=== PATIENT | male | born 1940 | race Caucasian/White ===

== ENCOUNTER 2016-09-17 08:25 | Day surgery (SDC) | payer BC ==
[~2016-09-17] VITALS: Ht 171.5 cm; Wt 87.0 kg
[~2016-09-17 08:25] MED LIST: AMLO5TAB2 PO; ASCA500 PO; ASPI81TA28 PO; CARB25TA12 PO; CEPH500C2 PO; FERR1TAB13 PO; HYZ/10015 PO; OMEP20CA9 PO; PRAM0.5T10 PO; RXC5 PO; VITACAP37 PO
[2016-09-17 09:17] VITALS: BP 147/74; PULSE 77; TEMP 36.7; O2SAT 97; Ht 171.5 cm; Wt 87.0 kg
--- NOTE | 2016-09-17 11:04 | Discharge Instructions ---
Discharge Instructions Procedure Procedure Date: Sep 17, 2016. Reason for visit: Retroperitoneal, Pelvic Mass. Discharge Discharge Date: Sep 17, 2016. Discharge Diagnosis: s/p FNA of small bowel mesenteric mass Instructions Activity Recommendations: No limitations Return to School/Work: no limitations Recommended Home Diet: No Limitations Provider Instructions: ACTIVITY RECOMMENDATIONS: * Rest today. * Resume regular activity in one day. MEDICATIONS: * May take Tylenol or Ibuprofen as needed for pain. DIET: * Resume previous diet. SPECIAL CARE INSTRUCTIONS: Call your doctor if: * Temperature above 101 degrees F. * Pain not relieved by pain medicine ordered. * Increased drainage or redness from incision. * Notify your doctor with any questions or concerns. Call your doctor or go to the nearest Emergency Department if you experience: * Increased chest pain or shortness of breath. FOLLOW UP VISIT: Follow-up with Referring Physician as scheduled. Allergies Coded Allergies: Corticosteroids (Verified Adverse Reaction, Unknown, AVOID DUE TO GASTRIC ULCER, 09/17/16) NSAIDs (Verified Adverse Reaction, Unknown, due to gastric ulcer, 09/17/16) Dave Patten Recommendations: Call your doctor if: * Temperature above 101 degrees * Pain not relieved by pain medicine ordered * There is increased drainage or redness from any incision * You have any unanswered questions or concerns. Your Doctors Instructions noted above were prepared by provider Ronald Ha. Patient Signature Section: Patient Instructions Signature Page Romeo Jeffers Patient (or Guardian) Signature/Date: I have read and understand the instructions given to me by my caregivers. Caregiver/RN/Doctor Signature/Date: The above-named patient and/or guardian has received patient instructions on this date. + Original Patient Signature Page (only) stays with chart. Please make copy for patient.
[2016-09-17 11:10] VITALS: BP 136/79; PULSE 73; TEMP 36.6; O2SAT 98
--- NOTE | 2016-09-17 11:18 | DIAGNOSTIC IMAGING REPORT ---
CT GUIDED FINE ASPIRATION OF SMALL BOWEL MESENTERIC MASS CT DOSE: 3951.52 mGycm CLINICAL HISTORY: Abdominal mass. COMPARISON STUDY: CT of the abdomen and pelvis May 14, 2016. PROCEDURE: The procedure, risks and benefits were discussed with the patient including the risk of bleeding, infection and injury to adjacent structures, particularly the risk of bowel injury. The patient agreed to the procedure and informed written consent was obtained. The procedure was performed by Dr. Ha following a timeout. Unenhanced CT through the lower abdomen and upper pelvis was performed and demonstrated an 8.3 x 6.5 cm lobulated somewhat hyperdense mass within the right lower quadrant, possibly originating from a small bowel loop. This mass has increased in size since CT of May 14, 2016 per Skin of the lower abdomen was prepped and draped in sterile fashion and local anesthesia was achieved with 1% lidocaine. Under intermittent CT guidance, 2 22-gauge fine needle aspirations utilizing Tres needles were performed of the mass. The samples were deemed preliminarily adequate with spindle cells noted on preliminary pathology. The patient tolerated the procedure well and no immediate complications were evident. IMPRESSION: CT-guided fine needle aspiration of the right lower quadrant small bowel mass extending into the small bowel mesentery. Electronically signed by: Ronald Ha M.D. 09/17/2016 11:16 AM Dictated Date/Time: 09/17/2016 11:12 AM
[2016-09-17 11:20] VITALS: BP 139/76; PULSE 69; TEMP 36.6; O2SAT 96
[2016-09-17 11:40] VITALS: BP 146/78; PULSE 70; TEMP 36.4; O2SAT 98
[2016-09-17 12:20] VITALS: BP 153/69; PULSE 78; TEMP 36.7; O2SAT 98
[2016-09-17 12:40] VITALS: BP 127/66; PULSE 74; TEMP 36.7; O2SAT 100
[2016-10-25] MEDS ORDERED: PRAM0.75 PO (09:05)
[2016-10-25] MEDS ORDERED: RESTLESS LEG MED (09:06)
[2016-10-25] MEDS ORDERED: GABAPENTIN ENACARBIL PO (10:08)
[2016-11-13] MEDS ORDERED: FERR1TAB13 PO (12:00)
[2016-11-15] MEDS ORDERED: OXYC-57 PO (08:31)
[2017-04-08] MEDS ORDERED: ASCO500T16 PO (13:43)
[2017-04-08] MEDS ORDERED: GLV/100 PO (13:43)
[2017-04-08] MEDS ORDERED: GABA-774 PO (13:43)
[2017-04-08] MEDS ORDERED: IMAT100T (13:43)
== END 2016-09-17 13:05 | disposition home or self-care (01) ==
LOC: C.ACU 08:25
PROVIDERS: ATTEND Internal Medicine Hematology & Oncology
DX: D49.0 Neoplasm of unspecified behavior of digestive system (principal)

== ENCOUNTER → 2016-10-01 | Outpatient (CLI) | payer BC ==
[~2016-10-01] MED LIST changes: +ASCO500T16 PO; -CEPH500C2 PO; +GABA-774 PO; +GABAPENTIN ENACARBIL PO; +GLV/100 PO; +IMAT100T; +OPTIRAY 320 IV PRN; +OXYC-57 PO; +PRAM0.75 PO; +RESTLESS LEG MED
--- NOTE | 2016-10-01 09:41 | DIAGNOSTIC IMAGING REPORT ---
CT OF THE CHEST WITH IV CONTRAST CLINICAL HISTORY: Anemia, lymphadenopathy, gastrointestinal stromal tumor COMPARISON STUDY: 06/04/2016 TECHNIQUE: Following the IV administration of 91 mL of Optiray-320, CT of the thorax was performed from the thoracic inlet to the lung bases. Images are reviewed in the axial, sagittal, and coronal planes. IV contrast was administered without complication. CT DOSE: 438.62 mGy.cm FINDINGS: Thyroid: There is a 8 mm left lobe thyroid nodule. Thoracic aorta: The thoracic aorta is normal in course and caliber, noting standard 3-vessel arch anatomy. No aneurysm or dissection is seen. Pulmonary vasculature: The pulmonary trunk is normal in caliber. There are no central filling defects identified to suggest pulmonary embolus. Note that this examination was not protocoled for the evaluation of pulmonary emboli. HEART: There are coronary artery calcifications present. Lungs and pleural spaces: No pleural effusions are visualized. There is a stable 6 mm groundglass left upper lobe pulmonary nodule as visualized in image #[id number]. Mediastinum: There is no mediastinal lymphadenopathy. Beryl: Clear. Axilla: Clear. Upper abdomen: Is calcified gallstone. There is mild hepatic steatosis. Skeletal structures: There are no lytic or blastic osseous lesions. IMPRESSION: 1. 6 mm groundglass left upper lobe pulmonary nodule which in retrospect remains unchanged from the preceding study 2. Subcentimeter left lobe thyroid nodule 3. No evidence of focal pulmonary consolidation 4. No evidence of pathologic adenopathy 5. Hepatic steatosis 6. Cholelithiasis. Please refer to below summary of Fleischner criteria recommendations for follow-up of incidental CT nodules (Girish Aldana, Guidelines for management of small pulmonary nodules detected on CT scans: A statement from the Fleischner Society, Radiology 237: [phone].) Low Risk Patient: Minimal or no smoking or other known risk factors for malignancy <=4 mm: No follow-up needed. >4-6 mm: Initial follow-up CT at 12 months; if unchanged, no further follow-up. >6-8 mm: Initial follow-up CT at 6-12 months then at 18-24 months if no change. >8 mm: Follow-up CT at \R\3, 9, 24 months, or PET and/or biopsy. High Risk Patient: History of smoking or other known risk factors <=4 mm: Follow-up at 12 months; if unchanged, no further follow-up. >4-6 mm: Initial follow-up CT at 6-12 months then at 18-24 months if no change. >6-8 mm: Initial follow-up CT at 3-6 months then at 9-12 and 24 months if no change. >8 mm: Same as low risk patient. Note: Nodule size measured as average of length and width. Ground glass or partly solid nodules may require longer follow-up to exclude indolent adenocarcinoma. Electronically signed by: Jorge Jama M.D. 10/01/2016 9:39 AM Dictated Date/Time: 10/01/2016 9:32 AM
== END | disposition home or self-care (01) ==
LOC: C.CTS 09:14
PROVIDERS: ATTEND Internal Medicine Hematology & Oncology
DX: C49.A0 Gastrointestinal stromal tumor, unspecified site (principal); R91.1 Solitary pulmonary nodule; E04.1 Nontoxic single thyroid nodule; K76.0 Fatty (change of) liver, not elsewhere classified; K80.20 Calculus of gallbladder without cholecystitis without obstruction

== ENCOUNTER → 2016-11-13 | Day surgery (SDC) | payer BC ==
[2016-10-31 15:14] VITALS: Ht 171.5 cm; Wt 89.4 kg
[~2016-11-13] VITALS: Ht 171.5 cm; Wt 89.4 kg
[~2016-11-13] MED LIST changes: +LIDOCAINE HCL 2% 2 ML VIAL (20MG/ML) ONE; -OPTIRAY 320 IV PRN; -PRAM0.5T10 PO; +PROPOFOL IV EMULSION 10 MG/ML 20 ML VIAL IV ONE; -RESTLESS LEG MED; -RXC5 PO; +SODIUM CHLORIDE 0.9% 500ML 500 ML IV ONE
--- NOTE | 2016-11-13 12:38 | Endo History and Physical ---
History & Physical Date of Service: Nov 13, 2016. Chief Complaint: ulcer of ileum Referring Physician: Dr. Maximiliano Miller History of Present Illness 76 yo CM who presents for colonoscopy secondary to ulcer of the ileum. Past Surgical History Hx Cardiac Surgery: No Hx Internal Defibrillator: No Hx Pacemaker: No Hx Abdominal Surgery: Yes (EXP LAPAROTOMY (SCHLEROSING MESENTERITIS)) Hx of Implantable Prosthesis: No Hx Post-Op Nausea and Vomiting: No Hx Cancer Surgery: No Hx Thoracic Surgery: No Hx Orthopedic: Yes (BROKEN LEFT RING FINGER AND LEFT PINKY FINGER AMUTATED 2015) Hx Urinary Tract Surgery: No Social History Smoking Status: Never Smoker Hx Substance Use: No Hx Alcohol Use: No Allergies Coded Allergies: Corticosteroids (Verified Adverse Reaction, Unknown, AVOID DUE TO GASTRIC ULCER, 10/31/16) NSAIDs (Verified Adverse Reaction, Unknown, due to gastric ulcer, 10/25/16) Current Medications Reported Home Medications Medications Dose Route/Sig Max Daily Dose Days Date Category Kp Ferrous Sulfate (Ferrous Sulfate) 325 Mg Tab 1 Tab PO BID 30 11/13/16 Reported [Gabapentin Enacarbil] 600 Mg PO QPM 10/25/16 Reported Mirapex (Pramipexole Dihydrochloride) 0.75 Mg Tab 1 Tab PO HS 10/25/16 Reported E-400 (Vitamin E) 400 Unit Cap 1 Tab PO QAM 06/03/16 Reported Vitamin C (Ascorbic Acid) 500 Mg Tab 1 Tab PO QAM 06/03/16 Reported Aspirin Ec (Aspirin) 81 Mg Tab 81 Mg PO QAM 06/03/16 Reported Sinemet 25MG/100MG (Carbidopa/Levodopa) Tab 1 Tab PO HS PRN 06/03/16 Reported Hyzaar 25MG/100MG (HCTZ/Losartan Potassium) Tab 1 Tab PO QAM 10/12/12 Reported Prilosec (Omeprazole) 20 Mg Cap 20 Mg PO BID 10/02/12 Reported Norvasc (Amlodipine Besylate) 5 Mg Tab 1.5 Tab PO QAM 10/02/12 Reported Vital Signs Weight (Kilograms): 89.4 Height (Feet): 5 Height (Inches): 7.5 Date Time Temp Pulse Resp B/P Pulse Ox O2 Delivery O2 Flow Rate FiO2 11/13/16 12:04 36.6 75 22 151/61 99 Room Air Physical Exam General Appearance: WD/WN, no apparent distress Respiratory/Chest: Auscultation: breath sounds normal Cardiovascular: Heart Auscultation: RRR Abdomen: Bowel Sounds: normal Inspection & Palpation: soft, non-distended, no tenderness, guarding & rebound Assessment and Plan Assessment: 76 yo CM who presents for colonoscopy secondary to ulcer of the ileum. Plan: Proceed with colonoscopy.
--- NOTE | 2016-11-13 13:18 | GI REPORT ---
Procedure Date: 11/13/2016 12:36 PM Procedure: Colonoscopy Indications: Ulcers of terminal ileum Medicines: Monitored Anesthesia Care Complications: No immediate complications. Estimated Blood Loss: Estimated blood loss: none. Procedure: Pre-Anesthesia Assessment: - Prior to the procedure, a History and Physical was performed, and patient medications and allergies were reviewed. The patient's tolerance of previous anesthesia was also reviewed. The risks and benefits of the procedure and the sedation options and risks were discussed with the patient. All questions were answered, and informed consent was obtained. Prior Anticoagulants: The patient has taken aspirin, last dose was 4 days prior to procedure. ASA Grade Assessment: III - A patient with severe systemic disease. After reviewing the risks and benefits, the patient was deemed in satisfactory condition to undergo the procedure. After I obtained informed consent, the scope was passed under direct vision. Throughout the procedure, the patient's blood pressure, pulse, and oxygen saturations were monitored continuously. The scope was introduced through the anus and advanced to the terminal ileum. The colonoscopy was performed without difficulty. The patient tolerated the procedure well. The quality of the bowel preparation was good. The terminal ileum, ileocecal valve, appendiceal orifice, and rectum were photographed. Findings: A 4 mm polyp was found in the ascending colon. The polyp was sessile. The polyp was removed with a hot snare. Resection was complete, but the polyp tissue was not retrieved. A small amount of Hematin (altered blood/wdyzzh-[id number]-qjpu material) was found in the entire colon. Scattered small-mouthed diverticula were found in the entire colon. Non-bleeding internal hemorrhoids were found during retroflexion. The hemorrhoids were small. Localized mild inflammation characterized by congestion (edema) and erythema was found in the rectum. Biopsies were taken with a cold forceps for histology. Impression: - One 4 mm polyp in the ascending colon, removed with a hot snare. Complete resection. Polyp tissue not retrieved. - Blood in the entire examined colon. - Diverticulosis in the entire examined colon. - Non-bleeding internal hemorrhoids. - Localized mild inflammation was found in the rectum secondary to colitis. Biopsied. Recommendation: - Resume previous diet. - Continue present medications. - Repeat colonoscopy in 5 years for surveillance. - Return to primary care physician as previously scheduled. Manjinder Lorenzo, DO 11/13/2016 1:17:12 PM This report has been signed electronically. Note Initiated On: 11/13/2016 12:36 PM I attest to the content of the Intraoperative Record and orders documented therein, exceptions below
--- NOTE | 2016-11-13 13:25 | Discharge Instructions ---
Endoscopy Patient Instructions Date / Procedure(s) Performed Nov 13, 2016. Colonoscopy Allergy Information Coded Allergies: Corticosteroids (Verified Adverse Reaction, Unknown, AVOID DUE TO GASTRIC ULCER, 10/31/16) NSAIDs (Verified Adverse Reaction, Unknown, due to gastric ulcer, 10/25/16) Discharge Date / Findings Nov 13, 2016. Colon polyp (not collected) Diverticulosis Internal hemorrhoids Medication Instructions Stopped Medication(s): stopped ASA 4 days ago OK to resume all medications today as prescribed. Reported Home Medications Medications Dose Route/Sig Max Daily Dose Days Date Category Kp Ferrous Sulfate (Ferrous Sulfate) 325 Mg Tab 1 Tab PO BID 30 11/13/16 Reported [Gabapentin Enacarbil] 600 Mg PO QPM 10/25/16 Reported Mirapex (Pramipexole Dihydrochloride) 0.75 Mg Tab 1 Tab PO HS 10/25/16 Reported E-400 (Vitamin E) 400 Unit Cap 1 Tab PO QAM 06/03/16 Reported Vitamin C (Ascorbic Acid) 500 Mg Tab 1 Tab PO QAM 06/03/16 Reported Aspirin Ec (Aspirin) 81 Mg Tab 81 Mg PO QAM 06/03/16 Reported Sinemet 25MG/100MG (Carbidopa/Levodopa) Tab 1 Tab PO HS PRN 06/03/16 Reported Hyzaar 25MG/100MG (HCTZ/Losartan Potassium) Tab 1 Tab PO QAM 10/12/12 Reported Prilosec (Omeprazole) 20 Mg Cap 20 Mg PO BID 10/02/12 Reported Norvasc (Amlodipine Besylate) 5 Mg Tab 1.5 Tab PO QAM 10/02/12 Reported Provider Instructions Activity Restrictions - No exercising or heavy lifting for 24 hours. - Do not drink alcohol the day of the procedure. - Do not drive a car or operate machinery until the day after the procedure. - Do not make any important decisions or sign important papers in 24 hours after the procedure. Following Day: - Return to full activity which may include returning to work/school. Diet Start your diet with liquids and light foods (jello, soup, juice, toast). Then eat your usual diet if not nauseated. Treatment For Common After Affects For mild abdominal pain, bloating, or excessive gas: - Rest - Eat lightly - Lie on right side Follow-Up Information Follow-up with Dr. Maximiliano Miller as scheduled Anesthesia Information What You Should Know You have had a procedure that required some medicine to reduce anxiety and discomfort. This treatment is called moderate sedation. After receiving the treatment, you may be sleepy, but you will be able to breathe on your own. The effects of the treatment may last for several hours. Follow these instructions along with Activity/Diet recommendations noted above: * Do NOT do anything where dizziness or clumsiness would be dangerous. * Rest quietly at home today, then you can be up and about tomorrow. * Have a responsible person stay with you the rest of today. * You may have had an I.V. today. If so, you may take the dressing off later today. Recommendations Call your doctor if: * Trouble breathing * Continuous vomiting for more than 24 hours * Temperature above 101 degrees * Severe abdominal pain or bloating * Pain not relieved by pain medicine ordered * There is increased drainage or redness from any incision * A large amount of rectal bleeding greater than 2-3 tablespoons. (If you had a polyp/s removed or have hemorrhoids, a small amount of blood - from the rectum is to be expected.) * You have any unanswered questions or concerns. IN THE EVENT OF A SERIOUS EMERGENCY, GO TO THE NEAREST EMERGENCY ROOM Your discharge instructions were prepared by provider Manjinder Lorenzo. Patient Instructions Signature Page Romeo Jeffesr Patient (or Guardian) Signature/Date: I have read and understand the instructions given to me by my caregivers. Caregiver/RN/Doctor Signature/Date: The above-named patient and/or guardian has received patient instructions on this date. + Original Patient Signature Page (only) stays with chart. Please make copy for patient.
[2016-11-13 13:44] VITALS: BP 145/77; PULSE 63; O2SAT 98
--- NOTE | 2016-11-13 13:53 | Anesthesiology Progress Note ---
Anesthesia Post Op Note Date & Time Nov 13, 2016 at 13:52 Vital Signs Pain Intensity: 0 Vital Signs Past 12 Hours Date Time Temp Pulse Resp B/P Pulse Ox O2 Delivery O2 Flow Rate FiO2 11/13/16 13:44 63 18 145/77 98 Room Air 11/13/16 13:24 62 18 135/68 98 Room Air 11/13/16 13:14 64 18 120/66 98 Room Air 11/13/16 12:59 80 16 111/61 97 Room Air 11/13/16 12:04 36.6 75 22 151/61 99 Room Air Notes Mental Status: alert / awake / arousable, participated in evaluation Pt Amnestic to Procedure: Yes Nausea / Vomiting: adequately controlled Pain: adequately controlled Airway Patency, RR, SpO2: stable & adequate BP & HR: stable & adequate Hydration State: stable & adequate Anesthetic Complications: no major complications apparent
== END | disposition home or self-care (01) ==
LOC: C.GI 11:33
PROVIDERS: ATTEND Internal Medicine
DX: K63.3 Ulcer of intestine (principal); K64.8 Other hemorrhoids; K57.30 Diverticulosis of large intestine without perforation or abscess without bleeding; Z98.890 Other specified postprocedural states; Z79.82 Long term (current) use of aspirin

== ENCOUNTER 2016-11-14 07:32 | Inpatient (IN) | payer BC, OTHER ==
--- NOTE | 2016-10-25 10:10 | PAT Medication Instructions ---
Service Date Oct 25, 2016. Current Home Medication List Amlodipine Besylate (Norvasc), 1.5 TAB PO QAM Ascorbic Acid (Vitamin C), 1 TAB PO QAM Aspirin (Aspirin Ec), 81 MG PO QAM Carbidopa/Levodopa (Sinemet 25MG/100MG), 1 TAB PO HS PRN for RESTLESS LEG Hctz/Losartan (Hyzaar 25MG/100MG), 1 TAB PO QAM Omeprazole (Prilosec), 20 MG PO BID Pramipexole Dihydrochloride (Mirapex), 1 TAB PO HS Vitamin E (E-400), 1 TAB PO QAM [Gabapentin Enacarbil], 600 MG PO QPM [Restless Leg Med ], Unknown Dose Medication Instructions For Your Scheduled Surgery Aspirin (Aspirin Ec), 81 MG PO QAM (patient will check with Dr. Martínez for instructions) - Hold the following medications 2 weeks prior to surgery: Vitamin E (E-400), 1 TAB PO QAM - Hold the following medications evening prior to surgery: Pramipexole Dihydrochloride (Mirapex), 1 TAB PO HS - Hold the following medications the morning of surgery: Hctz/Losartan (Hyzaar 25MG/100MG), 1 TAB PO QAM Ascorbic Acid (Vitamin C), 1 TAB PO QAM - Take the following medications the morning of surgery with a sip of water: Omeprazole (Prilosec), 20 MG PO BID Amlodipine Besylate (Norvasc), 1.5 TAB PO QAM - Take the following medications as scheduled the night before surgery: Gabapentin Enacarbil 600 MG PO QPM Carbidopa/Levodopa (Sinemet 25MG/100MG), 1 TAB PO HS PRN for RESTLESS LEG Omeprazole (Prilosec), 20 MG PO BID If you have any questions please call us at [phone] or [phone] ( [place]) or [phone]
[2016-10-25 10:52] LABS: BASO % 0.5 %; BASO ABS # 0.02 K/uL (0-0.2); COMPLETE YES; EOS % 4.4 %; HEMATOCRIT 32.3 % (42-52); IG% 0.5 %; LYMPH % 22.1 %; LYMPH ABS # 0.85 K/uL (1.2-3.4); MEAN CELL VOLUME 90.7 fL (80-100); MEAN CORPUSCULAR HEMOGLOBIN 29.8 pg (25-34); MEAN CORPUSCULAR HGB CONC 32.8 g/dl (32-36); MEAN PLATELET VOLUME 9.6 fL (7.4-10.4); MONO % 11.7 %; NEUT % 60.8 %; PLATELET COUNT 211 K/uL (130-400); RED BLOOD COUNT 3.56 M/uL (4.7-6.1); WHITE BLOOD COUNT 3.85 K/uL (4.8-10.8)
[2016-10-25 11:19] LABS: CALCIUM 8.3 mg/dl (8.5-10.1); CREATININE 0.9 mg/dl (0.60-1.40); POTASSIUM 3.9 mmol/L (3.5-5.1)
[2016-11-14] VITALS (9 sets, daily range): BP systolic 128–147; BP diastolic 63–76; PULSE 63–78; TEMP 36.5–37; O2SAT 93–100; Ht 172.7 cm; Wt 87.5 kg
[~2016-11-14] VITALS: Ht 172.7 cm; Wt 87.5 kg
[~2016-11-14 07:32] MED LIST changes: -ASCO500T16 PO; +CEFAZOLIN 2000 MG/60 ML D5W IV SCH; -GABA-774 PO; -GLV/100 PO; +HEPARIN SOD 5000 UNIT/0.5 ML CARP SC SCH; -IMAT100T; +LACTATED RINGER'S 1000ML 1,000 ML IV SCH; -LIDOCAINE HCL 2% 2 ML VIAL (20MG/ML) ONE; -OXYC-57 PO; -PROPOFOL IV EMULSION 10 MG/ML 20 ML VIAL IV ONE; -SODIUM CHLORIDE 0.9% 500ML 500 ML IV ONE
[2016-11-14] MEDS ORDERED: ONDANSETRON INJ 2 MG/ML 2 ML VIAL IV PRN ×3 (09:45→13:15)
[2016-11-14] MEDS ORDERED: MEPERIDINE HCL 25 MG/ML CARP IV PRN ×2 (09:45→10:45)
[2016-11-14] MEDS ORDERED: EpHEDrine SULFATE INJ 50 MG/ML AMP IV PRN ×2 (09:45→10:45)
[2016-11-14] MEDS ORDERED: ATROPINE SULFATE 0.1 MG/ML 5ML SYR IV PRN ×2 (09:45→10:45)
[2016-11-14] MEDS ORDERED: FENTANYL CITRATE INJ 50 MCG/1 ML 2 ML VIAL IV PRN ×2 (09:45→10:45)
[2016-11-14] MEDS ORDERED: HYDROmorphone INJ 1 MG/ML SYR IV PRN ×2 (09:45→10:45)
[2016-11-14] MEDS ORDERED: LABETALOL HCL IV 5 MG/ML 20ML IV PRN ×2 (09:45→10:45)
[2016-11-14] MEDS ORDERED: BUPIVACAINE/EPINEPHRINE 0.5% MPF 1:200,000 30 ML VIAL ONE (10:48)
[2016-11-14] MEDS ORDERED: MIDAZOLAM HCL 1 MG/ML 2ML VIAL ONE (10:50)
[2016-11-14] MEDS ORDERED: FENTANYL CITRATE INJ 50 MCG/1 ML 2 ML VIAL ONE (10:50)
--- NOTE | 2016-11-14 10:54 | History and Physical ---
History & Physical Date Nov 14, 2016. Chief Complaint pt was found incidentally to have an abdominal mass which was biopsied and shows gist tumor. here today for resection. History of Present Illness The patient is a 76 year old male with complaints of Past Medical/Surgical History Medical Problems: (1) Open fracture of phalanx of left little finger Additional History Hepatic Disease: No Endocrine Disorder: No Kidney Disease: No Hypertension: No Heart Disease: No Bleeding Tendencies: No Infectious Diseases: No Allergies Coded Allergies: Corticosteroids (Verified Adverse Reaction, Unknown, AVOID DUE TO GASTRIC ULCER, 11/14/16) NSAIDs (Verified Adverse Reaction, Unknown, due to gastric ulcer, 11/14/16) Home Medications Scheduled Amlodipine Besylate (Norvasc), 1.5 TAB PO QAM Ascorbic Acid (Vitamin C), 1 TAB PO QAM Aspirin (Aspirin Ec), 81 MG PO QAM Ferrous Sulfate (Kp Ferrous Sulfate), 1 TAB PO BID Hctz/Losartan (Hyzaar 25MG/100MG), 1 TAB PO QAM Omeprazole (Prilosec), 20 MG PO BID Pramipexole Dihydrochloride (Mirapex), 1 TAB PO HS Vitamin E (E-400), 1 TAB PO QAM [Gabapentin Enacarbil], 600 MG PO QPM Scheduled PRN Carbidopa/Levodopa (Sinemet 25MG/100MG), 1 TAB PO HS PRN for RESTLESS LEG Physical Examination Skin: warm/dry Eyes: normal inspection, EOMI ENT: normal ENT inspection Head: normocephalic Neck: supple Respiratory/Chest: lungs clear Cardiovascular: regular rate, rhythm, no edema Abdomen / GI: normal bowel sounds, non tender Extremities: normal inspection Neurologic/Psych: alert, oriented x 3 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
[2016-11-14] MEDS ORDERED: ONDANSETRON INJ 2 MG/ML 2 ML VIAL ONE (11:49)
[2016-11-14] MEDS ORDERED: ROCURONIUM BROMIDE 10 MG/ML 5 ML VIAL ONE (11:49)
[2016-11-14] MEDS ORDERED: HYDROmorphone INJ 2 MG/ML SYR/VIAL ONE (11:49)
[2016-11-14] MEDS ORDERED: GLYCOPYRROLATE INJ 0.2 MG/ML VIAL ONE (11:49)
[2016-11-14] MEDS ORDERED: NEOSTIGMINE METHYLSULFATE 5 MG/5 ML SYR ONE (11:49)
[2016-11-14] MEDS ORDERED: LIDOCAINE HCL 2% 2 ML VIAL (20MG/ML) ONE (11:49)
[2016-11-14] MEDS ORDERED: MoRPHine SULFATE 2 MG/ML CARP IV PRN (13:15)
[2016-11-14] MEDS ORDERED: MoRPHine SULFATE 4 MG/ML 1 ML CARP\\VIAL IV PRN ×2 (13:15)
[2016-11-14] MEDS ORDERED: ACETAMINOPHEN IV 100 ML IV PRN (13:15)
[2016-11-14] MEDS ORDERED: HYDROCODONE/ACETAMOPHEN 5/325MG TAB PO PRN ×2 (13:15)
--- NOTE | 2016-11-14 13:24 | [facility] Operative Report ---
Operative Report Operative Date Nov 14, 2016. 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 Any exceptions are noted below.
--- NOTE | 2016-11-14 13:34 | Anesthesiology Progress Note ---
Anesthesia Post Op Note Date & Time Nov 14, 2016 at 13:33 Vital Signs Pain Intensity: 2 Vital Signs Past 12 Hours Date Time Temp Pulse Resp B/P Pulse Ox O2 Delivery O2 Flow Rate FiO2 11/14/16 13:20 56 16 143/69 100 Nasal Cannula 2 11/14/16 13:10 64 16 149/74 100 Nasal Cannula 2 11/14/16 13:00 63 16 152/76 100 Mask 10 11/14/16 12:50 60 16 150/76 100 Mask 10 11/14/16 12:40 36.2 63 16 161/79 100 Mask 10 11/14/16 08:16 36.6 63 18 145/70 95 Room Air Notes Mental Status: alert / awake / arousable, participated in evaluation Pt Amnestic to Procedure: Yes Nausea / Vomiting: adequately controlled Pain: adequately controlled Airway Patency, RR, SpO2: stable & adequate BP & HR: stable & adequate Hydration State: stable & adequate Anesthetic Complications: no major complications apparent
[2016-11-14] MEDS: LACTATED RINGER'S 1000ML 1,000 ML IV SCH ×2 (15:15→20:53)
[2016-11-14] MEDS ORDERED: CEFAZOLIN SOD 2000 MG in DEXTROSE 5% 50ML IV SCH (15:30)
--- NOTE | 2016-11-14 16:04 | OPERATIVE REPORT ---
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 POSTOPERATIVE DIAGNOSES: Same as well as intra-abdominal adhesions as well as diffuse mesenteric fibrosis. PROCEDURES PERFORMED: Exploratory laparotomy, partial small bowel resection and enterolysis. SURGEON: Dr. Martínez. EXECUTIVE RECEPTIONIST: Erika Osorio PA-C. ESTIMATED BLOOD LOSS: Probably 20 mL. COMPLICATIONS: No immediate. ANESTHESIA: General endotracheal. The patient tolerated the procedure well. OPERATIVE NOTE: After informed consent was obtained, the patient was taken to the operating suite and placed in the supine position. After successful intubation, a Louie catheter was placed and the abdomen was sterilely prepped and draped in usual fashion. I made a midline incision through his old scar line using a 10 blade scalpel. This began above the umbilicus, curved around it down to the suprapubic region. We took this down through the soft tissue using electrocautery. I opened the fascia using electrocautery and elevated the peritoneum using hemostats. We performed this at the upper pole of the incision. Once we opened the peritoneum, I was quite surprised how few adhesions were to the midline considering his prior surgery. The midline was pretty much free of adhesions. I was able to take this down through the entire incision using electrocautery. Once in the abdomen, the mass itself was rather large, probably the size of a softball and it was readily palpable. There were adhesions in the abdominal cavity from his prior surgeries and I took these down as I came to them using primarily sharp Metzenbaum scissor lysis. We were able to deliver the tumor easily out of the wound. It was attached to the small bowel itself. It was in the distal one-third of the small bowel, but not near the ileocecal valve. I was able to transect small bowel on either side with a SHANEKA linear stapler. We used jeter cartridges. I then used the LigaSure device to come across the mesentery. Once the tumor was completely resected, we passed it off. I performed a side to side small bowel anastomosis again with a SHANEKA jeter cartridge stapler. The common enterotomy was closed using a TA 60 stapling device. A 3-[address] was [address] to [address] a crotch stitch as well as to oversew all the staple lines using Lembert fashion. I then closed the mesenteric defect using 0 Vicryl in a simple interrupted fashion. We then thoroughly irrigated the wound. Throughout the abdomen, he had very firm calcifications. 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 He is asymptomatic from these. I could see why they were not resected before as almost all of them are at the base of the mesentery making resection and even biopsy extremely dangerous for infarction of the small bowel. I considered whether or not to reperform a new biopsy; however, again because of location at the base of the mesentery, I opted not to since we already had a diagnosis. These nodules were throughout the small bowel mesentery from the proximal small bowel to the distal small bowel and varying sizes. There were extremely firm calcifications. No other abnormalities were identified or palpated. The remainder of the small bowel and large bowel appeared healthy. We performed the final irrigation. There was adequate hemostasis. We closed the fascia using a #1 PDS starting either pole running them and securing them in the midline. Soft tissue was irrigated and skin was closed using skin faviola. Silver dressing was applied. The patient was awakened, extubated, and transferred to recovery in stable condition. I attest to the content of the Intraoperative Record and any orders documented therein. Any exceptio ns are noted below.
[2016-11-15] VITALS (7 sets, daily range): BP systolic 118–157; BP diastolic 51–79; PULSE 70–78; TEMP 36.6–36.9; O2SAT 90–97
[2016-11-15] MEDS: LACTATED RINGER'S 1000ML 1,000 ML IV SCH ×3 (04:40→21:34)
[2016-11-15 06:08] LABS: BASO % 0.2 %; BASO ABS # 0.02 K/uL (0-0.2); COMPLETE YES; EOS % 0.4 %; HEMATOCRIT 35.3 % (42-52); IG% 0.1 %; LYMPH % 7.2 %; LYMPH ABS # 0.58 K/uL (1.2-3.4); MEAN CELL VOLUME 91.5 fL (80-100); MEAN CORPUSCULAR HEMOGLOBIN 30.1 pg (25-34); MEAN CORPUSCULAR HGB CONC 32.9 g/dl (32-36); MEAN PLATELET VOLUME 9.2 fL (7.4-10.4); MONO % 6.9 %; NEUT % 85.2 %; PLATELET COUNT 247 K/uL (130-400); RED BLOOD COUNT 3.86 M/uL (4.7-6.1); WHITE BLOOD COUNT 8.08 K/uL (4.8-10.8)
[2016-11-15 06:38] LABS: BUN/CREATININE RATIO 10.8 (10-20); CALCIUM 8.4 mg/dl (8.5-10.1); CREATININE 0.76 mg/dl (0.60-1.40); POTASSIUM 3.6 mmol/L (3.5-5.1)
[2016-11-15 06:41] LABS: ALB/GLOB RATIO 1.1 (0.9-2)
--- NOTE | 2016-11-15 08:30 | Surgery Progress Note ---
Surgery Progress Note Date of Service Nov 15, 2016. Subjective Post OP Day: 1 + feeling well main issue is his restless legs..did not get his oral meds for that incisional pain controlled has been oob no n/v Objective Vital Signs: Date Time Temp Pulse Resp B/P Pulse Ox O2 Delivery O2 Flow Rate FiO2 11/15/16 08:02 36.7 73 16 121/69 90 Room Air 11/15/16 03:05 36.9 77 19 139/51 93 Room Air 11/14/16 23:30 Room Air 11/14/16 23:06 36.7 78 18 144/67 93 Room Air 11/14/16 19:03 37.0 74 16 131/63 94 Room Air 11/14/16 17:34 36.5 72 18 134/65 99 Nasal Cannula 2.0 11/14/16 16:31 36.8 65 16 128/69 100 Nasal Cannula 2.0 11/14/16 16:30 97 Nasal Cannula 2.0 11/14/16 15:30 36.9 71 16 136/76 97 Nasal Cannula 2.0 11/14/16 15:03 36.6 76 19 131/74 100 Nasal Cannula 2.0 11/14/16 14:25 36.5 72 16 147/76 99 Nasal Cannula 2.0 11/14/16 14:25 99 Room Air 2.0 11/14/16 14:25 99 Nasal Cannula 2.0 11/14/16 14:00 36.4 69 18 137/62 100 Nasal Cannula 2 11/14/16 13:50 36.4 69 14 137/69 100 Nasal Cannula 2 11/14/16 13:40 55 16 132/64 100 Nasal Cannula 2 11/14/16 13:30 36.4 56 14 133/66 100 Nasal Cannula 2 11/14/16 13:20 56 16 143/69 100 Nasal Cannula 2 11/14/16 13:10 64 16 149/74 100 Nasal Cannula 2 11/14/16 13:00 63 16 152/76 100 Mask 10 11/14/16 12:50 60 16 150/76 100 Mask 10 11/14/16 12:40 36.2 63 16 161/79 100 Mask 10 General Appearance: no apparent distress Abdomen: non distended, soft Incision(s): clean, dry, intact Laboratory Results: Results Past 24 Hours Test 11/14/16 08:36 11/14/16 12:44 11/15/16 05:43 Range/Units Bedside Glucose 107 117 70-99 mg/dl White Blood Count 8.08 4.8-10.8 K/uL Red Blood Count 3.86 4.7-6.1 M/uL Hemoglobin 11.6 14.0-18.0 g/dL Hematocrit 35.3 42-52 % Mean Corpuscular Volume 91.5 80-100 fL Mean Corpuscular Hemoglobin 30.1 25-34 pg Mean Corpuscular Hemoglobin Concent 32.9 32-36 g/dl Platelet Count 247 130-400 K/uL Mean Platelet Volume 9.2 7.4-10.4 fL Neutrophils (%) (Auto) 85.2 % Lymphocytes (%) (Auto) 7.2 % Monocytes (%) (Auto) 6.9 % Eosinophils (%) (Auto) 0.4 % Basophils (%) (Auto) 0.2 % Neutrophils # (Auto) 6.88 1.4-6.5 K/uL Lymphocytes # (Auto) 0.58 1.2-3.4 K/uL Monocytes # (Auto) 0.56 0.11-0.59 K/uL Eosinophils # (Auto) 0.03 0-0.5 K/uL Basophils # (Auto) 0.02 0-0.2 K/uL RDW Standard Deviation 47.1 36.4-46.3 fL RDW Coefficient of Variation 14.0 11.5-14.5 % Immature Granulocyte % (Auto) 0.1 % Immature Granulocyte # (Auto) 0.01 0.00-0.02 K/uL Sodium Level 144 136-145 mmol/L Potassium Level 3.6 3.5-5.1 mmol/L Chloride Level 107 98-107 mmol/L Carbon Dioxide Level 28 21-32 mmol/L Anion Gap 9.0 3-11 mmol/L Blood Urea Nitrogen 8 7-18 mg/dl Creatinine 0.76 0.60-1.40 mg/dl Est Creatinine Clear Calc Drug Dose 90.9 ml/min Estimated GFR () 104.2 Estimated GFR (Non- 89.9 BUN/Creatinine Ratio 10.8 10-20 Random Glucose 91 70-99 mg/dl Calcium Level 8.4 8.5-10.1 mg/dl Total Bilirubin 0.5 0.2-1 mg/dl Aspartate Amino Transf (AST/SGOT) 16 15-37 U/L Alanine Aminotransferase (ALT/SGPT) 24 12-78 U/L Alkaline Phosphatase 47 45-117 U/L Total Protein 5.7 6.4-8.2 gm/dl Albumin 3.0 3.4-5.0 gm/dl Globulin 2.7 2.5-4.0 gm/dl Albumin/Globulin Ratio 1.1 0.9-2 Assessment & Plan 09/17/16 no acute issues will restart home leg meds increase activity d/c tarsha Larose covering for weekend
[2016-11-15] MEDS ORDERED: OXYC-57 PO (08:31)
--- NOTE | 2016-11-15 08:33 | Discharge Instructions ---
Discharge Instructions Date of Service Nov 15, 2016. Admission Reason for Admission: Gist Tumor Discharge Discharge Diagnosis / Problem: GIST tumor small bowel Discharge Goals Goal(s): Therapeutic intervention Activity Recommendations Activity Limitations: as noted below Lifting Limitations: no more than 10 pounds Exercise/Sports Limitations: until after follow-up appointment May Resume Sexual Activity: after follow-up appointment Shower/Bathe: no limitations . Instructions / Follow-Up Instructions / Follow-Up call [phone] if any problems/questions f/u Dr. Martínez 1-2 weeks Current Hospital Diet Patient's current hospital diet: Discharge Diet Recommended Diet: Regular Diet Procedures Procedures Performed: Open Partial Small Bowel Resection Pending Studies Studies pending at discharge: yes List of pending studies: path report Medical Emergencies . Who to Call and When: Medical Emergencies: If at any time you feel your situation is an emergency, please call 911 immediately. . Non-Emergent Contact Non-Emergency issues call your: Primary Care Provider, Surgeon Call Non-Emergent contact if: temperature is above 101, wound has increased drainage, wound has increased redness, wound has increased pain . "Provider Documentation" section prepared by Keyur Martínez. VTE Core Measure Inpt VTE Proph given/why not?: Unfractionated heparin SQ, SCD's
[2016-11-15] MEDS ORDERED: PRAMIPEXOLE DIHYDROCHLORIDE 0.25MG TAB PO SCH (09:00)
[2016-11-15] MEDS ORDERED: GABAPENTIN 600 MG TAB PO SCH ×2 (09:00→21:00)
[2016-11-15] MEDS ORDERED: CARBIDOPA/LEVODOPA 25/100MG EXT REL TAB PO SCH ×2 (09:00)
[2016-11-15] MEDS: AMLODIPINE BESYLATE 5 MG TAB PO SCH (09:06)
[2016-11-15] MEDS: CARBIDOPA/LEVODOPA 25/100MG EXT REL TAB PO SCH (19:10)
[2016-11-15] MEDS: PRAMIPEXOLE DIHYDROCHLORIDE 0.25MG TAB PO SCH (19:11)
[2016-11-16] MEDS: LACTATED RINGER'S 1000ML 1,000 ML IV SCH ×3 (04:44→21:12)
[2016-11-16 05:50] LABS: BASO % 0.1 %; BASO ABS # 0.01 K/uL (0-0.2); COMPLETE YES; EOS % 5.2 %; HEMATOCRIT 33.6 % (42-52); IG% 0.1 %; LYMPH % 10.7 %; LYMPH ABS # 0.74 K/uL (1.2-3.4); MEAN CELL VOLUME 92.1 fL (80-100); MEAN CORPUSCULAR HEMOGLOBIN 29.9 pg (25-34); MEAN CORPUSCULAR HGB CONC 32.4 g/dl (32-36); MEAN PLATELET VOLUME 9.1 fL (7.4-10.4); MONO % 10.3 %; NEUT % 73.6 %; PLATELET COUNT 217 K/uL (130-400); RED BLOOD COUNT 3.65 M/uL (4.7-6.1)
[2016-11-16 07:35] VITALS: BP 158/88; PULSE 68; TEMP 36.9; O2SAT 96
[2016-11-16] MEDS: AMLODIPINE BESYLATE 5 MG TAB PO SCH (08:47)
--- NOTE | 2016-11-16 10:30 | Surgery Progress Note ---
Surgery Progress Note Date of Service Nov 16, 2016. Subjective Post OP Day: 2 + feeling well slept well. restless legs doing much better on meds. no complaints. dontrell liquids. pain controlled Objective Vital Signs: Date Time Temp Pulse Resp B/P Pulse Ox O2 Delivery O2 Flow Rate FiO2 11/16/16 07:35 36.9 68 17 158/88 96 Room Air 11/16/16 07:35 Room Air 11/15/16 23:48 Room Air 11/15/16 22:57 36.7 70 16 118/69 95 Room Air 11/15/16 16:00 97 Room Air 11/15/16 15:07 36.6 78 18 157/79 94 Room Air 11/15/16 11:48 36.8 72 14 135/67 95 Room Air General Appearance: no apparent distress Head: normocephalic Neck: supple Respiratory/Chest: no respiratory distress, no accessory muscle use Abdomen: non distended, soft Incision(s): clean, dry, intact Extremities: non-tender Laboratory Results: Results Past 24 Hours Test 11/16/16 05:27 Range/Units White Blood Count 6.90 4.8-10.8 K/uL Red Blood Count 3.65 4.7-6.1 M/uL Hemoglobin 10.9 14.0-18.0 g/dL Hematocrit 33.6 42-52 % Mean Corpuscular Volume 92.1 80-100 fL Mean Corpuscular Hemoglobin 29.9 25-34 pg Mean Corpuscular Hemoglobin Concent 32.4 32-36 g/dl Platelet Count 217 130-400 K/uL Mean Platelet Volume 9.1 7.4-10.4 fL Neutrophils (%) (Auto) 73.6 % Lymphocytes (%) (Auto) 10.7 % Monocytes (%) (Auto) 10.3 % Eosinophils (%) (Auto) 5.2 % Basophils (%) (Auto) 0.1 % Neutrophils # (Auto) 5.07 1.4-6.5 K/uL Lymphocytes # (Auto) 0.74 1.2-3.4 K/uL Monocytes # (Auto) 0.71 0.11-0.59 K/uL Eosinophils # (Auto) 0.36 0-0.5 K/uL Basophils # (Auto) 0.01 0-0.2 K/uL RDW Standard Deviation 46.6 36.4-46.3 fL RDW Coefficient of Variation 13.8 11.5-14.5 % Immature Granulocyte % (Auto) 0.1 % Immature Granulocyte # (Auto) 0.01 0.00-0.02 K/uL Assessment & Plan 09/18/16 doing very well awaiting bowel fx pain controlled wound looks good. 09/17/16 no acute issues will restart home leg meds increase activity d/c [place] start juliane Larose covering for weekend 09/17/16 no acute issues will restart home leg meds increase activity d/c [place] start juliane Larose covering for weekend
[2016-11-16 14:55] VITALS: BP 147/77; PULSE 75; TEMP 37; O2SAT 96
[2016-11-16 16:00] VITALS: O2SAT 96
[2016-11-16] MEDS: PRAMIPEXOLE DIHYDROCHLORIDE 0.25MG TAB PO SCH (19:17)
[2016-11-16] MEDS: CARBIDOPA/LEVODOPA 25/100MG EXT REL TAB PO SCH (19:18)
[2016-11-16 22:55] VITALS: BP 111/52; PULSE 73; TEMP 37.1; O2SAT 96
[2016-11-17] MEDS: LACTATED RINGER'S 1000ML 1,000 ML IV SCH (04:57)
[2016-11-17 05:52] LABS: BASO % 0.1 %; BASO ABS # 0.01 K/uL (0-0.2); COMPLETE YES; EOS % 3.3 %; HEMATOCRIT 32.9 % (42-52); IG% 0.2 %; LYMPH % 7.7 %; LYMPH ABS # 0.78 K/uL (1.2-3.4); MEAN CELL VOLUME 93.5 fL (80-100); MEAN CORPUSCULAR HEMOGLOBIN 29.8 pg (25-34); MEAN CORPUSCULAR HGB CONC 31.9 g/dl (32-36); MEAN PLATELET VOLUME 9.5 fL (7.4-10.4); MONO % 5.2 %; NEUT % 83.5 %; PLATELET COUNT 221 K/uL (130-400); RED BLOOD COUNT 3.52 M/uL (4.7-6.1); WHITE BLOOD COUNT 10.09 K/uL (4.8-10.8)
[2016-11-17 08:06] VITALS: BP 130/72; PULSE 76; TEMP 36.9; O2SAT 94
[2016-11-17] MEDS: AMLODIPINE BESYLATE 5 MG TAB PO SCH (09:02)
--- NOTE | 2016-11-17 09:19 | Surgery Progress Note ---
Surgery Progress Note Date of Service Nov 17, 2016. Subjective Post OP Day: 3 + feeling well + bm's...multiple/loose minimal abdominal pain dontrell liquid diet Objective Vital Signs: Date Time Temp Pulse Resp B/P Pulse Ox O2 Delivery O2 Flow Rate FiO2 11/17/16 09:09 Room Air 11/17/16 08:06 36.9 76 19 130/72 94 Room Air 11/16/16 23:50 Room Air 11/16/16 22:55 37.1 73 16 111/52 96 Room Air 11/16/16 16:00 96 Room Air 11/16/16 14:55 37.0 75 18 147/77 96 Room Air General Appearance: no apparent distress Abdomen: non tender, non distended, soft Incision(s): clean, dry, intact, no erythema Laboratory Results: Results Past 24 Hours Test 11/17/16 05:34 Range/Units White Blood Count 10.09 4.8-10.8 K/uL Red Blood Count 3.52 4.7-6.1 M/uL Hemoglobin 10.5 14.0-18.0 g/dL Hematocrit 32.9 42-52 % Mean Corpuscular Volume 93.5 80-100 fL Mean Corpuscular Hemoglobin 29.8 25-34 pg Mean Corpuscular Hemoglobin Concent 31.9 32-36 g/dl Platelet Count 221 130-400 K/uL Mean Platelet Volume 9.5 7.4-10.4 fL Neutrophils (%) (Auto) 83.5 % Lymphocytes (%) (Auto) 7.7 % Monocytes (%) (Auto) 5.2 % Eosinophils (%) (Auto) 3.3 % Basophils (%) (Auto) 0.1 % Neutrophils # (Auto) 8.43 1.4-6.5 K/uL Lymphocytes # (Auto) 0.78 1.2-3.4 K/uL Monocytes # (Auto) 0.52 0.11-0.59 K/uL Eosinophils # (Auto) 0.33 0-0.5 K/uL Basophils # (Auto) 0.01 0-0.2 K/uL RDW Standard Deviation 48.0 36.4-46.3 fL RDW Coefficient of Variation 14.0 11.5-14.5 % Immature Granulocyte % (Auto) 0.2 % Immature Granulocyte # (Auto) 0.02 0.00-0.02 K/uL Assessment & Plan 09/19/16 doing great advance diet d/c ivf if dontrell diet and continues to do well will plan d/c home tomorrow 09/18/16 doing very well awaiting bowel fx pain controlled wound looks good. 09/17/16 no acute issues will restart home leg meds increase activity d/c [place] start juliane Larose covering for weekend 09/18/16 doing very well awaiting bowel fx pain controlled wound looks good. 09/17/16 no acute issues will restart home leg meds increase activity d/c tarsha Larose covering for weekend
[2016-11-17] MEDS ORDERED: NURSING VERBAL MED ORDER ONE (14:00)
[2016-11-17 15:14] VITALS: BP 112/64; PULSE 74; TEMP 37.1; O2SAT 95
[2016-11-17 16:00] VITALS: O2SAT 94
[2016-11-17] MEDS ORDERED: GABAPENTIN 600 MG TAB PO SCH (17:00)
[2016-11-17] MEDS ORDERED: GABAPENTIN 600 MG TAB PO ONE (17:30)
[2016-11-17] MEDS: CARBIDOPA/LEVODOPA 25/100MG EXT REL TAB PO SCH (18:52)
[2016-11-17] MEDS: PRAMIPEXOLE DIHYDROCHLORIDE 0.25MG TAB PO SCH (18:52)
[2016-11-17 23:49] VITALS: BP 139/76; PULSE 74; TEMP 36.9; O2SAT 94
[2016-11-18 06:25] LABS: BASO % 0.2 %; BASO ABS # 0.02 K/uL (0-0.2); COMPLETE YES; EOS % 4.6 %; HEMATOCRIT 34.7 % (42-52); IG% 0.1 %; LYMPH % 10.3 %; LYMPH ABS # 0.86 K/uL (1.2-3.4); MEAN CORPUSCULAR HEMOGLOBIN 30.3 pg (25-34); MEAN CORPUSCULAR HGB CONC 32.6 g/dl (32-36); MEAN PLATELET VOLUME 9.6 fL (7.4-10.4); MONO % 10.3 %; NEUT % 74.5 %; PLATELET COUNT 246 K/uL (130-400); RED BLOOD COUNT 3.73 M/uL (4.7-6.1); WHITE BLOOD COUNT 8.35 K/uL (4.8-10.8)
[2016-11-18 07:23] VITALS: BP 155/83; PULSE 69; TEMP 36.8; O2SAT 96
[2016-11-18] MEDS: AMLODIPINE BESYLATE 5 MG TAB PO SCH (08:52)
--- NOTE | 2016-11-18 09:05 | Surgery Progress Note ---
Surgery Progress Note Date of Service Nov 18, 2016. Subjective Post OP Day: 4 + feeling well no new issues. loose bm's improving. dontrell diet Objective Vital Signs: Date Time Temp Pulse Resp B/P Pulse Ox O2 Delivery O2 Flow Rate FiO2 11/18/16 07:54 Room Air 11/18/16 07:23 36.8 69 20 155/83 96 Room Air 11/18/16 00:55 Room Air 11/17/16 23:49 36.9 74 18 139/76 94 Room Air 11/17/16 16:00 94 Room Air 11/17/16 15:14 37.1 74 18 112/64 95 Room Air 11/17/16 09:09 Room Air General Appearance: no apparent distress Abdomen: non distended, soft Incision(s): clean, dry, intact Laboratory Results: Results Past 24 Hours Test 11/18/16 05:44 Range/Units White Blood Count 8.35 4.8-10.8 K/uL Red Blood Count 3.73 4.7-6.1 M/uL Hemoglobin 11.3 14.0-18.0 g/dL Hematocrit 34.7 42-52 % Mean Corpuscular Volume 93.0 80-100 fL Mean Corpuscular Hemoglobin 30.3 25-34 pg Mean Corpuscular Hemoglobin Concent 32.6 32-36 g/dl Platelet Count 246 130-400 K/uL Mean Platelet Volume 9.6 7.4-10.4 fL Neutrophils (%) (Auto) 74.5 % Lymphocytes (%) (Auto) 10.3 % Monocytes (%) (Auto) 10.3 % Eosinophils (%) (Auto) 4.6 % Basophils (%) (Auto) 0.2 % Neutrophils # (Auto) 6.22 1.4-6.5 K/uL Lymphocytes # (Auto) 0.86 1.2-3.4 K/uL Monocytes # (Auto) 0.86 0.11-0.59 K/uL Eosinophils # (Auto) 0.38 0-0.5 K/uL Basophils # (Auto) 0.02 0-0.2 K/uL RDW Standard Deviation 47.2 36.4-46.3 fL RDW Coefficient of Variation 13.9 11.5-14.5 % Immature Granulocyte % (Auto) 0.1 % Immature Granulocyte # (Auto) 0.01 0.00-0.02 K/uL Assessment & Plan 09/20/16 doing well. ok for d/c instructions given 09/19/16 doing great advance diet d/c ivf if dontrell diet and continues to do well will plan d/c home tomorrow 09/18/16 doing very well awaiting bowel fx pain controlled wound looks good. 09/17/16 no acute issues will restart home leg meds increase activity d/c tarsha Larose covering for weekend 09/19/16 doing great advance diet d/c ivf if dontrell diet and continues to do well will plan d/c home tomorrow 09/18/16 doing very well awaiting bowel fx pain controlled wound looks good. 09/17/16 no acute issues will restart home leg meds increase activity d/c tarsha Larose covering for weekend
[2016-11-18 10:04] VITALS: BP 155/83; PULSE 69; TEMP 36.8; O2SAT 96
--- NOTE | 2016-11-18 12:51 | DISCHARGE SUMMARY ---
DISCHARGE DIAGNOSIS: Small bowel gastrointestinal stromal tumor. DISCHARGE SUMMARY: This is a 76-year-old male who as an outpatient workup was incidentally found to have a large mass in his small intestine. A biopsy had been performed and showed a gastrointestinal stromal tumor. He was brought to the hospital on 11/14/2016 and electively underwent an open partial small bowel resection to remove the tumor. The surgery went without complication and smoothly. He was admitted to the med/surg floor for postoperative care. The patient essentially had an uncomplicated postoperative course. His pain was controlled and he was started on liquids on postop day 1. By postop day 2 the patient had been having some bowel movements and we slowly advanced his diet. We continued to monitor his labs as well as his pain control. By postoperative day 4 the patient was tolerating a regular diet. His bowels were moving regularly. His labs were normal and he was deemed stable for discharge. He was discharged on 11/18/2016 with written and verbal discharge instructions. He was to followup with myself within a 1 week period.
[2017-04-08] MEDS ORDERED: IMAT100T (13:43)
[2017-04-08] MEDS ORDERED: GLV/100 PO (13:43)
[2017-04-08] MEDS ORDERED: ASCO500T16 PO (13:43)
[2017-04-08] MEDS ORDERED: GABA-774 PO (13:43)
== END 2016-11-18 11:15 | disposition home or self-care (01) | DRG 988 ==
LOC: ENRESERVTM → ENRESERVDT → C.ACU 07:32 → C.MSN 10:45 → EDBEDREQ 13:35
PROVIDERS: ADMIT Surgery; ATTEND Surgery
PROC: 0DBB0ZZ Excision of Ileum, Open Approach (ICD-10-PCS; principal; 2016-11-14 09:30)
DX: C49.A3 Gastrointestinal stromal tumor of small intestine (principal); K65.4 Sclerosing mesenteritis; K66.0 Peritoneal adhesions (postprocedural) (postinfection); I10 Essential (primary) hypertension; K21.9 Gastro-esophageal reflux disease without esophagitis; M19.90 Unspecified osteoarthritis, unspecified site; R73.03 Prediabetes; D64.9 Anemia, unspecified; G25.81 Restless legs syndrome; G47.33 Obstructive sleep apnea (adult) (pediatric); E66.9 Obesity, unspecified; Z68.30 Body mass index [BMI] 30.0-30.9, adult; Z99.89 Dependence on other enabling machines and devices; Z79.82 Long term (current) use of aspirin; Z79.899 Other long term (current) drug therapy; K63.3 Ulcer of intestine; K64.8 Other hemorrhoids; K57.30 Diverticulosis of large intestine without perforation or abscess without bleeding; Z98.890 Other specified postprocedural states

== ENCOUNTER → 2016-11-27 | Outpatient (CLI) | payer BC ==
[~2016-11-27] MED LIST changes: +ASCO500T16 PO; -CEFAZOLIN 2000 MG/60 ML D5W IV SCH; +GABA-774 PO; +GLV/100 PO; -HEPARIN SOD 5000 UNIT/0.5 ML CARP SC SCH; +IMAT100T; -LACTATED RINGER'S 1000ML 1,000 ML IV SCH; +OXYC-57 PO
--- NOTE | 2016-12-04 05:33 | CODING QUERY NO DIAGNOSIS ---
TREATMENT RENDERED WITHOUT A DIAGNOSIS To promote full compliance with coding requirements relating to patient care, physician participation is requested in all cases of pediatric critical care nurse uncertainty. Please assist us with providing a diagnosis/symptom for the test(s) below: A diagnosis/symptom was not documented on your Order. A valid diagnosis/symptom is required to bill all insurances. Please remember that we are unable to code a diagnosis of rule out, probable, possible, questionable, or suspected. Tests that require a diagnosis: DOS: 11/27/16 * C-KIT DIAGNOSIS: * PDGRA DIAGNOSIS: Provider Signature: Date: Thank you Cici Villegas [facility] Information Management Once completed, please kindly fax back to [phone] For questions please call [phone]
== END | disposition home or self-care (01) ==
LOC: C.PATHSPEC 13:22
PROVIDERS: ATTEND Internal Medicine Hematology & Oncology
DX: C49.4 Malignant neoplasm of connective and soft tissue of abdomen (principal)

== ENCOUNTER → 2017-02-17 | Outpatient (CLI) | payer BC ==
[~2017-02-17] MED LIST changes: +FENTANYL CITRATE INJ 50 MCG/1 ML 2 ML VIAL ONE; +LIDOCAINE HCL 2% 2 ML VIAL (20MG/ML) ONE; +OPTIRAY 320 IV PRN; +PROPOFOL IV EMULSION 10 MG/ML 20 ML VIAL IV ONE
--- NOTE | 2017-02-17 11:03 | DIAGNOSTIC IMAGING REPORT ---
ABDOMEN AND PELVIS CT WITH IV AND ORAL CONTRAST CT DOSE: 820.41 mGy.cm HISTORY: GI stromal tumor. Postop. Follow-up. TECHNIQUE: Multiaxial CT images of the abdomen and pelvis were performed following the use of intravenous and oral contrast. COMPARISON STUDY: Abdomen and pelvis CT 05/23/2014. CT FNA 09/17/2016. FINDINGS: The lung bases are clear. No suspicious lytic or blastic osseous lesions. Hepatic steatosis. No hepatic masses. Cholelithiasis. The spleen, pancreas, and adrenal glands are unremarkable. Normal left kidney. Punctate stone within the right kidney. Stable 1.5 cm hypodense lesion within the lower pole of the right kidney. This likely represents a cyst. No hydronephrosis. Mild elevation of the mid to distal right ureter. No obstructing ureteral stones. Normal bladder. Small fat-containing bilateral inguinal hernias. The patient is status post resection of the right lower quadrant mass. There is an anastomotic suture seen within the ileal loops from the prior resection. No evidence for recurrent or residual mass. No bowel wall thickening or obstruction. Colonic diverticulosis. Normal appendix. Calcified central mesenteric mass is not significantly changed. However, the retroperitoneal and mesenteric lymphadenopathy has progressed. Dominant mesenteric lymph node measures 2.5 x 1.5 cm. Dominant left perinephric lymph node measures 2.8 x 1.6 cm. IMPRESSION: 1. Interval resection of the right lower quadrant mass. No evidence for recurrent or residual mass. 2. No significant change in the calcified mass within the central mesentery. This favors chronic sclerosing mesenteritis. 3. However, there has been progression of the retroperitoneal and mediastinal lymphadenopathy. Some of this could be related to the chronic sclerosing mesenteritis. However, a lymphoma or metastatic disease could also have a similar appearance. 4. Mild dilatation of the mid to distal right ureter. No obstructing ureteral stones. No hydronephrosis. 5. Additional findings as described above. Electronically signed by: Scott Rob M.D. 02/17/2017 11:01 AM Dictated Date/Time: 02/17/2017 10:47 AM
== END | disposition home or self-care (01) ==
LOC: C.CTS 07:57
PROVIDERS: ATTEND Internal Medicine Hematology & Oncology
DX: C49.A3 Gastrointestinal stromal tumor of small intestine (principal)

== ENCOUNTER → 2017-04-12 | Outpatient (CLI) | payer BC ==
[~2017-04-12] MED LIST changes: -FENTANYL CITRATE INJ 50 MCG/1 ML 2 ML VIAL ONE; -GABAPENTIN ENACARBIL PO; -IMAT100T; -LIDOCAINE HCL 2% 2 ML VIAL (20MG/ML) ONE; -OPTIRAY 320 IV PRN; -OXYC-57 PO; -PROPOFOL IV EMULSION 10 MG/ML 20 ML VIAL IV ONE
[2017-04-12 11:23] LABS: CHOLESTEROL/HDL RATIO 2.7; PROSTATE SPECIFIC ANTIGEN 4.55 ng/ml (0.000-4.000)
--- NOTE | 2017-04-17 12:53 | CODING QUERY MEDICAL NECESSITY ---
CQSUPPORTING DIAGNOSIS NEEDED A supporting diagnosis is required for the test/procedure performed on this patient in order for us to be reimbursed by the patient's insurance. Please provide a supporting diagnosis for the following test/procedure listed below next to the test name along with your signature. *If there is no additional diagnosis for this patient that would support the following test/procedure please document that below next to the test/procedure. Test(s)/Procedure(s) that require a supporting diagnosis: DOS 04/12/17 PROSTATE SPECIFIC ANTIGEN (PSA) Provider Signature: Date: Thank you Sara [facility] Information Management Once completed, please kindly fax back to [phone] For questions please call [phone]
== END | disposition home or self-care (01) ==
LOC: C.LABBC 08:00
PROVIDERS: ATTEND Internal Medicine
DX: C49.A0 Gastrointestinal stromal tumor, unspecified site (principal); E78.5 Hyperlipidemia, unspecified; R97.20 Elevated prostate specific antigen [PSA]; Z12.5 Encounter for screening for malignant neoplasm of prostate

== ENCOUNTER 2017-04-28 05:35 | Observation (INO) | payer BC ==
--- NOTE | 2017-04-08 14:21 | PAT Medication Instructions ---
Service Date Apr 08, 2017. Current Home Medication List Amlodipine Besylate (Norvasc), 1.5 TAB PO QAM Ascorbic Acid (Vitamin C), 2 TAB PO QAM Ascorbic Acid (Ascorbic Acid), 500 MG PO QPM Aspirin (Aspirin Ec), 81 MG PO QAM Carbidopa/Levodopa (Sinemet 25MG/100MG), 1 TAB PO HS Ferrous Sulfate (Kp Ferrous Sulfate), 1 TAB PO BID Gabapentin Enacarbil (Horizant), 600 MG PO QPM Hctz/Losartan (Hyzaar 25MG/100MG), 1 TAB PO QAM Imatinib Mesylate (Gleevec), 400 MG PO NOON Omeprazole (Prilosec), 20 MG PO BID Pramipexole Dihydrochloride (Mirapex), 1 TAB PO HS Vitamin E (E-400), 1 TAB PO QAM Medication Instructions For Your Scheduled Surgery - Check with surgeon/Dr. Miller for instructions: Aspirin (Aspirin Ec), 81 MG PO QAM - Check with surgeon/Dr. Perez for instructions: Imatinib Mesylate (Gleevec), 400 MG PO NOON - Hold the following medications 2 weeks prior to surgery: Vitamin E (E-400), 1 TAB PO QAM - Hold the following medications the morning of surgery: Hctz/Losartan (Hyzaar 25MG/100MG), 1 TAB PO QAM Ferrous Sulfate (Kp Ferrous Sulfate), 1 TAB PO BID Ascorbic Acid (Vitamin C), 2 TAB PO QAM - Take the following medications the morning of surgery with a sip of water: Omeprazole (Prilosec), 20 MG PO BID Amlodipine Besylate (Norvasc), 1.5 TAB PO QAM - Hold the following medications as scheduled the night before surgery: Pramipexole Dihydrochloride (Mirapex), 1 TAB PO HS - Take the following medications as scheduled the night before surgery: Omeprazole (Prilosec), 20 MG PO BID Gabapentin Enacarbil (Horizant), 600 MG PO QPM Ferrous Sulfate (Kp Ferrous Sulfate), 1 TAB PO BID Carbidopa/Levodopa (Sinemet 25MG/100MG), 1 TAB PO HS Ascorbic Acid (Ascorbic Acid), 500 MG PO QPM Horizant ER 600mg 1 tab HS If you have any questions please call us at [phone] or [phone] or [phone]
[2017-04-08 15:35] LABS: URINE APPEARANCE CLEAR (CLEAR); URINE BILIRUBIN NEG (NEG); URINE COLOR YELLOW; URINE NITRITE NEG (NEG); URINE SPECIFIC GRAVITY 1.024 (1.000-1.030); UROBILINOGEN NEG (NEG)
[2017-04-08 15:38] LABS: MANUAL MICROSCOPIC REQUIRED? NO; REVIEW REQ? NO
[2017-04-08 15:51] LABS: PROTHROMBIN TIME (PATIENT) 10.5 SECONDS (9.0-12.0)
--- NOTE | 2017-04-27 17:05 | HISTORY & PHYSICAL EXAMINATION ---
DATE OF ADMISSION: 04/28/2017 CHIEF COMPLAINT: Neurogenic claudication, pain with walking, numbness, tingling, and weakness to his lower extremities, essentially bilateral. He has a working diagnosis of severe spinal stenosis particularly at L4-L5 and lesser at L5-S1. He is scheduled for a laminectomy at L4-L5 and L5-S1. PAST MEDICAL HISTORY: Positive for sleep apnea, home ventilator, hypertension, anemia, arthritis, hiatal hernia, carcinoma, and kidney stones. PAST SURGICAL HISTORY: Exploratory abdominal procedure, removal of a tumor and hand surgery. SOCIAL HISTORY: Nonsmoker. Moderate alcohol intake. No illegal drugs ____. REVIEW OF SYSTEMS: He denies any blurred vision, double vision, tinnitus, or vertigo. Denies any chest pain, palpitation, or shortness of breath. No nausea, vomiting, urgency, frequency, or dysuria. There is no cauda equina symptoms. He has bilateral lower extremity difficulties, numbness, tingling and weakness. PHYSICAL EXAMINATION: GENERAL: He is alert and oriented, pleasant gentleman. VITAL SIGNS: Blood pressure 130/80, pulse of 80, respiratory rate 16, and temperature 97.4. HEENT: Pupils react to light and accommodation. Ear, nose and throat clear. ABDOMEN: Soft and nontender. MUSCULOSKELETAL: Cranial nerves intact II through XII. EXTREMITIES: Intact x4. He has some numbness and tingling in roughly the L4 and L5 nerve root distribution. He has decreased Achilles reflex. He has decreased strength in dorsiflexion of his feet. Images demonstrate multilevel spinal stenosis. IMPRESSION: Multilevel spinal stenosis, lumbar spine. DISPOSITION: Includes a lumbar laminectomy, L4-L5 and L5-S1 at [facility] on the 28 of April.
[2017-04-28] VITALS (9 sets, daily range): BP systolic 118–156; BP diastolic 66–81; PULSE 65–87; TEMP 36.4–37; O2SAT 94–99; Ht 170.2 cm; Wt 86.7 kg
[~2017-04-28] VITALS: Ht 170.2 cm; Wt 86.7 kg
[2017-04-28] MEDS ORDERED: CEFAZOLIN 2000 MG/60 ML D5W 60 ML IV SCH (06:00)
[2017-04-28] MEDS ORDERED: LACTATED RINGER'S 1000ML 1,000 ML IV SCH (06:00)
[2017-04-28] MEDS ORDERED: NSS 1000ML IV SCH (06:00)
[2017-04-28] MEDS ORDERED: HYDROmorphone INJ 2 MG/ML SYR/VIAL ONE (06:43)
[2017-04-28] MEDS ORDERED: MIDAZOLAM HCL 1 MG/ML 2ML VIAL ONE (06:43)
[2017-04-28] MEDS ORDERED: FENTANYL CITRATE INJ 50 MCG/1 ML 2 ML VIAL ONE (06:43)
[2017-04-28] MEDS ORDERED: LIDOCAINE HCL 2% 2 ML VIAL (20MG/ML) ONE (06:43)
[2017-04-28] MEDS ORDERED: ROCURONIUM BROMIDE 10 MG/ML 5 ML VIAL IV ONE (06:43)
[2017-04-28] MEDS ORDERED: VANCOMYCIN HCL 1000MG/20ML VIAL ONE (07:03)
[2017-04-28] MEDS ORDERED: BACITRACIN 50000 UNIT VIAL ONE (07:03)
[2017-04-28] MEDS ORDERED: BUPIVACAINE/EPINEPHRINE 0.5% MPF 1:200,000 10 ML VIAL ONE ×2 (07:03→07:04)
[2017-04-28] MEDS ORDERED: THROMBIN FOR SOLN 20000 UNIT KIT ONE (07:03)
[2017-04-28] MEDS ORDERED: GELATIN SPONGE SZ 100 ONE ×2 (07:03→09:43)
--- NOTE | 2017-04-28 07:21 | History & Physical Bridge Note ---
H&P Re-Evaluation Bridge Note: I have examined the patient, reviewed the History & Physical and in the interval since the performance of the History & Physical I have noted the following changes of clinical significance: No changes noted
[2017-04-28] MEDS ORDERED: NEOSTIGMINE METHYLSULFATE 5 MG/5 ML SYR ONE (08:25)
[2017-04-28] MEDS ORDERED: GLYCOPYRROLATE INJ 0.2 MG/ML VIAL ONE (08:25)
[2017-04-28] MEDS ORDERED: EpHEDrine SULFATE 50MG/5ML SYR ONE (08:36)
[2017-04-28] MEDS ORDERED: DURASEAL DURAL SEALANT 5ML TOP ONE (09:19)
[2017-04-28] MEDS ORDERED: NALOXONE HCL 0.4 MG/1 ML VIAL/CARP IV PRN (09:45)
[2017-04-28] MEDS ORDERED: LABETALOL HCL IV 5 MG/ML 20ML IV PRN (09:45)
[2017-04-28] MEDS ORDERED: PROMETHAZINE HCL INJ 12.5 MG in SODIUM CHLORIDE 0.9% 50ML 50 ML IV PRN ×2 (09:45→10:15)
[2017-04-28] MEDS ORDERED: HYDROmorphone INJ 1 MG/ML SYR IV PRN ×2 (09:45→10:15)
[2017-04-28] MEDS ORDERED: FLUMAZENIL 0.1 MG/1 ML 10 ML VIAL IV PRN (09:45)
[2017-04-28] MEDS ORDERED: EpHEDrine SULFATE INJ 50 MG/ML AMP IV PRN (09:45)
[2017-04-28] MEDS ORDERED: ATROPINE SULFATE 0.1 MG/ML 5ML SYR IV PRN (09:45)
[2017-04-28] MEDS ORDERED: ONDANSETRON INJ 2 MG/ML 2 ML VIAL IV PRN ×2 (09:45→10:15)
[2017-04-28] MEDS ORDERED: HYDROmorphone INJ 2 MG/ML SYR/VIAL IV PRN (10:15)
[2017-04-28] MEDS ORDERED: OXYCODONE/ACETAMINOPHEN 5-325 TAB PO PRN (10:15)
[2017-04-28] MEDS ORDERED: LORAZEPAM 1 MG TAB PO PRN (10:15)
[2017-04-28] MEDS ORDERED: ACETAMINOPHEN 325 MG TAB PO PRN (10:15)
[2017-04-28] MEDS ORDERED: METOCLOPRAMIDE HCL INJ 5 MG/ML 2 ML VIAL IV PRN (10:15)
[2017-04-28] MEDS ORDERED: MAGNESIUM HYDROXIDE SUSP 30 ML UDC PO PRN (10:15)
[2017-04-28] MEDS ORDERED: LORAZEPAM INJ 1 MG in SYRINGE 0 ML IV PRN (10:15)
--- NOTE | 2017-04-28 10:41 | DIAGNOSTIC IMAGING REPORT ---
Radiology SPINE ONE VIEW, ANY LEVEL CLINICAL HISTORY: 76 years-old Male presenting with L4-S1 LAMI. TECHNIQUE: 1 fluoroscopic spot image(s) obtained as part of an intraoperative procedure. COMPARISON: Correlation made to CT of abdomen and pelvis from 02/17/2017. FINDINGS/IMPRESSION: Surgical instrumentation projects over the L5-S1 and L3-4 levels. Anatomic alignment. Please see surgical report for further details. Fluoroscopy dosage (mGy): Not available. Fluoroscopy time: 1.7 seconds. Number of fluoroscopic spot images: 1. Electronically signed by: Cuauhtemoc Mendoza M.D. 04/28/2017 10:39 AM Dictated Date/Time: 04/28/2017 10:38 AM
--- NOTE | 2017-04-28 10:58 | Anesthesiology Progress Note ---
Anesthesia Post Op Note Date & Time Apr 28, 2017 at 10:58 Vital Signs Pain Intensity: 0 Vital Signs Past 12 Hours Date Time Temp Pulse Resp B/P (MAP) Pulse Ox O2 Delivery O2 Flow Rate FiO2 04/28/17 10:40 82 10 140/65 97 Oxymask 10 04/28/17 10:30 77 16 138/63 96 Oxymask 10 04/28/17 10:22 36.0 86 16 146/66 98 Oxymask 10 04/28/17 05:53 36.6 72 20 156/81 (106) 99 Room Air Notes Mental Status: alert / awake / arousable, participated in evaluation Pt Amnestic to Procedure: Yes Nausea / Vomiting: adequately controlled Pain: adequately controlled Airway Patency, RR, SpO2: stable & adequate BP & HR: stable & adequate Hydration State: stable & adequate Anesthetic Complications: no major complications apparent
--- NOTE | 2017-04-28 11:05 | [facility] Operative Report ---
Operative Report Operative Date Apr 28, 2017. Pre-Operative Diagnosis Lumbar Spinal Stenosis Post-Operative Diagnosis same as pre-operative Procedure(s) Performed L3 4 L4-L5, L5-S1 Laminectomy, Repair of dural tear Surgeon Dr. Yaniv Oquendo Dental Nurse Surgeon(s) RUTH Pollock Estimated Blood Loss 200ml Findings Severe spinal stenosis lumbar spine L3 to S1 Specimens none per surgeon Complication(s) None Disposition Recovery Room / PACU Indications Severe spinal stenosis neurogenic claudication and inability to ambulate distances distances also difficulty with standing Description of Procedure Description of procedure Was taken back to the operating room a general intubated anesthetic provided the patient antibiotics per got provided Louie catheter placed. She was placed prone on the Toan table scrubbed first with Betadine prep with ChloraPrep draped sterile graft We made a skin incision decking soft tissue in the same plane we went through the fascia over the lamina of L3 4 4 5 and 5 S1. Various techniques we decompress the spinal canal was up profoundly stenotic. Provided foraminotomies of S1 L5 L4 and L3 bilaterally. There was a small tear of the dura I am not recording that is a complication I think that was part of the procedure decompress the neural elements she take off the done the ligamentum flavum. Dura was essentially exposed and paper thin. Dictating this as part of the procedure rather than a complication The area the wound was completely irrigated possibly 500 mL of fluid replaced Gelfoam over the dura we placed DuraSeal over the dura. We close fascia fascia watertight with #1 Vicryl suture. Particular layer closed with 2-0 Vicryl suture. Edwige nylon closing the skin surface. Icings applied patient returned to recovery room satisfactory and stable no apparent complications thank you Sponge and needle count correct at the close of procedure thank you part of the procedure I attest to the content of the Intraoperative Record and any orders documented therein. Any exceptions are noted below. Addition to the surgical procedure patient also had a laminectomy foraminotomies at L3 4 of the lumbar spine.
[2017-04-28] MEDS ORDERED: IV FLUIDS COMPLETED PRN (12:00)
[2017-04-28] MEDS: SODIUM CHLORIDE 0.9% 1000ML 1,000 ML IV SCH ×2 (12:18→23:44)
[2017-04-28 12:24] LABS: HEMATOCRIT 40.3 % (42-52)
[2017-04-28] MEDS: CEFAZOLIN IV 2,000 MG in DEXTROSE 5% 50ML 50 ML IV SCH ×2 (15:59→23:44)
[2017-04-28] MEDS: HORIZANT PO SCH (18:04)
[2017-04-28] MEDS: FERROUS SULFATE 325 MG TAB PO SCH (18:05)
[2017-04-28] MEDS: CARBIDOPA/LEVODOPA 25/100MG TAB PO SCH (20:35)
[2017-04-28] MEDS: PANTOprazole SOD 40 MG TAB PO SCH (20:35)
[2017-04-28] MEDS: PRAMIPEXOLE DIHYDROCHLORIDE 0.25MG TAB PO SCH (20:36)
[2017-04-28] MEDS: ASCORBIC ACID 500 MG TAB PO SCH (20:36)
[2017-04-29 03:24] VITALS: BP 117/64; PULSE 80; TEMP 37; O2SAT 98
[2017-04-29] MEDS ORDERED: NURSING VERBAL MED ORDER ONE (05:45)
[2017-04-29] MEDS ORDERED: BISACODYL 5 MG TABEC PO PRN (06:00)
[2017-04-29] MEDS ORDERED: BISACODYL 10 MG SUPP PR PRN (06:00)
[2017-04-29 07:09] VITALS: BP 122/73; PULSE 72; TEMP 37; O2SAT 97
[2017-04-29] MEDS: CEFAZOLIN IV 2,000 MG in DEXTROSE 5% 50ML 50 ML IV SCH (08:13)
--- NOTE | 2017-04-29 08:37 | PROGRESS NOTE ---
DATE: 04/29/2017 DATE: 04/29/2017 SUBJECTIVE: Moderate complaints of pain. Alert, oriented. No chest pain, shortness of breath. No cervical spine headache. OBJECTIVE: Vital signs stable, alert, oriented. He has ambulated. DISPOSITION: Will get him up and ambulatory today, try to get to about 50 feet of ambulation. Attempt to discharge home tomorrow. Instructions, precautions will be provided.
[2017-04-29] MEDS: POLYETHYLENE (MIRALAX) 17 GM PACK PO SCH (09:00)
[2017-04-29] MEDS: PANTOprazole SOD 40 MG TAB PO SCH ×2 (09:05→19:27)
[2017-04-29] MEDS: AMLODIPINE BESYLATE 5 MG TAB PO SCH (09:05)
[2017-04-29] MEDS: ASPIRIN 81 MG ECTAB PO SCH (09:06)
[2017-04-29] MEDS: ASCORBIC ACID 500 MG TAB PO SCH ×2 (09:06→19:27)
[2017-04-29] MEDS: LOSARTAN/HCTZ 50-12.5 EA TAB PO SCH (09:07)
[2017-04-29] MEDS: FERROUS SULFATE 325 MG TAB PO SCH ×2 (09:07→17:50)
[2017-04-29 11:07] VITALS: BP 132/78; PULSE 73; TEMP 36.6; O2SAT 97
[2017-04-29 15:50] VITALS: BP 120/65; PULSE 80; TEMP 36.6; O2SAT 97
--- NOTE | 2017-04-29 16:27 | Discharge Instructions ---
Discharge Instructions Date of Service Apr 29, 2017. Admission Reason for Admission: Lumbar Spinal Stenosis Discharge Discharge Diagnosis / Problem: same Discharge Goals Goal(s): Improve function Activity Recommendations Activity Limitations: as noted below Lifting Limitations: gradually increase as tolerated . Instructions / Follow-Up Instructions / Follow-Up MEDICATIONS: Please take your prescriptions as instructed at your pre-op appointment. SPECIAL CARE: The following information is intended to answer some of the common questions and concerns regarding your surgery. Each patient is an individual and receives individual counselling throughout the course of treatment, from diagnosis to surgery all the way through recovery. What follows is not an exhaustive list, but should be a useful guide to some of the common questions and concerns patients have regarding their surgeries. These are not provided to keep you from calling us; rather, they give you something accurate and concrete to reference as you recover from your procedure. If you need us, we are available to you. As always, if you are not sure about something, call us at [phone]. MEDICAL EMERGENCIES: For these conditions, call 911 or go to your local hospital-based Emergency Department - not [facility] or equivalent. * Paralysis * Severe chest pain or difficulty breathing * Swelling or redness of either leg Spine procedures can be rather complex and though complications are rare, they do occur. In such cases, effective advice regarding emergency situations cannot always be addressed over the telephone. You may be referred to the emergency department for more effective management of your problem. Activity Limitations: It is important to give your body time to heal, so please limit your activities : * In general, don't do anything that moves your spine too much. You should avoid contact sports, twisting or heavy lifting while you recover. * 5-10 pounds is all you should attempt to lift. * You should not plan on driving for approximately 3 weeks and you should avoid traveling more than 30-45 minutes at a time. Longer trips should be broken down with walking breaks spaced appropriately. * Physical therapy is not usually required. * Walking and good posture practices will help you recover and regain your function. * Avoid straining or sudden changes in position. * In general, the goal is to take it easy and recover. Don't cause any new problems. Just relax. Showers: * Do not take a bath, use a Jacuzzi or hot tub or otherwise submerge your incision. * It is usually safe to take a shower 4-5 days after your surgery. * Your incision does not require any special creams or ointments. * Simply clean it with soap and water, dry and re-dress with a clean bandage afterwards. Incision: * Keep incision clean, dry and protected until your first follow-up appointment. * Some amount of drainage and redness is normal. Any drainage should be fairly clear and not have a foul odor. * If you feel anything is wrong or you have excessive drainage, please call us. * Your stitches and faviola will be removed 10-14 days after your surgery. At the time of your first post-op visit. * Neck surgeries are typically closed with a suture underneath the skin. The steri-strips over the incision should be maintained until we see you in the office. Bracing: * You may be provided with a back or neck brace to encourage good posture and prevent injury. It will remind you not to do too much as you heal and will alert others to the fact that you have had a surgery. * Back braces may be removed for showers and when you are resting at home. They must be worn when you are walking around for any period of time or for travel. * For neck surgery, you will likely be provided with two cervical collars. The soft collar ([place] or foam rubber) is worn most commonly throughout the day and while sleeping. The plastic collar (provided at the hospital) is for showering/bathing. * Except while eating, collars should remain in place. More specifically, bracing is provided for a purpose and should be worn. * Please obtain your brace or collars prior to your operation and bring them to the hospital with you on the day of surgery. * You should also bring your collars to your post-op appointment with Dr. Oquendo. You should always take good care of your body and practice healthy habits, especially following surgery. You should: * Follow your doctor's treatment plan * Sit and stand properly with good posture (ears over shoulders, shoulders over hips) Don't slouch * Learn to lift correctly * Exercise regularly (low-impact aerobic exercise is especially good, but check with your doctor first) * Generally, be up and walking for 5-10 minutes at a time at least 3-4 times per day from the day you get home * Increasing walking to tolerance until you can walk for 20-30 minutes at a time * Attain and maintain a healthy body weight * Eat healthy foods ( a well-balanced, low-fat diet rich in fruits and vegetables) and get enough calcium * Avoid excessive use of alcohol When to call our office - If you notice any of the following: * Increased pain not relieve by pain medicine * Fevers greater then 100 degrees F, chills or flu symptoms * Increased redness around incision * Drainage from the incision that is not clear * Any foul smelling drainage * Swelling or fluid collection beneath the skin Miscellaneous: * In the hospital, you may be given a walker or cane for support while walking. These are temporary needs and are intended to prevent injuries due to falls. You may discontinue them when you feel strong and steady enough on your feet. * Sleep in a comfortable position. We find that many patients find a lounge chair or recliner with several pillows to be beneficial in the early post-operative period. * The support stockings should be used for 7-10 days and may be discontinued when you are back to walking more and conducting usual household activities. No problem is insignificant. We are here to help you and get you well. Contact us at [phone]. Definitions: Foraminotomy: If part of the disc or a bone spur (osteophyte) is pressing on a nerve as it leaves the vertebra (through an exit called the foramen), a foraminotomy may be done. Otomy means "to make an opening." A foraminotomy is making the opening of the foramen larger, so the nerve can exit without being compressed. Laminotomy: Similar to the foraminotomy, a laminotomy makes a larger opening, this time in your bony plate protecting your spinal canal and spinal cord (the lamina). The lamina may be pressing on your nerve, so the surgeon may make more room for the nerves using a laminotomy. Laminectomy: Sometimes, a laminotomy is not sufficient. The surgeon may need to remove all or part of the lamina. This procedure is called a laminectomy. This can often be done at many levels without any harmful effects. Current Hospital Diet Patient's current hospital diet: Regular Diet Discharge Diet Recommended Diet: Regular Diet Procedures Procedures Performed: L3 4 L4-L5, L5-S1 Laminectomy, Repair of dural tear Pending Studies Studies pending at discharge: no Laboratory Results Lipid Panel Test 04/12/17 08:01 Range/Units Triglycerides Level 66 0-150 mg/dl Cholesterol Level 153 0-200 mg/dl HDL Cholesterol 56 mg/dl Cholesterol/HDL Ratio 2.7 LDL Cholesterol, Calculated 84 mg/dl Medical Emergencies . Who to Call and When: Medical Emergencies: If at any time you feel your situation is an emergency, please call 911 immediately. . Non-Emergent Contact Non-Emergency issues call your: Surgeon . "Provider Documentation" section prepared by Yaniv Oquendo. . VTE Core Measure Inpt VTE Proph given/why not?: Treatment not indicated
[2017-04-29] MEDS: HORIZANT PO SCH (17:50)
[2017-04-29] MEDS: CARBIDOPA/LEVODOPA 25/100MG TAB PO SCH (19:26)
[2017-04-29] MEDS: PRAMIPEXOLE DIHYDROCHLORIDE 0.25MG TAB PO SCH (19:26)
[2017-04-29] MEDS: OXYCODONE/ACETAMINOPHEN 5-325 TAB PO PRN (22:29)
[2017-04-29 22:58] VITALS: BP 105/61; PULSE 69; TEMP 37.3; O2SAT 94
[2017-04-30] MEDS: OXYCODONE/ACETAMINOPHEN 5-325 TAB PO PRN (05:04)
[2017-04-30 06:08] VITALS: BP 114/68; PULSE 75; TEMP 37.2; O2SAT 95
[2017-04-30 07:31] VITALS: BP 109/61; PULSE 76; TEMP 37.1; O2SAT 94
--- NOTE | 2017-04-30 08:10 | DISCHARGE SUMMARY ---
DATE OF DISCHARGE: 04/30/17 He is improved, stable, alert, oriented, no chest pain, shortness of breath. No confusion. Vital signs stable. 37.1 temperature, blood pressure is stable, afebrile. Wound clean and dry. Neurologically intact. ASSESSMENT: Status post multilevel lumbar spine decompression for stenosis. DISPOSITION: He will be discharged home later on this morning. His instructions, precautions provided here at the hospital and from our office. He has a followup appointment in approximately 10 days. A prescription for Percocet will be on his chart.
[2017-04-30] MEDS: ASPIRIN 81 MG ECTAB PO SCH (08:25)
[2017-04-30] MEDS: FERROUS SULFATE 325 MG TAB PO SCH (08:25)
[2017-04-30] MEDS: ASCORBIC ACID 500 MG TAB PO SCH (08:26)
[2017-04-30] MEDS: PANTOprazole SOD 40 MG TAB PO SCH (08:26)
[2017-04-30 08:27] VITALS: BP 147/74; PULSE 81
[2017-04-30] MEDS: AMLODIPINE BESYLATE 5 MG TAB PO SCH (08:28)
[2017-04-30] MEDS: LOSARTAN/HCTZ 50-12.5 EA TAB PO SCH (08:28)
[2017-04-30] MEDS: POLYETHYLENE (MIRALAX) 17 GM PACK PO SCH (08:28)
[2017-04-30 10:15] VITALS: BP 147/74; PULSE 81; TEMP 37.1; O2SAT 94
== END 2017-04-30 11:01 | disposition home or self-care (01) ==
LOC: C.ACU 05:35 → C.3E 06:11 → ENRESERV 10:40
PROVIDERS: ADMIT Orthopaedic Surgery Orthopaedic Surgery of the Spine; ATTEND Orthopaedic Surgery Orthopaedic Surgery of the Spine
DX: M48.07 Spinal stenosis, lumbosacral region (principal); I10 Essential (primary) hypertension; G47.30 Sleep apnea, unspecified

== ENCOUNTER → 2017-05-14 | Outpatient (CLI) | payer BC ==
[~2017-05-14] MED LIST changes: +OPTIRAY 320 IV PRN
--- NOTE | 2017-05-14 15:39 | DIAGNOSTIC IMAGING REPORT ---
CHEST CT WITH CONTRAST CT DOSE: 887.22 mGycm HISTORY: GI stromal tumor. TECHNIQUE: Multiaxial CT images of the chest were performed following the intravenous administration of contrast. A dose lowering technique was utilized adhering to the principles of ALARA. COMPARISON: Chest CT 10/01/2016. FINDINGS: Subcentimeter left thyroid nodule is again noted. Stable retrocrural lymph node which measures 6 mm in short axis diameter. 9 mm gastrohepatic lymph node is also not significantly changed. Cholelithiasis. Hepatic steatosis. Normal adrenal glands and spleen. The mediastinal vascular structures are within normal limits. No pleural or pericardial effusions. No suspicious lytic or blastic osseous lesions. The central airways are patent. No pneumothorax. Stable 6 mm groundglass nodule within the left upper lobe on image 63. Stable 4 mm subpleural nodule abutting the left major fissure on image 124. No pneumothorax. IMPRESSION: 1. No significant change compared to the prior study. 2. Stable 6 mm groundglass nodule within the left upper lobe. Continued follow up is recommended to exclude the possibility of a low-grade primary bronchogenic malignancy. Please refer to below summary of Fleischner criteria recommendations for follow-up of incidental CT nodules (Girish Aldana, Guidelines for management of small pulmonary nodules detected on CT scans: A statement from the Fleischner Society, Radiology 237: [phone].) SOLID NODULES Solitary nodule size: <6 mm * Low risk patients: no follow-up needed * high risk patients: optional CT at 12 months Solitary nodule size: 6-8 mm * Low risk patients: follow-up at 6-12 months, then consider further follow-up at 18-24 months * high risk patients: initial follow-up CT at 6-12 months and then at 18-24 months if no change Solitary nodule size: >8 mm * either low or high risk patients - consider follow-up CT at 3 months, and/or CT-PET, and/or biopsy Multiple nodules size: <6 mm * Low risk patients: no routine follow-up * high risk patients: optional CT at 12 months Multiple nodules size: 6-8 mm * Low risk patients: follow-up at 3-6 months, then consider further follow-up at 18-24 months * high risk patients: follow-up at 3-6 months, then at 18-24 months if no change Multiple nodules size: >8 mm * Low risk patients: follow-up at 3-6 months, then consider further follow-up at 18-24 months * high risk patients: follow-up at 3-6 months, then at 18-24 months if no change Note: newly detected indeterminate nodule in persons 35 years of age or older. * Low risk patients: minimal or absent history of smoking and/or other known risk factors * high risk patients: history of smoking or of other known risk factors (e.g. first degree relative with lung cancer, or exposure to asbestos, radon, uranium) * if a nodule up to 8 mm is partly solid or is ground glass further follow-up is required after 24 months to exclude possible slow growing adenocarcinoma ([place]) SUBSOLID NODULES Solitary pure ground-glass nodule * nodule size <6 mm - no CT follow-up required * nodule size >=6 mm - follow-up CT at 6-12 months, then every 2 years until 5 years Solitary part-solid nodule * nodule size <6 mm - no CT follow-up required * nodule size >=6 mm - follow-up CT at 3-6 months. If unchanged, and solid component remains <6 mm, then annual follow-up for 5 years Multiple subsolid nodules * nodule size <6 mm - follow-up CT at 3-6 months, consider further follow-up at 2 and 4 years if stable * nodule size >=6 mm - follow-up CT at 3-6 months, subsequent management based on the most suspicious nodule(s) Electronically signed by: Scott Rob M.D. 05/14/2017 3:38 PM Dictated Date/Time: 05/14/2017 3:31 PM
--- NOTE | 2017-05-14 17:32 | DIAGNOSTIC IMAGING REPORT ---
CT OF THE ABDOMEN AND PELVIS WITH CONTRAST CLINICAL HISTORY: GI stromal tumor. COMPARISON STUDY: CT of the abdomen and pelvis February 17, 2017. TECHNIQUE: Following IV administration of 93 mL of Optiray-320, axial images of the abdomen and pelvis were obtained from the lung bases to the proximal femurs. Images were reviewed in the axial, sagittal, and coronal planes. IV contrast was administered without complication. A dose lowering technique was utilized adhering to the principles of ALARA. Oral contrast was administered. FINDINGS: Several subcentimeter hepatic lesions are too small to characterize. Gallstones are noted within the gallbladder. The spleen, adrenal glands and pancreas are unremarkable. There is a right renal cyst. Note is made of a 5 mm right renal calculus. There are no ureteral calculi. Interval post surgical findings within the spine are noted. The partially calcified mesenteric mass is unchanged since prior exams. Enlarged retroperitoneal and mesenteric lymph nodes are similar to exam of February 17, 2017. Index left para-aortic lymph node shown on image 185 of 446 measures 2.6 x 1.5 cm. Index mesenteric lymph node shown on image 169 measures 2.2 x 1.4 cm. There is associated mesenteric infiltration. The right lower lobe mass shown on biopsy of September 17, 2016 has been resected. The appendix is normal. There is no evidence for a bowel obstruction. There are no suspicious osseous lesions. IMPRESSION: 1. No significant change since exam of February 17, 2017. Stable mild retroperitoneal and mesenteric lymphadenopathy which remains nonspecific. 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 However, lymphoma or metastatic disease could appear similar. 2. 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 Electronically signed by: Ronald Ha M.D. 05/14/2017 5:31 PM Dictated Date/Time: 05/14/2017 3:41 PM
== END | disposition home or self-care (01) ==
LOC: C.CTS 14:29
PROVIDERS: ATTEND Nurse Practitioner Family
DX: R59.0 Localized enlarged lymph nodes (principal); R19.07 Generalized intra-abdominal and pelvic swelling, mass and lump

== ENCOUNTER → 2017-08-15 | Outpatient (CLI) | payer BC ==
[~2017-08-15] MED LIST changes: -OPTIRAY 320 IV PRN
[2017-08-15 10:46] LABS: FERRITIN 90.6 ng/ml (8.0-388.0); PROSTATE SPECIFIC ANTIGEN 4.41 ng/ml (0.000-4.000)
== END | disposition home or self-care (01) ==
LOC: C.LAB1850 09:06
PROVIDERS: ATTEND Internal Medicine
DX: D64.9 Anemia, unspecified (principal); R97.20 Elevated prostate specific antigen [PSA]

== ENCOUNTER → 2017-09-22 | Outpatient (CLI) | payer BC ==
[2017-09-22 09:01] LABS: HEMOGLOBIN A1C 5.4 % (4.5-5.6)
== END | disposition home or self-care (01) ==
LOC: C.LAB 16:22
PROVIDERS: ATTEND Internal Medicine
DX: R73.03 Prediabetes (principal)

== ENCOUNTER → 2017-11-10 | Outpatient (CLI) | payer BC ==
[~2017-11-10] MED LIST changes: +OPTIRAY 320 IV PRN
--- NOTE | 2017-11-10 13:37 | DIAGNOSTIC IMAGING REPORT ---
CT SCAN OF THE ABDOMEN AND PELVIS WITH IV CONTRAST CLINICAL HISTORY: GI stromal tumor. COMPARISON STUDY: Abdominal CT dated 05/14/2017. TECHNIQUE: Following the IV administration of 120 cc of Optiray 320, CT scan of the abdomen and pelvis is performed from the lung bases to the proximal femora. Images are reviewed in the axial, sagittal, and coronal planes. IV contrast was administered without complication. A dose lowering technique was utilized adhering to the principles of ALARA. FINDINGS: Lung bases: The heart is mildly enlarged and without pericardial effusion. There are coronary artery calcifications. The lung bases are clear. Liver: The contrast-enhanced liver is normal in size, contour, and attenuation. There is no intrahepatic biliary ductal dilatation. The hepatic veins and portal veins are patent. A subcentimeter hypodensity in the caudate lobe and measure 108 is unchanged. This likely represents a cyst but is too small for definitive characterization. Gallbladder: There are numerous calcified gallstones. The gallbladder is contracted. Spleen: Normal in size and attenuation. Pancreas: Unremarkable. Adrenal glands: Unremarkable. Kidneys: The contrast enhanced kidneys are normal in size and without hydronephrosis. The kidneys enhance symmetrically. A 2.2 cm cyst is again seen in the right kidney. There are least 2 nonobstructing right renal calculi measuring up to 4 mm. Abdominal vasculature: The abdominal aorta is normal in course and caliber noting moderate atherosclerotic calcification. Bowel: There is mild to moderate colonic fecal retention. No bowel obstruction is seen. The appendix is well-visualized and normal. Peritoneum: A large calcified mesenteric mass lesion has not significantly changed in appearance from 05/14/2017. There is no intraperitoneal free air or abdominal ascites. Lymphadenopathy: Mesenteric lymphadenopathy with surrounding mesenteric infiltration has modestly progressed from 05/14/2017. A noted in the left mesentery on image #204 measures 2.8 x 1.9 cm (previously measured 2.2 x 1.4 cm). Retroperitoneal lymphadenopathy has not significantly changed from previous. The retroaortic node seen on image #207 measures 2.5 x 1.5 cm (previously measured 2.6 x 1.5 cm). There is no pelvic sidewall or inguinal adenopathy. Pelvic viscera: The prostate gland is enlarged and there is median lobe hypertrophy. The bladder wall is thickened and trabeculated suggesting chronic outlet obstruction. There are bilateral fat-containing inguinal hernias. Skeletal structures: The skeletal structures are osteopenic. Postlaminectomy change is noted in the lumbar spine. Lumbosacral spondylosis is observed. No lytic or blastic lesions are seen. IMPRESSION: 1. There has been no significant change in the appearance of a large calcified mesenteric mass as compared to 05/14/2017. 2. Mesenteric adenopathy has mildly progressed as compared to 05/14/2017. 3. Retroperitoneal lymphadenopathy has not significantly changed. 4. Nonobstructing right renal calculi. 5. Cholelithiasis. 6. Additional findings as above. Electronically signed by: Dayron Pak M.D. 11/10/2017 1:36 PM Dictated Date/Time: 11/10/2017 1:24 PM
--- NOTE | 2017-11-10 13:43 | DIAGNOSTIC IMAGING REPORT ---
(CHEST) THORAX WITH CT DOSE: 1000.39 mGy.cm HISTORY: Mass GIFT TUMOR TECHNIQUE: Multiaxial CT images of the chest were performed following the intravenous administration of contrast. A dose lowering technique was utilized adhering to the principles of ALARA. COMPARISON: 05/14/2017 FINDINGS: Essentially unchanged exam from the prior study. Minimal thyroid nodularity is nonprogressive. No significant mediastinal or hilar adenopathy. Groundglass nodule left upper lobe measuring 6 mm is unchanged. Small nodule immediately adjacent to the left major fissure left midlung is also stable. No evidence for new interval or progressive nodule. No significant axillary adenopathy. Moderate degenerative changes thoracic spine. IMPRESSION: 1. Stable CT of the chest including unchanging unchanging nodularity as previously described. 2. This includes a 6 mm ground groundglass nodule left upper lobe unchanged . 3. No evidence for new or interval process. 4. Follow-up per Fleischner criteria. Please refer to below summary of Fleischner criteria recommendations for follow-up of incidental CT nodules (Girish Aldana, Guidelines for management of small pulmonary nodules detected on CT scans: A statement from the Fleischner Society, Radiology 237: [phone].) SOLID NODULES Solitary nodule size: <6 mm * low risk patients: no follow-up needed * high risk patients: optional CT at 12 months Solitary nodule size: 6-8 mm * low risk patients: follow-up at 6-12 months, then consider further follow-up at 18-24 months * high risk patients: initial follow-up CT at 6-12 months and then at 18-24 months if no change Solitary nodule size: >8 mm * either low or high risk patients - consider follow-up CT at 3 months, and/or CT-PET, and/or biopsy Multiple nodules size: <6 mm * low risk patients: no routine follow-up * high risk patients: optional CT at 12 months Multiple nodules size: 6-8 mm * low risk patients: follow-up at 3-6 months, then consider further follow-up at 18-24 months * high risk patients: follow-up at 3-6 months, then at 18-24 months if no change Multiple nodules size: >8 mm * low risk patients: follow-up at 3-6 months, then consider further follow-up at 18-24 months * high risk patients: follow-up at 3-6 months, then at 18-24 months if no change Note: newly detected indeterminate nodule in persons 35 years of age or older. * low risk patients: minimal or absent history of smoking and/or other known risk factors * high risk patients: history of smoking or of other known risk factors (e.g. first degree relative with lung cancer, or exposure to asbestos, radon, uranium) * if a nodule up to 8 mm is partly solid or is ground glass further follow-up is required after 24 months to exclude possible slow growing adenocarcinoma ([facility]) SUBSOLID NODULES Solitary pure ground-glass nodule * nodule size <6 mm - no CT follow-up required * nodule size >=6 mm - follow-up CT at 6-12 months, then every 2 years until 5 years Solitary part-solid nodule * nodule size <6 mm - no CT follow-up required * nodule size >=6 mm - follow-up CT at 3-6 months. If unchanged, and solid component remains <6 mm, then annual follow-up for 5 years Multiple subsolid nodules * nodule size <6 mm - follow-up CT at 3-6 months, consider further follow-up at 2 and 4 years if stable * nodule size >=6 mm - follow-up CT at 3-6 months, subsequent management based on the most suspicious nodule(s) The above report was generated using voice recognition software. It may contain grammatical, syntax or spelling errors. Electronically signed by: Foster Gautam M.D. 11/10/2017 1:42 PM Dictated Date/Time: 11/10/2017 1:38 PM
== END | disposition home or self-care (01) ==
LOC: C.CTS 12:25
PROVIDERS: ATTEND Internal Medicine Hematology & Oncology
DX: C49.A3 Gastrointestinal stromal tumor of small intestine (principal)

== ENCOUNTER → 2017-12-17 | Outpatient (CLI) | payer BC ==
[~2017-12-17] MED LIST changes: -OPTIRAY 320 IV PRN
[2017-12-17 09:43] LABS: HEMOGLOBIN A1C 5.3 % (4.5-5.6)
== END | disposition home or self-care (01) ==
LOC: C.LAB 16:23
PROVIDERS: ATTEND Internal Medicine
DX: E78.5 Hyperlipidemia, unspecified (principal); R97.20 Elevated prostate specific antigen [PSA]; R73.03 Prediabetes

== ENCOUNTER → 2018-03-23 | Outpatient (CLI) | payer BC ==
[~2018-03-23] MED LIST changes: +OPTIRAY 320 IV PRN
--- NOTE | 2018-03-23 15:59 | DIAGNOSTIC IMAGING REPORT ---
ABDOMEN AND PELVIS CT WITH IV AND ORAL CONTRAST CT DOSE: 1088.32 mGy.cm HISTORY: Subsequent treatment strategy. Follow-up exam in a patient with history of gastrointestinal stromal tumor GIST TECHNIQUE: Multiaxial CT images of the abdomen and pelvis were performed following the use of intravenous and oral contrast. A dose lowering technique was utilized adhering to the principles of ALARA. COMPARISON STUDY: CT chest of same day, CT abdomen and pelvis 11/10/2017. FINDINGS: Dependent subsegmental bibasilar opacities suggest atelectasis. Subcentimeter calcified granuloma of the lateral basal segment right lower lobe. No pneumatosis or pneumoperitoneum. Imaged inferior cardiac chambers are unremarkable. Coronary arterial calcifications are present. Cholelithiasis. Gallbladder is mildly contracted. Mildly decreased attenuation of the liver may reflect fatty infiltration. Spleen, pancreas and right adrenal gland are unremarkable. Mild thickening of the left adrenal gland. 2.2 cm cyst of the posterior interpolar right kidney. Nonobstructing calculi about the right kidney measure up to 4 mm. No ureteral calculi or obstructive uropathy. Mild dilation of the mid to distal right ureter is likely physiologic. Bladder is unremarkable. The prostate appears mildly prominent in size. Small bilateral fat filled inguinal hernias. Moderate mixed plaquing of the abdominal aorta. IVC is within normal limits. Portal vein is unremarkable. There is no bowel obstruction. Terminal ileum and appendix appear unremarkable. Large calcified mass about the central mesentery redemonstrated, 6.8 x 2.5 x 4.9 cm in transverse, AP and craniocaudal dimensions which appears unchanged from comparison. Pathologically enlarged mesenteric lymph nodes are again seen with index node of the left mid mesentery measuring 2.9 x 1.8 cm on image 205 series 6, previously 2.8 x 1.9 cm. Pathologically enlarged retroperitoneal lymph nodes are also present. Index aortocaval lymph node measuring 1.7 x 1.1 cm on image 179 series 6 the level of the kidneys recent measured 1.6 x 1.1 cm. Periaortic lymph node on image 211 series 6 now measures 2.5 x 1.3 cm, previously 2.5 x 1.5 cm. Soft tissues are within normal limits. Bones appear to be intact. No suspicious lytic or blastic bony lesions to suggest metastasis. Severe facet arthropathy about the lower lumbar spine. Multilevel advanced intervertebral disc space narrowing. IMPRESSION: 1. Stable exam with unchanged size and appearance of the large heterogeneous centrally calcified mass of the mid mesentery which measures up to approximately 6.8 cm. 2. Pathologically enlarged lymph nodes about the mesentery and retroperitoneum also appear unchanged with index nodes reported as above. 3. Cholelithiasis without CT evidence of acute cholecystitis. 4. Nonobstructing right nephrolithiasis. Mild dilation of the mid and distal right ureter without obstructing calculus or lesion identified is likely physiologic. 5. Additional findings as above. Electronically signed by: Carlos Juarez M.D. 03/23/2018 3:58 PM Dictated Date/Time: 03/23/2018 3:48 PM
--- NOTE | 2018-03-23 16:16 | DIAGNOSTIC IMAGING REPORT ---
CHEST CT WITH CONTRAST CT DOSE: HISTORY: GI stromal tumor. TECHNIQUE: Multiaxial CT images of the chest were performed following the intravenous administration of contrast. A dose lowering technique was utilized adhering to the principles of ALARA. COMPARISON: Chest CT 11/10/2017. FINDINGS: The central airways are patent. No pleural effusions. No pneumothorax. Stable 5 mm groundglass nodule within the left upper lobe. Stable 3 mm subpleural nodule within the left lower lobe on image 120. No new pulmonary nodules identified. Patchy groundglass densities at the lung bases favor mild dependent change. No suspicious lytic or blastic osseous lesions. Cholelithiasis. The visualized liver, spleen, and adrenal glands are unremarkable. No mediastinal or hilar lymphadenopathy. The heart is normal in size. Normal caliber thoracic aorta. The main pulmonary arteries are patent. No mediastinal or hilar lymphadenopathy. Mildly enlarged distal periesophageal lymph node remains unchanged. This measures 12 x 8 mm. IMPRESSION: 1. No change compared to the prior study. 2. No change in the mildly enlarged distal periesophageal lymph node. 3. Stable 5 mm groundglass nodule within the left upper lobe. Continued six-month follow-up recommended. Electronically signed by: Scott Rob M.D. 03/23/2018 4:14 PM Dictated Date/Time: 03/23/2018 3:48 PM
== END | disposition home or self-care (01) ==
LOC: C.CTS 14:02
PROVIDERS: ATTEND Internal Medicine Hematology & Oncology
DX: C49.A3 Gastrointestinal stromal tumor of small intestine (principal); K80.20 Calculus of gallbladder without cholecystitis without obstruction; N20.0 Calculus of kidney

== ENCOUNTER 2021-04-23 05:26 | Inpatient (IN) ==
--- NOTE | 2021-04-05 20:44 | PAT Medication Instructions ---
Medication Instructions Date of Service April 05, 2021 Home Medications Medication Instructions Recorded amlodipine 5 mg tablet 5 mg PO QAM #90 tab 03/12/21 losartan 100 1 tab PO QAM #90 tab 03/12/21 mg-hydrochlorothiazide 25 mg tablet tramadol 50 mg tablet 100 mg PO BID PRN #120 tab 03/13/21 ascorbic acid (vitamin C) 500 mg tablet (Vitamin C) 500 mg PO BID vitamin E 400 unit capsule 400 unit PO DAILY vit C 250 mg-vit E 90 mg-zinc 40 mg-copper 1 [id number] capsule (PreserVision AREDS-2) 1 tab PO BID antiarthritic combination no.2 900 mg tablet (glucosamine-chondroitin) omega-3 fatty acids 1,000 mg capsule (Fish Oil Concentrate) 1,000 mg PO DAILY multivitamin (Daily Multi-Vitamin) 1 tab PO DAILY amlodipine 5 mg tablet 5 mg PO QAM losartan 100 mg-hydrochlorothiazide 25 mg tablet 1 tab PO QAM tramadol 50 mg tablet 100 mg PO BID PRN duloxetine 60 mg capsule,delayed release (Cymbalta) 60 mg PO QAM gabapentin enacarbil 600 mg tablet,extended release 600 mg PO QAM imatinib 100 mg capsule 300 mg PO DAILY omeprazole 20 mg tablet,delayed release 20 mg PO QAM potassium gluconate 595 mg (99 mg) tablet,extended release 99 mg PO QAM pramipexole 0.375 mg tablet,extended release 24 hr 0.375 mg PO TID tamsulosin 0.4 mg capsule 0.4 mg PO QAM ASK your prescriber and surgeon imatinib 100 mg capsule 300 mg PO DAILY STOP taking 2 weeks before surgery (or as soon as possible if surgery is within 2 weeks) vitamin E 400 unit capsule 400 unit PO DAILY vit C 250 mg-vit E 90 mg-zinc 40 mg-copper 1 [id number] capsule (PreserVision AREDS-2) 1 tab PO BID antiarthritic combination no.2 900 mg tablet (glucosamine-chondroitin) omega-3 fatty acids 1,000 mg capsule (Fish Oil Concentrate) 1,000 mg PO DAILY DO NOT take the morning of surgery ascorbic acid (vitamin C) 500 mg tablet (Vitamin C) 500 mg PO BID multivitamin (Daily Multi-Vitamin) 1 tab PO DAILY losartan 100 mg-hydrochlorothiazide 25 mg tablet 1 tab PO QAM potassium gluconate 595 mg (99 mg) tablet,extended release 99 mg PO QAM pramipexole 0.375 mg tablet,extended release 24 hr 0.375 mg PO TID Take morning of surgery With a small sip of water, OTHERWISE NOTHING TO EAT OR DRINK AFTER MIDNIGHT: amlodipine 5 mg tablet 5 mg PO QAM tramadol 50 mg tablet 100 mg PO BID PRN (okay to take up to 4 hours prior to surgery if needed) duloxetine 60 mg capsule,delayed release (Cymbalta) 60 mg PO QAM gabapentin enacarbil 600 mg tablet,extended release 600 mg PO QAM omeprazole 20 mg tablet,delayed release 20 mg PO QAM tamsulosin 0.4 mg capsule 0.4 mg PO QAM Take evening before surgery ascorbic acid (vitamin C) 500 mg tablet (Vitamin C) 500 mg PO BID tramadol 50 mg tablet 100 mg PO BID PRN (if needed) pramipexole 0.375 mg tablet,extended release 24 hr 0.375 mg PO TID Other Notes If you have any questions please call us at [phone] or [phone] or [phone] or [phone]
--- NOTE | 2021-04-10 08:15 | Anesthesiology Consultation ---
Date of Service April 10, 2021 Assessment & Plan (1) Encounter for pre-operative examination: - COVID screening: Per assessment on 04/10: Travel screen negative, no known COVID-19 positive contacts or current COVID-19 related symptoms. Patient vaccin ated. Surgeon arranging preop COVID testing. Awaiting results. - S/P Right ankle arthroscopy with debridement of tibialis, anterior tendon, removal of avulsion fracture, medical navicular application of PRP concentrate (10/02/18): LMA#5 + PNB at [facility] [place] visit (04/06/21): "Patient states he was referred to the emergency department by his PCP Dr. Miller for CT scan of his head and orbits. Patient states for the last 2 months he has been having double vision out of his left eye. Patient states he has seen his eye doctor Dr. Sara Saleh with [facility] who states that she was concerned that he might have a metastatic lesion to his brain because he was unable to move his left eye completely.. CT of the head is within normal limits. Patient will follow up with his PCP." Chart Review Chart Review: Acceptable Risk for Surgery and Patient seen in Pre Admission Testing Teaching & Discussion Pre-Anesthesia Teaching/Discussion Notes: Instructed NPO after midnight before surgery,except medications with 15 cc of water. Medication instructions provided according to the PAT guidelines. History Surgery Operation Date: 04/20/21 09:30 Proposed Procedures p Anterior Cervical Discectomy Fusion - Elma Plascencia MD Height/Weight Height: 5 ft 7 in Weight: 81.3 kg Allergies Allergy/AdvReac Type Severity Reaction Status Date / Time Corticosteroids AdvReac Unknown Advised to Verified 04/09/21 10:46 (Glucocorticoids) avoid d/t gastric ulcer NSAIDS (Non-Steroidal AdvReac Unknown Advised to Verified 04/09/21 10:46 Anti-Inflamma avoid d/t gastric ulcer Medications Home Medications Medication Instructions Recorded Confirmed Last Taken ascorbic acid (vitamin C) 500 mg 500 mg PO BID 09/14/18 04/05/21 05/05/19 tablet (Vitamin C) vitamin E 400 unit capsule 400 unit PO DAILY 09/14/18 04/05/21 01/12/19 vit C 250 mg-vit E 90 mg-zinc 40 1 tab PO BID 01/08/19 04/05/21 05/05/19 mg-copper 1 [id number]-[id number] capsule (PreserVision AREDS-2) antiarthritic combination no.2 900 900 mg PO DAILY tab 10/01/19 04/05/21 Unknown mg tablet (glucosamine-chondroitin) omega-3 fatty acids 1,000 mg 1,000 mg PO DAILY 10/01/19 04/05/21 Unknown capsule (Fish Oil Concentrate) multivitamin (Daily Multi-Vitamin) 1 tab PO DAILY 10/28/19 04/05/21 Unknown amlodipine 5 mg tablet 5 mg PO QAM #90 tab 03/12/21 04/05/21 Unknown losartan 100 1 tab PO QAM #90 tab 03/12/21 04/05/21 Unknown mg-hydrochlorothiazide 25 mg tablet duloxetine 60 mg capsule,delayed 60 mg PO QAM 04/05/21 04/05/21 Unknown release (Cymbalta) gabapentin enacarbil 600 mg 600 mg PO QAM 04/05/21 04/05/21 Unknown tablet,extended release imatinib 100 mg capsule 300 mg PO DAILY 04/05/21 04/05/21 Unknown omeprazole 20 mg tablet,delayed 20 mg PO QAM 04/05/21 04/05/21 Unknown release potassium gluconate 595 mg (99 mg) 99 mg PO QAM 04/05/21 04/05/21 Unknown tablet,extended release pramipexole 0.375 mg 0.375 mg PO TID 04/05/21 04/05/21 Unknown tablet,extended release 24 hr tamsulosin 0.4 mg capsule 0.4 mg PO QAM 04/05/21 04/05/21 Unknown tramadol 50 mg tablet 100 mg PO BID PRN #120 tab 04/09/21 Unknown Past Medical History Medical History (Updated 04/10/21 @ 08:28 by Chloe Christian) 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 Degenerative arthritis Back Essential hypertension 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" History of SCC (squamous cell carcinoma) of skin Head History of stomach ulcers Hx (NSAIDS-related) Hx of spinal stenosis DDD Hyperlipidemia Hypertension Iron deficiency anemia Hx Obstructive sleep apnea CPAP Personal history of malignant melanoma of skin Head (s/p excision) Restless leg syndrome Tremor Ulcer of ileum Hx Exercise / Class Metabolic Activity II 4-5 Yardwork/Stairs/Walk up hill (one FS (no CP, no SOB)) Past Family History Family History Grandmother Leukemia Other No family history of adverse response to anesthesia Denies family history of Ovarian cancer Prostate cancer Myocardial infarction Breast cancer Lung cancer Colorectal cancer Stroke Past Surgical History Surgical History History of ankle surgery Right ankle arthroscopy with debridement of tibialis, anterior tendon, removal of avulsion fracture, medical navicular application of PRP concentrate (10/02/18): LMA#5 + PNB at [facility] History of back surgery L3-5 laminectomy (2017) History of colonoscopy History of esophagogastroduodenoscopy (EGD) 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 History of hand surgery Left pinky amputation (r/t injury) History of tonsillectomy Past Anesthesia History No Hx of Anesthesia Complications and No Family Hx of Anesthesia Complications History of PONV No Hx of PONV and No Hx of Motion Sickness Social History Smoking Status: Never smoker Do You Dip or Chew Tobacco: No Hx Alcohol Use: Yes Alcohol type: beer and hard liquor alcohol intake frequency: 3 or more drinks per day (2-3 martini/ETOH drinks/day (late lunch)) Hx Substance Use: Yes substance use type: marijuana (Medical marijuana card (occasional use) ) Review of Systems Patient denies chest pain, shortness of breath, dyspnea on exertion, fever, chills, cough, wheezing, palpitations. Physical Exam Vital Signs VITALS BP 127/76 P 74 TEMP WNL SP02 97%RA RESP 16 PHYSICAL Mildly decreased cervical extension range of motion. Full TMJ range of motion. TMD 3.5 finger breaths Mallampati Score 3 Dentition: missing sides Lungs: clear throughout to auscultation Cardiac: regular rate and rhythm, no murmurs noted Spine: normal Carotid arteries: negative bruit Extremities: no edema Lab Results Anesthesia Preop Results Results Anesthesia Widget: WBC 5.24 K/uL (4.8-10.8) 03/29/21 Hgb 14.1 g/dL (14.0-18.0) 03/29/21 Hct 42.9 % (42-52) 03/29/21 Plt 194 K/uL (130-400) 03/29/21 Na 140 mmol/L (136-145) 03/09/21 K 3.8 mmol/L (3.5-5.1) 03/09/21 Cl 105 mmol/L (98-107) 03/09/21 CO2 31 mmol/L (21-32) 03/09/21 BUN 20 mg/dl (7-18) H 03/09/21 Creat 0.90 mg/dl (0.6-1.4) 03/09/21 Glucose Level 107 mg/dl (70-99) H 03/09/21 PT 10.1 Seconds (9.0-12.0) 04/10/21 PTT 23.5 Seconds (21.0-31.0) 04/10/21 INR 1.0 (0.9-1.1) 04/10/21 Blood Type A Positive 04/10/21 Antibody Screen NEGATIVE 04/10/21 Testing Electrocardiogram Date: 04/10/21 Normal sinus rhythm with sinus arrhythmia. Nonspecific T wave abnormality. Chest X-Ray Date: 04/10/21 FINDINGS: PA and lateral chest radiographs are compared to study dated 05/05/2019 and correlated with chest CT dated 02/10/2019. The cardiomediastinal silhouette is unremarkable noting atherosclerotic calcification of the thoracic aorta. The lungs and pleural spaces are clear. There is no pneumothorax. The skeletal structures are osteopenic. The bony thorax appears intact. IMPRESSION: No active disease in the chest. Cervical Spine Date: 04/02/[address]: There is no evidence of fracture or subluxation involving the cervical spine. There is a large posterior disc bulge at C4-C5. Osteopenia and degenerative change at additional levels as above. Other Testing Head CT (04/06/21): No acute intracranial hemorrhage, no midline shift or space occupying lesions. Chronic small vessel ischemia. Possible sinusitis.
[2021-04-23] MEDS ORDERED: LR 15ML/HR IV SCH (06:00)
[2021-04-23] MEDS ORDERED: SUCCINYLCHOLINE CHLORIDE 20 MG/ML 10 ML VIAL IV ONE (06:26)
[2021-04-23] MEDS ORDERED: LIDOCAINE 2% 2 ML VIAL/AMP(20MG/ML) INFIL ONE (06:26)
[2021-04-23] MEDS ORDERED: DEXAMETHASONE SOD INJ 4 MG/ML VIAL ONE (06:26)
[2021-04-23] MEDS ORDERED: ONDANSETRON INJ 2 MG/ML 2 ML VIAL ONE (06:26)
[2021-04-23] MEDS ORDERED: PROPOFOL IV EMULSION 10 MG/ML 20 ML VIAL IV ONE ×3 (06:26→10:12)
[2021-04-23] MEDS ORDERED: GLYCOPYRROLATE 0.2 MG/ML VIAL ONE (06:27)
[2021-04-23] MEDS ORDERED: MIDAZOLAM HCL 1 MG/ML 2ML VIAL ONE (06:27)
[2021-04-23] MEDS ORDERED: fentaNYL citrate 100 MCG/2 ML VIAL ONE ×2 (06:27→08:36)
[2021-04-23] MEDS ORDERED: SODIUM CHLORIDE 0.9% INJ 10 ML VIAL ONE (06:28)
[2021-04-23] MEDS ORDERED: PROPOFOL IV EMULSION 10 MG/ML 100 ML VIAL IV ONE (06:33)
[2021-04-23] MEDS ORDERED: REMIFENTANIL HCL 1 MG VIAL ONE ×2 (06:34→09:42)
[2021-04-23] MEDS ORDERED: ONDANSETRON INJ 2 MG/ML 2 ML VIAL IV PRN ×2 (06:37→10:40)
[2021-04-23] MEDS ORDERED: ePHEDrine sulfate 50 MG/ML AMP IV PRN (06:37)
[2021-04-23] MEDS ORDERED: HYDROmorphone INJ 1 MG/ML SYRINGE IV PRN (06:37)
[2021-04-23] MEDS ORDERED: ATROPINE SULFATE 0.1 MG/ML 10ML SYR IV PRN (06:37)
[2021-04-23] MEDS ORDERED: fentaNYL citrate 100 MCG/2 ML VIAL IV PRN (06:37)
--- NOTE | 2021-04-23 06:46 | History & Physical Bridge Note ---
Date of Service April 23, 2021 History & Physical Bridge Note I have examined the patient, reviewed the History & Physical and in the interval since the performance of the History & Physical I have noted the following changes of clinical significance: no changes noted New changes compared to last appointment: nil new Musculoskeletal: 5/5 motor strength bilateral C5-T1, L2-S1. Neurologic: Sensation 2/2 to light touch bilateral C5-T1, L2-S1. Patient marked for surgery. All new questions about procedure answered. Informed consent confirmed
--- NOTE | 2021-04-23 06:46 | History & Physical Report ---
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 The pain is focal to the upper mid-cervical region with some radiation to the left paraspinal region. The pain is worse with most activities and improved with rest. There is no associated numbness and tingling. There is no subjective weakness. Patient has however noticed balance issues that started about a year ago and has worsened since. He has had recent falls due to his balance issues. He has had worsening of his hand writing. He denies dropping of objects, and does not routinely button shirts. Prior treatments have included PT and chiropractor, Tylenol and tramadol, but not NSAIDs (previous gastric ulcer) or surgery Allergies Allergy/AdvReac Type Severity Reaction Status Date / Time Corticosteroids AdvReac Mild Advised to Verified 04/23/21 05:53 (Glucocorticoids) avoid d/t gastric ulcer NSAIDS (Non-Steroidal AdvReac Mild Advised to Verified 04/23/21 05:53 Anti-Inflamma avoid d/t gastric ulcer Home Medications Medication Instructions Recorded Confirmed Type ascorbic acid (vitamin C) 500 mg 500 mg PO BID 09/14/18 04/23/21 History tablet (Vitamin C) vitamin E 400 unit capsule 400 unit PO DAILY 09/14/18 04/23/21 History vit C 250 mg-vit E 90 mg-zinc 40 1 tab PO BID 01/08/19 04/23/21 History mg-copper 1 [id number] capsule (PreserVision AREDS-2) antiarthritic combination no.2 900 900 mg PO DAILY tab 10/01/19 04/23/21 History mg tablet (glucosamine-chondroitin) omega-3 fatty acids 1,000 mg 1,000 mg PO DAILY 10/01/19 04/23/21 History capsule (Fish Oil Concentrate) multivitamin (Daily Multi-Vitamin) 1 tab PO DAILY 10/28/19 04/23/21 History amlodipine 5 mg tablet 5 mg PO QAM #90 tab 03/12/21 04/23/21 Rx losartan 100 1 tab PO QAM #90 tab 03/12/21 04/23/21 Rx mg-hydrochlorothiazide 25 mg tablet duloxetine 60 mg capsule,delayed 60 mg PO QAM 04/05/21 04/23/21 History release (Cymbalta) gabapentin enacarbil 600 mg 600 mg PO QAM 04/05/21 04/23/21 History tablet,extended release imatinib 100 mg capsule 300 mg PO DAILY 04/05/21 04/23/21 History omeprazole 20 mg tablet,delayed 20 mg PO QAM 04/05/21 04/23/21 History release potassium gluconate 595 mg (99 mg) 99 mg PO QAM 04/05/21 04/23/21 History tablet,extended release pramipexole 0.375 mg 0.375 mg PO TID 04/05/21 04/23/21 History tablet,extended release 24 hr (Mirapex ER) tamsulosin 0.4 mg capsule 0.4 mg PO QAM 04/05/21 04/23/21 History tramadol 50 mg tablet 100 mg PO BID PRN #120 tab 04/09/21 04/23/21 Rx Past Med/Surg History Medical History 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 Degenerative arthritis Back Essential hypertension 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" History of SCC (squamous cell carcinoma) of skin Head History of stomach ulcers Hx (NSAIDS-related) Hx of spinal stenosis DDD Hyperlipidemia Hypertension Iron deficiency anemia Hx Obstructive sleep apnea CPAP Personal history of malignant melanoma of skin Head (s/p excision) Restless leg syndrome Tremor Ulcer of ileum Hx Surgical History History of ankle surgery Right ankle arthroscopy with debridement of tibialis, anterior tendon, removal of avulsion fracture, medical navicular application of PRP concentrate (10/02/18): LMA#5 + PNB at [facility] History of back surgery L3-5 laminectomy (2017) History of colonoscopy History of esophagogastroduodenoscopy (EGD) 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 History of hand surgery Left pinky amputation (r/t injury) History of tonsillectomy Family History Grandmother Leukemia Other No family history of adverse response to anesthesia Denies family history of Ovarian cancer Prostate cancer Myocardial infarction Breast cancer Lung cancer Colorectal cancer Stroke Social History Smoking Status: Never smoker Second Hand Exposure: No; Do You Dip or Chew Tobacco: No; Tobacco Cessation Education Requested by Patient: No Hx Alcohol Use: Yes (2 to 3 a day) Alcohol type: beer, wine and hard liquor Alcohol Intake Frequency: 4 or More x per/Week Hx Substance Use: No Preferred Language: Maori Communication Ability: Effective Visual Impairment: No Limitations Hearing Ability: Normal Production Hardener Required: No Beliefs That Will Affect Care: None marital status: Current Living Situation: Spouse current occupational status: retired Other Information That Helps Us Care for You: No Feels Safe at Home: Yes Safety Concerns: Feels Safe At This Time Childhood Exposure to Second-Hand Smoke: No caffeine: Yes Dental Care, Regularly: Yes Physical Activity Frequency: Does not Exercise Seatbelt Use: always Sunscreen Use: No Assistive Devices: Contacts, CPAP, Glasses and Hearing Aid - Bilateral Review of Systems All systems reviewed & are unremarkable except as noted in HPI & below. Physical Exam Appearance: Well kept, normally developed Psych: Alert, normal mood and affect Eyes: Anicteric Cardiovascular: No lower extremity edema, extremities warm Respiratory: Breathing unlabored Skin: no rashes Musculoskeletal: 5/5 motor strength bilateral C5-T1, L2-S1. Neurologic: Sensation 2/2 to light touch bilateral C5-T1, L2-S1. Reflexes are 2+ biceps, brachioradialis, 3+ patella and ankle bilaterally. significant tandem gait difficulties No mathews No babinski No clonus Straight leg raise neg Results & Data Results & Data Laboratory Results . Diagnostic Findings . 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
[2021-04-23] MEDS ORDERED: GELATIN SPONGE 12-7MM ONE ×2 (06:48→09:12)
[2021-04-23] MEDS ORDERED: THROMBIN 5000 UNITS KIT ONE (06:48)
[2021-04-23] MEDS ORDERED: ceFAZolin 2,000 MG/15 ML IV PUSH IV ONE (06:50)
[2021-04-23] MEDS ORDERED: HYDROmorphone INJ 1 MG/ML SYRINGE ONE (07:37)
[2021-04-23] MEDS ORDERED: ceFAZolin 2000MG 2,000 MG/15 ML SYR IV SCH (07:55)
[2021-04-23] MEDS ORDERED: FLOSEAL HEMOSTATIC MATRIX 10ML TOP ONE (09:14)
[2021-04-23] MEDS ORDERED: FLOSEAL HEMOSTATIC MATRIX 5ML TOP ONE (09:58)
--- NOTE | 2021-04-23 10:13 | XRay Report ---
INTRAOPERATIVE RADIOGRAPHS CLINICAL HISTORY: Cervical spinal fusion. FINDINGS: 6 crosstable lateral radiographs of the cervical spine are compared to study dated 06/10/20 14 and correlated with cervical spine CT dated 04/02/2021. The first 2 images were reviewed intraoperat ively. The remaining images were presented for interpretation following completion of the surgery. An endotracheal tube is in place. The skeletal structures are osteopenic. Vertebral body height and ali gnment are maintained throughout the cervical spine. On the initial image a surgical probe projects a t the anterior/inferior endplate of C4. On the second image this projects at the level of the C4-C5 d isc space. On the third image the probe projects at the anterior/inferior endplate of C5, and on the fourth image the probe projects at the C4-C5 disc space. Question partial corpectomy change of C5 wit h a disc spacer in place on the fifth and sixth images. There has been anterior fusion at C4-C5. The cortical screws appear to be located within the C4 and C5 vertebral bodies on the final image. The or thopedic hardware is intact as imaged. IMPRESSION: Intraoperative images from cervical spinal fusion surgery as above. Electronically signed by: Dayron Pak M.D. 04/23/2021 10:12 AM
[2021-04-23] MEDS ORDERED: ALUMINUM/MAGNESIUM SUSP 30 ML UDC PO PRN (10:40)
[2021-04-23] MEDS ORDERED: diphenhydrAMINE Capsule 25 MG CAP PO PRN (10:40)
[2021-04-23] MEDS ORDERED: MAGNESIUM HYDROXIDE SUSP 30 ML UDC PO PRN (10:40)
[2021-04-23] MEDS ORDERED: FAMOTIDINE 20 MG TAB PO PRN (10:40)
[2021-04-23] MEDS ORDERED: hydrOXYzine HCl 25 MG TAB PO PRN (10:40)
[2021-04-23] MEDS ORDERED: METOCLOPRAMIDE HCL INJ 5 MG/ML 2 ML VIAL IV PRN (10:40)
[2021-04-23] MEDS ORDERED: NALOXONE HCL 0.4 MG/1 ML VIAL/CARP IV PRN (10:40)
[2021-04-23] MEDS ORDERED: DO NOT ADMINISTER FLU VACCINE PRN (10:40)
[2021-04-23] MEDS ORDERED: RACEPINEPHRINE 2.25% NEBU SOLN 0.5 ML VIAL INH PRN (10:40)
[2021-04-23] MEDS ORDERED: PHARMACY GLYCEMIC MGMT CONSULT PRN (10:40)
[2021-04-23] MEDS ORDERED: bisacodyL 10 MG SUPP PR PRN (10:40)
[2021-04-23] MEDS ORDERED: PROMETHAZINE HCL 12.5 MG in SODIUM CHLORIDE 0.9% 50 ML IV PRN (10:40)
[2021-04-23] MEDS ORDERED: SOD PHOSPHATE/SOD BIPHOSPHATE ENEMA 132 ML BTL PR PRN (10:40)
[2021-04-23] MEDS ORDERED: HYDROCODONE/ACETAMOPHEN 5/325MG TAB PO PRN (10:40)
[2021-04-23] MEDS ORDERED: ONDANSETRON 4 MG OD TAB PO PRN (10:40)
[2021-04-23] MEDS ORDERED: DO NOT ADMINISTER PNEUMOCOCCAL VACCINE PRN (10:40)
[2021-04-23] MEDS ORDERED: HYDROmorphone INJ 0.5 MG/0.5 ML SYR IV PRN (10:40)
[2021-04-23] MEDS ORDERED: LORazepam 0.5 MG TAB PO PRN (10:40)
[2021-04-23] MEDS ORDERED: LORazepam 0.5 MG/1 ML VIAL IV PRN (10:40)
[2021-04-23] MEDS ORDERED: dexAMETHasone 8 MG in SYRINGE 0 ML IV PRN (10:40)
[2021-04-23] MEDS ORDERED: ACETAMINOPHEN 1,000 MG/100 ML VIAL IV PRN (10:40)
[2021-04-23] MEDS ORDERED: ACETAMINOPHEN 500 MG TAB PO PRN (10:40)
--- NOTE | 2021-04-23 10:41 | Post Operative Brief Note ---
PG Immediate Post Op with CF Date of Surgery April 23, 2021 Pre & Post Diagnosis Operation Date: 04/23/21 Pre-Op Diagnosis: Cervical Myelopathy Post-Op Diagnosis: Cervical Myelopathy I identified the patient and participated in the time-out.: Yes Procedure C4-C5 Anterior Cervical Discectomy Fusion, Local Autograft, Allograft Surgeon Elma Plascencia MD Analytics Analyst Donta Perry PA-C Estimated Blood Loss 25 Findings Consistent with Post-Op Diagnosis Specimens Specimen Description: none Drains [place] Drain
[2021-04-23] MEDS ORDERED: traMADol HCL 50 MG TABLET PO PRN (12:24)
[2021-04-23] MEDS ORDERED: GLUCOSE 40% GEL 15 GM TUBE PO PRN (13:00)
[2021-04-23] MEDS ORDERED: CARBOHYDRATES FOR HYPOGLYCEMIA PO PRN (13:00)
[2021-04-23] MEDS ORDERED: DEXTROSE 50% 50 ML SYRINGE IV PRN (13:00)
[2021-04-23] MEDS ORDERED: GLUCOSE 10 TABS/TUBE PO PRN (13:00)
[2021-04-23] MEDS ORDERED: GLUCAGON FOR INJ 1 MG VIAL IM PRN (13:00)
--- NOTE | 2021-04-23 13:29 | Anesthesiology Progress Note ---
Date of Service April 23, 2021 Anesthesia Post Procedure Vital Signs Vital Signs: Temp Pulse Pulse Pulse Resp BP BP 04/23/21 13:23 102 H 18 04/23/21 13:11 36.4 C L 99 H 16 156/77 H 04/23/21 13:01 100 H 16 159/82 H 04/23/21 12:26 99 H 16 137/78 04/23/21 12:05 36.9 C 101 H 16 144/76 H 04/23/21 11:55 98 H 17 146/83 H 04/23/21 11:45 95 H 18 147/71 H 04/23/21 11:35 36.5 C 97 H 22 146/77 H 04/23/21 11:25 100 H 16 146/75 H 04/23/21 11:15 101 H 19 157/79 H 04/23/21 11:05 99 H 16 149/77 H 04/23/21 10:55 96 H 16 151/81 H 04/23/21 10:45 98 H 18 144/77 H 04/23/21 10:38 36.2 C L 96 H 12 146/75 H 04/23/21 06:01 36.6 C 77 22 137/69 Pulse Ox 04/23/21 13:23 96 04/23/21 13:11 95 04/23/21 13:01 95 04/23/21 12:26 96 04/23/21 12:05 95 04/23/21 11:55 94 04/23/21 11:45 94 04/23/21 11:35 94 04/23/21 11:25 93 04/23/21 11:15 97 04/23/21 11:05 99 04/23/21 10:55 98 04/23/21 10:45 98 04/23/21 10:38 99 04/23/21 06:01 95 Pain Intensity Neck: Pain Intensity: 0 Lower Back: Pain Intensity: 0 Transfer of Care Handoff Completed per policy Notes Mental Status: alert / awake / arousable and participated in evaluation Patient Amnestic to Procedure: Yes Nausea / Vomiting: adequately controlled Pain: adequately controlled Airway Patency, RR, SpO2: stable & adequate BP & HR: stable & adequate Hydration State: stable & adequate Anesthetic Complications: no major complications apparent and Pt Satisfied with anesthetic care
[2021-04-23] MEDS: INSULIN ASPART 100 UNITS/ML 3 ML PEN SC SCH ×4 (14:03→23:38)
--- NOTE | 2021-04-23 14:05 | Communication Note ---
Date of Service: April 23, 2021 Post-op routine neurological assessment completed Patient awake, alert No new neurological deficits noted Musculoskeletal: 5/5 motor strength bilateral C5-T1, L2-S1. Neurologic: Sensation 2/2 to light touch bilateral C5-T1, L2-S1.
[2021-04-23] MEDS: METHYLPREDNISOLONE IV SCH ×2 (15:07→21:27)
[2021-04-23] MEDS: SODIUM CHLORIDE 0.9% IV SCH ×2 (15:07→21:27)
[2021-04-23] MEDS: MIRAPEX PO SCH ×3 (15:07→21:19)
--- NOTE | 2021-04-23 15:15 | Pharmacy Report ---
Pharmacy Glycemic Short Note 2 - Date of Service April 23, 2021 - Glycemic Short BSG Results (Last 24 hours): 04/23/21 13:40 POC Glucose 174 H OUTPATIENT ANTIDIABETIC REGIMEN: * None * HbA1c = 5.3% (09/2020) ASSESSMENT: * 80 yo M admitted s/p C4-C5 discectomy. Pharmacy has been consulted for assistance with inpatient glycemic management. * Patient is not diabetic. However, large doses of steroids are being given perioperatively. He received 8 mg of IV dexamethasone preop and will be started on 250 mg of IV Methylprednisolone Q6H x 4 doses postop. * His post op BSG was 174 mg/dL and that was after eating a clear liquid diet that was not diabetic. * Therefore, will be aggressive with novolog for now. Starting based on weight and stress of 3 with every 4 hour checks. PLAN FOR INPATIENT GLYCEMIC CONTROL: * Basal insulin * None * Bolus insulin * NovoLog per scale Q4H * Goal Range: Low 110 mg/dL - High 140 mg/dL * Correction Factor: 20 mg/dL/unit * Nutritional / Prandial insulin per carb ratio of 1 unit per 6 grams CHO consumed PLAN FOR DISCHARGE: * No changes at discharge. Patient not diabetic.
[2021-04-23] MEDS: ceFAZolin 2000MG 2,000 MG/15 ML SYR IV SCH ×2 (16:26→23:12)
[2021-04-23] MEDS: LACTATED RINGER'S 1,000 ML IV SCH ×2 (17:40)
--- NOTE | 2021-04-23 18:55 | Hospitalist Consultation ---
Date of Consultation April 23, 2021 Assessment & Plan (1) Cervical myopathy: Patient taken to surgery for cervical myopathy with Dr. Schmitt with C4-5 anterior cervical discectomy and fusion (2) BPH with obstruction/lower urinary tract symptoms: Patient complaining of some difficulty urinating has a previous history of this. He will have post void residuals with straight cath orders placed. Continues on tamsulosin (3) Essential hypertension: Patient maintained amlodipine, losartan hydrochlorothiazide caution with his ARB and diuretic postoperative (4) Pre-diabetes: (5) Talavera esophagus: Patient typically takes omeprazole (6) GIST (gastrointestinal stroma tumor), malignant, colon: Patient takes imatinib through [employer] this will be continued (7) Depression: Continues on Cymbalta History of Present Illness Attending Physician: Elma Plascencia MD History of Present Illness Patient underwent C4-5 anterior cervical discectomy, fusion allograft, by Dr. Plascencia on April 23. Patient was seen post procedure. His neck pain had improved. He still has some tremor that was present in his left upper extremity preprocedure. He denies any other medical complaints at this time. He is a drain in place and is wearing a rigid c-collar Allergies Allergy/AdvReac Type Severity Reaction Status Date / Time Corticosteroids AdvReac Mild Advised to Verified 04/23/21 05:53 (Glucocorticoids) avoid d/t gastric ulcer NSAIDS (Non-Steroidal AdvReac Mild Advised to Verified 04/23/21 05:53 Anti-Inflamma avoid d/t gastric ulcer Home Medications Medication Instructions Recorded Confirmed Type ascorbic acid (vitamin C) 500 mg 500 mg PO BID 09/14/18 04/23/21 History tablet (Vitamin C) vitamin E 400 unit capsule 400 unit PO DAILY 09/14/18 04/23/21 History vit C 250 mg-vit E 90 mg-zinc 40 1 tab PO BID 01/08/19 04/23/21 History mg-copper 1 [id number] capsule (PreserVision AREDS-2) antiarthritic combination no.2 900 900 mg PO DAILY tab 10/01/19 04/23/21 History mg tablet (glucosamine-chondroitin) omega-3 fatty acids 1,000 mg 1,000 mg PO DAILY 10/01/19 04/23/21 History capsule (Fish Oil Concentrate) multivitamin (Daily Multi-Vitamin) 1 tab PO DAILY 10/28/19 04/23/21 History amlodipine 5 mg tablet 5 mg PO QAM #90 tab 03/12/21 04/23/21 Rx losartan 100 1 tab PO QAM #90 tab 03/12/21 04/23/21 Rx mg-hydrochlorothiazide 25 mg tablet duloxetine 60 mg capsule,delayed 60 mg PO QAM 04/05/21 04/23/21 History release (Cymbalta) gabapentin enacarbil 600 mg 600 mg PO QAM 04/05/21 04/23/21 History tablet,extended release imatinib 100 mg capsule 300 mg PO DAILY 04/05/21 04/23/21 History omeprazole 20 mg tablet,delayed 20 mg PO QAM 04/05/21 04/23/21 History release potassium gluconate 595 mg (99 mg) 99 mg PO QAM 04/05/21 04/23/21 History tablet,extended release pramipexole 0.375 mg 0.375 mg PO TID 04/05/21 04/23/21 History tablet,extended release 24 hr (Mirapex ER) tamsulosin 0.4 mg capsule 0.4 mg PO QAM 04/05/21 04/23/21 History tramadol 50 mg tablet 100 mg PO BID PRN #120 tab 04/09/21 04/23/21 Rx Patient History Medical History (Updated 04/23/21 @ 18:55 by Ricky Renae MD) 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 Degenerative arthritis Back Essential hypertension 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" History of SCC (squamous cell carcinoma) of skin Head History of stomach ulcers Hx (NSAIDS-related) Hx of spinal stenosis DDD Hyperlipidemia Hypertension Iron deficiency anemia Hx Obstructive sleep apnea CPAP Personal history of malignant melanoma of skin Head (s/p excision) Restless leg syndrome Tremor Ulcer of ileum Hx Surgical History History of ankle surgery Right ankle arthroscopy with debridement of tibialis, anterior tendon, removal of avulsion fracture, medical navicular application of PRP concentrate (10/02/18): LMA#5 + PNB at [facility] History of back surgery L3-5 laminectomy (2017) History of colonoscopy History of esophagogastroduodenoscopy (EGD) 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 History of hand surgery Left pinky amputation (r/t injury) History of tonsillectomy Family History Grandmother Leukemia Other No family history of adverse response to anesthesia Denies family history of Ovarian cancer Prostate cancer Myocardial infarction Breast cancer Lung cancer Colorectal cancer Stroke Social History Smoking Status: Never smoker Second Hand Exposure: No; Do You Dip or Chew Tobacco: No; Tobacco Cessation Education Requested by Patient: No Hx Alcohol Use: Yes (2 to 3 a day) Alcohol type: beer, wine and hard liquor Alcohol Intake Frequency: 4 or More x per/Week Hx Substance Use: No Preferred Language: Romansh Communication Ability: Effective Visual Impairment: No Limitations Hearing Ability: Normal Scrap Crane Operator Required: No Beliefs That Will Affect Care: None marital status: Current Living Situation: Spouse current occupational status: retired Other Information That Helps Us Care for You: No Feels Safe at Home: Yes Safety Concerns: Feels Safe At This Time Childhood Exposure to Second-Hand Smoke: No caffeine: Yes Dental Care, Regularly: Yes Physical Activity Frequency: Does not Exercise Seatbelt Use: always Sunscreen Use: No Assistive Devices: Contacts, CPAP, Glasses and Hearing Aid - Bilateral Review of Systems Review of Systems: Mild distress and fatigue no headache, no visual changes Notes resolved neck pain no speech or swallowing issues no chest pain, pressure or palpitations no shortness of breath, cough or wheezes no abdominal pain, nausea or vomiting, diarrhea or constipation no dysuria, hematuria or frequency no focal joint pain or swelling no back pain, CVA tenderness or radicular pain no bruising, bleeding or rashes Does have some persistent stent left arm tremor no complaints of anxiety or depression.. Physical Exam Physical Exam: The patient appeared well Vital signs as documented. Patient is in a rigid cervical collar with a TOBY drain in place Lungs are clear to auscultation and appear unlabored Cardiac exam, Rhythm is regular.. No murmurs, rubs or gallops. Abdominal exam reveals normal bowel sounds, soft non tender, no masses Extremities are nonedematous and both pedal pulses are normal. Neurologic exam is alert and oriented, does have some decrease in strength of his lower extremities probably 4-5 bilaterally with tremor noticed to his left arm at rest Skin is without bruises or rashes with exception of the surgical site Psychologically is without concerns for anxiety or depression. Results & Data Results & Data ([facility]) Vital Signs (Past 12 Hours) Vital Signs Temp Pulse Pulse Resp BP Pulse Ox 04/23/21 16:49 95 H 16 167/84 H 98 04/23/21 15:04 98.2 F 105 H 16 159/80 H 97 04/23/21 14:50 71 18 95 04/23/21 14:09 105 H 16 180/95 H 96 04/23/21 13:23 102 H 18 96 04/23/21 13:11 97.5 F L 99 H 16 156/77 H 95 04/23/21 13:01 100 H 16 159/82 H 95 04/23/21 12:26 99 H 16 137/78 96 04/23/21 12:05 98.4 F 101 H 16 144/76 H 95 04/23/21 11:55 98 H 17 146/83 H 94 04/23/21 11:45 95 H 18 147/71 H 94 04/23/21 11:35 97.7 F 97 H 22 146/77 H 94 04/23/21 11:25 100 H 16 146/75 H 93 04/23/21 11:15 101 H 19 157/79 H 97 04/23/21 11:05 99 H 16 149/77 H 99 04/23/21 10:55 96 H 16 151/81 H 98 04/23/21 10:45 98 H 18 144/77 H 98 04/23/21 10:38 97.2 F L 96 H 12 146/75 H 99 PG Care Time/CCT Total # of Minutes Spent Total Time Spent with Patient: Total time spent is greater than 50% in coordination of care (as documented) at patient's floor/unit and/or counseling patient: Coding Level of Care Code 84286 Inpt Consult Level 3 Diagnoses BPH with obstruction/lower urinary tract symptoms N40.1; N13.8 Essential hypertension I10 Pre-diabetes R73.03 Talavera esophagus K22.70 Cervical myopathy G72.9 GIST (gastrointestinal stroma tumor), malignant, colon C49.A4 Depression F32.9
--- NOTE | 2021-04-23 20:12 | Operative Report ---
[facility] Post Operative Report Pre & Post Diagnosis Operation Date: 04/23/21 Pre-Op Diagnosis: Cervical Myelopathy Post-Op Diagnosis: Cervical Myelopathy I identified the patient and participated in the time-out.: Yes Procedure 1. Anterior Cervical Discectomy and Fusion C4-5 2. Anterior Cervical Instrumentation same levels 3. Anterior Interbody Device same levels 4. Local Autograft for anterior cervical fusion 5. Allograft, morselized (DBM) Surgeon Elma Plascencia MD Records Section Supervisor Donta Perry PA-C Estimated Blood Loss 25 Findings Consistent with Post-Op Diagnosis Specimens none Description of Procedure Implants: 1. K2M [place] Cervical Interbody - 7deg, 13x16, 8mm 2. K2M [place] anterior cervical plate 24mm with 4.0x14mm screws x2 at C5, 4.5x16mm screws x2 at C4 3. Medtronic Doni DBM Drains: 1. TOBY drain x 1 (10 [place]) Indications: Patient is a 80 year old male who presented to my clinic on March 23, 2021 with a several month history of worsened neck pain in context of a one year history of fine motor and balance issues including recurrent falls. His examination and imaging were concerning for cervical myelopathy secondary to severe central stenosis at C4-5. A discussion was had with the patient with regards to surgical and non-surgical management of this problem. Informed consent was obtained and patient was booked for above procedure. On day of surgery, patient was identified in pre-op holding area. History and Physical was updated, surgical site was marked, and consent was confirmed. Risks, benefits and alternatives were discussed again and I answered all their questions. Description of procedure: Patient was brought to the operating room and underwent general anesthesia. Patient was placed supine on the operating table with neck in gentle extension. Face, eyes, bony prominences, and peripheral nerves were well protected. SCDs were applied to bilateral legs to reduce risk of DVT. Anterior cervical region was prepped and draped in standard fashion. A time-out was performed and documented. This included confirmation of administration of prophylactic antibiotics prior to incision. Anterior Kern-Stahl type approach was made on the right side. The carotid artery was palpated and retracted laterally. The anterior cervical spine was visualized and a localization needle was placed in the affected disc space and confirmed with lateral portable x-ray. The longus coli was elevated bilaterally and a self retaining retractor placed. Anterior discectomy was performed with disc knife, ronguers, and currettes. Anterior osteophytes were removed and saved for local autograft. [place] type distraction pins were placed into the vertebral body above and below the disc. Gentle distraction was applied. Posterior discectomy with decompression of the central spinal cord and bilateral foraminal areas was performed with high speed lady, curettes, and ronguers. This included the takedown of PLL for assessment of any disc protrusion posterior to it. Once the decompression was judged to be adequate, attention was turned to the preparation of the interspace for fusion. A lady and currettes were used to prepare endplates for fusion with flat, bleeding surfaces. A trial sizer was used to size the interbody device. The interbody device was packed with local bone and DBM allograft. The interbody device was placed in the interspace and the distraction pins were removed. Bone wax was used to control bleeding from the pin sites. An appropriate size anterior cervical plate was selected. The screw sites were pre-drilled. The plate was secured with two screws into the vertebral body above and two into the body below. Due to osteophyte removals needed at superior edge of the disc space to help with plate placement, proximal screw holes had reduced anterior cortical purchase. As such, larger 4.5mm screws were utilized at this level to ensure strong purchase. The self retaining retractor was removed and the wound checked for hemostasis. Lateral portable x-ray imaging confirmed the correct surgical level and implant positions. The wound was irrigated. There was good hemostasis. A TOBY drain was inserted below the incision. The platsyma layer was closed with 2-0 vicryl and the skin with 3-0 monocryl. Steristrips, and a sterile dressing were applied. The patient was awakened and taken to the recovery room in stable condition. Neuromonitoring was performed throughout the case using SSEP, MEP, EMG and vocal cord monitoring. No changes to baseline motor and no vocal cord activities were noted throughout the . There were no intraoperative complications noted. Sponge and needle counts were correct x2 at the conclusion of the case. I attest to the content of the Intraoperative Record and any orders documented therein. Any exceptions are noted below.
[2021-04-23] MEDS ORDERED: NON-FORMULARY MEDICATION (Vit C,E-Zn-Coppr-Lutein-Zeaxan [Preservision Areds-2] 250-200-40 PO SCH (21:00)
[2021-04-23] MEDS: DOCUSATE SODIUM/SENNA 50/8.6MG TAB PO SCH (21:17)
[2021-04-23] MEDS: ASCORBIC ACID 500 MG TAB PO SCH (21:17)
[2021-04-23] MEDS: traMADol HCL 50 MG TABLET PO PRN (23:11)
[2021-04-24] MEDS: METHYLPREDNISOLONE IV SCH (01:03)
[2021-04-24] MEDS: SODIUM CHLORIDE 0.9% IV SCH (01:03)
[2021-04-24] MEDS: LACTATED RINGER'S 1,000 ML IV SCH (03:26)
[2021-04-24] MEDS: INSULIN ASPART 100 UNITS/ML 3 ML PEN SC SCH ×5 (03:33→21:47)
[2021-04-24] MEDS: POLYETHYLENE (MIRALAX) 17 GM PACK PO SCH ×3 (05:27→17:46)
[2021-04-24] MEDS: traMADol HCL 50 MG TABLET PO PRN ×2 (05:31→09:43)
--- NOTE | 2021-04-24 06:43 | Orthopedic Progress Note ---
Date of Service April 24, 2021 Assessment & Plan (1) Status post spinal surgery: Plan: monitor drain output, possible removal this PM upright x-rays post-op when able likely d/c tomorrow Admission and Anticipated Discharge Date Admission Date: April 23, 2021 Subjective no new numbness/weakness no hoarseness no dysphagia. Drinking well, has tried clear fluid diet so far pain well-controlled Hgb pending this AM Glucose 158 POC this AM Physical Exam Physical Exam: vitals: see vital signs section; on 2LNP neck: soft, non-distended dressing: mild serosang discharge drain: 10 cc/6hr, measurement gap less than 8 hr vascular: no calf tenderness or swelling bilaterally. no signs of DVT neuro: 5/5 motor strength bilateral C5-T1, L2-S1 2/2 sensation to light touch bilateral C5-T1, L2-S1. Results & Data ([facility]) Vital Signs (Past 12 Hours) Vital Signs Temp Pulse Pulse Resp BP BP Pulse Ox 04/24/21 05:10 36.7 C 88 18 145/69 H 98 04/24/21 03:11 36.7 C 77 18 156/78 H 96 04/24/21 03:00 84 16 96 04/24/21 01:31 36.9 C 69 18 151/76 H 95 04/23/21 23:10 36.9 C 76 20 159/74 H 98 04/23/21 22:30 78 18 93 04/23/21 21:05 37.0 C 81 18 160/79 H 99 04/23/21 19:10 36.9 C 88 20 161/80 H 99 04/23/21 19:09 95 H 18 98 Diagnostic Findings post-op x-ray cervical spine pending PG Care Time/CCT Total # of Minutes Spent Total Time Spent with Patient: Total time spent is greater than 50% in coordination of care (as documented) at patient's floor/unit and/or counseling patient: Coding Level of Care Code None Diagnoses Status post spinal surgery Z98.890
[2021-04-24 07:41] LABS: Hemoglobin 13.1 g/dL (14.0-18.0); Immature Granulocytes # (auto) 0.02 K/uL (0.00-0.02); Immature Granulocytes % (auto) 0.2 %; Lymphocytes # (auto) 0.68 K/uL (1.2-3.4); Lymphocytes % (auto) 7.4 %; Mean Corpuscular Hemoglobin 31.2 pg (25-34); Mean Corpuscular Hgb Conc 33.6 g/dL (32-36); Mean Corpuscular Volume 92.9 fL (80-100); Mean Platelet Volume 9.9 fL (7.4-10.4); Monocytes # (auto) 0.12 K/uL (0.11-0.59); Monocytes % (auto) 1.3 %; Neutrophils # (auto) 8.36 K/uL (1.4-6.5); Neutrophils % (auto) 91.1 %; Platelet Count 178 K/uL (130-400); RDW Coefficient of Variation 13.7 % (11.5-14.5); RDW Standard Deviation 46.5 fL (36.4-46.3); White Blood Count 9.18 K/uL (4.8-10.8)
--- NOTE | 2021-04-24 07:41 | Pharmacy Report ---
Pharmacy Glycemic Sign Off Nt - Date of Service April 24, 2021 - Assessment & Plan ASSESSMENT: * Pharmacy was consulted by Donta Perry PA-C on 04/23/21 for glycemic control and to write orders per [facility] inpatient glycemic control protocol. * Major changes made by pharmacy to antidiabetic regimen include: * Started patient on Novolog correctional insulin every 4 hours to cover for steroid induced hyperglycemia postoperatively * Patient has been required 16 units of Novolog yesterday for adequate glycemic control * BSGs ranging 133-174 mg/dL * Do not anticipate further changes in patient status that would quickly deteriorate glycemic control (i.e. patient to be NPO for upcoming procedure, steroids tapering, starting tube feedings, etc). * Please see recommendations for outpatient antidiabetic regimen below. PLAN FOR INPATIENT GLYCEMIC CONTROL: * Continue NovoLog per scale ACHS * Goal range = 110 - 140 mg/dl * CF = 30 mg/dl/unit * CR = 1 unit for ever 10 g CHO consumed * Pharmacy is signing off of glycemic consult and will no longer be making adjustments to inpatient regimen. Please feel free to re-consult if needed. Thank you. DISCHARGE RECOMMENDATIONS: * A1c 5.3% in September 2020. Patient is not diabetic and requires no medications upon discharge.
[2021-04-24 08:11] LABS: BUN Creatinine Ratio 16.4 (10-20); Calcium 8.5 mg/dl (8.5-10.1); Creatinine Clr Calc Pharmacy 81.8 ml/min; Est GFR (African American) 101.3 ml/min; Est GFR (Non-African American) 87.4 ml/min; Potassium 3.1 mmol/L (3.5-5.1)
[2021-04-24] MEDS ORDERED: Nursing to Pharmacy Communication SCH (08:45)
[2021-04-24] MEDS ORDERED: HORIZANT PO SCH ×2 (09:00→21:00)
[2021-04-24] MEDS ORDERED: NON-FORMULARY MEDICATION (Potassium Gluconate 595 mg (99 mg) Tablet Extended Release) PO SCH (09:00)
[2021-04-24] MEDS ORDERED: TAMSULOSIN HCL 0.4 MG CAP PO SCH ×2 (09:00→13:00)
[2021-04-24] MEDS: OMEGA-3 (PURIFIED FISH OIL) 1 GM CAP PO SCH (09:31)
[2021-04-24] MEDS: TOCOPHERYL, DL-ALPHA 400 UNITS 180 MG CAP PO SCH (09:32)
[2021-04-24] MEDS: LOSARTAN/HCTZ 50/12.5MG TAB PO SCH (09:32)
[2021-04-24] MEDS: amLODIPine BESYLATE 5 MG TAB PO SCH (09:32)
[2021-04-24] MEDS: PANTOprazole 40 MG TAB PO SCH (09:32)
[2021-04-24] MEDS: ASCORBIC ACID 500 MG TAB PO SCH ×2 (09:32→19:57)
[2021-04-24] MEDS: DULoxetine HCL 60 MG CAP PO SCH (09:33)
[2021-04-24] MEDS: POTASSIUM CHLORIDE CRTAB 20 MEQ TABCR PO SCH ×2 (09:35→19:56)
[2021-04-24] MEDS: MULTIVITAMIN TAB PO SCH (09:38)
--- NOTE | 2021-04-24 09:46 | XRay Report ---
XR cervical spine 2 or 3V CLINICAL HISTORY: post-op spine surgery COMPARISON STUDY: Cervical spine 04/23/2021. FINDINGS: Status post C4-C5 anterior cervical discectomy and fusion. Intervertebral cages also noted. The hardware appears intact. Mild prevertebral soft tissue swelling and a prevertebral surgical drai n are noted. IMPRESSION: Status post C4-C5 ACDF. The hardware appears intact. ACT 112: Negative or not required by law. Electronically signed by: Scott Rob M.D. 04/24/2021 9:44 AM
--- NOTE | 2021-04-24 17:03 | Hospitalist Progress Note ---
Date of Service April 24, 2021 Assessment & Plan (1) Cervical myopathy: Plan: Patient taken to surgery for cervical myopathy with Dr. 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), malignant, colon: Plan: Patient takes imatinib through [employer] [facility] this will be continued (7) Depression: Plan: Continues on Cymbalta Admission and Anticipated Discharge Date Admission Date: April 23, 2021 Subjective pt doing well , requests liberalized diet despite diabetic care, no neck pain at present Review of Systems Review of Systems: Mild distress and fatigue no headache, no visual changes Notes resolved neck pain no speech or swallowing issues no chest pain, pressure or palpitations no shortness of breath, cough or wheezes no abdominal pain, nausea or vomiting, diarrhea or constipation no dysuria, hematuria or frequency no focal joint pain or swelling no back pain, CVA tenderness or radicular pain no bruising, bleeding or rashes Does have some persistent stent left arm tremor no complaints of anxiety or depression.. Physical Exam Physical Exam: The patient appeared well Vital signs as documented. Patient is in a rigid cervical collar with a OTBY drain in place Lungs are clear to auscultation and appear unlabored Cardiac exam, Rhythm is regular.. No murmurs, rubs or gallops. Abdominal exam reveals normal bowel sounds, soft non tender, no masses Extremities are nonedematous and both pedal pulses are normal. Neurologic exam is alert and oriented, does have some decrease in strength of his lower extremities probably 4-5 bilaterally with tremor noticed to his left arm at rest Skin is without bruises or rashes with exception of the surgical site Psychologically is without concerns for anxiety or depression. Results & Data Results & Data ([facility]) Vital Signs (Past 12 Hours) Vital Signs Temp Pulse Pulse Resp BP BP Pulse Ox 04/24/21 15:05 90 16 98 04/24/21 14:38 97.9 F 82 16 144/64 H 94 04/24/21 11:04 97.5 F L 71 18 148/74 H 96 04/24/21 11:00 78 16 94 04/24/21 09:14 97.9 F 83 16 151/76 H 97 04/24/21 07:12 97.9 F 81 16 131/67 96 04/24/21 07:01 97 H 16 94 04/24/21 05:10 98.1 F 88 18 145/69 H 98 PG Care Time/CCT Total # of Minutes Spent Total Time Spent with Patient: Total time spent is greater than 50% in coordination of care (as documented) at patient's floor/unit and/or counseling patient: Coding Level of Care Code 42451 Subseq Hosp Care Lvl 2 Diagnoses Cervical myopathy G72.9 BPH with obstruction/lower urinary tract symptoms N40.1; N13.8 Essential hypertension I10 Pre-diabetes R73.03 Talavera esophagus K22.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
[2021-04-24] MEDS: MIRAPEX PO SCH ×2 (17:39→20:01)
[2021-04-24] MEDS: DOCUSATE SODIUM/SENNA 50/8.6MG TAB PO SCH (19:56)
[2021-04-25 06:38] VITALS: TEMP 97.7
--- NOTE | 2021-04-25 06:57 | Orthopedic Progress Note ---
Date of Service April 25, 2021 Assessment & Plan (1) Status post spinal surgery: Plan: december d/c home today once AM bloodwork results returned and cleared by hospitalist please change dressing prior to discharge Admission and Anticipated Discharge Date Admission Date: April 23, 2021 Subjective no new numbness/weakness no hoarseness no dysphagia. Drinking well, eating soft food well pain well-controlled AM bloodwork pending, potassium replaced by hospitalist service yesterday Physical Exam Physical Exam: vitals: see vital signs section; on 2LNP neck: soft, non-distended dressing: mild serosang discharge drain: removed vascular: no calf tenderness or swelling bilaterally. no signs of DVT neuro: 5/5 motor strength bilateral C5-T1, L2-S1 2/2 sensation to light touch bilateral C5-T1, L2-S1. Results & Data ([facility]) Vital Signs (Past 12 Hours) Vital Signs Temp Pulse Resp BP BP Pulse Ox 04/25/21 06:37 36.5 C 65 16 131/79 96 04/25/21 03:42 36.6 C 62 14 153/83 H 91 04/25/21 02:57 70 18 91 04/24/21 23:48 36.6 C 75 14 128/67 04/24/21 22:36 70 18 93 04/24/21 19:54 78 18 98 04/24/21 19:40 36.8 C 74 16 172/90 H 99 PG Care Time/CCT Total # of Minutes Spent Total Time Spent with Patient: Total time spent is greater than 50% in coordination of care (as documented) at patient's floor/unit and/or counseling patient: Coding Level of Care Code None Diagnoses Status post spinal surgery Z98.890
--- NOTE | 2021-04-25 07:09 | Discharge Summary ---
Date of Service April 25, 2021 Principal Diagnosis cervical myelopathy Discharge Data Allergies Allergy/AdvReac Type Severity Reaction Status Date / Time Corticosteroids AdvReac Mild Advised to Verified 04/23/21 05:53 (Glucocorticoids) avoid d/t gastric ulcer NSAIDS (Non-Steroidal AdvReac Mild Advised to Verified 04/23/21 05:53 Anti-Inflamma avoid d/t gastric ulcer Consultations 04/23/21 10:45 Consult Hospitalist Routine Procedures Performed Operation Date: 04/23/21 07:15 Actual Procedures p C4-C5 Anterior Cervical Discectomy Fusion Allograft, Spinal Cord Monitoring(Bilateral) - Elma Plascencia MD Hospital Course (1) Status post spinal surgery: Patient underwent the above mentioned procedure. There were no complications noted intra-op. Post-operatively, patient was sent to recovery and then floor. Pain was well-controlled throughout stay. Drain was removed on post- op day 1. Patient was followed closely by hospitalist service throughout stay and was cleared for discharge medically by this team. Patient was able to ambulate, void, and tolerate PO intake at time of discharge. Verbal discharge and follow-up instructions were given. Total Time Total Time Spent Total Time Spent (In Minutes): 25 Discharge Plan Discharge Items Patient Disposition: Home - Self-Care Reason For Visit: Cervical Myelopathy Discharge Diagnosis: Cervical Myelopathy Activity: Per Instructions section Non-emergency contact: Surgeon Call non-emergency contact if: you have any medication questions Follow-up/Referrals: Maximiliano Miller MD [Primary Care Provider] - Diet: Carb Consistent or DM2 Addtl Attending Provider Instructions: Anterior Cervical Decompression Fusion (ACDF) Recovery What to expect You've had surgery, the first step toward the goals of decreasing neck and/or arm pain, and stopping symptoms of spinal cord compression from getting worse. Now it's time to focus on healing. By following these tips, you will set yourself up for a successful outcome after surgery. Top 4 things to know 1. Pain in the back of the neck and between the shoulder blades is common after ACDF surgery. It also is normal to have some swallowing difficulty. These usually get better over the next few weeks. If you have trouble breathing, call 911 or go to an emergency room immediately. 2. Do not use nicotine for at least three months. Nicotine will slow down your healing. 3. Avoid taking anti-inflammatory medications (NSAIDs) for six to 12 weeks or until your surgeon tells you it's safe to use them. NSAIDs include ibuprofen (Motrin, Advib), naproxen (Aleve, Naprosyn), meloxicam (Mobic), Celebrex and diclofenac. 4. In some cases, you do not need a collar after surgery. If your surgeon gave you one, you should wear it as directed until your first follow-up appointment. Avoid excessive bending and twisting of your neck after surgery. Your surgeon will decide when your collar can come off. Breathing If you have any trouble breathing or have excessive swelling in your neck, call 911 or go to an emergency room immediately. Pain and weakness Neck pain, pain between the shoulder blades and a funny feeling when you swallow are normal after ACDF. These should get better over the next few weeks. Numbness, tingling and weakness that you had before surgery may take time to improve. Your collar If you were given a collar to wear, the goal of it is to keep your chin up and away from your chest. Your chin needs to be on top of the collar, not down in the collar. Wear your collar until your first follow-up appointment after surgery. You may take the collar off to shower. While the collar is off, keep your head as still as possible and your chin up. Taking care of your incision You can take your dressing off when you get home from the hospital. Underneath the dressing you will have adhesive wound closures (Steri-strips) over your incision when you come home from the hospital. These will fall off on their own within 14 days. If they have not fallen off after 14 days, you can remove them. If your incision has no drainage, it can be left uncovered after three days. Showering You can take a shower three days after surgery. Take your collar off while in the shower. Avoid taking tub baths, swimming and going in hot tubs until the incision is completely healed (four to six weeks). Taking medication Do not take anti-inflammatory medications (NSAIDS) for at least three months after surgery. These drugs can interfere with how you heal. NSAIDs include ibuprofen, Advil, Aleve, naproxen, Naprosyn, Mobic, meloxicam, Celebrex, diclofenac. If you need refills on your prescriptions, contact our office at least two days before you are out of pills so we have sufficient time to process your request. Refill requests on Friday afternoons and holidays likely will be addressed on the next business day. Start weaning yourself from pain medications as soon as you are able. Remember, pain is a natural part of the healing process. The goal is not to eliminate all pain but to keep you comfortable as you heal. Pain medications should be used only for a short period of time. Before taking Tylenol (acetaminophen), be aware that your pain medication probably has acetaminophen in it. Taking additional Tylenol or acetaminophen can put you over the daily recommended 3,000 milligrams, which can harm your liver. If you are taking a muscle relaxer, one of the side effects is drowsiness. If you feel too drowsy to safely get up and move around, take the muscle relaxer less often. Do not use tobacco products If you had been a smoker or used tobacco, you were required to stop before surgery You've come this far, so why not quit for good. If you cannot do so, you must not use tobacco products for at least three months. Nicotine will keep you from properly healing If you have any other concerns, call our office at: before going to an emergency room. In most cases we can help you or get you an appointment quickly Be active, but no lifting We want you to be active as soon as you get home from the hospital. Get up and walk often. If you go up and down stairs, make sure you hold onto the railing and have someone with you. Avoid bending and twisting your neck as much as you can, and do not lift anything over 10 pounds until your surgeon says it's OK. And no driving You cannot drive until you are no longer taking narcotic pain medications or muscle relaxers and you can move well enough to be safe behind the wheel. Most patients can begin driving after the 6 week postoperative appointment. Your surgeon will let you know when you can start driving Eating Ice and Popsicles can help relieve a sore throat. Eat soft foods that are easy to swallow. Take small bites and chew your food well. You can begin eating other foods gradually as you start to feel better. Constipation and bloating Constipation is a common side effect of taking narcotic pain medication and a good reason to begin tapering yourself off of pain medication as soon as you can. Drink lots of fluids, be active and eat foods high in fiber to help relieve constipation If constipation is bothering you, a stool softener or laxative may help. Try one of the following, and always follow the instructions: Milk of Magnesia, MiraLAX, Dulcolax suppository. Fleet enema, magnesium citrate. When is it an emergency? If you have any of the following symptoms, call 911 or go to an emergency room right away: Trouble breathing Chest pain Excessive neck swelling Significant new weakness since your surgery If you have any other concern, call our office at [phone] before going to an emergency room. In most cases we can help you or get you an appointment quickly. Pending Studies at Discharge: No Stand-Alone Forms: My [facility] Medications and DC Order Prescriptions: New tramadol 50 mg Tablet 50 - 100 mg PO Q4H PRN (Reason: pain) Qty: 50 RF: 0 Continued omega-3 fatty acids [Fish Oil Concentrate] 1,000 mg capsule 1,000 mg PO DAILY RF: 0 glucosamine-chondroitin 900 mg tablet 900 mg PO DAILY RF: 0 amlodipine 5 mg tablet 5 mg PO QAM Qty: 90 RF: 3 losartan-hydrochlorothiazide 100-25 mg tablet 1 tab PO QAM Qty: 90 RF: 5 multivitamin [Daily Multi-Vitamin] Tablet 1 tab PO DAILY RF: 0 PreserVision AREDS-2 [id number] dx-tmak-uk-mg Capsule 1 tab PO BID RF: 0 ascorbic acid (vitamin C) [Vitamin C] 500 mg Tablet 500 mg PO BID RF: 0 vitamin E 400 unit Capsule 400 unit PO DAILY RF: 0 imatinib 100 mg Capsule 300 mg PO DAILY RF: 0 potassium gluconate 595 mg (99 mg) Tablet Extended Release 99 mg PO QAM RF: 0 tamsulosin 0.4 mg capsule 0.4 mg PO QAM RF: 0 duloxetine [Cymbalta] 60 mg capsule,delayed release(DR/EC) 60 mg PO QAM RF: 0 omeprazole 20 mg tablet,delayed release (DR/EC) 20 mg PO QAM RF: 0 pramipexole [Mirapex ER] 0.375 mg tablet extended release 24 hr 0.375 mg PO TID RF: 0 gabapentin enacarbil 600 mg tablet extended release 600 mg PO QAM RF: 0 Discontinued tramadol 50 mg tablet 100 mg PO BID PRN (Reason: pain) Qty: 120 RF: 0 Discharge Orders: Discharge Order (Routine); Ordered 04/25/21 Ordered By: Elma Plascencia Admission Data Admit Date/Time: 04/23/21 10:40 Attending Provider: Elma Plascencia Admit Provider: Elma Plascencia Primary Care Provider: Maximiliano Miller Other Providers: Thang Adamson ; Louise Kaba ; Luis Chapman ; Wilber Holland ; Ricky Renae ; Harlan Dumont ; Jed García ; Dayron Christina ; Terese Arias ; Hui Niño ; Evans Rothman ; Olga Lidia Montaño ; Kiesha Lovelace ; Arash Escobar ; Donta Amado ; Aneudy Garcia ; Louise Redd ; Raúl Nye ; Reed Nagel ; Juno Yuan ; Luis Ames ; Todd Scales ; Ginger Timmons ; Kayden Romano ; Olga Lidia Anders ; Cuauhtemoc Vargas ; Juan Jose Huitron ; Gray Mckoy Coding Level of Care Code D/C DAY MANAGEMENT <30 MINS Diagnoses Status post spinal surgery Z98.890
[2021-04-25 07:16] LABS: BUN Creatinine Ratio 22.9 (10-20); Calcium 8.5 mg/dl (8.5-10.1); Creatinine Clr Calc Pharmacy 85.2 ml/min; Est GFR (Non-African American) 88.8 ml/min; Magnesium 1.9 mg/dl (1.8-2.4); Potassium 3.8 mmol/L (3.5-5.1)
[2021-04-25] MEDS: INSULIN ASPART 100 UNITS/ML 3 ML PEN SC SCH (07:53)
[2021-04-25] MEDS: ASCORBIC ACID 500 MG TAB PO SCH (07:54)
[2021-04-25] MEDS: amLODIPine BESYLATE 5 MG TAB PO SCH (07:54)
[2021-04-25] MEDS: POTASSIUM CHLORIDE CRTAB 20 MEQ TABCR PO SCH (07:54)
[2021-04-25] MEDS: MULTIVITAMIN TAB PO SCH (07:54)
[2021-04-25] MEDS: TOCOPHERYL, DL-ALPHA 400 UNITS 180 MG CAP PO SCH (07:54)
[2021-04-25] MEDS: OMEGA-3 (PURIFIED FISH OIL) 1 GM CAP PO SCH (07:55)
[2021-04-25] MEDS: LOSARTAN/HCTZ 50/12.5MG TAB PO SCH (07:55)
[2021-04-25] MEDS: PANTOprazole 40 MG TAB PO SCH (07:55)
[2021-04-25] MEDS: DULoxetine HCL 60 MG CAP PO SCH (07:55)
[2021-04-25 09:48] VITALS: BP 128/67
[2021-04-25 11:33] VITALS: PULSE 77; O2SAT 95
== END 2021-04-25 12:41 | disposition home or self-care (01) | DRG 472 ==
LOC: ASU 05:26 → 3E 10:40

== ENCOUNTER 2021-04-28 09:48 | Inpatient (IN) ==
--- NOTE | 2021-04-28 10:18 | Emergency Department Note ---
Impression & Plan Trouble breathing, Hematoma of neck ED Provider Note NAME: DEEPIKA MICHELLE AGE: 80 SEX: M : 1940 ARRIVES VIA: Walk-In INFORMANT: Patient ED PROVIDER(S): Harlan Joyce DO CHIEF COMPLAINT: Trouble breathing HPI: Patient is a 80-year-old male who had an anterior approach to C4-C5 discectomy performed on Friday. He was discharged 2 days later. Since being home when he lays down his nose clogs often becomes short of breath. He notes he has no trouble breathing through his mouth but his nose. He feels like there is something back there which is shutting off. He denies any chest pain, belly pain, nausea, vomiting, or diarrhea. No dysuria, urgency, or frequency. ROS: See above HPI for pertinent positives & negatives. A total of 10 systems reviewed and were otherwise negative. PAST MEDICAL HISTORY:See Below PAST SURGICAL HISTORY:See Below FAMILY HISTORY:See Below SOCIAL HISTORY:See Below HOME MEDICATIONS:See Below ALLERGIES:See Below VITALS:See Below PHYSICAL EXAMINATION: GENERAL: Sitting up in bed, alert, well appearing, well nourished, no distress, non-toxic EYE EXAM: normal conjunctiva. PERRL and EOM's grossly intact. OROPHARYNX: no exudate, no erythema, lips, buccal mucosa, and tongue normal and mucous membranes are moist NECK: Cervical collar in place with dressing over the right neck. No stridor. LUNGS: Clear to auscultation. Normal chest wall mechanics HEART: no murmurs, S1 normal and S2 normal ABDOMEN: abdomen soft, non-tender, normo-active bowel sounds, no masses, no rebound or guarding. UPPER EXTREMITIES: upper extremities are grossly normal. LOWER EXTREMITIES: No pitting edema. Calves are equal bilateral. NEURO EXAM: Normal sensorium, cranial nerves II-XII grossly intact, normal speech, no gross weakness of arms, no gross weakness of legs. MEDICAL DECISION MAKING: Patient is a 80-year-old male who presents the ER for trouble breathing and swelling in the neck status post AICD. IV was established blood was obtained. Labs show no significant leukocytosis or anemia. BMP with a slightly elevated CO2 of 33. D-dimer was elevated. Bilirubin LFTs troponin was negative. Lipase was normal. CT of the neck and chest was performed and showed a large hematoma in the neck. This was reviewed with Dr. Plascencia who was on vacation and recommended discussion with Dr. Bullock. Dr. Bullock evaluate the patient and took the patient to the OR. Triage Nursing notes reviewed. Limited review of prior medical records performed Vital Signs: reviewed and remarkable for no significant abnormalities Differential diagnosis: Differential diagnoses includes but is not limited to pneumonia, bronchitis, COPD/Asthma exacerbation, pneumothorax, pulmonary embolism, congestive heart failure, acute coronary syndrome ER treatment provided: See below Diagnostics interpreted by me: ECG: Sinus rhythm rate of 79 Left axis No PVCs QTC 433 Cardiac Monitoring: An order was placed for continuous cardiac monitoring. The monitor shows a rate of 72 with sinus rhythm. Laboratory studies: As stated above and show below. 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" History of SCC (squamous cell carcinoma) of skin Head History of stomach ulcers Hx (NSAIDS-related) Hx of spinal stenosis DDD Hyperlipidemia Hypertension Iron deficiency anemia Hx Obstructive sleep apnea CPAP Personal history of malignant melanoma of skin Head (s/p excision) Restless leg syndrome Tremor Ulcer of ileum Hx Surgical History History of ankle surgery Right ankle arthroscopy with debridement of tibialis, anterior tendon, removal of avulsion fracture, medical navicular application of PRP concentr ate (10/02/18): LMA#5 + PNB at [facility] History of back surgery L3-5 laminectomy (2017) History of colonoscopy History of esophagogastroduodenoscopy (EGD) 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 History of hand surgery Left pinky amputation (r/t injury) History of tonsillectomy Family History Grandmother Leukemia Other No family history of adverse response to anesthesia Denies family history of Ovarian cancer Prostate cancer Myocardial infarction Breast cancer Lung cancer Colorectal cancer Stroke Social History Smoking Status: Never smoker Second Hand Exposure: No; Hx Alcohol Use: Yes (2 to 3 a day) Alcohol type: beer, wine and hard liquor Alcohol Intake Frequency: 4 or More x per/Week Hx Substance Use: No Preferred Language: Turkish Communication Ability: Effective Visual Impairment: No Limitations Hearing Ability: Normal Tool Supervisor Required: No Beliefs That Will Affect Care: None marital status: Current Living Situation: Spouse current occupational status: retired Feels Safe at Home: Yes Childhood Exposure to Second-Hand Smoke: No caffeine: Yes Dental Care, Regularly: Yes Physical Activity Frequency: Does not Exercise Seatbelt Use: always Sunscreen Use: No Assistive Devices: Glasses and Walker Allergies Allergies Allergy/AdvReac Type Severity Reaction Status Date / Time Corticosteroids AdvReac Mild Advised to Verified 04/23/21 05:53 (Glucocorticoids) avoid d/t gastric ulcer NSAIDS (Non-Steroidal AdvReac Mild Advised to Verified 04/23/21 05:53 Anti-Inflamma avoid d/t gastric ulcer Home Meds Home Medications Medication Instructions Recorded Confirmed ascorbic acid (vitamin C) 500 mg 500 mg PO BID 09/14/18 04/23/21 tablet (Vitamin C) vitamin E 400 unit capsule 400 unit PO DAILY 09/14/18 04/23/21 vit C 250 mg-vit E 90 mg-zinc 40 1 tab PO BID 01/08/19 04/23/21 mg-copper 1 [id number] capsule (PreserVision AREDS-2) antiarthritic combination no.2 900 900 mg PO DAILY tab 10/01/19 04/23/21 mg tablet (glucosamine-chondroitin) omega-3 fatty acids 1,000 mg 1,000 mg PO DAILY 10/01/19 04/23/21 capsule (Fish Oil Concentrate) multivitamin (Daily Multi-Vitamin) 1 tab PO DAILY 10/28/19 04/23/21 duloxetine 60 mg capsule,delayed 60 mg PO QAM 04/05/21 04/23/21 release (Cymbalta) gabapentin enacarbil 600 mg 600 mg PO QAM 04/05/21 04/23/21 tablet,extended release imatinib 100 mg capsule 300 mg PO DAILY 04/05/21 04/23/21 omeprazole 20 mg tablet,delayed 20 mg PO QAM 04/05/21 04/23/21 release potassium gluconate 595 mg (99 mg) 99 mg PO QAM 04/05/21 04/23/21 tablet,extended release pramipexole 0.375 mg 0.375 mg PO TID 04/05/21 04/23/21 tablet,extended release 24 hr (Mirapex ER) tamsulosin 0.4 mg capsule 0.4 mg PO QAM 04/05/21 04/23/21 Previous Rx's Medication Instructions Recorded amlodipine 5 mg tablet 5 mg PO QAM #90 tab 03/12/21 losartan 100 1 tab PO QAM #90 tab 03/12/21 mg-hydrochlorothiazide 25 mg tablet tramadol 50 mg tablet 50 - 100 mg PO Q4H PRN #50 tab 04/23/21 Results & Data (ED) Vital Signs Vital Signs - 24 hr 04/28/21 09:53 04/28/21 10:15 04/28/21 13:09 Temperature 36 C L Temperature Source Temporal Artery Scan Pulse Rate 84 Pulse Rate [Apical] 78 Respiratory Rate 18 18 Respiratory Effort / Characteristics Non-Labored Non-Labored Spontaneous Non-Labored Respiratory Depth Normal Normal Normal Respiratory Pattern Regular Blood Pressure 134/77 Blood Pressure [Right Arm] 159/73 H Blood Pressure Mean 96 Blood Pressure Mean [Right Arm] 101 Pulse Oximetry 99 96 97 Oxygen Delivery Method Room Air Room Air Room Air Oxygen Flow Rate 0 Sepsis Recent Fever Within 48 Hours No Sepsis New/Unexplained Change in Mental Status No Sepsis Action Taken by Nursing No Action Required Laboratory Data Result diagrams: 04/28/21 10:30 04/28/21 10:30 Lab Results 04/28/21 04/28/21 04/28/21 Range/Units 10:30 10:30 10:30 WBC 6.09 (4.8-10.8) K/uL RBC 4.34 L (4.7-6.1) M/uL Hgb 13.7 L (14.0-18.0) g/dL Hct 40.7 L (42-52) % MCV 93.8 (80-100) fL MCH 31.6 (25-34) pg MCHC 33.7 (32-36) g/dL RDW Std Deviation 46.7 H (36.4-46.3) fL RDW Coeff of Lana 13.5 (11.5-14.5) % Plt Count 167 (130-400) K/uL MPV 9.2 (7.4-10.4) fL Immature Gran % (Auto) 0.3 % Neut % (Auto) 68.4 % Lymph % (Auto) 19.5 % [place]quois % (Auto) 10.0 % Eos % (Auto) 1.5 % Baso % (Auto) 0.3 % Neut # (Auto) 4.16 (1.4-6.5) K/uL Lymph # (Auto) 1.19 L (1.2-3.4) K/uL [place]ois # (Auto) 0.61 H (0.11-0.59) K/uL Eos # (Auto) 0.09 (0-0.5) K/uL Baso # (Auto) 0.02 (0-0.2) K/uL Immature Gran # (Auto) 0.02 (0.00-0.02) K/uL APTT 22.8 (21.0-31.0) Seconds PTT Ratio 0.9 D-Dimer 1930 H* (0-500) ug/L FEU Sodium 141 (136-145) mmol/L Potassium 4.0 (3.5-5.1) mmol/L Chloride 104 (98-107) mmol/L Carbon Dioxide 33 H (21-32) mmol/L Anion Gap 3.0 (3-11) BUN 20 H (7-18) mg/dl Creatinine 0.84 (0.6-1.4) mg/dl Est Cr Clr Drug Dosing 72.5 ml/min Est GFR ( Amer) 97.2 ml/min Est GFR (Non-Af Amer) 83.9 ml/min BUN/Creatinine Ratio 23.4 H (10-20) Glucose 104 H (70-99) mg/dl Calcium 8.7 (8.5-10.1) mg/dl Total Bilirubin 0.6 (0.2-1) mg/dl AST 12 L (15-37) U/L ALT 24 (12-78) U/L Alkaline Phosphatase 70 (45-117) U/L Troponin I < 0.015 (0-0.045) ng/ml Total Protein 6.0 L (6.4-8.2) gm/dl Albumin 3.2 L (3.4-5.0) gm/dl Globulin 2.8 (2.5-4.0) gm/dl Albumin/Globulin Ratio 1.2 (0.9-2) Lipase 110 (73-393) U/L COVID-19 Eval Order SARS-CoV-2 (PCR) (Negative) 04/28/21 04/28/21 Range/Units 12:58 12:58 WBC (4.8-10.8) K/uL RBC (4.7-6.1) M/uL Hgb (14.0-18.0) g/dL Hct (42-52) % MCV (80-100) fL MCH (25-34) pg MCHC (32-36) g/dL RDW Std Deviation (36.4-46.3) fL RDW Coeff of Lana (11.5-14.5) % Plt Count (130-400) K/uL MPV (7.4-10.4) fL Immature Gran % (Auto) % Neut % (Auto) % Lymph % (Auto) % [place]roquois % (Auto) % Eos % (Auto) % Baso % (Auto) % Neut # (Auto) (1.4-6.5) K/uL Lymph # (Auto) (1.2-3.4) K/uL [place]ois # (Auto) (0.11-0.59) K/uL Eos # (Auto) (0-0.5) K/uL Baso # (Auto) (0-0.2) K/uL Immature Gran # (Auto) (0.00-0.02) K/uL APTT (21.0-31.0) Seconds PTT Ratio D-Dimer (0-500) ug/L FEU Sodium (136-145) mmol/L Potassium (3.5-5.1) mmol/L Chloride (98-107) mmol/L Carbon Dioxide (21-32) mmol/L Anion Gap (3-11) BUN (7-18) mg/dl Creatinine (0.6-1.4) mg/dl Est Cr Clr Drug Dosing ml/min Est GFR ( Amer) ml/min Est GFR (Non-Af Amer) ml/min BUN/Creatinine Ratio (10-20) Glucose (70-99) mg/dl Calcium (8.5-10.1) mg/dl Total Bilirubin (0.2-1) mg/dl AST (15-37) U/L ALT (12-78) U/L Alkaline Phosphatase (45-117) U/L Troponin I (0-0.045) ng/ml Total Protein (6.4-8.2) gm/dl Albumin (3.4-5.0) gm/dl Globulin (2.5-4.0) gm/dl Albumin/Globulin Ratio (0.9-2) Lipase (73-393) U/L COVID-19 Eval Order Covid19 at [facility] SARS-CoV-2 (PCR) NEGATIVE (Negative) Administered Medications Lactated Ringer's (Lr) 1,000 mls @ 100 mls/hr IV .Q10H KETAN Stop: 05/28/21 16:15 Last Admin: 04/28/21 16:24 Dose: 100 mls/hr Documented by: [id number] Discontinued Medications Cefazolin Sodium (Cefazolin 250 Mg/Ml 1 Gm Vial) Confirm Administered Dose 1,000 mg .ROUTE .STK-MED ONE Stop: 04/28/21 14:13 Last Admin: 04/28/21 14:26 Dose: 1,000 mg Documented by: [id number] Dexamethasone Sodium Phosphate (DexamethasonePf 10 Mg/Ml Vial) 8 mg IV NOW ONE Stop: 04/28/21 12:42 Last Admin: 04/28/21 13:23 Dose: 8 mg Documented by: [id number] Ioversol (Optiray 320 125ml) 120 ml IV ONCE ONE Stop: 04/28/21 11:28 Last Admin: 04/28/21 11:27 Dose: 120 ml Documented by: [id number] Imaging Data Radiologist's Impression: Chest X-Ray 04/28/21 10:12 SINGLE VIEW CHEST CLINICAL HISTORY: Atypical chest pain. FINDINGS: 2 AP, portable, upright chest radiographs are compared to study dated 04/10/2021. The cardiomediastinal silhouette is unremarkable noting atherosclerotic calcification of the thoracic aorta. There is mild bibasilar atelectasis. The lungs and pleural spaces are otherwise clear. No pneumothorax is seen. The skeletal structures are osteopenic. The bony thorax is grossly intact. IMPRESSION: No active disease in the chest. ACT 112: Negative or not required by law. Electronically signed by: Dayron Pak M.D. 04/28/2021 11:02 AM Chest CTA 04/28/21 11:18 CT ANGIOGRAM OF THE CHEST CLINICAL HISTORY: Dyspnea. Recent surgery. COMPARISON STUDY: Chest x-ray dated 04/28/2021. Chest CT dated 02/10/2019. Abdominal CT dated 02/16/2021. TECHNIQUE: Following the IV administration of 120 cc of Optiray 320, CT angiogram of the chest was performed from the upper abdomen to the thoracic inlet utilizing the pulmonary embolus protocol. Images are reviewed in the axial, sagittal, and coronal planes. 3-D MIPS images are created and assessed. IV contrast was administered without complication. A dose lowering technique was utilized adhering to the principles of ALARA. CT DOSE: 1003.21 mGy.cm FINDINGS: Lower neck: Infiltration of the soft tissues of the lower neck are likely due to recent cervical spine surgery. See report of CT scan of the neck performed concurrently for detailed findings. Thyroid: Imaged portions of the thyroid gland are normal in size and attenuation. 3 mm low-attenuation nodule is noted in the left lobe. Thoracic aorta: There is mild atherosclerotic calcification of the thoracic aorta, which is normal in caliber and demonstrates standard 3-vessel arch anatomy. No dissection is seen. Pulmonary vasculature: The pulmonary trunk is normal in caliber. There are no filling defects identified in main, lobar, or segmental pulmonary branches to suggest pulmonary embolus. Heart: The heart is mildly enlarged noting trace pericardial effusion. The coronary arteries are densely calcified. Lungs and pleural spaces: The trachea and central airways are clear. There is trace right pleural effusion and bibasilar atelectasis. No airspace consolidation is seen typical for pneumonia. A 7 mm groundglass nodule in the left upper lobe is unchanged from 02/10/2019. Mediastinum: There is no mediastinal lymphadenopathy. Beryl: Clear. Axillae: There is no axillary lymphadenopathy. Upper abdomen: There are calcified gallstones. A small hiatal hernia is noted. Trace perisplenic ascites is observed. Infiltration just below the pancreas and upper abdominal lymph nodes are partially visualized and grossly similar to the 02/16/[address] scan. This is likely related to the none history of gastrointestinal stromal tumor. Skeletal structures: The skeletal structures are osteopenic. Degenerative change is noted in the shoulders and thoracic spine. No lytic or blastic bony lesions are seen. IMPRESSION: 1. There is no evidence of pulmonary embolus in the main, lobar, or segmental pulmonary arteries. 2. Cardiomegaly and trace right pleural effusion. 3. There is no airspace consolidation typical for pneumonia. 4. A 7 mm groundglass nodule in the left upper lobe is unchanged from 02/10/2019. 5. Trace perisplenic ascites. 6. Cholelithiasis. 7. Additional findings as above. ACT 112: Negative or not required by law. Electronically signed by: Dayron Pak M.D. 04/28/2021 12:[address] 04/28/21 11:18 CT SCAN OF THE NECK WITH IV CONTRAST CLINICAL HISTORY: Dyspnea. Recent cervical spine surgery. COMPARISON STUDY: CT of the cervical spine dated 04/02/2021. TECHNIQUE: Following the IV administration of 120 cc of Optiray 320, CT scan of the soft tissues of the neck was performed from the skull base to the upper chest. Images are reviewed in the axial, sagittal, and coronal planes. IV contrast was administered without complication. A dose lowering technique was utilized adhering to the principles of ALARA. FINDINGS: Pharynx: There is significant prevertebral/retropharyngeal soft tissue edema. A peripherally enhancing fluid collection is identified within the prevertebral soft tissues to the right of midline at the level of C5 on axial image #191. This measures 1.1 x 2.9 cm in axial dimension at this level, and this extends inferiorly within the right parapharyngeal soft tissues to the level of the thyroid gland (axial image #238). The craniocaudal extent of this collection is approximately 5 cm. There is infiltration throughout the parapharyngeal fat bilaterally, right significantly greater than left. There is significant associated narrowing of the supraglottic airway. The vocal cords are symmetric. The epiglottis is normal. Lymphadenopathy: No cervical lymphadenopathy is seen Thyroid: The thyroid gland is normal in size and attenuation. An 8 mm low- attenuation nodule is noted in the left lobe. Salivary glands: The parotid and submandibular glands are within normal limits. Brain parenchyma: The visualized brain parenchyma at the skull base is normal in appearance. Vascular structures: The carotid arteries and jugular veins are patent. Advanced atherosclerotic calcification is seen in the carotid bulbs. Skeletal structures: The skeletal structures are osteopenic. Imaged portions of the calvarium at the skull base are within normal limits. There is multilevel cervical spondylosis with postoperative change from anterior fusion seen at C4- C5. The orthopedic hardware appears intact. No lytic or blastic lesion is seen. Sinuses and mastoids: There is trace mucosal thickening within the maxillary antra. The remaining visualized paranasal sinuses are clear. The mastoid air cells are well pneumatized. Lung apices: Visualized apical lung parenchyma is clear. Soft tissues: A surgical incision site is present in the right anterior soft tissues on image #29. IMPRESSION: 1. There is postoperative change from anterior cervical spine fusion seen at C4- C5. 2. There is significant/diffuse prevertebral/retropharyngeal soft tissue edema, greatest at the operative level. There is also infiltration of the parapharyngeal fat bilaterally, right significantly greater than left. This may all be related to recent surgery. Superimposed infection would be impossible to exclude and clinical correlation will be essential. 3. There is a large and peripherally enhancing fluid collection centered within the prevertebral/retropharyngeal soft tissue levels eccentric to the right at C5 as detailed above. This tracks inferiorly within the right parapharyngeal soft tissues to the level of the thyroid gland, measuring up to 5 cm in maximum dimension. Although this could represent a postoperative seroma/hematoma, the sterility of this fluid cannot be evaluated by CT and an abscess is not excluded. 4. There is significant narrowing of the supraglottic airway. ACT 112: Negative or not required by law. Electronically signed by: Dayron Pak M.D. 04/28/2021 12:06 PM Discharge Plan Visit Data Chief Complaint: Shortness of Breath/Dyspnea Stated Complaint: TROUBLE BREATHING - S/P SURGERY 04/23 ED Provider: Harlan Joyce Discharge Problem: Trouble breathing, Hematoma of neck Patient Disposition: Admitted As Inpatient Discharge Instructions Interventions: ED Discharge Assessment Last Done: 04/28/21 13:48 Discharge Problem: Hematoma of neck Qualifiers: Encounter type: initial encounter Qualified Code(s): S10.93XA - Contusion of unspecified part of neck, initial encounter
[2021-04-28 10:39] LABS: Basophils # (auto) 0.02 K/uL (0-0.2); Basophils % (auto) 0.3 %; Eosinophils # (auto) 0.09 K/uL (0-0.5); Eosinophils % (auto) 1.5 %; Hematocrit (blood only) 40.7 % (42-52); Hemoglobin 13.7 g/dL (14.0-18.0); Immature Granulocytes # (auto) 0.02 K/uL (0.00-0.02); Immature Granulocytes % (auto) 0.3 %; Lymphocytes # (auto) 1.19 K/uL (1.2-3.4); Lymphocytes % (auto) 19.5 %; Mean Corpuscular Hemoglobin 31.6 pg (25-34); Mean Corpuscular Hgb Conc 33.7 g/dL (32-36); Mean Corpuscular Volume 93.8 fL (80-100); Mean Platelet Volume 9.2 fL (7.4-10.4); Monocytes # (auto) 0.61 K/uL (0.11-0.59); Neutrophils # (auto) 4.16 K/uL (1.4-6.5); Neutrophils % (auto) 68.4 %; Platelet Count 167 K/uL (130-400); RDW Coefficient of Variation 13.5 % (11.5-14.5); RDW Standard Deviation 46.7 fL (36.4-46.3); Red Blood Count 4.34 M/uL (4.7-6.1); White Blood Count 6.09 K/uL (4.8-10.8)
[2021-04-28 10:59] LABS: Partial Thromboplastin Ratio 0.9; Partial Thromboplastin Time 22.8 Seconds (21.0-31.0)
[2021-04-28 11:00] LABS: Alanine Aminotransferase 24 U/L (12-78); Albumin Level 3.2 gm/dl (3.4-5.0); Aspartate Aminotransferase 12 U/L (15-37); BUN Creatinine Ratio 23.4 (10-20); Blood Urea Nitrogen 20 mg/dl (7-18); Calcium 8.7 mg/dl (8.5-10.1); Carbon Dioxide 33 mmol/L (21-32); Chloride 104 mmol/L (98-107); Creatinine Clr Calc Pharmacy 72.5 ml/min; Est GFR (African American) 97.2 ml/min; Est GFR (Non-African American) 83.9 ml/min; Glucose 104 mg/dl (70-99); Lipase 110 U/L (73-393); Sodium 141 mmol/L (136-145)
--- NOTE | 2021-04-28 11:03 | XRay Report ---
SINGLE VIEW CHEST CLINICAL HISTORY: Atypical chest pain. FINDINGS: 2 AP, portable, upright chest radiographs are compared to study dated 04/10/2021. The cardio mediastinal silhouette is unremarkable noting atherosclerotic calcification of the thoracic aorta. Th ere is mild bibasilar atelectasis. The lungs and pleural spaces are otherwise clear. No pneumothorax is seen. The skeletal structures are osteopenic. The bony thorax is grossly intact. IMPRESSION: No active disease in the chest. ACT 112: Negative or not required by law. Electronically signed by: Dayron Pak M.D. 04/28/2021 11:02 AM
[2021-04-28 11:05] LABS: Albumin Globulin Ratio 1.2 (0.9-2); Alkaline Phosphatase 70 U/L (45-117); Bilirubin,Total 0.6 mg/dl (0.2-1); Globulin 2.8 gm/dl (2.5-4.0); Troponin I < 0.015 ng/ml (0-0.045)
[2021-04-28 11:07] LABS: D Dimer 1930 ug/L FEU (0-500)
[2021-04-28] MEDS ORDERED: OPTIRAY 320 125ml IV ONE (11:27)
--- NOTE | 2021-04-28 12:07 | CT Scan Report ---
CT SCAN OF THE NECK WITH IV CONTRAST CLINICAL HISTORY: Dyspnea. Recent cervical spine surgery. COMPARISON STUDY: CT of the cervical spine dated 04/02/2021. TECHNIQUE: Following the IV administration of 120 cc of Optiray 320, CT scan of the soft tissues of t he neck was performed from the skull base to the upper chest. Images are reviewed in the axial, sagit laila, and coronal planes. IV contrast was administered without complication. A dose lowering techniq ue was utilized adhering to the principles of ALARA. FINDINGS: Pharynx: There is significant prevertebral/retropharyngeal soft tissue edema. A peripherally enhancin g fluid collection is identified within the prevertebral soft tissues to the right of midline at the level of C5 on axial image #191. This measures 1.1 x 2.9 cm in axial dimension at this level, and thi s extends inferiorly within the right parapharyngeal soft tissues to the level of the thyroid gland ( axial image #238). The craniocaudal extent of this collection is approximately 5 cm. There is infiltr ation throughout the parapharyngeal fat bilaterally, right significantly greater than left. There is significant associated narrowing of the supraglottic airway. The vocal cords are symmetric. The epigl ottis is normal. Lymphadenopathy: No cervical lymphadenopathy is seen Thyroid: The thyroid gland is normal in size and attenuation. An 8 mm low-attenuation nodule is noted in the left lobe. Salivary glands: The parotid and submandibular glands are within normal limits. Brain parenchyma: The visualized brain parenchyma at the skull base is normal in appearance. Vascular structures: The carotid arteries and jugular veins are patent. Advanced atherosclerotic calc ification is seen in the carotid bulbs. Skeletal structures: The skeletal structures are osteopenic. Imaged portions of the calvarium at the skull base are within normal limits. There is multilevel cervical spondylosis with postoperative tellez ge from anterior fusion seen at C4-C5. The orthopedic hardware appears intact. No lytic or blastic le josé miguel is seen. Sinuses and mastoids: There is trace mucosal thickening within the maxillary antra. The remaining vis ualized paranasal sinuses are clear. The mastoid air cells are well pneumatized. Lung apices: Visualized apical lung parenchyma is clear. Soft tissues: A surgical incision site is present in the right anterior soft tissues on image #29. IMPRESSION: 1. There is postoperative change from anterior cervical spine fusion seen at C4-C5. 2. There is significant/diffuse prevertebral/retropharyngeal soft tissue edema, greatest at the opera tive level. There is also infiltration of the parapharyngeal fat bilaterally, right significantly gre ater than left. This may all be related to recent surgery. Superimposed infection would be impossible to exclude and clinical correlation will be essential. 3. There is a large and peripherally enhancing fluid collection centered within the prevertebral/retr opharyngeal soft tissue levels eccentric to the right at C5 as detailed above. This tracks inferiorly within the right parapharyngeal soft tissues to the level of the thyroid gland, measuring up to 5 cm in maximum dimension. Although this could represent a postoperative seroma/hematoma, the sterility o f this fluid cannot be evaluated by CT and an abscess is not excluded. 4. There is significant narrowing of the supraglottic airway. ACT 112: Negative or not required by law. Electronically signed by: Dayron Pak M.D. 04/28/2021 12:06 PM
--- NOTE | 2021-04-28 12:38 | CT Scan Report ---
CT ANGIOGRAM OF THE CHEST CLINICAL HISTORY: Dyspnea. Recent surgery. COMPARISON STUDY: Chest x-ray dated 04/28/2021. Chest CT dated 02/10/2019. Abdominal CT dated 1. TECHNIQUE: Following the IV administration of 120 cc of Optiray 320, CT angiogram of the chest was pe rformed from the upper abdomen to the thoracic inlet utilizing the pulmonary embolus protocol. Images are reviewed in the axial, sagittal, and coronal planes. 3-D MIPS images are created and assessed. I V contrast was administered without complication. A dose lowering technique was utilized adhering to the principles of ALARA. CT DOSE: 1003.21 mGy.cm FINDINGS: Lower neck: Infiltration of the soft tissues of the lower neck are likely due to recent cervical spin e surgery. See report of CT scan of the neck performed concurrently for detailed findings. Thyroid: Imaged portions of the thyroid gland are normal in size and attenuation. 3 mm low-attenuatio n nodule is noted in the left lobe. Thoracic aorta: There is mild atherosclerotic calcification of the thoracic aorta, which is normal in caliber and demonstrates standard 3-vessel arch anatomy. No dissection is seen. Pulmonary vasculature: The pulmonary trunk is normal in caliber. There are no filling defects identif ied in main, lobar, or segmental pulmonary branches to suggest pulmonary embolus. Heart: The heart is mildly enlarged noting trace pericardial effusion. The coronary arteries are dens belen calcified. Lungs and pleural spaces: The trachea and central airways are clear. There is trace right pleural eff usion and bibasilar atelectasis. No airspace consolidation is seen typical for pneumonia. A 7 mm grou ndglass nodule in the left upper lobe is unchanged from 02/10/2019. Mediastinum: There is no mediastinal lymphadenopathy. Beryl: Clear. Axillae: There is no axillary lymphadenopathy. Upper abdomen: There are calcified gallstones. A small hiatal hernia is noted. Trace perisplenic asci nivia is observed. Infiltration just below the pancreas and upper abdominal lymph nodes are partially v isualized and grossly similar to the 02/16/[address] scan. This is likely related to the none history of gastrointestinal stromal tumor. Skeletal structures: The skeletal structures are osteopenic. Degenerative change is noted in the shou lders and thoracic spine. No lytic or blastic bony lesions are seen. IMPRESSION: 1. There is no evidence of pulmonary embolus in the main, lobar, or segmental pulmonary arteries. 2. Cardiomegaly and trace right pleural effusion. 3. There is no airspace consolidation typical for pneumonia. 4. A 7 mm groundglass nodule in the left upper lobe is unchanged from 02/10/2019. 5. Trace perisplenic ascites. 6. Cholelithiasis. 7. Additional findings as above. ACT 112: Negative or not required by law. Electronically signed by: Dayron Pak M.D. 04/28/2021 12:37 PM
[2021-04-28] MEDS ORDERED: dexAMETHasone**PF** 10 MG/ML VIAL IV ONE (12:41)
--- NOTE | 2021-04-28 13:11 | Anesthesiology Consultation ---
Date of Service April 28, 2021 Assessment & Plan Chart Review Chart Review: Acceptable Risk for Surgery Consults Requested none ASA [id number] Proposed Anesthesia Anesthesia Type: General Risk / Benefits Reviewed With: PT / POA / Parent / Guardian, Accepts Plan and Informed Consent Obtained History Surgery Operation Date: 04/28/21 14:00 Proposed Procedures p Anterior Cervical Evacuation of Hematoma - Lucas Bullock, Height/Weight Height: 5 ft 6 in Weight: 81.1 kg Allergies Allergy/AdvReac Type Severity Reaction Status Date / Time Corticosteroids AdvReac Mild Advised to Verified 04/23/21 05:53 (Glucocorticoids) avoid d/t gastric ulcer NSAIDS (Non-Steroidal AdvReac Mild Advised to Verified 04/23/21 05:53 Anti-Inflamma avoid d/t gastric ulcer Medications Home Medications Medication Instructions Recorded Confirmed Last Taken ascorbic acid (vitamin C) 500 mg 500 mg PO BID 09/14/18 04/23/21 04/22/21 19:00 tablet (Vitamin C) vitamin E 400 unit capsule 400 unit PO DAILY 09/14/18 04/23/21 04/09/21 vit C 250 mg-vit E 90 mg-zinc 40 1 tab PO BID 01/08/19 04/23/21 04/09/21 mg-copper 1 [id number] capsule (PreserVision AREDS-2) antiarthritic combination no.2 900 900 mg PO DAILY tab 10/01/19 04/23/21 04/09/21 mg tablet (glucosamine-chondroitin) omega-3 fatty acids 1,000 mg 1,000 mg PO DAILY 10/01/19 04/23/21 04/09/21 capsule (Fish Oil Concentrate) multivitamin (Daily Multi-Vitamin) 1 tab PO DAILY 10/28/19 04/23/21 04/09/21 amlodipine 5 mg tablet 5 mg PO QAM #90 tab 03/12/21 04/23/21 04/23/21 04:30 losartan 100 1 tab PO QAM #90 tab 03/12/21 04/23/21 04/22/21 07:00 mg-hydrochlorothiazide 25 mg tablet duloxetine 60 mg capsule,delayed 60 mg PO QAM 04/05/21 04/23/21 04/22/21 07:00 release (Cymbalta) gabapentin enacarbil 600 mg 600 mg PO QAM 04/05/21 04/23/21 04/21/21 tablet,extended release imatinib 100 mg capsule 300 mg PO DAILY 04/05/21 04/23/21 04/22/21 19:00 omeprazole 20 mg tablet,delayed 20 mg PO QAM 04/05/21 04/23/21 04/23/21 04:30 release potassium gluconate 595 mg (99 mg) 99 mg PO QAM 04/05/21 04/23/21 04/22/21 07:00 tablet,extended release pramipexole 0.375 mg 0.375 mg PO TID 04/05/21 04/23/21 04/22/21 13:00 tablet,extended release 24 hr (Mirapex ER) tamsulosin 0.4 mg capsule 0.4 mg PO QAM 04/05/21 04/23/21 04/23/21 04:30 tramadol 50 mg tablet 50 - 100 mg PO Q4H PRN #50 tab 04/23/21 Unknown Past Medical History Medical History 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 Degenerative arthritis Back Essential hypertension 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" History of SCC (squamous cell carcinoma) of skin Head History of stomach ulcers Hx (NSAIDS-related) Hx of spinal stenosis DDD Hyperlipidemia Hypertension Iron deficiency anemia Hx Obstructive sleep apnea CPAP Personal history of malignant melanoma of skin Head (s/p excision) Restless leg syndrome Tremor Ulcer of ileum Hx Exercise / Class Metabolic Activity II 4-5 Yardwork/Stairs/Walk up hill Past Family History Family History Grandmother Leukemia Other No family history of adverse response to anesthesia Denies family history of Ovarian cancer Prostate cancer Myocardial infarction Breast cancer Lung cancer Colorectal cancer Stroke Past Surgical History Surgical History History of ankle surgery Right ankle arthroscopy with debridement of tibialis, anterior tendon, removal of avulsion fracture, medical navicular application of PRP concentrate (10/02/18): LMA#5 + PNB at [facility] History of back surgery L3-5 laminectomy (2017) History of colonoscopy History of esophagogastroduodenoscopy (EGD) 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 History of hand surgery Left pinky amputation (r/t injury) History of tonsillectomy Past Anesthesia History No Hx of Anesthesia Complications and No Family Hx of Anesthesia Complications History of PONV No Hx of PONV and No Hx of Motion Sickness Social History Smoking Status: Never smoker Hx Alcohol Use: Yes (2 to 3 a day) Alcohol type: beer, wine and hard liquor alcohol intake frequency: 0-2 drinks per day Hx Substance Use: No substance use type: does not use Physical Exam Vital Signs Last Vital Signs Temp 96.8 F L 04/28/21 09:53 Pulse 84 04/28/21 09:53 Resp 18 04/28/21 09:53 BP 134/77 04/28/21 09:53 Pulse Ox 96 04/28/21 10:15 ENMT Mouth: no dentition abnormality Thyromental Distance: > or= 3.5 Finger Breadths Mallampati Class: III Neck Patient has a cervical collar Respiratory normal respiratory effort Auscultation: lungs clear to auscultation bilaterally Cardiovascular Rate/Rhythm: regular rate and regular rhythm Testing Laboratory Results 04/28/21 10:30 04/28/21 10:30 APTT 22.8 Seconds (21.0-31.0) 04/28/21 10:30 Electrocardiogram Date: 04/28/21 Normal sinus rhythm, rate 79 bpm Possible Anterior infarct , age undetermined Abnormal ECG When compared with ECG of 10-APR-2021 08:42, No significant change was found Chest X-Ray Date: 04/28/21 Findings: + NAD Other Testing CT neck 04/28/21 IMPRESSION: 1. There is postoperative change from anterior cervical spine fusion seen at C4- C5. 2. There is significant/diffuse prevertebral/retropharyngeal soft tissue edema, greatest at the operative level. There is also infiltration of the parapharyngeal fat bilaterally, right significantly greater than left. This may all be related to recent surgery. Superimposed infection would be impossible to exclude and clinical correlation will be essential. 3. There is a large and peripherally enhancing fluid collection centered within the prevertebral/retropharyngeal soft tissue levels eccentric to the right at C5 as detailed above. This tracks inferiorly within the right parapharyngeal soft tissues to the level of the thyroid gland, measuring up to 5 cm in maximum dimension. Although this could represent a postoperative seroma/hematoma, the sterility of this fluid cannot be evaluated by CT and an abscess is not excluded. 4. There is significant narrowing of the supraglottic airway.
[2021-04-28] MEDS ORDERED: MIDAZOLAM HCL 1 MG/ML 2ML VIAL ONE (13:22)
[2021-04-28] MEDS ORDERED: fentaNYL citrate 100 MCG/2 ML VIAL ONE (13:22)
[2021-04-28] MEDS ORDERED: BENZOCAIN/TETRACA/BUTAM SPRAY 200 APPLN/20 GM SPRY EXT ONE (13:29)
[2021-04-28] MEDS ORDERED: ALBUMIN HUMAN 5% 12.5 GM/250 ML VIAL IV ONE (13:29)
[2021-04-28] MEDS ORDERED: ONDANSETRON INJ 2 MG/ML 2 ML VIAL IV PRN ×2 (13:31→16:16)
[2021-04-28] MEDS ORDERED: ATROPINE SULFATE 0.1 MG/ML 10ML SYR IV PRN (13:31)
[2021-04-28] MEDS ORDERED: fentaNYL citrate 100 MCG/2 ML VIAL IV PRN (13:31)
[2021-04-28] MEDS ORDERED: ePHEDrine sulfate 50 MG/ML AMP IV PRN (13:31)
--- NOTE | 2021-04-28 13:36 | History & Physical Report ---
Date of Service April 28, 2021 Assessment & Plan (1) Postoperative hematoma: Plan: Assessment cervical hematoma. CAT scan cervical spine does demonstrate paravertebral swelling consistent with surgery. There is a fluid collection of up to 5 cm in diameter. I reviewed these findings with the patient's. In light of his presentation I am recommending emergent irrigation debridement of the hematoma. Risk benefits pros cons alternatives were outlined in detail with the patient. History of Present Illness Chief Complaint: Difficulty breathing Primary Care Provider: Maximiliano Miller MD This is a 72-year-old male who is approximately 5 days status post anterior cervical discectomy and fusion C4-C5. He tolerated the procedure well and was discharged home. Unfortunately the past 48 hours he has noticed a increased difficulty in breathing. He has been unable to sleep. He states lying supine is almost impossible secondary to inability to breathe. Sitting up does provide some relief. He denies any cervicalgia or any upper extremity pain. Allergies Allergy/AdvReac Type Severity Reaction Status Date / Time Corticosteroids AdvReac Mild Advised to Verified 04/23/21 05:53 (Glucocorticoids) avoid d/t gastric ulcer NSAIDS (Non-Steroidal AdvReac Mild Advised to Verified 04/23/21 05:53 Anti-Inflamma avoid d/t gastric ulcer Home Medications Medication Instructions Recorded Confirmed Type ascorbic acid (vitamin C) 500 mg 500 mg PO BID 09/14/18 04/23/21 History tablet (Vitamin C) vitamin E 400 unit capsule 400 unit PO DAILY 09/14/18 04/23/21 History vit C 250 mg-vit E 90 mg-zinc 40 1 tab PO BID 01/08/19 04/23/21 History mg-copper 1 [id number] capsule (PreserVision AREDS-2) antiarthritic combination no.2 900 900 mg PO DAILY tab 10/01/19 04/23/21 History mg tablet (glucosamine-chondroitin) omega-3 fatty acids 1,000 mg 1,000 mg PO DAILY 10/01/19 04/23/21 History capsule (Fish Oil Concentrate) multivitamin (Daily Multi-Vitamin) 1 tab PO DAILY 10/28/19 04/23/21 History amlodipine 5 mg tablet 5 mg PO QAM #90 tab 03/12/21 04/23/21 Rx losartan 100 1 tab PO QAM #90 tab 03/12/21 04/23/21 Rx mg-hydrochlorothiazide 25 mg tablet duloxetine 60 mg capsule,delayed 60 mg PO QAM 04/05/21 04/23/21 History release (Cymbalta) gabapentin enacarbil 600 mg 600 mg PO QAM 04/05/21 04/23/21 History tablet,extended release imatinib 100 mg capsule 300 mg PO DAILY 04/05/21 04/23/21 History omeprazole 20 mg tablet,delayed 20 mg PO QAM 04/05/21 04/23/21 History release potassium gluconate 595 mg (99 mg) 99 mg PO QAM 04/05/21 04/23/21 History tablet,extended release pramipexole 0.375 mg 0.375 mg PO TID 04/05/21 04/23/21 History tablet,extended release 24 hr (Mirapex ER) tamsulosin 0.4 mg capsule 0.4 mg PO QAM 04/05/21 04/23/21 History tramadol 50 mg tablet 50 - 100 mg PO Q4H PRN #50 tab 04/23/21 Rx Past Med/Surg History Medical History 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 Degenerative arthritis Back Essential hypertension 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" History of SCC (squamous cell carcinoma) of skin Head History of stomach ulcers Hx (NSAIDS-related) Hx of spinal stenosis DDD Hyperlipidemia Hypertension Iron deficiency anemia Hx Obstructive sleep apnea CPAP Personal history of malignant melanoma of skin Head (s/p excision) Restless leg syndrome Tremor Ulcer of ileum Hx Surgical History History of ankle surgery Right ankle arthroscopy with debridement of tibialis, anterior tendon, removal of avulsion fracture, medical navicular application of PRP concentrate (10/02/18): LMA#5 + PNB at [facility] History of back surgery L3-5 laminectomy (2017) History of colonoscopy History of esophagogastroduodenoscopy (EGD) 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 History of hand surgery Left pinky amputation (r/t injury) History of tonsillectomy Family History Grandmother Leukemia Other No family history of adverse response to anesthesia Denies family history of Ovarian cancer Prostate cancer Myocardial infarction Breast cancer Lung cancer Colorectal cancer Stroke Social History Smoking Status: Never smoker Second Hand Exposure: No; Hx Alcohol Use: Yes (2 to 3 a day) Alcohol type: beer, wine and hard liquor Alcohol Intake Frequency: 4 or More x per/Week Hx Substance Use: No Preferred Language: Pakistani Communication Ability: Effective Visual Impairment: No Limitations Hearing Ability: Normal Landing Worker Required: No Beliefs That Will Affect Care: None marital status: Current Living Situation: Spouse current occupational status: retired Feels Safe at Home: Yes Childhood Exposure to Second-Hand Smoke: No caffeine: Yes Dental Care, Regularly: Yes Physical Activity Frequency: Does not Exercise Seatbelt Use: always Sunscreen Use: No Assistive Devices: Glasses and Walker Physical Exam Physical Exam: On physical exam he is alert and oriented. He does demonstrate some swelling to the right anterior aspect of the cervical spine. Is nontender to palpation. He must sit up to obtain comfort and to have adequate breathing. I did not appreciate hoarseness he has excellent strength testing upper extremities. Results & Data ([facility]) Vital Signs (Past 12 Hours) Vital Signs Temp Pulse Pulse Resp BP BP Pulse Ox 04/28/21 13:09 78 18 159/73 H 97 04/28/21 10:15 96 04/28/21 09:53 36 C L 84 18 134/77 99
[2021-04-28] MEDS ORDERED: LIDOCAINE 2% 2 ML VIAL/AMP(20MG/ML) INFIL ONE (14:19)
[2021-04-28] MEDS ORDERED: PROPOFOL IV EMULSION 10 MG/ML 20 ML VIAL IV ONE (14:19)
[2021-04-28] MEDS ORDERED: ONDANSETRON INJ 2 MG/ML 2 ML VIAL ONE (14:19)
[2021-04-28] MEDS ORDERED: ROCURONIUM BROMIDE 10 MG/ML 5 ML VIAL IV ONE (14:19)
[2021-04-28] MEDS ORDERED: PHENYLEPHRINE 100MCG/ML 5ML SYR ONE (14:19)
[2021-04-28] MEDS ORDERED: ePHEDrine sulfate 50 MG/ML AMP ONE (14:19)
--- NOTE | 2021-04-28 14:43 | Operative Report ---
Post Operative Report Pre & Post Diagnosis Operation Date: 04/28/21 14:00 Pre-Op Diagnosis: Postoperative hematoma Post-Op Diagnosis: Postoperative hematoma I identified the patient and participated in the time-out.: Yes Procedure Operation Date: 04/28/21 14:00 Actual Procedures #1 Irrigation and evacuation of postoperative cervical hematoma Surgeon Lucas Bullock, DO [place] Custodian None Estimated Blood Loss 5 Findings See Below Evidence of serosanguineous fluid consistent with postop hematoma. Specimens None Indications This is a 72-year-old male presents status post intracervical discectomy fusion presents to emergency room with difficulty breathing for the past [address]. [address] scan demonstrates evidence of significant soft tissue swelling with a 5 cm fluid collection. Subsequently we chose to undergo emergent I&D of the cervical spine. Description of Procedure Patient was met with identified informed consent obtained. Patient was then taken to the operative suite underwent intubation placed in supine position on the Toan table with the head in the Garza head control clerk. All bony prominences well-padded eyes inspected to ensure no external pressure placed upon them. This point the anterior cervical spine was prepped and draped in normal sterile fashion. Utilizing the previous incision site sharp dissection was performed to the skin and blunt dissection was carried out down to and exposing the anterior cervical spine. Significant quantities of serosanguineous fluid was identified and evacuated. I then explored the area noting no evidence of active bleeding. The tissues appeared very healthy. A liter of normal saline and Ancef was then irrigated throughout the incision. A 15 round TOBY drain inserted. The incision was then closed with 2-0 Vicryl in the platysma and subcutaneous tissue and 4 Monocryl for final skin closure. Steri-Strips dressings placed. Patient awakened taken to the ICU in stable condition. I attest to the content of the Intraoperative Record and any orders documented therein. Any exceptions are noted below.
--- NOTE | 2021-04-28 15:21 | Anesthesiology Progress Note ---
Date of Service April 28, 2021 Anesthesia Post Procedure Vital Signs Vital Signs: Temp Pulse Pulse Resp BP BP Pulse Ox 04/28/21 13:09 78 18 159/73 H 97 04/28/21 10:15 96 04/28/21 09:53 96.8 F L 84 18 134/77 99 Transfer of Care Handoff Completed per policy Notes Mental Status: alert / awake / arousable and participated in evaluation Patient Amnestic to Procedure: Yes Nausea / Vomiting: adequately controlled Pain: adequately controlled Airway Patency, RR, SpO2: see Notes below BP & HR: stable & adequate Hydration State: stable & adequate Anesthetic Complications: no major complications apparent and Pt Satisfied with anesthetic care Notes: Patient states having some difficulty breathing out of his nose but states having no issues breathing out of his mouth. Patient states this was present prior to the procedure. Patient's breathing is otherwise not labored, and he is stable to be discharged to the ICU.
[2021-04-28] MEDS ORDERED: hydrOXYzine HCl 25 MG TAB PO PRN (16:16)
[2021-04-28] MEDS ORDERED: LORazepam 0.5 MG TAB PO PRN (16:16)
[2021-04-28] MEDS ORDERED: SOD PHOSPHATE/SOD BIPHOSPHATE ENEMA 132 ML BTL PR PRN (16:16)
[2021-04-28] MEDS ORDERED: dexAMETHasone 8 MG in SYRINGE 0 ML IV PRN (16:16)
[2021-04-28] MEDS ORDERED: METOCLOPRAMIDE HCL INJ 5 MG/ML 2 ML VIAL IV PRN (16:16)
[2021-04-28] MEDS ORDERED: HYDROmorphone INJ 1 MG/ML SYRINGE IV PRN (16:16)
[2021-04-28] MEDS ORDERED: RACEPINEPHRINE 2.25% NEBU SOLN 0.5 ML VIAL INH PRN (16:16)
[2021-04-28] MEDS ORDERED: DO NOT ADMINISTER PNEUMOCOCCAL VACCINE PRN (16:16)
[2021-04-28] MEDS ORDERED: ALUMINUM/MAGNESIUM SUSP 30 ML UDC PO PRN (16:16)
[2021-04-28] MEDS ORDERED: MAGNESIUM HYDROXIDE SUSP 30 ML UDC PO PRN (16:16)
[2021-04-28] MEDS ORDERED: ONDANSETRON 4 MG OD TAB PO PRN (16:16)
[2021-04-28] MEDS ORDERED: traMADol HCL 50 MG TABLET PO PRN (16:16)
[2021-04-28] MEDS ORDERED: ACETAMINOPHEN 1,000 MG/100 ML VIAL IV PRN (16:16)
[2021-04-28] MEDS ORDERED: diphenhydrAMINE Capsule 25 MG CAP PO PRN (16:16)
[2021-04-28] MEDS ORDERED: HYDROmorphone INJ 0.5 MG/0.5 ML SYR IV PRN (16:16)
[2021-04-28] MEDS ORDERED: bisacodyL 10 MG SUPP PR PRN (16:16)
[2021-04-28] MEDS ORDERED: FAMOTIDINE 20 MG TAB PO PRN (16:16)
[2021-04-28] MEDS ORDERED: oxyCODONE HCL IR 5 MG TAB (IMMEDIATE RELEASE) PO PRN (16:16)
[2021-04-28] MEDS ORDERED: LORazepam 0.5 MG/1 ML VIAL IV PRN (16:16)
[2021-04-28] MEDS ORDERED: DO NOT ADMINISTER FLU VACCINE PRN (16:16)
[2021-04-28] MEDS ORDERED: NALOXONE HCL 0.4 MG/1 ML VIAL/CARP IV PRN (16:16)
[2021-04-28] MEDS ORDERED: ACETAMINOPHEN 500 MG TAB PO PRN (16:16)
[2021-04-28] MEDS ORDERED: LACTATED RINGER'S 1,000 ML IV SCH (16:16)
[2021-04-28] MEDS ORDERED: PROMETHAZINE HCL 12.5 MG in SODIUM CHLORIDE 0.9% 50 ML IV PRN (16:16)
--- NOTE | 2021-04-28 17:06 | Critical Care Progress Note ---
Date of Service April 28, 2021 Assessment & Plan (1) Hematoma of neck: Plan: Postop day 0 from evacuation -ICU monitoring -Coagulation studies within normal limits -Okay to start diet -Dexamethasone ordered per spine surgery (2) Postoperative hematoma: (3) Status post spinal surgery: Admission and Anticipated Discharge Date Admission Date: April 28, 2021 Subjective Feels better than he did upon arrival in the ED with regards to ability to breathe. No chest pain no shortness of breath. Physical Exam Physical Exam: General: Alert. nontoxic. Skin: Warm, dry, Head: Atraumatic Ears, nose, mouth and throat: airway patent Neck: Surgical dressing in place, no shadowing, drain present trace serosanguineous fluid in drain Cardiovascular: Normal peripheral perfusion Respiratory: no respiratory distress Gastrointestinal: Non distended Musculoskeletal: No deformity Results & Data Results & Data ([facility]) Vital Signs (Past 12 Hours) Vital Signs Temp Pulse Pulse Resp BP BP Pulse Ox 04/28/21 16:37 93 H 17 170/74 H 99 04/28/21 16:33 90 20 100 04/28/21 16:07 83 19 99 04/28/21 16:00 36.6 C 78 20 154/73 H 99 04/28/21 15:40 75 14 144/74 H 98 04/28/21 15:30 36.2 C L 75 16 149/75 H 97 04/28/21 15:20 74 20 150/71 H 99 04/28/21 15:10 77 14 156/79 H 99 04/28/21 15:00 73 16 150/78 H 99 04/28/21 14:51 36.8 C 77 14 141/66 H 98 04/28/21 13:09 78 18 159/73 H 97 04/28/21 10:15 96 04/28/21 09:53 36 C L 84 18 134/77 99 Pulse Ox 04/28/21 16:37 04/28/21 16:33 04/28/21 16:07 04/28/21 16:00 99 04/28/21 15:40 04/28/21 15:30 04/28/21 15:20 04/28/21 15:10 04/28/21 15:00 04/28/21 14:51 04/28/21 13:09 04/28/21 10:15 04/28/21 09:53 Laboratory Results 04/28/21 04/28/21 04/28/21 Range/Units 16:40 12:58 12:58 WBC (4.8-10.8) K/uL RBC (4.7-6.1) M/uL Hgb (14.0-18.0) g/dL Hct (42-52) % MCV (80-100) fL MCH (25-34) pg MCHC (32-36) g/dL RDW Std Deviation (36.4-46.3) fL RDW Coeff of Lana (11.5-14.5) % Plt Count (130-400) K/uL MPV (7.4-10.4) fL Immature Gran % (Auto) % Neut % (Auto) % Lymph % (Auto) % Mercer % (Auto) % Eos % (Auto) % Baso % (Auto) % Neut # (Auto) (1.4-6.5) K/uL Lymph # (Auto) (1.2-3.4) K/uL Mercer # (Auto) (0.11-0.59) K/uL Eos # (Auto) (0-0.5) K/uL Baso # (Auto) (0-0.2) K/uL Immature Gran # (Auto) (0.00-0.02) K/uL APTT (21.0-31.0) Seconds PTT Ratio D-Dimer (0-500) ug/L FEU Sodium (136-145) mmol/L Potassium (3.5-5.1) mmol/L Chloride (98-107) mmol/L Carbon Dioxide (21-32) mmol/L Anion Gap (3-11) BUN (7-18) mg/dl Creatinine (0.6-1.4) mg/dl Est Cr Clr Drug Dosing ml/min Est GFR ( Amer) ml/min Est GFR (Non-Af Amer) ml/min BUN/Creatinine Ratio (10-20) Glucose (70-99) mg/dl Calcium (8.5-10.1) mg/dl Total Bilirubin (0.2-1) mg/dl AST (15-37) U/L ALT (12-78) U/L Alkaline Phosphatase (45-117) U/L Troponin I (0-0.045) ng/ml Total Protein (6.4-8.2) gm/dl Albumin (3.4-5.0) gm/dl Globulin (2.5-4.0) gm/dl Albumin/Globulin Ratio (0.9-2) Lipase (73-393) U/L Nasal Screen MRSA (PCR) Pending COVID-19 Eval Order Covid19 at [facility] SARS-CoV-2 (PCR) NEGATIVE (Negative) 04/28/21 04/28/21 04/28/21 Range/Units 10:30 10:30 10:30 WBC 6.09 (4.8-10.8) K/uL RBC 4.34 L (4.7-6.1) M/uL Hgb 13.7 L (14.0-18.0) g/dL Hct 40.7 L (42-52) % MCV 93.8 (80-100) fL MCH 31.6 (25-34) pg MCHC 33.7 (32-36) g/dL RDW Std Deviation 46.7 H (36.4-46.3) fL RDW Coeff of Lana 13.5 (11.5-14.5) % Plt Count 167 (130-400) K/uL MPV 9.2 (7.4-10.4) fL Immature Gran % (Auto) 0.3 % Neut % (Auto) 68.4 % Lymph % (Auto) 19.5 % Mercer % (Auto) 10.0 % Eos % (Auto) 1.5 % Baso % (Auto) 0.3 % Neut # (Auto) 4.16 (1.4-6.5) K/uL Lymph # (Auto) 1.19 L (1.2-3.4) K/uL Mercer # (Auto) 0.61 H (0.11-0.59) K/uL Eos # (Auto) 0.09 (0-0.5) K/uL Baso # (Auto) 0.02 (0-0.2) K/uL Immature Gran # (Auto) 0.02 (0.00-0.02) K/uL APTT 22.8 (21.0-31.0) Seconds PTT Ratio 0.9 D-Dimer 1930 H* (0-500) ug/L FEU Sodium 141 (136-145) mmol/L Potassium 4.0 (3.5-5.1) mmol/L Chloride 104 (98-107) mmol/L Carbon Dioxide 33 H (21-32) mmol/L Anion Gap 3.0 (3-11) BUN 20 H (7-18) mg/dl Creatinine 0.84 (0.6-1.4) mg/dl Est Cr Clr Drug Dosing 72.5 ml/min Est GFR ( Amer) 97.2 ml/min Est GFR (Non-Af Amer) 83.9 ml/min BUN/Creatinine Ratio 23.4 H (10-20) Glucose 104 H (70-99) mg/dl Calcium 8.7 (8.5-10.1) mg/dl Total Bilirubin 0.6 (0.2-1) mg/dl AST 12 L (15-37) U/L ALT 24 (12-78) U/L Alkaline Phosphatase 70 (45-117) U/L Troponin I < 0.015 (0-0.045) ng/ml Total Protein 6.0 L (6.4-8.2) gm/dl Albumin 3.2 L (3.4-5.0) gm/dl Globulin 2.8 (2.5-4.0) gm/dl Albumin/Globulin Ratio 1.2 (0.9-2) Lipase 110 (73-393) U/L Nasal Screen MRSA (PCR) COVID-19 Eval Order SARS-CoV-2 (PCR) (Negative) Coding Level of Care Code 59494 Subseq Hosp Care Lvl 3 Diagnoses Hematoma of neck S10.93XA Encounter type: initial encounter Postoperative hematoma Status post spinal surgery Z98.890 (1) Hematoma of neck Encounter type: initial encounter Qualified Code(s): S10.93XA - Contusion of unspecified part of neck, initial encounter
[2021-04-28] MEDS: ceFAZolin 2000MG 2,000 MG/15 ML SYR IV SCH (20:47)
[2021-04-28] MEDS: DOCUSATE SODIUM/SENNA 50/8.6MG TAB PO SCH (20:49)
[2021-04-28] MEDS: ASCORBIC ACID 500 MG TAB PO SCH (20:49)
[2021-04-28] MEDS ORDERED: GLUCAGON FOR INJ 1 MG VIAL SQ PRN (21:43)
[2021-04-28] MEDS ORDERED: GLUCOSE 10 TABS/TUBE PO PRN (21:43)
[2021-04-28] MEDS ORDERED: GLUCOSE 40% GEL 15 GM TUBE PO PRN (21:43)
[2021-04-28] MEDS ORDERED: DEXTROSE 50% 50 ML SYRINGE IV PRN (21:43)
[2021-04-28] MEDS ORDERED: CARBOHYDRATES FOR HYPOGLYCEMIA PO PRN (21:43)
[2021-04-28] MEDS: dexAMETHasone 8 MG in SYRINGE 0 ML IV SCH (22:12)
[2021-04-28] MEDS: INSULIN ASPART 100 UNITS/ML 3 ML PEN SC SCH (22:13)
[2021-04-29] MEDS: ceFAZolin 2000MG 2,000 MG/15 ML SYR IV SCH (04:44)
[2021-04-29] MEDS: dexAMETHasone 8 MG in SYRINGE 0 ML IV SCH ×3 (05:40→21:03)
[2021-04-29] MEDS: POLYETHYLENE (MIRALAX) 17 GM PACK PO SCH ×3 (05:40→17:37)
[2021-04-29 07:41] LABS: Hematocrit (blood only) 41.6 % (42-52); Hemoglobin 13.9 g/dL (14.0-18.0); Immature Granulocytes # (auto) 0.02 K/uL (0.00-0.02); Immature Granulocytes % (auto) 0.2 %; Lymphocytes # (auto) 0.66 K/uL (1.2-3.4); Lymphocytes % (auto) 6.7 %; Mean Corpuscular Hemoglobin 31.8 pg (25-34); Mean Corpuscular Hgb Conc 33.4 g/dL (32-36); Mean Corpuscular Volume 95.2 fL (80-100); Mean Platelet Volume 9.4 fL (7.4-10.4); Monocytes # (auto) 0.18 K/uL (0.11-0.59); Monocytes % (auto) 1.8 %; Neutrophils # (auto) 8.93 K/uL (1.4-6.5); Neutrophils % (auto) 91.3 %; Platelet Count 194 K/uL (130-400); RDW Coefficient of Variation 13.4 % (11.5-14.5); RDW Standard Deviation 46.7 fL (36.4-46.3); Red Blood Count 4.37 M/uL (4.7-6.1); White Blood Count 9.79 K/uL (4.8-10.8)
--- NOTE | 2021-04-29 07:44 | Critical Care Progress Note ---
Date of Service April 29, 2021 Assessment & Plan (1) Trouble breathing: (2) Hematoma of neck: (3) Postoperative hematoma: (4) Essential hypertension: Plan: --Hematoma of the neck Likely postsurgical H&H is stable Patient is able to tolerate diet On dexamethasone as per spine surgery --Hypertension Continue with home medications --Hoarseness of voice Could be secondary to intubation Hematoma can also cause hoarseness Continue to monitor Plan: Patient is hemodynamically stable to be downgraded to medical floor Orthopedic following Please note the above document was generated using voice recognition software. It may contain grammatical, syntax or spelling errors.Any formal questions or concerns about the content, text or information contained within the body of this dictation should be directly addressed to the provider for clarification. Admission and Anticipated Discharge Date Admission Date: April 28, 2021 Subjective Patient seen and examined at bedside. No acute distress, no dizziness overnight. Patient said he is feeling better. Denies any chest pain, no shortness of breath. Patient with during examination. No fever or chills. Denies any neck Review of Systems Review of Systems: All systems reviewed & are unremarkable except as noted in Subjective Physical Exam Physical Exam: Constitutional: No acute distress HEENT: EOMI, PERRLA, hoarse voice, drain appreciated from the neck Respiratory system: Good air entry bilaterally, no wheeze, no rhonchi, no crackles CVS: S1-S2 positive, no murmurs or gallops Abdomen: Soft, nontender, nondistended, positive bowel sounds x4, obese Extremities: +2 pulses bilaterally radialis/ dorsalis pedis, no cyanosis, no edema Neuro: Awake alert oriented x3 Psych: Normal mood and affect G/U: No Louie Skin: no rashes, warm and dry Lymphatic: no cervical or axillary lymphadenopathy Results & Data Results & Data ([facility]) Vital Signs (Past 12 Hours) Vital Signs Temp Pulse Pulse Resp BP Pulse Ox 04/29/21 06:37 68 15 145/64 H 100 04/29/21 06:07 66 12 121/56 L 99 04/29/21 05:38 90 14 144/65 H 100 04/29/21 05:07 67 11 L 110/53 L 99 04/29/21 04:37 78 20 107/51 L 100 04/29/21 04:07 81 14 117/57 L 98 04/29/21 04:00 36.7 C 04/29/21 03:37 74 13 120/60 98 04/29/21 03:09 76 14 98 04/29/21 03:07 76 17 117/63 98 04/29/21 02:37 79 14 127/65 97 04/29/21 02:07 86 12 137/64 97 04/29/21 01:37 79 11 L 127/70 98 04/29/21 01:07 74 10 L 122/68 97 04/29/21 00:37 75 16 138/72 98 04/29/21 00:07 73 13 111/72 97 04/29/21 00:00 36.6 C 81 04/28/21 23:37 74 14 125/64 97 04/28/21 23:14 82 12 98 04/28/21 23:07 80 12 123/60 98 04/28/21 22:07 79 16 130/67 99 04/28/21 21:38 81 19 117/61 97 04/28/21 21:07 77 11 L 121/61 97 04/28/21 20:37 83 12 120/64 97 04/28/21 20:07 16 136/70 96 04/28/21 20:00 36.8 C 04/28/21 19:52 88 15 122/63 96 04/29/21 07:20 Coding Level of Care Code 36335 Subseq Hosp Care Lvl 2 Diagnoses Trouble breathing R06.89 Hematoma of neck S10.93XA Encounter type: initial encounter Postoperative hematoma Essential hypertension I10 (1) Hematoma of neck Encounter type: initial encounter Qualified Code(s): S10.93XA - Contusion of unspecified part of neck, initial encounter
[2021-04-29] MEDS: DULoxetine HCL 60 MG CAP PO SCH (07:46)
[2021-04-29] MEDS: ASCORBIC ACID 500 MG TAB PO SCH ×2 (07:46→22:10)
[2021-04-29] MEDS: LOSARTAN/HCTZ 50/12.5MG TAB PO SCH (07:46)
[2021-04-29] MEDS: TAMSULOSIN HCL 0.4 MG CAP PO SCH (07:46)
[2021-04-29] MEDS: PANTOprazole 40 MG TAB PO SCH (07:46)
[2021-04-29] MEDS: amLODIPine BESYLATE 5 MG TAB PO SCH (07:46)
[2021-04-29] MEDS: INSULIN ASPART 100 UNITS/ML 3 ML PEN SC SCH ×4 (07:47→21:04)
--- NOTE | 2021-04-29 07:52 | Electrocardiogram Report ---
Test Reason : Blood Pressure : / mmHG Vent. Rate : 079 BPM Atrial Rate : 079 BPM P-R Int : 164 ms QRS Dur : 082 ms QT Int : 378 ms P-R-T Axes : 014 -23 024 degrees QTc Int : 433 ms Normal sinus rhythm Possible Anterior infarct , age undetermined Abnormal ECG When compared with ECG of 10-APR-2021 08:42, No significant change was found Confirmed by Leland Guardado ([id number]) on 04/29/2021 7:51:33 AM Referred By: REFERRED SELF Confirmed By:Leland Guardado
[2021-04-29 08:08] LABS: BUN Creatinine Ratio 18.9 (10-20); Creatinine Clr Calc Pharmacy 71.3 ml/min; Est GFR (African American) 96.3 ml/min; Est GFR (Non-African American) 83.1 ml/min; Potassium 3.9 mmol/L (3.5-5.1)
[2021-04-29] MEDS ORDERED: NON-FORMULARY MEDICATION (Potassium Gluconate 595 mg (99 mg) Tablet Extended Release) PO SCH (09:00)
--- NOTE | 2021-04-29 10:53 | Orthopedic Progress Note ---
Date of Service April 29, 2021 Assessment & Plan (1) Hematoma of neck: Plan: At this time we will transfer to the orthopedic floor. We will maintain the TOBY drain until tomorrow. I would most likely able to discontinue the drain and DC home tomorrow. Admission and Anticipated Discharge Date Admission Date: April 28, 2021 Subjective Patient refuses breathing is markedly improved. He has no swallowing issues. Pain is well controlled. Physical Exam Physical Exam: On exam he is quite comfortable. He is not in any distress. He has excellent strength testing. Dressings in place drain is functioning Results & Data ([facility]) Vital Signs (Past 12 Hours) Vital Signs Temp Pulse Pulse Resp BP BP Pulse Ox 04/29/21 09:00 93 H 14 96 04/29/21 08:46 8 L 04/29/21 08:07 86 19 163/85 H 95 04/29/21 08:00 68 04/29/21 07:37 90 22 161/97 H 96 04/29/21 07:10 79 16 98 04/29/21 07:07 138/86 04/29/21 07:00 37.0 C 89 20 138/66 96 04/29/21 06:37 68 15 145/64 H 100 04/29/21 06:07 66 12 121/56 L 99 04/29/21 05:38 90 14 144/65 H 100 04/29/21 05:07 67 11 L 110/53 L 99 04/29/21 04:37 78 20 107/51 L 100 04/29/21 04:07 81 14 117/57 L 98 04/29/21 04:00 36.7 C 04/29/21 03:37 74 13 120/60 98 04/29/21 03:09 76 14 98 04/29/21 03:07 76 17 117/63 98 04/29/21 02:37 79 14 127/65 97 04/29/21 02:07 86 12 137/64 97 04/29/21 01:37 79 11 L 127/70 98 04/29/21 01:07 74 10 L 122/68 97 04/29/21 00:37 75 16 138/72 98 04/29/21 00:07 73 13 111/72 97 04/29/21 00:00 36.6 C 81 04/28/21 23:37 74 14 125/64 97 04/28/21 23:14 82 12 98 04/28/21 23:07 80 12 123/60 98 Pulse Ox Pulse Ox 04/29/21 09:00 04/29/21 08:46 04/29/21 08:07 04/29/21 08:00 96 96 04/29/21 07:37 04/29/21 07:10 04/29/21 07:07 04/29/21 07:00 04/29/21 06:37 04/29/21 06:07 04/29/21 05:38 04/29/21 05:07 04/29/21 04:37 04/29/21 04:07 04/29/21 04:00 04/29/21 03:37 04/29/21 03:09 04/29/21 03:07 04/29/21 02:37 04/29/21 02:07 04/29/21 01:37 04/29/21 01:07 04/29/21 00:37 04/29/21 00:07 04/29/21 00:00 04/28/21 23:37 04/28/21 23:14 04/28/21 23:07 (1) Hematoma of neck Encounter type: initial encounter Qualified Code(s): S10.93XA - Contusion of unspecified part of neck, initial encounter
[2021-04-29] MEDS ORDERED: IMATINIB MESYLATE 100 MG PO SCH (13:00)
[2021-04-29] MEDS: DOCUSATE SODIUM/SENNA 50/8.6MG TAB PO SCH (21:04)
[2021-04-29] MEDS ORDERED: COUGH DROP (SUGAR FREE) LOZ 24 LOZ/1 BOX BUCCAL PRN (23:08)
[2021-04-30] MEDS: POLYETHYLENE (MIRALAX) 17 GM PACK PO SCH ×2 (01:55→05:55)
[2021-04-30] MEDS: dexAMETHasone 8 MG in SYRINGE 0 ML IV SCH (05:55)
[2021-04-30] MEDS: ASCORBIC ACID 500 MG TAB PO SCH (09:00)
[2021-04-30] MEDS: INSULIN ASPART 100 UNITS/ML 3 ML PEN SC SCH (09:01)
--- NOTE | 2021-04-30 09:04 | Hospitalist Consultation ---
Date of Consultation April 30, 2021 Assessment & Plan (1) Status post spinal surgery: POD #2 Pain management per orthopedics (2) Essential hypertension: Continue amlodipine, losartan and HCTZ. No change to outpatient meds. 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 History of Present Illness Reason for Consultation: Medical Management Attending Physician: Lucas Bullock DO History of Present Illness Romeo Jeffers (Albert) is a 80 year old male status post irrigation and evacuation of postoperative cervical hematoma on April 28 after recent C4-5 anterior cervical discectomy and fusion on April 23 for cervical myelopathy. He was reportedly having difficulty breathing after recent spinal surgery pro mpting his readmission. Transferred to ICU post operatively and downgraded to medical floor yesterday. Labs from this morning pending but Hbg stable post operatively yesterday. Shortness of breath much improved since operation. Hoarseness improving. Allergies Allergy/AdvReac Type Severity Reaction Status Date / Time Corticosteroids AdvReac Mild Advised to Verified 04/23/21 05:53 (Glucocorticoids) avoid d/t gastric ulcer NSAIDS (Non-Steroidal AdvReac Mild Advised to Verified 04/23/21 05:53 Anti-Inflamma avoid d/t gastric ulcer Home Medications Medication Instructions Recorded Confirmed Type ascorbic acid (vitamin C) 500 mg 500 mg PO BID 09/14/18 05/08/21 History tablet (Vitamin C) vitamin E 400 unit capsule 400 unit PO DAILY 09/14/18 05/08/21 History vit C 250 mg-vit E 90 mg-zinc 40 1 tab PO BID 01/08/19 05/08/21 History mg-copper 1 [id number] capsule (PreserVision AREDS-2) antiarthritic combination no.2 900 900 mg PO DAILY tab 10/01/19 05/08/21 History mg tablet (glucosamine-chondroitin) omega-3 fatty acids 1,000 mg 1,000 mg PO DAILY 10/01/19 05/08/21 History capsule (Fish Oil Concentrate) multivitamin (Daily Multi-Vitamin) 1 tab PO DAILY 10/28/19 05/08/21 History amlodipine 5 mg tablet 5 mg PO QAM #90 tab 03/12/21 05/08/21 Rx losartan 100 1 tab PO QAM #90 tab 03/12/21 05/08/21 Rx mg-hydrochlorothiazide 25 mg tablet duloxetine 60 mg capsule,delayed 60 mg PO QAM 04/05/21 05/08/21 History release (Cymbalta) gabapentin enacarbil 600 mg 600 mg PO QAM 04/05/21 05/08/21 History tablet,extended release imatinib 100 mg capsule 300 mg PO DAILY 04/05/21 05/08/21 History omeprazole 20 mg tablet,delayed 20 mg PO QAM 04/05/21 05/08/21 History release potassium gluconate 595 mg (99 mg) 99 mg PO QAM 04/05/21 05/08/21 History tablet,extended release pramipexole 0.375 mg 0.375 mg PO TID 04/05/21 05/08/21 History tablet,extended release 24 hr (Mirapex ER) tamsulosin 0.4 mg capsule 0.4 mg PO QAM 04/05/21 05/08/21 History tramadol 50 mg tablet 50 - 100 mg PO Q4H PRN #50 tab 04/23/21 05/08/21 Rx Patient History Medical History 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 Degenerative arthritis Essential hypertension Gastrointestinal stromal tumor History of bowel disorder History of SCC (squamous cell carcinoma) of skin History of stomach ulcers Hx of spinal stenosis Hyperlipidemia Hypertension Iron deficiency anemia Obstructive sleep apnea Personal history of malignant melanoma of skin Restless leg syndrome Tremor Ulcer of ileum Surgical History History of ankle surgery History of back surgery History of colonoscopy History of esophagogastroduodenoscopy (EGD) History of exploratory laparotomy History of gastrointestinal surgery History of hand surgery History of tonsillectomy Family History Grandmother Leukemia Other No family history of adverse response to anesthesia Denies family history of Ovarian cancer Prostate cancer Myocardial infarction Breast cancer Lung cancer Colorectal cancer Stroke Social History Smoking Status: Never smoker Second Hand Exposure: No; Hx Alcohol Use: Yes (2 to 3 a day) Alcohol type: beer, wine and hard liquor Alcohol Intake Frequency: 4 or More x per/Week Hx Substance Use: No Preferred Language: Korean Communication Ability: Effective Visual Impairment: No Limitations Hearing Ability: Normal Commodity Manager Required: No Beliefs That Will Affect Care: None marital status: Current Living Situation: Spouse current occupational status: retired Feels Safe at Home: Yes Childhood Exposure to Second-Hand Smoke: No caffeine: Yes Dental Care, Regularly: Yes Physical Activity Frequency: Does not Exercise Seatbelt Use: always Sunscreen Use: No Assistive Devices: None Review of Systems Review of Systems: All systems reviewed & are unremarkable except as noted in HPI & below Physical Exam Constitutional: WD/WN, vitals as above Respiratory: normal respiratory effort, lungs clear to auscultation no stridor Cardiovascular: RRR, no murmur, no edema Gastrointestinal (Abdomen): normal bowel sounds, soft, nontender, no hepatosplenomegaly Neurologic: moves all extremities and awake; not confused Results & Data Results & Data ([facility]) Vital Signs (Past 12 Hours) Vital Signs Temp Pulse Resp BP Pulse Ox 04/30/21 07:10 36.8 C 68 18 132/63 95 04/30/21 02:56 75 16 95 04/29/21 23:20 76 18 94 04/29/21 22:21 36.7 C 72 18 145/75 H 93 PG Care Time/CCT Total # of Minutes Spent Total Time Spent with Patient: Total time spent is greater than 50% in coordination of care (as documented) at patient's floor/unit and/or counseling patient: Coding Level of Care Code 83461 Inpt Consult Level 3 Diagnoses Essential hypertension I10 Obstructive sleep apnea G47.33 BPH with obstruction/lower urinary tract symptoms N40.1; N13.8 Restless leg syndrome G25.81 Status post spinal surgery Z98.890
[2021-04-30] MEDS: PANTOprazole 40 MG TAB PO SCH (09:53)
[2021-04-30] MEDS: LOSARTAN/HCTZ 50/12.5MG TAB PO SCH (09:53)
[2021-04-30] MEDS: DULoxetine HCL 60 MG CAP PO SCH (09:53)
[2021-04-30] MEDS: amLODIPine BESYLATE 5 MG TAB PO SCH (09:53)
--- NOTE | 2021-04-30 10:03 | Discharge Summary ---
Date of Service April 30, 2021 Admission HPI Per Admitting Provider This is a 72-year-old male who is approximately 5 days status post anterior cervical discectomy and fusion C4-C5. He tolerated the procedure well and was discharged home. Unfortunately the past 48 hours he has noticed a increased difficulty in breathing. He has been unable to sleep. He states lying supine is almost impossible secondary to inability to breathe. Sitting up does provide some relief. He denies any cervicalgia or any upper extremity pain. Principal Diagnosis Cervical hematoma Discharge Data Allergies Allergy/AdvReac Type Severity Reaction Status Date / Time Corticosteroids AdvReac Mild Advised to Verified 04/23/21 05:53 (Glucocorticoids) avoid d/t gastric ulcer NSAIDS (Non-Steroidal AdvReac Mild Advised to Verified 04/23/21 05:53 Anti-Inflamma avoid d/t gastric ulcer Consultations 04/28/21 12:51 ED Decision to Admit Stat 04/28/21 16:16 Consult Business Integration Analyst Routine 04/29/21 12:32 Consult Hospitalist Routine Procedures Performed Operation Date: 04/28/21 14:00 Actual Procedures p Anterior Cervical Evacuation of Hematoma(Not Applicable) - Wilbur Hamilton Ordered Studies 04/28/21 11:18 CT angio chest PE protocol Stat CT soft tissue neck w con Stat Hospital Course (1) Postoperative hematoma: Patient presents to emergency room this past Friday with small difficulty breathing. CAT scan did demonstrate evidence of significant soft tissue swelling and evidence of hematoma in the perioperative area subsequently we underwent emergent decompression of the hematoma. A drain was placed. The patient was placed in the ICU overnight. Postop day 1 his breathing was markedly improved. We transferred the patient to the orthopedic floor maintain the TOBY drain. On postop day #2 his breathing continued to be improved he had no complaints. Patient denies neck or arm pain. Swallowing well. No hoarseness. Patient was subsequently discharged home. Total Time Total Time Spent Total Time Spent (In Minutes): 20 minutes Discharge Plan Discharge Items Patient Disposition: Home - Self-Care Reason For Visit: TROUBLE BREATHING - S/P SURGERY 04/23 Discharge Diagnosis: Postop cervical hematoma Activity: As commented below Non-emergency contact: Primary Care Provider Call non-emergency contact if: you have any medication questions Follow-up/Referrals: ProMaximiliano MD [Primary Care Provider] - Diet: Regular Addtl Attending Provider Instructions: Patient is to follow postoperative cervical instructions as directed by Pending Studies at Discharge: No Stand-Alone Forms: [facility], Smoking Cessation Medications and DC Order Prescriptions: Continued omega-3 fatty acids [Fish Oil Concentrate] 1,000 mg capsule 1,000 mg PO DAILY RF: 0 glucosamine-chondroitin 900 mg tablet 900 mg PO DAILY RF: 0 amlodipine 5 mg tablet 5 mg PO QAM Qty: 90 RF: 3 losartan-hydrochlorothiazide 100-25 mg tablet 1 tab PO QAM Qty: 90 RF: 5 multivitamin [Daily Multi-Vitamin] Tablet 1 tab PO DAILY RF: 0 PreserVision AREDS-2 [id number] mg-agiu-sr-mg Capsule 1 tab PO BID RF: 0 ascorbic acid (vitamin C) [Vitamin C] 500 mg Tablet 500 mg PO BID RF: 0 vitamin E 400 unit Capsule 400 unit PO DAILY RF: 0 imatinib 100 mg Capsule 300 mg PO DAILY RF: 0 potassium gluconate 595 mg (99 mg) Tablet Extended Release 99 mg PO QAM RF: 0 tamsulosin 0.4 mg capsule 0.4 mg PO QAM RF: 0 duloxetine [Cymbalta] 60 mg capsule,delayed release(DR/EC) 60 mg PO QAM RF: 0 omeprazole 20 mg tablet,delayed release (DR/EC) 20 mg PO QAM RF: 0 pramipexole [Mirapex ER] 0.375 mg tablet extended release 24 hr 0.375 mg PO TID RF: 0 gabapentin enacarbil 600 mg tablet extended release 600 mg PO QAM RF: 0 tramadol 50 mg Tablet 50 - 100 mg PO Q4H PRN (Reason: pain) Qty: 50 RF: 0 Discharge Orders: Discharge Order (Routine); Ordered 04/30/21 Ordered By: Lucas Bullock Admission Data Admit Date/Time: 04/28/21 14:47 Attending Provider: Lucas Bullock Admit Provider: Lucas Bullock Primary Care Provider: Maximiliano Miller. Other Providers: Lucas Bullock ; Todd Garza ; Luis Ames
[2021-04-30 10:04] LABS: Hematocrit (blood only) 40.4 % (42-52); Hemoglobin 13.5 g/dL (14.0-18.0); Immature Granulocytes # (auto) 0.04 K/uL (0.00-0.02); Immature Granulocytes % (auto) 0.3 %; Lymphocytes # (auto) 0.45 K/uL (1.2-3.4); Lymphocytes % (auto) 3.4 %; Mean Corpuscular Hemoglobin 31.8 pg (25-34); Mean Corpuscular Hgb Conc 33.4 g/dL (32-36); Mean Corpuscular Volume 95.3 fL (80-100); Mean Platelet Volume 9.7 fL (7.4-10.4); Monocytes # (auto) 0.45 K/uL (0.11-0.59); Monocytes % (auto) 3.4 %; Neutrophils # (auto) 12.11 K/uL (1.4-6.5); Neutrophils % (auto) 92.9 %; Platelet Count 212 K/uL (130-400); RDW Coefficient of Variation 13.8 % (11.5-14.5); RDW Standard Deviation 48.6 fL (36.4-46.3); Red Blood Count 4.24 M/uL (4.7-6.1); White Blood Count 13.05 K/uL (4.8-10.8)
[2021-04-30] MEDS: TAMSULOSIN HCL 0.4 MG CAP PO SCH (10:19)
[2021-04-30 10:28] LABS: BUN Creatinine Ratio 24.5 (10-20); Calcium 8.8 mg/dl (8.5-10.1); Creatinine Clr Calc Pharmacy 59.5 ml/min; Est GFR (African American) 80.3 ml/min; Est GFR (Non-African American) 69.3 ml/min; Potassium 3.8 mmol/L (3.5-5.1)
== END 2021-04-30 11:32 | disposition home or self-care (01) | DRG 908 ==
LOC: ED 09:48 → 3E 13:48 → 1E 14:47 → 3E 04-29 10:50

== ENCOUNTER 2023-04-19 07:06 | Observation (INO) ==
--- NOTE | 2023-04-19 07:37 | Emergency Department Note ---
History of Present Illness General Chief complaint: Illness Stated complaint: Tremors Time Seen by Provider: 04/19/23 07:22 Source: patient, RN notes reviewed and old records reviewed Mode of arrival: EMS Limitations: no limitations History of Present Illness This patient is an 82-year-old male who has a history of essential tremors, comes in after feeling worse over the last 3 days he says he has been having much more tremors. No new medications or missed medications. He denies any chest pain shortness of breath diarrhea blood or melena in his stool. No fever no nausea or vomiting no headache. No fall or trauma. He says it feels like his entire body was shaking and today he lowered himself on the ground he looks well at present. He did a lot of work last weekend cleaning the garage and thinks he overdid it. He says his urine is been dark the last couple days. He was treated recently for UTI and finished antibiotics on Friday no other urinary symptoms. Home Medications Medication Instructions Recorded Confirmed Type ascorbic acid (vitamin C) 500 mg 500 mg PO BID 09/14/18 02/19/23 History tablet (Vitamin C) vitamin E 268 mg (400 unit) capsule 400 unit PO QAM 09/14/18 02/19/23 History vit C 250 mg-vit E 90 mg-zinc 40 1 tab PO BID 01/08/19 02/19/23 History mg-copper 1 [id number] capsule (PreserVision AREDS-2) antiarthritic combination no.2 900 900 mg PO DAILY 10/01/19 02/19/23 History mg tablet (glucosamine-chondroitin) omega-3 fatty acids 1,000 mg 1,000 mg PO DAILY 10/01/19 02/19/23 History capsule (Fish Oil Concentrate) multivitamin (Daily Multi-Vitamin 1 tab PO DAILY 10/28/19 02/19/23 History tablet) potassium gluconate 595 mg (99 mg) 99 mg PO QAM 04/05/21 02/19/23 History tablet,extended release Medical Marijuana 1 dose PO UD PRN Pain 01/04/22 02/19/23 History tamsulosin 0.4 mg capsule 0.4 mg PO QAM #90 caps 10/22/22 02/19/23 Rx duloxetine 60 mg capsule,delayed 60 mg PO QAM #90 caps 11/12/22 02/19/23 Rx release (Cymbalta) gabapentin enacarbil 600 mg 600 mg PO QPM 90 days #90 tabs 02/19/23 02/19/23 Rx tablet,extended release pramipexole 0.75 mg 0.75 mg PO QID 90 days #360 tabs 02/19/23 02/19/23 Rx tablet,extended release 24 hr tramadol 50 mg tablet 50 - 100 mg PO Q8H PRN pain 30 03/25/23 Rx days #120 tabs losartan 100 1 tab PO QAM #90 tabs 03/31/23 Rx mg-hydrochlorothiazide 25 mg tablet omeprazole 20 mg tablet,delayed 20 mg PO QAM #90 tabs 03/31/23 Rx release nitrofurantoin 100 mg PO BID 7 days #14 caps 04/07/23 Rx monohydrate/macrocrystals 100 mg capsule (Macrobid) Allergies Allergy/AdvReac Type Severity Reaction Status Date / Time Corticosteroids AdvReac Mild Advised to Verified 02/19/23 08:31 (Glucocorticoids) avoid d/t gastric ulcer NSAIDS (Non-Steroidal AdvReac Mild Advised to Verified 02/19/23 08:31 Anti-Inflamma avoid d/t gastric ulcer Past Med/Surg History Medical History 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 Degenerative arthritis Back 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 GERD (gastroesophageal reflux disease) GIST (gastrointestinal stroma tumor), malignant, colon [facility] *DX 5 YEARS AGO History of anemia History of bowel disorder "Fibrosing mesenteric" History of SCC (squamous cell carcinoma) of skin Head History of stomach ulcers Hx (NSAIDS-related) Hx of spinal stenosis DDD Hypertension Obstructive sleep apnea CPAP Personal history of malignant melanoma of skin Head (s/p excision) Restless leg syndrome Tremor BILAT HANDS Ulcer of ileum Hx Surgical History Fusion of spine CERVICAL FUSION *GOOD ROM History of ankle surgery Right ankle arthroscopy with debridement of tibialis, anterior tendon, removal of avulsion fracture, medical navicular application of PRP concentrate (10/02/18): LMA#5 + PNB at [facility] [place] History of colonoscopy History of esophagogastroduodenoscopy (EGD) History of evacuation of hematoma S/P CERVICAL FUSION History of exploratory laparotomy GIST/DX Fibrosing Mesenteric History of gastrointestinal surgery r/t GIST *REMOVED ABDOMINAL TUMOR History of hand surgery Left pinky amputation (r/t injury) History of tonsillectomy S/P epidural steroid injection Family History Grandmother Leukemia Father Hearing loss Stroke Other No family history of adverse response to anesthesia No family history of bleeding disorder Denies family history of Ovarian cancer Prostate cancer Myocardial infarction Breast cancer Lung cancer Colorectal cancer Social History Smoking Status: Never smoker Second Hand Exposure: No; Do You Dip or Chew Tobacco: No; Hx Alcohol Use: Yes Alcohol type: beer, wine and hard liquor Alcohol Intake Frequency: 4 or More x per/Week Hx Substance Use: Yes Last Used Substance: Unknown Last Used Substance Other:: ONLY MEDICAL MARIJUANA FOR BACK PAIN Substance Use Type Other:: medical marijuana Preferred Language: Romanian Communication Ability: Effective Visual Impairment: No Limitations Hearing Ability: Use of Hearing Aid 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 Beliefs That Will Affect Care: None marital status: Current Living Situation: Spouse current occupational status: retired Other Information That Helps Us Care for You: No Feels Safe at Home: Yes Childhood Exposure to Second-Hand Smoke: No Diet: regular caffeine: Yes Dental Care, Regularly: Yes Physical Activity Frequency: Does not Exercise Seatbelt Use: always Sunscreen Use: Yes Assistive Devices: Cane, Glasses and Hearing Aid - Bilateral Review of Systems A total of 10 systems reviewed and were otherwise negative Physical Exam Vital Signs Vital Signs - 24 hr 04/19/23 07:12 04/19/23 07:12 04/19/23 07:48 Temperature 36.7 C Temperature Source Oral Pulse Rate 84 86 80 Pulse Rate [Apical] Pulse Rhythm Regular Regular Pulse Strength Normal Respiratory Rate 24 Respiratory Effort / Characteristics Non-Labored Respiratory Depth Normal Respiratory Pattern Regular Blood Pressure 123/63 Blood Pressure [Right Arm] Blood Pressure Mean 83 Blood Pressure Mean [Right Arm] Blood Pressure Position Lying Pulse Oximetry 97 96 Oxygen Delivery Method Room Air Room Air 04/19/23 08:20 Temperature Temperature Source Pulse Rate Pulse Rate [Apical] 82 Pulse Rhythm Pulse Strength Respiratory Rate 20 Respiratory Effort / Characteristics Non-Labored Respiratory Depth Normal Respiratory Pattern Blood Pressure Blood Pressure [Right Arm] 131/64 Blood Pressure Mean Blood Pressure Mean [Right Arm] 86 Blood Pressure Position Pulse Oximetry 97 Oxygen Delivery Method Room Air General: Well developed well nourished non-ill appearing older male who appears in no acute distress, breathing comfortably on room air. Normal speech HEENT: Normal cephalic atraumatic. Pupils are equal round and reactive to light. Extraocular movements are intact. Oropharynx is pink with moist mucous membranes. No swelling of the mouth lips or tongue. Neck: Supple with a midline trachea. No meningeal signs or stiffness, no JVD or bruits. No Stridor. Chest: Clear to auscultation bilaterally. No wheezes or rhonchi. No increased work of breathing. Heart: Regular rate and rhythm without murmurs or gallops. Abdomen: Soft nontender, nondistended without rebound guarding or rigidity. Extremities: No cyanosis clubbing or edema. No calf tenderness or assymetry Spine/Back. Non tender to palpation. No CVA tenderness Skin: Good turgor without rashes. Neurologic exam: Cranial nerves two through 12 are intact. Motor and sensation are intact and symmetrical throughout. He does have some mild tremor with movement but not at rest Course Administered Medications Ascorbic Acid (Ascorbic Acid 500 Mg Tab) 500 mg PO BID KETAN Stop: 05/19/23 10:47 Last Admin: 04/19/23 12:19 Dose: 500 mg Documented By: CMV Duloxetine HCl (Duloxetine Hcl 60 Mg Cap) 60 mg PO QAM KETAN Stop: 05/19/23 10:47 Last Admin: 04/19/23 12:19 Dose: 60 mg Documented By: CMV Enoxaparin Sodium (Enoxaparin Inj 40 Mg/0.4 Ml Syr) 40 mg SQ Q24H KETAN Stop: 05/19/23 10:59 Last Admin: 04/19/23 12:20 Dose: 40 mg Documented By: CMV Lactated Ringer's (Lr) 1,000 mls @ 125 mls/hr IV .Q8H KETAN Stop: 05/19/23 10:47 Last Admin: 04/19/23 12:18 Dose: 125 mls/hr Documented By: CMV Miscellaneous (Gabapentin Enacarbil~Order Awaiting Action) 1 each N/A QS KETAN Stop: 05/19/23 11:29 Last Admin: 04/19/23 13:54 Dose: Not Given Documented By: CMV Multivitamins/Minerals (Cerovite Adv Formula Tab) [facility] [place]: 05/19/23 10:47 Last Admin: 04/19/23 12:18 Dose: 1 tab Documented By: CMV Pantoprazole Sodium (Pantoprazole 40 Mg Tab) 40 [facility] [place] Stop: 05/19/23 10:47 Last Admin: 04/19/23 12:19 Dose: 40 mg Documented By: CMV Tamsulosin HCl (Tamsulosin Hcl 0.4 Mg Cap) 0.4 mg PO [facility] Stop: 05/19/23 10:47 Last Admin: 04/19/23 12:19 Dose: 0.4 mg Documented By: CMV Vitamin E (Tocopheryl, Dl-Alpha 400 Units 180 Mg Cap) 400 units PO [facility] Stop: 05/19/23 10:47 Last Admin: 04/19/23 12:19 Dose: 400 units Documented By: CMV Discontinued Medications Sodium Chloride (Nss 1000ml) 1,000 mls @ 999 mls/hr IV .Q1H1M [facility] Stop: 04/19/23 08:45 Last Infusion: 04/19/23 08:45 Dose: 0 mls/hr Documented By: Admin: 04/19/23 07:46 Dose: 999 mls/hr Documented By: ES Miscellaneous (Pramipexole Er ~ Order Awaiting Action) 1 each N/A QS [facility] Stop: 05/19/23 11:29 Last Admin: 04/19/23 13:55 Dose: Not Given Documented By: CMV Medical Decision Making Differential Diagnosis Essential tremor, dehydration, electrolyte or metabolic abnormality, central neurologic process, cardiac disease,, infection, UTI, rhabdomyolysis Medical Records Attestation: I reviewed the patient's medical records. Home Medications Current Medication List: was personally reviewed by me Laboratory Data Attestation: I reviewed the patient's lab results. 04/19/23 07:45 04/19/23 07:45 Lab Results 04/19/23 04/19/23 04/19/23 Range/Units 07:45 07:45 07:45 WBC 6.19 (4.8-10.8) K/ul RBC 3.91 L (4.70-6.10) M/uL Hgb 11.8 L (14.0-18.0) g/dl Hct 34.0 L (42.0-52.0) % MCV 87.0 (80.0-100.0) fL MCH 30.2 (25.0-34.0) pg MCHC 34.7 (32.0-36.0) g/dL RDW Std Deviation 40.3 (36.4-46.3) fL RDW Coeff of Lana 12.6 (11.5-14.5) % Plt Count 142 (130-400) K/uL MPV 9.5 (9.4-12.4) fL Immature Gran % (Auto) 0.3 % Neut % (Auto) 80.0 % Lymph % (Auto) 10.5 % Mcnairy % (Auto) 8.9 % Eos % (Auto) 0.0 % Baso % (Auto) 0.3 % Neut # (Auto) 4.95 (1.40-6.50) K/uL Lymph # (Auto) 0.65 L (1.2-3.4) K/uL Mcnairy # (Auto) 0.55 (0.11-0.59) K/uL Eos # (Auto) 0.00 (0-0.50) K/uL Baso # (Auto) 0.02 (0-0.2) K/uL Immature Gran # (Auto) 0.02 (0.01-0.20) K/uL Sodium 135 L (136-145) mmol/L Potassium 3.8 (3.5-5.1) mmol/L Chloride 101 (98-107) mmol/L Carbon Dioxide 28 (21-32) mmol/L Anion Gap 6 (3-11) BUN 34 H (6-23) mg/dl Creatinine 1.06 (0.6-1.4) mg/dl Est Cr Clr Drug Dosing 59.2 ml/min Est GFR ( Amer) 76.4 ml/min Est GFR (Non-Af Amer) 66.0 ml/min BUN/Creatinine Ratio 32.1 H (10-20) Glucose 139 H (70-99(Fasting)) mg/dl Calcium 8.7 (8.6-10.3) mg/dl Magnesium 1.9 (1.7-2.4) mg/dl Total Bilirubin 0.7 (0.2-1.0) mg/dl AST 290 H (13-39) U/L ALT 110 H (7-52) U/L Alkaline Phosphatase 61 (34-104) U/L Total Creatine Kinase 88684 H (30-223) U/L Troponin I High Sens 28.5 H (0-20) pg/ml Total Protein 6.1 (6.0-8.3) gm/dl Albumin 3.5 (3.4-5.0) gm/dl Globulin 2.6 (2.5-4.0) gm/dl Albumin/Globulin Ratio 1.3 (0.9-2) TSH 0.933 (0.300-4.500) uIu/ml Urine Color Urine Appearance (Clear) Urine pH (4.5-7.5) Ur Specific Perry (1.000-1.030) Urine Protein (Negative) Urine Glucose (UA) (Negative) Urine Ketones (Negative) Urine Blood (Negative) Urine Nitrite (Negative) Urine Bilirubin (Negative) Urine Urobilinogen (Negative) Ur Leukocyte Esterase (Negative) Urine WBC (Auto) (0-5) /hpf Urine RBC (Auto) (0-4) /hpf U Hyaline Cast (Auto) (0-5) /lpf U Epithel Cells (Auto) (0-5) /lpf Urine Bacteria (Auto) (Negative) 04/19/23 Range/Units 08:02 WBC (4.8-10.8) K/ul RBC (4.70-6.10) M/uL Hgb (14.0-18.0) g/dl Hct (42.0-52.0) % MCV (80.0-100.0) fL MCH (25.0-34.0) pg MCHC (32.0-36.0) g/dL RDW Std Deviation (36.4-46.3) fL RDW Coeff of Lana (11.5-14.5) % Plt Count (130-400) K/uL MPV (9.4-12.4) fL Immature Gran % (Auto) % Neut % (Auto) % Lymph % (Auto) % Mcnairy % (Auto) % Eos % (Auto) % Baso % (Auto) % Neut # (Auto) (1.40-6.50) K/uL Lymph # (Auto) (1.2-3.4) K/uL Mcnairy # (Auto) (0.11-0.59) K/uL Eos # (Auto) (0-0.50) K/uL Baso # (Auto) (0-0.2) K/uL Immature Gran # (Auto) (0.01-0.20) K/uL Sodium (136-145) mmol/L Potassium (3.5-5.1) mmol/L Chloride (98-107) mmol/L Carbon Dioxide (21-32) mmol/L Anion Gap (3-11) BUN (6-23) mg/dl Creatinine (0.6-1.4) mg/dl Est Cr Clr Drug Dosing ml/min Est GFR ( Amer) ml/min Est GFR (Non-Af Amer) ml/min BUN/Creatinine Ratio (10-20) Glucose (70-99(Fasting)) mg/dl Calcium (8.6-10.3) mg/dl Magnesium (1.7-2.4) mg/dl Total Bilirubin (0.2-1.0) mg/dl AST (13-39) U/L ALT (7-52) U/L Alkaline Phosphatase (34-104) U/L Total Creatine Kinase (30-223) U/L Troponin I High Sens (0-20) pg/ml Total Protein (6.0-8.3) gm/dl Albumin (3.4-5.0) gm/dl Globulin (2.5-4.0) gm/dl Albumin/Globulin Ratio (0.9-2) TSH (0.300-4.500) uIu/ml Urine Color Yellow Urine Appearance Clear (Clear) Urine pH 5.5 (4.5-7.5) Ur Specific Perry 1.023 (1.000-1.030) Urine Protein 2+ H (Negative) Urine Glucose (UA) Negative (Negative) Urine Ketones Trace H (Negative) Urine Blood 2+ H (Negative) Urine Nitrite Negative (Negative) Urine Bilirubin Negative (Negative) Urine Urobilinogen Negative (Negative) Ur Leukocyte Esterase Negative (Negative) Urine WBC (Auto) 1-5 (0-5) /hpf Urine RBC (Auto) 5-10 H (0-4) /hpf U Hyaline Cast (Auto) 5-10 H (0-5) /lpf U Epithel Cells (Auto) 20-30 H (0-5) /lpf Urine Bacteria (Auto) Negative (Negative) Imaging Data Attestation: I personally reviewed and interpreted this imaging study as follows: My Impression: Head CTno hemorrhage or mass effect seen. Chest x-rayno acute infiltrate, failure, pneumothorax seen Radiologist's Impression: Chest X-Ray 04/19/23 07:31 XR chest 1V portable HISTORY: 82 years-old Male weakness acute weakness COMPARISON: 04/09/2023 TECHNIQUE: AP view of the chest FINDINGS: Cardiomediastinal and hilar silhouettes are within normal limits. Unchanged right pleural effusion. No pneumothorax or overt pulmonary edema or lobar airspace consolidation. Bones appear grossly intact. Imaged neurostimulator leads appear intact. IMPRESSION: Unchanged layering right pleural effusion. ACT 112: Negative or not required by law. The above report was generated using voice recognition software. It may contain grammatical, syntax or spelling errors. Electronically signed by: Dax Juarez M.D. 04/19/2023 7:[address] 04/19/23 07:31 CT head/brain wo con CLINICAL HISTORY: 82 years-old Male with increased tremor. Essential tremor TECHNIQUE: Multiple axial CT images of the head were obtained without contrast. A dose lowering technique was utilized adhering to the principles of ALARA. CT DOSE: 625.80 mGy.cm COMPARISON: None. FINDINGS: No acute intracranial hemorrhage, midline shift, intracranial mass, hydrocephalus, territorial ischemia or abnormal extra-axial collection. Involutional changes with chronic microvascular ischemic disease. The calvarium is intact. The paranasal sinuses, mastoid air cells, and middle ear cavities are clear. IMPRESSION: No acute intracranial abnormality. ACT 112: Negative or not required by law. The above report was generated using voice recognition software. It may contain grammatical, syntax or spelling errors. Electronically signed by: Dax Juarez M.D. 04/19/2023 8:49 AM ECG Data Attestation: I personally reviewed and interpreted this ECG as follows: Indication: + weakness Rate (beats per minute): 81 Rhythm: + normal sinus ECG Intervals/blocks: + Normal QRS, + Normal QT and + Normal DC ECG [place]: + Normal ECG ST segments: + Normal ST segments ECG Findings: no PACs or no PVCs Comparison ECG Date: from (09/09/22) Change: no significant change MDM Narrative This patient comes in as described above he had increased tremors the last couple days he is stable vital signs and looks well he has no tremors at present when I examined except when he exerts himself which is consistent with essential tremors his neurologic exam is otherwise unremarkable. IV access was established EKG was obtained. He was hydrated with a 1 L IV normal saline bolus. Multiple blood testing was obtained. chest x-ray and urinalysis were also ordered. He was reassessed frequently. His BUN is elevated which could be prerenal/dehydration. CAT scan of his head was unremarkable. Chest x-ray is unremarkable. EKG shows no ischemic changes however his troponin is mildly elevated. He has no significant anemia and no white count to suggest infection. His urinalysis has some blood but does not suggest a UTI. His BUN was elevated consistent with dehydration his CK was also significantly elevated at over 12,000 so he appears to be in rhabdo which I think is exacerbating his other symptoms. He did receive IV hydration will need additional IV hydration and further treatment and evaluation in the hospital additionally when he tried to get up he still seems very weak diffusely. 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
[2023-04-19] MEDS ORDERED: SODIUM CHLORIDE 0.9% 1000ML 1,000 ML IV SCH (07:45)
--- NOTE | 2023-04-19 07:59 | XRay Report ---
XR chest 1V portable HISTORY: 82 years-old Male weakness acute weakness COMPARISON: 04/09/2023 TECHNIQUE: AP view of the chest FINDINGS: Cardiomediastinal and hilar silhouettes are within normal limits. Unchanged right pleural effusion. N o pneumothorax or overt pulmonary edema or lobar airspace consolidation. Bones appear grossly intact. Imaged neurostimulator leads appear intact. IMPRESSION: Unchanged layering right pleural effusion. ACT 112: Negative or not required by law. The above report was generated using voice recognition software. It may contain grammatical, syntax o r spelling errors. Electronically signed by: Dax Juarez M.D. 04/19/2023 7:57 AM
[2023-04-19 08:05] LABS: Basophils # (auto) 0.02 K/uL (0-0.2); Basophils % (auto) 0.3 %; Hemoglobin 11.8 g/dl (14.0-18.0); Immature Granulocytes # (auto) 0.02 K/uL (0.01-0.20); Immature Granulocytes % (auto) 0.3 %; Lymphocytes # (auto) 0.65 K/uL (1.2-3.4); Lymphocytes % (auto) 10.5 %; Mean Corpuscular Hemoglobin 30.2 pg (25.0-34.0); Mean Corpuscular Hgb Conc 34.7 g/dL (32.0-36.0); Mean Platelet Volume 9.5 fL (9.4-12.4); Monocytes # (auto) 0.55 K/uL (0.11-0.59); Monocytes % (auto) 8.9 %; Neutrophils # (auto) 4.95 K/uL (1.40-6.50); Platelet Count 142 K/uL (130-400); RDW Coefficient of Variation 12.6 % (11.5-14.5); RDW Standard Deviation 40.3 fL (36.4-46.3); Red Blood Count 3.91 M/uL (4.70-6.10); White Blood Count 6.19 K/ul (4.8-10.8)
[2023-04-19 08:15] LABS: BUN Creatinine Ratio 32.1 (10-20); Calcium 8.7 mg/dl (8.6-10.3); Creatinine Clr Calc Pharmacy 59.2 ml/min; Est GFR (African American) 76.4 ml/min; Potassium 3.8 mmol/L (3.5-5.1)
[2023-04-19 08:21] LABS: Troponin I High Sensitivity 28.5 pg/ml (0-20)
[2023-04-19 08:22] LABS: Appearance Urine Clear (Clear); Bacteria Urine Automated Negative (Negative); Bilirubin Urine Negative (Negative); Blood Urine 2+ (Negative); Color Urine Yellow; Epithelial Cell Urine Auto 20-30 /lpf (0-5); Glucose Urine UA Negative (Negative); Ketones Urine Trace (Negative); Leukocyte Esterase Urine Negative (Negative); Nitrite Urine Negative (Negative); Protein Urine 2+ (Negative); Specific Gravity Urine 1.023 (1.000-1.030); Urobilinogen Urine Negative (Negative); pH Urine 5.5 (4.5-7.5)
[2023-04-19 08:35] LABS: Albumin Globulin Ratio 1.3 (0.9-2); Albumin Level 3.5 gm/dl (3.4-5.0); Bilirubin,Total 0.7 mg/dl (0.2-1.0); Globulin 2.6 gm/dl (2.5-4.0); Magnesium 1.9 mg/dl (1.7-2.4); Total Protein 6.1 gm/dl (6.0-8.3)
--- NOTE | 2023-04-19 08:51 | CT Scan Report ---
CT head/brain wo con CLINICAL HISTORY: 82 years-old Male with increased tremor. Essential tremor TECHNIQUE: Multiple axial CT images of the head were obtained without contrast. A dose lowering tech nique was utilized adhering to the principles of ALARA. CT DOSE: 625.80 mGy.cm COMPARISON: None. FINDINGS: No acute intracranial hemorrhage, midline shift, intracranial mass, hydrocephalus, territorial ischem ia or abnormal extra-axial collection. Involutional changes with chronic microvascular ischemic disea se. The calvarium is intact. The paranasal sinuses, mastoid air cells, and middle ear cavities are clear . IMPRESSION: No acute intracranial abnormality. ACT 112: Negative or not required by law. The above report was generated using voice recognition software. It may contain grammatical, syntax o r spelling errors. Electronically signed by: Dax Juarez M.D. 04/19/2023 8:49 AM
[2023-04-19] MEDS ORDERED: ALUMINUM/MAGNESIUM SUSP 30 ML UDC PO PRN (10:48)
[2023-04-19] MEDS ORDERED: NON-FORMULARY MEDICATION (Potassium Gluconate 595 mg (99 mg) Tablet Extended Release) PO SCH (10:48)
[2023-04-19] MEDS ORDERED: NON-FORMULARY MEDICATION (Medical Marijuana 1 EA) PO PRN (10:48)
[2023-04-19] MEDS ORDERED: MAGNESIUM HYDROXIDE SUSP 30 ML UDC PO PRN (10:48)
[2023-04-19] MEDS ORDERED: traMADol HCL 50 MG TABLET PO PRN (10:48)
[2023-04-19] MEDS ORDERED: ACETAMINOPHEN 325 MG TAB PO PRN (10:48)
[2023-04-19] MEDS ORDERED: POLYETHYLENE (MIRALAX) 17 GM PACK PO PRN (10:48)
[2023-04-19] MEDS: CEROVITE ADV FORMULA TAB PO SCH (12:18)
[2023-04-19] MEDS: LACTATED RINGER'S 1,000 ML IV SCH ×2 (12:18→19:45)
[2023-04-19] MEDS: TOCOPHERYL, DL-ALPHA 400 UNITS 180 MG CAP PO SCH (12:19)
[2023-04-19] MEDS: DULoxetine HCL 60 MG CAP PO SCH (12:19)
[2023-04-19] MEDS: TAMSULOSIN HCL 0.4 MG CAP PO SCH (12:19)
[2023-04-19] MEDS: ASCORBIC ACID 500 MG TAB PO SCH ×2 (12:19→21:15)
[2023-04-19] MEDS: PANTOprazole 40 MG TAB PO SCH (12:19)
[2023-04-19] MEDS: ENOXAPARIN INJ 40 MG/0.4 ML SYR SQ SCH (12:20)
[2023-04-19] MEDS: PRAMIPEXOLE PO SCH ×2 (17:44→21:14)
--- NOTE | 2023-04-19 18:21 | History & Physical Report ---
Date of Service April 19, 2023 Assessment & Plan (1) Weakness: Plan: seems to be multifactorial between his urinary tract infection, dehydration, and rhabdomyolysis. Treat the below, and PT/OT eval and treat (2) Rhabdomyolysis: Plan: fortunately seems to be mild, no associated BITA, but especially given his transaminitis, and his story of being down on the ground not being able to get up without assistance for hours at a time x2, I do suspect it is real. IV fluids, repeat CPK in the a.m. (given no BITA and given that it overall seems clinically mildchecking labs tomorrow.) (3) Urinary tract infection: Plan: Recently treated, urine culture from about 2 weeks ago showed coag negative staph only resistant to oxacillin, would be a little bit odd for a true staph UTI, culture sent today, start Rocephin for now. (4) Elevated LFTs: Plan: I think really are subsequent to the rhabdomyolysis. Repeat CPK and LFTs in the morning, I expect they will trend together. If not, then work-up transaminitis separately (5) Essential hypertension: Plan: holding home diuretic due to above (6) DVT prophylaxis: Plan: Lovenox (7) Discharge planning issues: Plan: PT OT eval and treat, comes from home, lives with , hopefully will be able to go back home once he is stronger, although might need rehab. Admission and Anticipated Discharge Date Admission Date: April 19, 2023 History of Present Illness Chief Complaint: weak and shaky Primary Care Provider: MD dejan Morales - initially says he thought maybe he overdid it doing work last weekend, but then notes that he actually felt OK for a few days after that. probalby ~2- 3 days ago started feeling weaker and tremors worse - including some whole body tremors (he demonstrates what looks to be an amplified version of his essential tremor - and i demonstrate rigors that doesn't really seem to fit with what he had, and he denies chills or sweats). urinary frequency - had a UTIwas treated, last day of antibiotics was on Friday. Has had 2 episodes where h e lowered himself to the floor and was not able to get up for several hours due to weakness.He notes that he today since admission is suddenly starting to have dysuria as well. Probably not eating and drinking as well over the last few days either. No chest pain or shortness of breath, no other acute symptoms. Allergies Allergy/AdvReac Type Severity Reaction Status Date / Time Corticosteroids AdvReac Mild Advised to Verified 02/19/23 08:31 (Glucocorticoids) avoid d/t gastric ulcer NSAIDS (Non-Steroidal AdvReac Mild Advised to Verified 02/19/23 08:31 Anti-Inflamma avoid d/t gastric ulcer Home Medications Medication Instructions Recorded Confirmed Type ascorbic acid (vitamin C) 500 mg 500 mg PO BID 09/14/18 02/19/23 History tablet (Vitamin C) vitamin E 268 mg (400 unit) capsule 400 unit PO QAM 09/14/18 02/19/23 History vit C 250 mg-vit E 90 mg-zinc 40 1 tab PO BID 01/08/19 02/19/23 History mg-copper 1 [id number]-ivsrbz capsule (PreserVision AREDS-2) antiarthritic combination no.2 900 900 mg PO DAILY 10/01/19 02/19/23 History mg tablet (glucosamine-chondroitin) omega-3 fatty acids 1,000 mg 1,000 mg PO DAILY 10/01/19 02/19/23 History capsule (Fish Oil Concentrate) multivitamin (Daily Multi-Vitamin 1 tab PO DAILY 10/28/19 02/19/23 History tablet) potassium gluconate 595 mg (99 mg) 99 mg PO QAM 04/05/21 02/19/23 History tablet,extended release Medical Marijuana 1 dose PO UD PRN Pain 01/04/22 02/19/23 History tamsulosin 0.4 mg capsule 0.4 mg PO QAM #90 caps 10/22/22 02/19/23 Rx duloxetine 60 mg capsule,delayed 60 mg PO QAM #90 caps 11/12/22 02/19/23 Rx release (Cymbalta) gabapentin enacarbil 600 mg 600 mg PO QPM 90 days #90 tabs 02/19/23 02/19/23 Rx tablet,extended release pramipexole 0.75 mg 0.75 mg PO QID 90 days #360 tabs 02/19/23 02/19/23 Rx tablet,extended release 24 hr tramadol 50 mg tablet 50 - 100 mg PO Q8H PRN pain 30 03/25/23 Rx days #120 tabs losartan 100 1 tab PO QAM #90 tabs 03/31/23 Rx mg-hydrochlorothiazide 25 mg tablet omeprazole 20 mg tablet,delayed 20 mg PO QAM #90 tabs 03/31/23 Rx release nitrofurantoin 100 mg PO BID 7 days #14 caps 04/07/23 Rx monohydrate/macrocrystals 100 mg capsule (Macrobid) Past Med/Surg History Medical History 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 Degenerative arthritis Back 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 GERD (gastroesophageal reflux disease) GIST (gastrointestinal stroma tumor), malignant, colon [facility] *DX 5 YEARS AGO History of anemia History of bowel disorder "Fibrosing mesenteric" History of SCC (squamous cell carcinoma) of skin Head History of stomach ulcers Hx (NSAIDS-related) Hx of spinal stenosis DDD Hypertension Obstructive sleep apnea CPAP Personal history of malignant melanoma of skin Head (s/p excision) Restless leg syndrome Tremor BILAT HANDS Ulcer of ileum Hx Surgical History Fusion of spine CERVICAL FUSION *GOOD ROM History of ankle surgery Right ankle arthroscopy with debridement of tibialis, anterior tendon, removal of avulsion fracture, medical navicular application of PRP concentrate (10/02/18): LMA#5 + PNB at [facility] History of colonoscopy History of esophagogastroduodenoscopy (EGD) History of evacuation of hematoma S/P CERVICAL FUSION History of exploratory laparotomy GIST/DX Fibrosing Mesenteric History of gastrointestinal surgery r/t GIST *REMOVED ABDOMINAL TUMOR History of hand surgery Left pinky amputation (r/t injury) History of tonsillectomy S/P epidural steroid injection Family History Grandmother Leukemia Father Hearing loss Stroke Other No family history of adverse response to anesthesia No family history of bleeding disorder Denies family history of Ovarian cancer Prostate cancer Myocardial infarction Breast cancer Lung cancer Colorectal cancer Social History Smoking Status: Never smoker Second Hand Exposure: No; Do You Dip or Chew Tobacco: No; Hx Alcohol Use: Yes Alcohol type: beer, wine and hard liquor Alcohol Intake Frequency: 4 or More x per/Week Hx Substance Use: Yes Last Used Substance: Unknown Last Used Substance Other:: ONLY MEDICAL MARIJUANA FOR BACK PAIN Substance Use Type Other:: medical marijuana Preferred Language: Uzbek Communication Ability: Effective Visual Impairment: No Limitations Hearing Ability: Use of Hearing Aid Director Compensation Required: No Beliefs That Will Affect Care: None marital status: Current Living Situation: Spouse current occupational status: retired Other Information That Helps Us Care for You: No Feels Safe at Home: Yes Childhood Exposure to Second-Hand Smoke: No Diet: regular caffeine: Yes Dental Care, Regularly: Yes Physical Activity Frequency: Does not Exercise Seatbelt Use: always Sunscreen Use: Yes Assistive Devices: Cane, Glasses and Hearing Aid - Bilateral Review of Systems Review of Systems: All systems reviewed & are unremarkable except as noted in HPI & below Physical Exam Physical Exam: In general he is awake and alert very fatigued, no distress. HEENT normocephalic atraumatic mucous membranes moist. Cardio is regular without rubs murmurs gallops. Lungs are clear to auscultation bilaterally no rales rhonchi or wheeze with good effort. Abdomen is soft nondistended nontender no masses organomegaly. Extremities are without sinus clubbing or edema no calf tenderness. Skin shows no rashes no pallor or icterus. Neuro shows hard of hearing little bit of bradykinesia and a baseline essential tremor worse in his hands. Results & Data Results & Data Vital Signs (Past 12 Hours) Vital Signs Temp Pulse Pulse Pulse Resp BP BP 04/19/23 15:11 98.1 F 79 16 96/55 L 04/19/23 12:29 98.1 F 80 16 126/66 04/19/23 10:06 80 20 125/68 04/19/23 09:22 80 20 114/59 L 04/19/23 08:20 82 20 131/64 04/19/23 07:48 80 04/19/23 07:12 98.1 F 86 24 123/63 04/19/23 07:12 84 Pulse Ox O2 Del Method 04/19/23 15:11 96 Room Air 04/19/23 12:29 98 Room Air 04/19/23 10:06 99 Room Air 04/19/23 09:22 96 Room Air 04/19/23 08:20 97 Room Air 04/19/23 07:48 96 Room Air 04/19/23 07:12 97 Room Air 04/19/23 07:12 Code Status & VTE Plan VTE Prophylaxis Plan VTE Prophylaxis will be ordered: Yes PG Care Time/CCT Total # of Minutes Spent Total Time Spent with Patient: Total time spent is greater than 50% in coordination of care (as documented) at patient's floor/unit and/or counseling patient: Coding Level of Care Code 93806 INT INP/OBS CARE 3/75MIN Diagnoses Weakness R53.1 Rhabdomyolysis M62.82 Urinary tract infection N39.0 Elevated LFTs R79.89 Essential hypertension I10 DVT prophylaxis Z29.9 Discharge planning issues Z02.9
[2023-04-19] MEDS: cefTRIAXone SODIUM 2,000 MG in DEXTROSE 5% 50 ML IV SCH (19:45)
[2023-04-19] MEDS: HORIZANT PO SCH (21:14)
[2023-04-20] MEDS: LACTATED RINGER'S 1,000 ML IV SCH ×3 (04:05→19:42)
[2023-04-20] MEDS: ONDANSETRON INJ 2 MG/ML 2 ML VIAL IV PRN (06:22)
[2023-04-20 06:57] LABS: Appearance Urine Clear (Clear); Bacteria Urine Automated Negative (Negative); Bilirubin Urine Negative (Negative); Blood Urine 2+ (Negative); Color Urine Yellow; Epithelial Cell Urine Auto 0-5 /lpf (0-5); Glucose Urine UA Negative (Negative); Ketones Urine Negative (Negative); Leukocyte Esterase Urine Negative (Negative); Nitrite Urine Negative (Negative); Protein Urine 1+ (Negative); RBC Urine Automated 0-4 /hpf (0-4); Specific Gravity Urine 1.018 (1.000-1.030); Urobilinogen Urine Negative (Negative)
[2023-04-20 07:01] LABS: Albumin Globulin Ratio 1.3 (0.9-2); BUN Creatinine Ratio 29.2 (10-20); Bilirubin,Total 0.6 mg/dl (0.2-1.0); Calcium 8.3 mg/dl (8.6-10.3); Creatinine Clr Calc Pharmacy 87.2 ml/min; Est GFR (African American) 102.1 ml/min; Est GFR (Non-African American) 88.1 ml/min; Globulin 2.4 gm/dl (2.5-4.0); Potassium 3.5 mmol/L (3.5-5.1); Total Protein 5.4 gm/dl (6.0-8.3)
[2023-04-20 07:07] LABS: Basophils # (auto) 0.01 K/uL (0-0.2); Basophils % (auto) 0.1 %; Hematocrit (blood only) 31.5 % (42.0-52.0); Hemoglobin 10.8 g/dl (14.0-18.0); Immature Granulocytes # (auto) 0.03 K/uL (0.01-0.20); Immature Granulocytes % (auto) 0.4 %; Lymphocytes % (auto) 6.5 %; Mean Corpuscular Hemoglobin 30.1 pg (25.0-34.0); Mean Corpuscular Hgb Conc 34.3 g/dL (32.0-36.0); Mean Corpuscular Volume 87.7 fL (80.0-100.0); Monocytes # (auto) 0.37 K/uL (0.11-0.59); Monocytes % (auto) 4.8 %; Neutrophils # (auto) 6.83 K/uL (1.40-6.50); Neutrophils % (auto) 88.2 %; Platelet Count 137 K/uL (130-400); RDW Coefficient of Variation 12.4 % (11.5-14.5); RDW Standard Deviation 40.1 fL (36.4-46.3); Red Blood Count 3.59 M/uL (4.70-6.10); White Blood Count 7.74 K/ul (4.8-10.8)
[2023-04-20 07:52] LABS: Calcium Oxalate Crystals Urine Present (None Prsent)
[2023-04-20] MEDS: TOCOPHERYL, DL-ALPHA 400 UNITS 180 MG CAP PO SCH (07:59)
[2023-04-20] MEDS: ASCORBIC ACID 500 MG TAB PO SCH ×2 (07:59→19:46)
[2023-04-20] MEDS: CEROVITE ADV FORMULA TAB PO SCH (07:59)
[2023-04-20] MEDS: DULoxetine HCL 60 MG CAP PO SCH (08:00)
[2023-04-20] MEDS: PRAMIPEXOLE PO SCH ×4 (08:00→19:47)
[2023-04-20] MEDS: PANTOprazole 40 MG TAB PO SCH (08:00)
[2023-04-20] MEDS: TAMSULOSIN HCL 0.4 MG CAP PO SCH (08:00)
[2023-04-20] MEDS: ENOXAPARIN INJ 40 MG/0.4 ML SYR SQ SCH (11:47)
[2023-04-20] MEDS: cefTRIAXone SODIUM 2,000 MG in DEXTROSE 5% 50 ML IV SCH (18:40)
--- NOTE | 2023-04-20 19:02 | Hospitalist Progress Note ---
Date of Service April 20, 2023 Assessment & Plan (1) Weakness: Plan: seems to be multifactorial between his dehydration, and (mild) rhabdomyolysis impacting his baseline neurologic disease. Treat the below, and PT/OT eval and treat (2) Rhabdomyolysis: Plan: fortunately seems to be mild, no associated BITA, but especially given his transaminitis, and his story of being down on the ground not being able to get up without assistance for hours at a time x2, I do suspect it is real. improving, continue IV fluids, check labs again tomorrow (3) Urinary tract infection: Plan: on further review I am more skeptical that he has a UTIhis dysuria resolved after basically 1 episode yesterday (unfortunately fortuitous timing given that it happened right before I saw him for admission), his urine culture is negative, and the rest of his picture is seeming more incongruence with a UTI. Had initially ordered Rocephin, DC and follow (4) Elevated LFTs: Plan: I think really are subsequent to the rhabdomyolysis. Repeat CPK and LFTs in the morning, trending down (5) Essential hypertension: Plan: holding home diuretic due to above (6) DVT prophylaxis: Plan: Lovenox (7) Discharge planning issues: Plan: PT OT eval and treat, he normally lives at home with his , but we all agree that acute rehab would be indicated for him at this timegiven his overall situation, if his labs were continuing to improve tomorrow, probably would be stable for rehab by then Admission and Anticipated Discharge Date Admission Date: April 19, 2023 Subjective feeling a little bit better still definitely weaker than baseline dysuria has resolved poor appetite but able to eat and drink okay updated at patient's request and answered all questions the best my ability Review of Systems Review of Systems: All systems reviewed & are unremarkable except as noted in HPI & below Physical Exam Physical Exam: in general he is awake and alert fatigued but no distress. HEENT normocephalic atraumatic mucous membranes moist. Breathing unlabored no accessory muscle use good effort. Skin shows no rashes no pallor or icterus. Baseline resting tremor noted probably less pronounced than yesterday Results & Data Results & Data Vital Signs (Past 12 Hours) Vital Signs Temp Pulse Resp BP Pulse Ox O2 Del Method 04/20/23 14:41 97.5 F L 70 16 100/58 L 96 Room Air PG Care Time/CCT Total # of Minutes Spent Total Time Spent with Patient: Total time spent is greater than 50% in coordination of care (as documented) at patient's floor/unit and/or counseling patient: Coding Level of Care Code 40352 SUB INP/OBS CARE 3/50MIN Diagnoses Weakness R53.1 Rhabdomyolysis M62.82 Urinary tract infection N39.0 Elevated LFTs R79.89 Essential hypertension I10 DVT prophylaxis Z29.9 Discharge planning issues Z02.9
[2023-04-20] MEDS: HORIZANT PO SCH (19:47)
[2023-04-21] MEDS: LACTATED RINGER'S 1,000 ML IV SCH ×3 (03:23→19:30)
[2023-04-21 06:28] LABS: Basophils # (auto) 0.01 K/uL (0-0.2); Basophils % (auto) 0.1 %; Eosinophils # (auto) 0.02 K/uL (0-0.50); Eosinophils % (auto) 0.3 %; Hematocrit (blood only) 33.4 % (42.0-52.0); Hemoglobin 11.1 g/dl (14.0-18.0); Immature Granulocytes # (auto) 0.03 K/uL (0.01-0.20); Immature Granulocytes % (auto) 0.4 %; Lymphocytes # (auto) 1.18 K/uL (1.2-3.4); Lymphocytes % (auto) 17.2 %; Mean Corpuscular Hemoglobin 29.7 pg (25.0-34.0); Mean Corpuscular Hgb Conc 33.2 g/dL (32.0-36.0); Mean Corpuscular Volume 89.3 fL (80.0-100.0); Monocytes # (auto) 0.51 K/uL (0.11-0.59); Monocytes % (auto) 7.4 %; Neutrophils % (auto) 74.6 %; Platelet Count 159 K/uL (130-400); RDW Coefficient of Variation 12.9 % (11.5-14.5); RDW Standard Deviation 42.4 fL (36.4-46.3); Red Blood Count 3.74 M/uL (4.70-6.10); White Blood Count 6.85 K/ul (4.8-10.8)
[2023-04-21 06:53] LABS: BUN Creatinine Ratio 25.7 (10-20); Calcium 8.8 mg/dl (8.6-10.3); Creatinine Clr Calc Pharmacy 84.8 ml/min; Est GFR (Non-African American) 87.1 ml/min; Potassium 3.7 mmol/L (3.5-5.1)
--- NOTE | 2023-04-21 07:07 | Hospitalist Progress Note ---
Date of Service April 21, 2023 Assessment & Plan (1) Rhabdomyolysis: (2) Weakness: (3) Urinary tract infection: (4) Elevated LFTs: (5) Discharge planning issues: Plan 82 y/o male with PMH of essential tremors, admitted due to worsening of tremors and weakness 3 days before admission, found to have Rhabdomyolysis Weakness: -Multifactoral: dehydration and Rhabdomyolysis impacting his baseline neurologic disease -Received IVF and improved significantly. - PT re eval: refers patient can go home prob tomorrow Rhabdomyolysis -CPK:2639 , on decreasing trend -No associated lexie -Continue IV fluids Elevated LFTs - Subsequent to Rhabdomyolysis - AST: 148 - ALT: 103 - Decreasing trend - Follow with labs am Essential HTN - Holding home diuretic due to above - BP has been controlled Discharge planning issues: -PT will re-evaluated today due improving during the day - Will follow recommendations on PT Code:DNR/DNI Dispo:Med-Surg DVT Prophylaxis:Lovenox 40 mg SQ daily PT/OT:Yes Admission and Anticipated Discharge Date Admission Date: April 19, 2023 Supervising Physician Co-Signing Physician Notes Resident Physician Supervision Note: I independently interviewed and examined the patient and verified the molina history and physical, reviewed labs and image studies and agree with resident findings and care plan. Subjective 82 y/o male with PMH of essential tremors, admitted due to worsening of tremors and weakness since 3 days ago. He refers having 2 episodes when he lowered himself to the floor and was unable to stand up. He refers being active last weekend where he thinks he overdid it. He also refers decreasing intake of food and liquids for a couple of days. He was recently treated for UTI, finished AB on Friday last week. Refers one episode of dysuria on admission. Denied SOB, chest pain, abdominal pain, vomiting, diarrhea, chest pain, headaches or any other symptoms. 04/21 - today found the patient awake, alert and oriented sitting on the chair eating breakfast. He till complaint of some weakness which he think is baseline for him. PT/OT saw him, recommended rehab. He is still considering. Case management on case. He denied any muscle pain, SOB, headaches, nausea, chest pain, abdominal pain or any other symptoms. Review of Systems Review of Systems: as per HPI Physical Exam Constitutional: WD/WN, vitals as above Eyes: PERRL, conjunctivae normal, anicteric sclerae Respiratory: normal respiratory effort, lungs clear to auscultation Cardiovascular: RRR, no murmur, no edema Gastrointestinal (Abdomen): normal bowel sounds, soft, nontender, no hepatosplenomegaly Musculoskeletal: no cyanosis Skin: no rashes, warm and dry Results & Data Results & Data Vital Signs (Past 12 Hours) Vital Signs Temp Pulse Resp BP Pulse Ox O2 Del Method 04/20/23 23:23 36.4 C L 60 16 122/73 99 Room Air Resident Activity Tracking Resident Involvement: Resident Care Provided Care Provided: Adult Hospital Medicine
[2023-04-21 07:10] LABS: Albumin Globulin Ratio 1.2 (0.9-2); Albumin Level 2.9 gm/dl (3.4-5.0); Bilirubin,Total 0.4 mg/dl (0.2-1.0); Globulin 2.4 gm/dl (2.5-4.0); Total Protein 5.3 gm/dl (6.0-8.3)
[2023-04-21] MEDS: PRAMIPEXOLE PO SCH ×4 (07:28→20:27)
[2023-04-21] MEDS: CEROVITE ADV FORMULA TAB PO SCH (07:28)
[2023-04-21] MEDS: ASCORBIC ACID 500 MG TAB PO SCH ×2 (07:29→20:27)
[2023-04-21] MEDS: TAMSULOSIN HCL 0.4 MG CAP PO SCH (07:29)
[2023-04-21] MEDS: DULoxetine HCL 60 MG CAP PO SCH (07:29)
[2023-04-21] MEDS: PANTOprazole 40 MG TAB PO SCH (07:29)
[2023-04-21] MEDS: TOCOPHERYL, DL-ALPHA 400 UNITS 180 MG CAP PO SCH (07:29)
--- NOTE | 2023-04-21 09:06 | Electrocardiogram Report ---
Test Reason : Blood Pressure : / mmHG Vent. Rate : 081 BPM Atrial Rate : 081 BPM P-R Int : 180 ms QRS Dur : 094 ms QT Int : 380 ms P-R-T Axes : 056 -13 053 degrees QTc Int : 441 ms Poor data quality, interpretation may be adversely affected Normal sinus rhythm Cannot rule out Anterior infarct , age undetermined Abnormal ECG When compared with ECG of 09-SEP-2022 08:41, No significant change was found Confirmed by Mike Rivers ([id number]) on 04/21/2023 9:06:13 AM Referred By: REFERRED SELF Confirmed By:Mike Rivers
[2023-04-21] MEDS: ENOXAPARIN INJ 40 MG/0.4 ML SYR SQ SCH (11:03)
[2023-04-21] MEDS: HORIZANT PO SCH (20:27)
[2023-04-21] MEDS ORDERED: ALBUT/IPRATROP 3MG/0.5MG NEB 3 ML VIAL NEB STA (20:34)
[2023-04-21] MEDS: ONDANSETRON INJ 2 MG/ML 2 ML VIAL IV PRN (21:42)
[2023-04-21] MEDS: guaiFENesin 600 MG TABCR PO SCH (23:30)
[2023-04-22 06:29] LABS: Hematocrit (blood only) 31.6 % (42.0-52.0); Hemoglobin 10.7 g/dl (14.0-18.0); Mean Corpuscular Hgb Conc 33.9 g/dL (32.0-36.0); Mean Corpuscular Volume 88.5 fL (80.0-100.0); Mean Platelet Volume 10.1 fL (9.4-12.4); Platelet Count 191 K/uL (130-400); RDW Coefficient of Variation 12.7 % (11.5-14.5); RDW Standard Deviation 41.2 fL (36.4-46.3); Red Blood Count 3.57 M/uL (4.70-6.10); White Blood Count 6.33 K/ul (4.8-10.8)
[2023-04-22 06:55] LABS: Albumin Globulin Ratio 1.3 (0.9-2); Albumin Level 2.9 gm/dl (3.4-5.0); BUN Creatinine Ratio 24.3 (10-20); Bilirubin,Total 0.4 mg/dl (0.2-1.0); Calcium 8.4 mg/dl (8.6-10.3); Creatinine Clr Calc Pharmacy 89.6 ml/min; Est GFR (African American) 103.3 ml/min; Est GFR (Non-African American) 89.1 ml/min; Globulin 2.3 gm/dl (2.5-4.0); Potassium 3.8 mmol/L (3.5-5.1); Total Protein 5.2 gm/dl (6.0-8.3)
--- NOTE | 2023-04-22 07:15 | Hospitalist Progress Note ---
Date of Service April 22, 2023 Assessment & Plan (1) Rhabdomyolysis: (2) Weakness: (3) Urinary tract infection: (4) Elevated LFTs: (5) Discharge planning issues: Plan 82 y/o male with PMH of essential tremors, admitted due to worsening of tremors and weakness 3 days before admission, found to have Rhabdomyolysis Weakness: -Multifactoral: dehydration and Rhabdomyolysis impacting his baseline neurologic disease -Received IVF and improved significantly. - PT re eval: refers patient can go home prob tomorrow Rhabdomyolysis -CPK:2639 , on decreasing trend -No associated lexie -Continue IV fluids Elevated LFTs - Subsequent to Rhabdomyolysis - AST: 148 - ALT: 103 - Decreasing trend - Follow with labs am Essential HTN - Holding home diuretic due to above - BP has been controlled Discharge planning issues: -PT will re-evaluated today due improving during the day - Will follow recommendations on PT Code:DNR/DNI Dispo:Med-Surg DVT Prophylaxis:Lovenox 40 mg SQ daily PT/OT:Yes Admission and Anticipated Discharge Date Admission Date: April 19, 2023 Subjective 82 y/o male with PMH of essential tremors, admitted due to worsening of tremors and weakness since 3 days ago. He refers having 2 episodes when he lowered himself to the floor and was unable to stand up. He refers being active last weekend where he thinks he overdid it. He also refers decreasing intake of food and liquids for a couple of days. He was recently treated for UTI, finished AB on Friday last week. Refers one episode of dysuria on admission. Denied SOB, chest pain, abdominal pain, vomiting, diarrhea, chest pain, headaches or any other symptoms. 04/21 - today found the patient awake, alert and oriented sitting on the chair eating breakfast. He till complaint of some weakness which he think is baseline for him. PT/OT saw him, recommended rehab. He is still considering. Case management on case. He denied any muscle pain, SOB, headaches, nausea, chest pain, abdominal pain or any other symptoms. Physical Exam Constitutional: WD/WN, vitals as above Eyes: PERRL, conjunctivae normal, anicteric sclerae Respiratory: normal respiratory effort, lungs clear to auscultation Cardiovascular: RRR, no murmur, no edema Gastrointestinal (Abdomen): normal bowel sounds, soft, nontender, no hepatosplenomegaly Musculoskeletal: no cyanosis or clubbing, extremities motor strength 5/5 Skin: no rashes, warm and dry Results & Data Results & Data Vital Signs (Past 12 Hours) Vital Signs Temp Pulse Resp BP Pulse Ox O2 Del Method 04/22/23 07:06 36.5 C 55 L 14 157/76 H 97 Room Air 04/21/23 20:00 Room Air 04/21/23 22:35 66 18 90 Room Air 04/21/23 20:24 36.7 C 65 18 168/80 H 95 Room Air
[2023-04-22] MEDS: ONDANSETRON INJ 2 MG/ML 2 ML VIAL IV PRN (07:56)
[2023-04-22] MEDS: guaiFENesin 600 MG TABCR PO SCH (07:57)
[2023-04-22] MEDS: TOCOPHERYL, DL-ALPHA 400 UNITS 180 MG CAP PO SCH (07:57)
[2023-04-22] MEDS: ASCORBIC ACID 500 MG TAB PO SCH (07:57)
[2023-04-22] MEDS: TAMSULOSIN HCL 0.4 MG CAP PO SCH (07:57)
[2023-04-22] MEDS: DULoxetine HCL 60 MG CAP PO SCH (07:57)
[2023-04-22] MEDS: PRAMIPEXOLE PO SCH ×2 (07:58→12:17)
[2023-04-22] MEDS: CEROVITE ADV FORMULA TAB PO SCH (07:58)
[2023-04-22] MEDS: PANTOprazole 40 MG TAB PO SCH (07:58)
[2023-04-22] MEDS: ENOXAPARIN INJ 40 MG/0.4 ML SYR SQ SCH (10:37)
--- NOTE | 2023-04-22 12:17 | Discharge Summary ---
Date of Service April 22, 2023 Admission HPI Per Admitting Provider weak - initially says he thought maybe he overdid it doing work last weekend, but then notes that he actually felt OK for a few days after that. beulah ~2- 3 days ago started feeling weaker and tremors worse - including some whole body tremors (he demonstrates what looks to be an amplified version of his essential tremor - and i demonstrate rigors that doesn't really seem to fit with what he had, and he denies chills or sweats). urinary frequency - had a UTIwas treated, last day of antibiotics was on Friday. Has had 2 episodes where he lowered himself to the floor and was not able to get up for several hours due to weakness.He notes that he today since admission is suddenly starting to have dysuria as well. Probably not eating and drinking as well over the last few days either. No chest pain or shortness of breath, no other acute symptoms. Admission Exam Per Admitting Provider In general he is awake and alert very fatigued, no distress. HEENT normocephalic atraumatic mucous membranes moist. Cardio is regular without rubs murmurs gallops. Lungs are clear to auscultation bilaterally no rales rhonchi or wheeze with good effort. Abdomen is soft nondistended nontender no masses organomegaly. Extremities are without sinus clubbing or edema no calf tenderness. Skin shows no rashes no pallor or icterus. Neuro shows hard of hearing little bit of bradykinesia and a baseline essential tremor worse in his hands. Principal Diagnosis Rhabdomyolysis/ Dehydration Discharge Exam Constitutional WD/WN, vitals as above Eyes PERRL, conjunctivae normal, anicteric sclerae Respiratory normal respiratory effort, lungs clear to auscultation Cardiovascular RRR, no murmur, no edema Gastrointestinal (Abdomen) normal bowel sounds, soft, nontender, no hepatosplenomegaly Musculoskeletal no cyanosis, no edema Skin no rashes, warm and dry Discharge Data Allergies Allergy/AdvReac Type Severity Reaction Status Date / Time Corticosteroids AdvReac Mild Advised to Verified 02/19/23 08:31 (Glucocorticoids) avoid d/t gastric ulcer NSAIDS (Non-Steroidal AdvReac Mild Advised to Verified 02/19/23 08:31 Anti-Inflamma avoid d/t gastric ulcer Consultations 04/19/23 08:48 ED Decision to Admit Stat Ordered Studies Microbiology 04/19/23 16:30 Urine,Clean Catch Urine Culture - Final Three types of organisms present, all low counts probable skin hayes. No further identifications or sensitivities to follow. Labs 04/19/23 04/19/23 04/19/23 07:45 07:45 07:45 WBC 6.19 RBC 3.91 L Hgb 11.8 L Hct 34.0 L MCV 87.0 MCH 30.2 MCHC 34.7 RDW Std Deviation 40.3 RDW Coeff of Lana 12.6 Plt Count 142 MPV 9.5 Immature Gran % (Auto) 0.3 Neut % (Auto) 80.0 Lymph % (Auto) 10.5 Baldwin % (Auto) 8.9 Eos % (Auto) 0.0 Baso % (Auto) 0.3 Neut # (Auto) 4.95 Lymph # (Auto) 0.65 L Baldwin # (Auto) 0.55 Eos # (Auto) 0.00 Baso # (Auto) 0.02 Immature Gran # (Auto) 0.02 Sodium 135 L Potassium 3.8 Chloride 101 Carbon Dioxide 28 Anion Gap 6 BUN 34 H Creatinine 1.06 Est Cr Clr Drug Dosing 59.2 Est GFR ( Amer) 76.4 Est GFR (Non-Af Amer) 66.0 BUN/Creatinine Ratio 32.1 H Glucose 139 H Calcium 8.7 Magnesium 1.9 Total Bilirubin 0.7 AST 290 H ALT 110 H Alkaline Phosphatase 61 Total Creatine Kinase 80683 H Troponin I High Sens 28.5 H Total Protein 6.1 Albumin 3.5 Globulin 2.6 Albumin/Globulin Ratio 1.3 TSH 0.933 Urine Color Urine Appearance Urine pH Ur Specific Guthrie Urine Protein Urine Glucose (UA) Urine Ketones Urine Blood Urine Nitrite Urine Bilirubin Urine Urobilinogen Ur Leukocyte Esterase Urine WBC (Auto) Urine RBC (Auto) U Hyaline Cast (Auto) U Epithel Cells (Auto) Urine Bacteria (Auto) Calcium Oxalate Crystal Urine Yeast 04/19/23 04/19/23 04/20/23 08:02 16:30 06:10 WBC RBC Hgb Hct MCV MCH MCHC RDW Std Deviation RDW Coeff of Lana Plt Count MPV Immature Gran % (Auto) Neut % (Auto) Lymph % (Auto) Baldwin % (Auto) Eos % (Auto) Baso % (Auto) Neut # (Auto) Lymph # (Auto) Baldwin # (Auto) Eos # (Auto) Baso # (Auto) Immature Gran # (Auto) Sodium 137 Potassium 3.5 Chloride 104 Carbon Dioxide 24 Anion Gap 9 BUN 21 Creatinine 0.72 D Est Cr Clr Drug Dosing 87.2 Est GFR ( Amer) 102.1 Est GFR (Non-Af Amer) 88.1 BUN/Creatinine Ratio 29.2 H Glucose 140 H Calcium 8.3 L Magnesium Total Bilirubin 0.6 AST 219 H ALT 104 H Alkaline Phosphatase 50 Total Creatine Kinase 6997 H Troponin I High Sens Total Protein 5.4 L Albumin 3.0 L Globulin 2.4 L Albumin/Globulin Ratio 1.3 TSH Urine Color Yellow Yellow Urine Appearance Clear Clear Urine pH 5.5 6.0 Ur Specific Guthrie 1.023 1.018 Urine Protein 2+ H 1+ H Urine Glucose (UA) Negative Negative Urine Ketones Trace H Negative Urine Blood 2+ H 2+ H Urine Nitrite Negative Negative Urine Bilirubin Negative Negative Urine Urobilinogen Negative Negative Ur Leukocyte Esterase Negative Negative Urine WBC (Auto) 1-5 1-5 Urine RBC (Auto) 5-10 H 0-4 U Hyaline Cast (Auto) 5-10 H 1-5 U Epithel Cells (Auto) 20-30 H 0-5 Urine Bacteria (Auto) Negative Negative Calcium Oxalate Crystal Present A Urine Yeast Not Reportable 04/20/23 04/21/23 04/21/23 06:10 05:55 05:55 WBC 7.74 6.85 RBC 3.59 L 3.74 L Hgb 10.8 L 11.1 L Hct 31.5 L 33.4 L MCV 87.7 89.3 MCH 30.1 29.7 MCHC 34.3 33.2 RDW Std Deviation 40.1 42.4 RDW Coeff of Lana 12.4 12.9 Plt Count 137 159 MPV 10.0 10.0 Immature Gran % (Auto) 0.4 0.4 Neut % (Auto) 88.2 74.6 Lymph % (Auto) 6.5 17.2 Baldwin % (Auto) 4.8 7.4 Eos % (Auto) 0.0 0.3 Baso % (Auto) 0.1 0.1 Neut # (Auto) 6.83 H 5.10 Lymph # (Auto) 0.50 L 1.18 L Baldwin # (Auto) 0.37 0.51 Eos # (Auto) 0.00 0.02 Baso # (Auto) 0.01 0.01 Immature Gran # (Auto) 0.03 0.03 Sodium 142 Potassium 3.7 Chloride 108 H Carbon Dioxide 30 Anion Gap 4 BUN 19 Creatinine 0.74 Est Cr Clr Drug Dosing 84.8 Est GFR ( Amer) 101.0 Est GFR (Non-Af Amer) 87.1 BUN/Creatinine Ratio 25.7 H Glucose 115 H Calcium 8.8 Magnesium Total Bilirubin 0.4 AST 148 H ALT 103 H Alkaline Phosphatase 46 Total Creatine Kinase 2639 H Troponin I High Sens Total Protein 5.3 L Albumin 2.9 L Globulin 2.4 L Albumin/Globulin Ratio 1.2 TSH Urine Color Urine Appearance Urine pH Ur Specific Guthrie Urine Protein Urine Glucose (UA) Urine Ketones Urine Blood Urine Nitrite Urine Bilirubin Urine Urobilinogen Ur Leukocyte Esterase Urine WBC (Auto) Urine RBC (Auto) U Hyaline Cast (Auto) U Epithel Cells (Auto) Urine Bacteria (Auto) Calcium Oxalate Crystal Urine Yeast 04/22/23 04/22/23 05:44 05:44 WBC 6.33 RBC 3.57 L Hgb 10.7 L Hct 31.6 L MCV 88.5 MCH 30.0 MCHC 33.9 RDW Std Deviation 41.2 RDW Coeff of Lana 12.7 Plt Count 191 MPV 10.1 Immature Gran % (Auto) Neut % (Auto) Lymph % (Auto) Baldwin % (Auto) Eos % (Auto) Baso % (Auto) Neut # (Auto) Lymph # (Auto) Baldwin # (Auto) Eos # (Auto) Baso # (Auto) Immature Gran # (Auto) Sodium 142 Potassium 3.8 Chloride 106 Carbon Dioxide 31 Anion Gap 5 BUN 17 Creatinine 0.70 Est Cr Clr Drug Dosing 89.6 Est GFR ( Amer) 103.3 Est GFR (Non-Af Amer) 89.1 BUN/Creatinine Ratio 24.3 H Glucose 127 H Calcium 8.4 L Magnesium Total Bilirubin 0.4 AST 103 H ALT 100 H Alkaline Phosphatase 48 Total Creatine Kinase 989 H Troponin I High Sens Total Protein 5.2 L Albumin 2.9 L Globulin 2.3 L Albumin/Globulin Ratio 1.3 TSH Urine Color Urine Appearance Urine pH Ur Specific Guthrie Urine Protein Urine Glucose (UA) Urine Ketones Urine Blood Urine Nitrite Urine Bilirubin Urine Urobilinogen Ur Leukocyte Esterase Urine WBC (Auto) Urine RBC (Auto) U Hyaline Cast (Auto) U Epithel Cells (Auto) Urine Bacteria (Auto) Calcium Oxalate Crystal Urine Yeast Chest X-Ray 04/19/23 07:31 XR chest 1V portable HISTORY: 82 years-old Male weakness acute weakness COMPARISON: 04/09/2023 TECHNIQUE: AP view of the chest FINDINGS: Cardiomediastinal and hilar silhouettes are within normal limits. Unchanged right pleural effusion. No pneumothorax or overt pulmonary edema or lobar airspace consolidation. Bones appear grossly intact. Imaged neurostimulator leads appear intact. IMPRESSION: Unchanged layering right pleural effusion. ACT 112: Negative or not required by law. The above report was generated using voice recognition software. It may contain grammatical, syntax or spelling errors. Electronically signed by: Dax Juarez M.D. 04/19/2023 7:[address] 04/19/23 07:31 CT head/brain wo con CLINICAL HISTORY: 82 years-old Male with increased tremor. Essential tremor TECHNIQUE: Multiple axial CT images of the head were obtained without contrast. A dose lowering technique was utilized adhering to the principles of ALARA. CT DOSE: 625.80 mGy.cm COMPARISON: None. FINDINGS: No acute intracranial hemorrhage, midline shift, intracranial mass, hydrocepha mark, territorial ischemia or abnormal extra-axial collection. Involutional changes with chronic microvascular ischemic disease. The calvarium is intact. The paranasal sinuses, mastoid air cells, and middle ear cavities are clear. IMPRESSION: No acute intracranial abnormality. ACT 112: Negative or not required by law. The above report was generated using voice recognition software. It may contain grammatical, syntax or spelling errors. Electronically signed by: Dax Juarez M.D. 04/19/2023 8:49 AM 04/19/23 07:31 CT head/brain wo con Stat Hospital Course (1) Rhabdomyolysis: (2) Tremor: (3) Weakness: (4) Elevated LFTs: Plan Patient was evaluated at our institution due to worsening weakens and tremors. On arrival patient refers increase work load the days before coming. His work up included - Non contrast CT head which was negative for acute intracranial abnormality. Urinalysis and urine culture were negative as well. Patient was found to have rhabdomyolysis without associated acute kidney injury. His CPK was 12,[phone] . Additionally, elevated transaminitis was found, believed to be subsequent to the rhabdomyolysis. During the stay patient was hydrated and CPK and LFTS were trending down. He refers ongoing weakness for a coupe of years. We consulted PT and OT for further evaluation. They recommended Health health visit. This will be setting up by case management. We recommended Follow up with PCP within 1 week No additional medication were added . Total Time Total Time Spent Total Time Spent (In Minutes): refers to Preceptor attentation Discharge Plan Discharge Items Patient Disposition: Home - Home Health Services Reason For Visit: WEAKNESS Discharge Diagnosis: Rhabdomyolosis Dehydration Activity: As commented below Non-emergency contact: Primary Care Provider Call non-emergency contact if: you have any medication questions and your symptoms worsen Follow-up/Referrals: Maximiliano Miller MD [Primary Care Provider] - 04/29/23 1:30 pm () Diet: Carb Consistent or DM2 and Heart Healthy Addtl Attending Provider Instructions: You were here due to weakness and and worsening tremors. You were found to have Rhabdomyolysis after workup was done. This happen when muscle tissue get damage and substance from inside the muscle cells leak out into the blood. Exercise or physical activity can provoke this. No acute kidney injury were found and all your electrolytes are coming back to normal after hydration. We did a Head CT, to rule out other causes of weakness, no acute intracranial abnormality were found. Urinalysis due to recent UTI hx, that was found negative. Due history of ongoing weakness, that seem to have worsen due to dehydration state, Occupational therapy and Physical therapy evaluate you during your stay here. Home Health visit is being currently schedule by home management. Continue these medications: Duloxetine 60 mg Daily Losartan- hydrochlorothiazide 100-25 mg daily Gabapentin 600 mg daily Omeprazole 20 mg daily No new medications were started during this admission We recommended to follow with your PCP within 1 week Pending Studies at Discharge: No Stand-Alone Forms: My [facility] [employer], Smoking Cessation Medications and PA Order Prescriptions: Continued omega-3 fatty acids [Fish Oil Concentrate] 1,000 mg capsule 1,000 mg PO DAILY glucosamine-chondroitin 900 mg tablet 900 mg PO DAILY tamsulosin 0.4 mg capsule 0.4 mg PO QAM Qty: 90 3RF duloxetine [Cymbalta] 60 mg capsule,delayed release(DR/EC) 60 mg PO QAM Qty: 90 3RF losartan-hydrochlorothiazide 100-25 mg tablet 1 tab PO QAM Qty: 90 3RF omeprazole 20 mg tablet,delayed release (DR/EC) 20 mg PO QAM Qty: 90 3RF pramipexole 0.75 mg tablet extended release 24 hr 0.75 mg PO QID 90 Days Qty: 360 3RF gabapentin enacarbil 600 mg tablet extended release 600 mg PO QPM 90 Days Qty: 90 3RF multivitamin [Daily Multi-Vitamin] Tablet 1 tab PO DAILY PreserVision AREDS-2 [id number] [id number] Capsule 1 tab PO BID ascorbic acid (vitamin C) [Vitamin C] 500 mg Tablet 500 mg PO BID vitamin E 400 unit Capsule 400 unit PO QAM Medical Marijuana 1 dose PO UD PRN (Reason: Pain) tramadol 50 mg tablet 50 - 100 mg PO Q8H PRN (Reason: pain) 30 Days Qty: 60 1RF Rx Instructions: continuation of home therapy Discontinued nitrofurantoin monohyd/m-cryst [Macrobid] 100 mg capsule 100 mg PO BID 7 Days Qty: 14 0RF Rx Instructions: must administer with a meal/food potassium gluconate 595 mg (99 mg) Tablet Extended Release 99 mg PO QAM Discharge Orders: Discharge Order (Routine); Ordered 04/22/23 Ordered By: Penelope Evangelista Admission Data Admit Date/Time: 04/19/23 08:51 Attending Provider: Ginger Timmons Admit Provider: Harlan Dumont Primary Care Provider: Maximiliano Miller Other Providers: Harlan Dumont ; [facility] [facility] ; [facility] ; [facility] Other Interventions: Discharge Summary Assessment (RN) Last Done: 04/22/23 14:24 Supervising Physician Co-Signing Physician Notes Resident Physician Supervision Note: I independently interviewed and examined the patient and verified the molina history and physical, reviewed labs and image studies and agree with resident findings and care plan. Resident Activity Tracking Resident Involvement: Resident Care Provided Care Provided: Adult Hospital Medicine
== END 2023-04-22 14:56 | disposition home health service (06) | DRG 558 ==
LOC: ED 07:06 → SUATTDRO 08:51 → 3E 08:51 → INTOOBSV 08:51 → 3E 10:06

== ENCOUNTER 2023-12-10 16:58 | Inpatient (IN) ==
--- NOTE | 2023-12-10 17:09 | ED Triage Note ---
Date of Service December 10, 2023 Provider in Triage Author: Rosana Lafleur History of Present Illness This patient was briefly evaluated while in triage. An abbreviated physical exam was performed. This patient is a 83-year-old Male who presents to the ED for evaluation of low blood pressure, elevated heart rate, feeling tired and weak, sleeping more than usual, and just not feeling right. History of liver cancer. He had a paracentesis this morning. Has had 3 in the past couple days. Has had increased symptoms over the past couple of days and weeks. History of Parkinson's. BP 68/40 in triage. Physical Exam GENERAL: The patient is chronically ill in appearance, but non-toxic and in no acute distress. HEENT: Pupils equal. No obvious scleral icterus. HEART: Regular rate and rhythm. LUNGS: Clear to auscultation. No accessory muscle use. ABDOMEN: Soft with no significant tenderness to palpation. NEURO: Alert and oriented. No obvious neurological deficits on quick neuro exam. Initial orders for labs and / or imaging were placed. The patient was hypotensive at 68/40 and he was taken directly to room B1 from triage. Please see further documentation for the full ED course. MDM / Impression Impression Impression: Elevated troponin
--- NOTE | 2023-12-10 17:21 | Emergency Department Note ---
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 Patient is a fair historian, states he has not been feeling well recently, states that he has had fatigue and feels that this is worsened acutely this afternoon since he had a paracentesis earlier today. According to documentation the patient had paracentesis this morning and 4.5 L of ascitic fluid was removed. Patient was noted to be hypotensive in triage and was brought back to room B1 for emergent assessment. On my evaluation the patient is alert, he is saturating well on room air, he is conversational and otherwise appears to be in no acute distress. Patient denies any focal complaint of pain. ROS: - Per HPI Differential Diagnosis: Sepsis, hypotension secondary to paracentesis/fluid removal, acute coronary syndrome, pulmonary embolism, pleural effusion, arrhythmia, amongst other potential pathologies. *Outpatient medications and allergy history reviewed. PE: General: Alert HEENT: Normocephalic, trachea midline Eyes: Extraocular eye movement is intact, no scleral erythema Pulmonary: Clear to auscultation bilaterally, no wheezing Cardio: Regular rate and rhythm GI: Abdomen is soft to palpation, there is no tenderness to palpation, no distention : No suprapubic tenderness MSK: No evidence of trauma or malformation of the extremities, no edema Skin: No evidence of rash Neuro: Alert, no focal deficits Psychiatric: Cooperative INDEPENDENT INTERPRETATIONS: shelter monitor: (As interpreted by myself): - An order was placed for continuous cardiac monitoring - Patient was noted to be in sinus rhythm with a rate of 82 EKG: (As interpreted by myself): Rate: 73 Rhythm: Normal sinus rhythm Intervals: Within normal limits ST changes: No ST elevation Time: 1726 Chest x-ray: (As interpreted by myself): Bilateral pleural effusions (right greater than left) Interventions provided in ED: -IV fluid bolus, IV albumin bolus, IV Levophed drip Medical Decision Making: Shortly after the patient arrived IV was established and lab work obtained, patient was placed on cardiac monitor technician. Blood pressure is confirmed to be low in the 60s systolic, despite this the patient is in no acute distress and he is talkative during my evaluation. Oxygen saturations were noted to be 88% on room air and the patient was placed on supplemental oxygen with good improvement. Patient was initiated on a normal saline bolus for hypotension. Lab work shows no leukocytosis, hemoglobin is stable at 11.1, platelet count is normal, venous blood gas shows pH of 7.28, otherwise no acute abnormalities. CMP shows creatinine elevation at 2.11, BUN is 53, lactic acid is slightly elevated at 2.3, no transaminitis, bilirubin is normal, troponin is elevated at 5290, patient denies any chest pain, denies any current shortness of breath but did mention shortness of breath in triage. EKG per my interpretation shows normal sinus rhythm without any acute ischemic changes. CT imaging of the head was obtained as the patient's mention that he had some slurred speech and seemed altered, this does not show any evidence of any acute intracranial process. Urinalysis does not show any evidence of obvious infection. Chest x- ray shows bilateral pleural effusions. Given the patient's elevated troponin and mild hypoxia CT angiography of the chest was obtained that does not show any evidence of PE. Despite receiving IV normal saline as well as IV albumin here in the ED the patient remained hypotensive in the 70s. He was therefore initiated on peripheral Levophed with good improvement in his blood pressure. Patient is lab work is not suggestive of sepsis as he has no leukocytosis, he also does not have a fever. His abdomen is soft and nontender on my exam. Low suspicion for SBP. Patient did have a paracentesis earlier today and I do suspect the albumin will help with his blood pressure. On my reassessment prior to admission the patient remains well-appearing. I did discuss CODE STATUS with the patient, he states at this time he would not want to be placed on life support and would not want intubation or CPR. His CODE STATUS was updated to DNR/DNI. I discussed the patient's case with the on-call hospitalist, Dr. Lovelace, and the patient was admitted to the hospitalist service in improved condition for further care. Will hold off on heparin drip at this time and await repeat troponin level given lack of any chest pain and no PE on CT imaging. Patient and his are in agreement to this plan and the patient was admitted in improved condition. Consultants/Discussions held with other healthcare providers: -Hospitalist, Dr. Lovelace Disposition discussion held by myself with: -Patient and at bedside * CRITICAL CARE TIME: ( 76 ) minutes -Stabilization of patient with hypotension requiring IV fluid bolus, albumin infusion, and vasopressor support for improvement in blood pressure. Stabilization of hypoxia at 88% on room air requiring supplemental oxygen for correction. Time spent at the bedside, interpretation of EKG and diagnostic studies, discussion with other physicians and arrangement of admission. Diagnosis: 1. Hypotension in the setting of recent paracentesis, acute 2. History of metastatic gastrointestinal tumor 3. Elevated high-sensitivity troponin level, acute 4. Bilateral pleural effusions, acute 5. Hypoxia, acute 6. Acute kidney injury 7. Ketonuria, acute Disposition: Admission Foster López DO Emergency Medicine Past Med/Surg History Medical History Discharge planning issues DVT prophylaxis Urinary tract infection Elevated LFTs GERD (gastroesophageal reflux disease) History of anemia GIST (gastrointestinal stroma tumor), malignant, colon Restless leg syndrome BPH with obstruction/lower urinary tract symptoms Ulcer of ileum Personal history of malignant melanoma of skin Obstructive sleep apnea History of SCC (squamous cell carcinoma) of skin Gastrointestinal stromal tumor Essential hypertension Tremor History of bowel disorder Hx of spinal stenosis Talavera esophagus History of stomach ulcers Degenerative arthritis Hypertension Surgical History S/P epidural steroid injection History of evacuation of hematoma Fusion of spine History of ankle surgery History of tonsillectomy History of esophagogastroduodenoscopy (EGD) History of colonoscopy History of hand surgery History of gastrointestinal surgery History of exploratory laparotomy Family History Grandmother Leukemia Father Hearing loss Stroke Other No family history of adverse response to anesthesia No family history of bleeding disorder Denies family history of Ovarian cancer Prostate cancer Myocardial infarction Breast cancer Lung cancer Colorectal cancer Social History Smoking Status: Never smoker Second Hand Exposure: No; Do You Dip or Chew Tobacco: No; Hx Alcohol Use: No Hx Substance Use: No Preferred Language: Telugu Communication Ability: Effective Visual Impairment: No Limitations Hearing Ability: Use of Hearing Aid Retail Personal Banker Required: No Beliefs That Will Affect Care: None marital status: Current Living Situation: Spouse current occupational status: retired Feels Safe at Home: Yes Childhood Exposure to Second-Hand Smoke: No Diet: regular caffeine: Yes Dental Care, Regularly: Yes Physical Activity Frequency: Does not Exercise Seatbelt Use: always Sunscreen Use: Yes Assistive Devices: Cane Allergies Allergies Allergy/AdvReac Type Severity Reaction Status Date / Time Corticosteroids AdvReac Mild Advised to Verified 12/01/23 09:20 (Glucocorticoids) avoid d/t gastric ulcer NSAIDS (Non-Steroidal AdvReac Mild Advised to Verified 12/01/23 09:20 Anti-Inflamma avoid d/t gastric ulcer Home Meds Home Medications Medication Instructions Recorded Confirmed ascorbic acid (vitamin C) 500 mg 500 mg PO QAM 09/14/18 12/10/23 tablet (Vitamin C) vitamin E 268 mg (400 unit) capsule 400 unit PO QAM 09/14/18 12/10/23 vit C 250 mg-vit E 90 mg-zinc 40 1 tab PO BID 01/08/19 12/10/23 mg-copper 1 [id number] capsule (PreserVision AREDS-2) multivitamin (Daily Multi-Vitamin 1 tab PO DAILY 10/28/19 12/10/23 tablet) Medical Marijuana 1 dose PO UD PRN Pain 01/04/22 12/10/23 carbidopa-levodopa 1 tab PO TID 07/07/23 12/10/23 omega-3 fatty acids 1,000 mg 1,000 mg PO DAILY 12/10/23 12/10/23 capsule pantoprazole 1 tab PO QAM 12/10/23 12/10/23 pramipexole 0.75 mg 0.75 mg PO . QID...ON HOLD 12/10/23 12/10/23 tablet,extended release 24 hr tamsulosin 0.4 mg capsule 0.4 mg PO QAM 12/10/23 12/10/23 Previous Rx's Medication Instructions Recorded duloxetine 60 mg capsule,delayed 60 mg PO QAM #90 caps 11/12/22 release (Cymbalta) gabapentin enacarbil 600 mg 600 mg PO QPM 90 days #90 tabs 02/19/23 tablet,extended release losartan 100 mg tablet 100 mg PO DAILY #90 tabs 06/25/23 tramadol 50 mg tablet 50 - 100 mg (1 - 2 x 50 mg) PO Q8H 12/01/23 PRN pain 30 days #120 tabs Results & Data (ED) Vital Signs Vital Signs - 24 hr 12/10/23 17:06 12/10/23 17:24 12/10/23 17:27 Temperature 36.7 C Temperature Source Skin Pulse Rate 86 80 82 Pulse Rate from SpO2 Sensor Respiratory Rate 18 19 Blood Pressure 68/40 L 64/42 L Blood Pressure Mean 49 49 Pulse Oximetry 96 95 Oxygen Delivery Method Room Air Nasal Cannula Oxygen Flow Rate 2 Sepsis Recent Fever Within 48 Hours No Sepsis New/Unexplained Change in Mental Status No Sepsis Action Taken by Nursing No Action Required Oxygen Flow Rate - Titration Pulse Oximetry Post Tiitration 12/10/23 17:30 12/10/23 17:40 12/10/23 17:44 Temperature Temperature Source Pulse Rate 73 74 Pulse Rate from SpO2 Sensor Respiratory Rate 18 13 Blood Pressure 65/44 L 67/47 L Blood Pressure Mean 51 53 Pulse Oximetry 94 95 88 L Oxygen Delivery Method Nasal Cannula Nasal Cannula Nasal Cannula Oxygen Flow Rate 2 2 0 Sepsis Recent Fever Within 48 Hours Sepsis New/Unexplained Change in Mental Status Sepsis Action Taken by Nursing Oxygen Flow Rate - Titration 2 Pulse Oximetry Post Tiitration 94 12/10/23 17:45 12/10/23 18:00 12/10/23 18:05 Temperature Temperature Source Pulse Rate 71 76 74 Pulse Rate from SpO2 Sensor Respiratory Rate 14 19 14 Blood Pressure 62/43 L 75/56 L 97/69 L Blood Pressure Mean 49 62 78 Pulse Oximetry 94 100 94 Oxygen Delivery Method Nasal Cannula Nasal Cannula Nasal Cannula Oxygen Flow Rate 2 2 2 Sepsis Recent Fever Within 48 Hours Sepsis New/Unexplained Change in Mental Status Sepsis Action Taken by Nursing Oxygen Flow Rate - Titration Pulse Oximetry Post Tiitration 12/10/23 18:10 12/10/23 18:30 12/10/23 18:35 Temperature Temperature Source Pulse Rate 73 84 81 Pulse Rate from SpO2 Sensor Respiratory Rate 15 15 15 Blood Pressure 97/64 L 111/80 112/70 Blood Pressure Mean 75 90 84 Pulse Oximetry 99 96 97 Oxygen Delivery Method Nasal Cannula Nasal Cannula Nasal Cannula Oxygen Flow Rate 2 2 2 Sepsis Recent Fever Within 48 Hours Sepsis New/Unexplained Change in Mental Status Sepsis Action Taken by Nursing Oxygen Flow Rate - Titration Pulse Oximetry Post Tiitration 12/10/23 18:40 12/10/23 18:40 12/10/23 18:47 Temperature Temperature Source Pulse Rate 87 98 H Pulse Rate from SpO2 Sensor 86 Respiratory Rate 19 24 Blood Pressure 109/73 Blood Pressure Mean 87 Pulse Oximetry 97 Oxygen Delivery Method Nasal Cannula Oxygen Flow Rate 4 Sepsis Recent Fever Within 48 Hours Sepsis New/Unexplained Change in Mental Status Sepsis Action Taken by Nursing Oxygen Flow Rate - Titration Pulse Oximetry Post Tiitration 12/10/23 18:47 12/10/23 18:50 12/10/23 18:50 Temperature Temperature Source Pulse Rate 94 H Pulse Rate from SpO2 Sensor 93 H Respiratory Rate 24 Blood Pressure 95/75 L 103/76 Blood Pressure Mean 83 86 Pulse Oximetry Oxygen Delivery Method Oxygen Flow Rate Sepsis Recent Fever Within 48 Hours Sepsis New/Unexplained Change in Mental Status Sepsis Action Taken by Nursing Oxygen Flow Rate - Titration Pulse Oximetry Post Tiitration 12/10/23 18:55 12/10/23 18:55 12/10/23 19:00 Temperature Temperature Source Pulse Rate 87 88 Pulse Rate from SpO2 Sensor 87 87 Respiratory Rate 21 17 Blood Pressure 107/71 Blood Pressure Mean 91 Pulse Oximetry 96 97 Oxygen Delivery Method Oxygen Flow Rate Sepsis Recent Fever Within 48 Hours Sepsis New/Unexplained Change in Mental Status Sepsis Action Taken by Nursing Oxygen Flow Rate - Titration Pulse Oximetry Post Tiitration 12/10/23 19:00 12/10/23 19:05 12/10/23 19:05 Temperature Temperature Source Pulse Rate 85 Pulse Rate from SpO2 Sensor 85 Respiratory Rate 16 Blood Pressure 108/74 100/70 Blood Pressure Mean 80 81 Pulse Oximetry 98 Oxygen Delivery Method Oxygen Flow Rate Sepsis Recent Fever Within 48 Hours Sepsis New/Unexplained Change in Mental Status Sepsis Action Taken by Nursing Oxygen Flow Rate - Titration Pulse Oximetry Post Tiitration 12/10/23 19:10 12/10/23 19:10 12/10/23 19:40 Temperature Temperature Source Pulse Rate 84 88 Pulse Rate from SpO2 Sensor 83 88 Respiratory Rate 20 15 Blood Pressure 99/70 L Blood Pressure Mean 73 Pulse Oximetry 98 96 Oxygen Delivery Method Oxygen Flow Rate Sepsis Recent Fever Within 48 Hours Sepsis New/Unexplained Change in Mental Status Sepsis Action Taken by Nursing Oxygen Flow Rate - Titration Pulse Oximetry Post Tiitration 12/10/23 19:40 12/10/23 19:45 12/10/23 19:45 Temperature Temperature Source Pulse Rate 82 Pulse Rate from SpO2 Sensor 83 Respiratory Rate 16 Blood Pressure 106/72 97/62 L Blood Pressure Mean 83 72 Pulse Oximetry 98 Oxygen Delivery Method Oxygen Flow Rate Sepsis Recent Fever Within 48 Hours Sepsis New/Unexplained Change in Mental Status Sepsis Action Taken by Nursing Oxygen Flow Rate - Titration Pulse Oximetry Post Tiitration 12/10/23 19:50 12/10/23 19:51 12/10/23 19:51 Temperature Temperature Source Pulse Rate 89 83 Pulse Rate from SpO2 Sensor 92 H 83 Respiratory Rate 21 16 Blood Pressure 95/63 L Blood Pressure Mean 67 Pulse Oximetry 97 97 Oxygen Delivery Method Oxygen Flow Rate Sepsis Recent Fever Within 48 Hours Sepsis New/Unexplained Change in Mental Status Sepsis Action Taken by Nursing Oxygen Flow Rate - Titration Pulse Oximetry Post Tiitration 12/10/23 19:55 12/10/23 19:55 12/10/23 20:00 Temperature Temperature Source Pulse Rate 92 H 94 H Pulse Rate from SpO2 Sensor 93 H 94 H Respiratory Rate 19 18 Blood Pressure 100/69 Blood Pressure Mean 75 Pulse Oximetry 97 96 Oxygen Delivery Method Oxygen Flow Rate Sepsis Recent Fever Within 48 Hours Sepsis New/Unexplained Change in Mental Status Sepsis Action Taken by Nursing Oxygen Flow Rate - Titration Pulse Oximetry Post Tiitration 12/10/23 20:00 12/10/23 20:05 12/10/23 20:05 Temperature Temperature Source Pulse Rate 80 Pulse Rate from SpO2 Sensor 79 Respiratory Rate 16 Blood Pressure 96/67 L 94/67 L Blood Pressure Mean 75 72 Pulse Oximetry 98 Oxygen Delivery Method Oxygen Flow Rate Sepsis Recent Fever Within 48 Hours Sepsis New/Unexplained Change in Mental Status Sepsis Action Taken by Nursing Oxygen Flow Rate - Titration Pulse Oximetry Post Tiitration 12/10/23 20:10 12/10/23 20:10 12/10/23 20:20 Temperature Temperature Source Pulse Rate 85 Pulse Rate from SpO2 Sensor Respiratory Rate 15 Blood Pressure 102/70 98/65 L Blood Pressure Mean 75 71 Pulse Oximetry Oxygen Delivery Method Oxygen Flow Rate Sepsis Recent Fever Within 48 Hours Sepsis New/Unexplained Change in Mental Status Sepsis Action Taken by Nursing Oxygen Flow Rate - Titration Pulse Oximetry Post Tiitration 12/10/23 20:20 12/10/23 20:30 12/10/23 20:30 Temperature Temperature Source Pulse Rate 83 83 Pulse Rate from SpO2 Sensor 85 85 Respiratory Rate 14 17 Blood Pressure 104/71 Blood Pressure Mean 79 Pulse Oximetry 99 100 Oxygen Delivery Method Oxygen Flow Rate Sepsis Recent Fever Within 48 Hours Sepsis New/Unexplained Change in Mental Status Sepsis Action Taken by Nursing Oxygen Flow Rate - Titration Pulse Oximetry Post Tiitration 12/10/23 20:40 12/10/23 20:41 12/10/23 20:41 Temperature Temperature Source Pulse Rate 97 H 98 H Pulse Rate from SpO2 Sensor 96 H 98 H Respiratory Rate 23 18 Blood Pressure 92/73 L Blood Pressure Mean 75 Pulse Oximetry 93 98 Oxygen Delivery Method Oxygen Flow Rate Sepsis Recent Fever Within 48 Hours Sepsis New/Unexplained Change in Mental Status Sepsis Action Taken by Nursing Oxygen Flow Rate - Titration Pulse Oximetry Post Tiitration 12/10/23 21:11 12/10/23 21:22 Temperature Temperature Source Pulse Rate 80 Pulse Rate from SpO2 Sensor Respiratory Rate Blood Pressure 78/53 L Blood Pressure Mean 61 Pulse Oximetry Oxygen Delivery Method Oxygen Flow Rate Sepsis Recent Fever Within 48 Hours Sepsis New/Unexplained Change in Mental Status Sepsis Action Taken by Nursing Oxygen Flow Rate - Titration Pulse Oximetry Post Tiitration Laboratory Data 12/10/23 17:23 12/10/23 17:23 Lab Results 12/10/23 12/10/23 12/10/23 Range/Units 17:23 17:31 17:42 WBC 8.14 (4.8-10.8) K/ul RBC 3.51 L (4.70-6.10) M/uL Hgb 11.1 L (14.0-18.0) g/dl Hct 34.2 L (42.0-52.0) % MCV 97.4 (80.0-100.0) fL MCH 31.6 (25.0-34.0) pg MCHC 32.5 (32.0-36.0) g/dL RDW Std Deviation 51.3 H (36.4-46.3) fL RDW Coeff of Lana 14.4 (11.5-14.5) % Plt Count 218 (130-400) K/uL MPV 11.0 (9.4-12.4) fL Immature Gran % (Auto) 0.2 % Neut % (Auto) 82.5 % Lymph % (Auto) 10.1 % Hale % (Auto) 7.1 % Eos % (Auto) 0.0 % Baso % (Auto) 0.1 % Neut # (Auto) 6.71 H (1.40-6.50) K/uL Lymph # (Auto) 0.82 L (1.20-3.40) K/uL Hale # (Auto) 0.58 (0.11-0.59) K/uL Eos # (Auto) 0.00 (0.00-0.50) K/uL Baso # (Auto) 0.01 (0.00-0.20) K/uL Immature Gran # (Auto) 0.02 (0.01-0.20) K/uL PT 11.4 (9.0-12.0) Seconds INR 1.0 (0.9-1.1) APTT 23 (21-31) Seconds PTT Ratio 0.8 VBG pH (7.36-7.41) VBG pCO2 (38-50) mmHg VBG pO2 mmHg VBG HCO3 mmol/L VBG O2 Saturation % VBG Base Excess mEq/L Sodium 139 (136-145) mmol/L Potassium 5.0 (3.5-5.1) mmol/L Chloride 106 (98-107) mmol/L Carbon Dioxide 25 (21-32) mmol/L Anion Gap 8 (3-11) BUN 53 H (6-23) mg/dl Creatinine 2.11 H (0.6-1.4) mg/dl Est Cr Clr Drug Dosing 27.5 ml/min Est GFR ( Amer) 33.0 ml/min Est GFR (Non-Af Amer) 28.5 ml/min BUN/Creatinine Ratio 25.1 H (10-20) Glucose 122 H (70-99(Fasting)) mg/dl Lactate 2.3 H* (0.4-2.0) mmol/L Calcium 8.4 L (8.6-10.3) mg/dl Magnesium 1.9 (1.7-2.4) mg/dl Total Bilirubin 0.5 (0.2-1.0) mg/dl AST 38 (13-39) U/L ALT 10 (7-52) U/L Alkaline Phosphatase 86 (34-104) U/L Ammonia 29.0 (18-72) umol/L Troponin I High Sens 5290.3 H* (0-20) pg/ml Total Protein 5.3 L (6.0-8.3) gm/dl Albumin 3.2 L (3.4-5.0) gm/dl Globulin 2.1 L (2.5-4.0) gm/dl Albumin/Globulin Ratio 1.5 (0.9-2) Lipase 4 L (11-82) U/L TSH 1.957 (0.300-4.500) uIu/ml Urine Color Urine Appearance (Clear) Urine pH (4.5-7.5) Ur Specific [place] (1.000-1.030) Urine Protein (Negative) Urine Glucose (UA) (Negative) Urine Ketones (Negative) Urine Blood (Negative) Urine Nitrite (Negative) Urine Bilirubin (Negative) Urine Urobilinogen (Negative) Ur Leukocyte Esterase (Negative) Urine WBC (Auto) (0-5) /hpf Urine RBC (Auto) (0-2) /hpf U Hyaline Cast (Auto) (0-2) /lpf U Epithel Cells (Auto) (0-2) /hpf Urine Bacteria (Auto) (None Seen) Adenovirus (PCR) Not Detected (NotDetected) B. pertussis DNA (PCR) Not Detected (NotDetected) B.parapertussis DNA PCR Not Detected (NotDetected) C. pneumoniae DNA (PCR) Not Detected (NotDetected) Coronavirus OC43 (PCR) Not Detected (NotDetected) Coronavirus HKU1 (PCR) Not Detected (NotDetected) Coronavirus 229E (PCR) Not Detected (NotDetected) SARS-CoV-2 (PCR) Not Detected (NotDetected) Coronavirus NL63 (PCR) Not Detected (NotDetected) Human Metapneumovir PCR Not Detected (NotDetected) Influenza Type A (PCR) Not Detected (NotDetected) Influenza Type B (PCR) Not Detected (NotDetected) M. pneumoniae (PCR) Not Detected (NotDetected) Parainfluenza 1 (PCR) Not Detected (NotDetected) Parainfluenza 2 (PCR) Not Detected (NotDetected) Parainfluenza 3 (PCR) Not Detected (NotDetected) Parainfluenza 4 (PCR) Not Detected (NotDetected) RSV (PCR) Not Detected (NotDetected) Entero/Rhino (PCR) Not Detected (NotDetected) 12/10/23 12/10/23 12/10/23 Range/Units 18:42 18:53 19:54 WBC (4.8-10.8) K/ul RBC (4.70-6.10) M/uL Hgb (14.0-18.0) g/dl Hct (42.0-52.0) % MCV (80.0-100.0) fL MCH (25.0-34.0) pg MCHC (32.0-36.0) g/dL RDW Std Deviation (36.4-46.3) fL RDW Coeff of Lana (11.5-14.5) % Plt Count (130-400) K/uL MPV (9.4-12.4) fL Immature Gran % (Auto) % Neut % (Auto) % Lymph % (Auto) % Hale % (Auto) % Eos % (Auto) % Baso % (Auto) % Neut # (Auto) (1.40-6.50) K/uL Lymph # (Auto) (1.20-3.40) K/uL Hale # (Auto) (0.11-0.59) K/uL Eos # (Auto) (0.00-0.50) K/uL Baso # (Auto) (0.00-0.20) K/uL Immature Gran # (Auto) (0.01-0.20) K/uL PT (9.0-12.0) Seconds INR (0.9-1.1) APTT (21-31) Seconds PTT Ratio VBG pH 7.28 L (7.36-7.41) VBG pCO2 50 (38-50) mmHg VBG pO2 30 mmHg VBG HCO3 24 mmol/L VBG O2 Saturation < 60.0 % VBG Base Excess -3.7 mEq/L Sodium (136-145) mmol/L Potassium (3.5-5.1) mmol/L Chloride (98-107) mmol/L Carbon Dioxide (21-32) mmol/L Anion Gap (3-11) BUN (6-23) mg/dl Creatinine (0.6-1.4) mg/dl Est Cr Clr Drug Dosing ml/min Est GFR ( Amer) ml/min Est GFR (Non-Af Amer) ml/min BUN/Creatinine Ratio (10-20) Glucose (70-99(Fasting)) mg/dl Lactate 1.1 (0.4-2.0) mmol/L Calcium (8.6-10.3) mg/dl Magnesium (1.7-2.4) mg/dl Total Bilirubin (0.2-1.0) mg/dl AST (13-39) U/L ALT (7-52) U/L Alkaline Phosphatase (34-104) U/L Ammonia (18-72) umol/L Troponin I High Sens 5444.1 H* (0-20) pg/ml Total Protein (6.0-8.3) gm/dl Albumin (3.4-5.0) gm/dl Globulin (2.5-4.0) gm/dl Albumin/Globulin Ratio (0.9-2) Lipase (11-82) U/L TSH (0.300-4.500) uIu/ml Urine Color Dark Yellow Urine Appearance Turbid A (Clear) Urine pH 5.0 (4.5-7.5) Ur Specific [place] 1.023 (1.000-1.030) Urine Protein 2+ H (Negative) Urine Glucose (UA) Negative (Negative) Urine Ketones 1+ H (Negative) Urine Blood Negative (Negative) Urine Nitrite Negative (Negative) Urine Bilirubin Negative (Negative) Urine Urobilinogen Negative (Negative) Ur Leukocyte Esterase Trace H (Negative) Urine WBC (Auto) 0-5 (0-5) /hpf Urine RBC (Auto) 0-2 (0-2) /hpf U Hyaline Cast (Auto) >20 H (0-2) /lpf U Epithel Cells (Auto) 6-10 H (0-2) /hpf Urine Bacteria (Auto) None Seen (None Seen) Adenovirus (PCR) (NotDetected) B. pertussis DNA (PCR) (NotDetected) B.parapertussis DNA PCR (NotDetected) C. pneumoniae DNA (PCR) (NotDetected) Coronavirus OC43 (PCR) (NotDetected) Coronavirus HKU1 (PCR) (NotDetected) Coronavirus 229E (PCR) (NotDetected) SARS-CoV-2 (PCR) (NotDetected) Coronavirus NL63 (PCR) (NotDetected) Human Metapneumovir PCR (NotDetected) Influenza Type A (PCR) (NotDetected) Influenza Type B (PCR) (NotDetected) M. pneumoniae (PCR) (NotDetected) Parainfluenza 1 (PCR) (NotDetected) Parainfluenza 2 (PCR) (NotDetected) Parainfluenza 3 (PCR) (NotDetected) Parainfluenza 4 (PCR) (NotDetected) RSV (PCR) (NotDetected) Entero/Rhino (PCR) (NotDetected) Administered Medications Norepinephrine Bitartrate (Levophed/D5w) 4 mg in 250 mls @ 22.286 mls/hr IV .[id number] KETAN; Protocol Stop: 01/09/24 17:59 Last Titration: 12/10/23 21:11 Dose: 0.07 mcg/kg/min, 22.3 mls/hr Documented By: Titration: 12/10/23 21:01 Dose: 0.02 mcg/kg/min, 6.4 mls/hr Documented By: Titration: 12/10/23 18:03 Dose: 0.07 mcg/kg/min, 22.3 mls/hr Documented By: Admin: 12/10/23 17:52 Dose: 0.05 mcg/kg/min, 15.9 mls/hr Documented By: PAO Co-signed By: CAYETANO Discontinued Medications Aspirin (Aspirin Chew 324 Mg) 324 mg PO NOW STA Stop: 12/10/23 18:29 Last Admin: 12/10/23 18:36 Dose: 324 mg Documented By: PAO Albumin Human (Albumin 5%) 250 mls @ 500 mls/hr IV ONE ONE Stop: 12/10/23 17:54 Last Infusion: 12/10/23 18:08 Dose: Infused Documented By: Admin: 12/10/23 17:35 Dose: 500 mls/hr Documented By: PAO Sodium Chloride (Nss) 1,000 mls @ 999 mls/hr IV .[id number] ONE Stop: 12/10/23 18:28 Last Infusion: 12/10/23 18:37 Dose: Infused Documented By: Admin: 12/10/23 17:34 Dose: 999 mls/hr Documented By: PAO Albumin Human (Albumin 5%) 250 mls @ 500 mls/hr IV ONE ONE Stop: 12/10/23 18:40 Last Admin: 12/10/23 18:32 Dose: 500 mls/hr Documented By: PAO Sodium Chloride (Nss) 500 mls @ 999 mls/hr IV .Q31M ONE Stop: 12/10/23 19:01 Last Admin: 12/10/23 18:35 Dose: 999 mls/hr Documented By: PAO Ioversol (Optiray 320 125ml) 118 ml IV ONCE ONE Stop: 12/10/23 19:28 Last Admin: 12/10/23 19:29 Dose: 118 ml Documented By: [employer] Imaging Data Radiologist's Impression: Head CT 12/10/23 17:[address] DOSE: 625.8 mGy.cm HISTORY: Change in mental status TECHNIQUE: Multiaxial CT images of the head were performed without the use of intravenous contrast. Automated exposure control was utilized for this study. A dose lowering technique was utilized adhering to the principles of ALARA. Comparison: Head CT 04/19/2023. Findings: The paranasal sinuses and mastoid air cells are clear. The calvarium and skull base are intact. There is no mass, hematoma, midline shift, acute infarct. White matter hypodensity is nonspecific but suggestive of microvascular ischemic change. The ventricles and sulci demonstrate mild age-related involutional changes. Scattered foci of gas within the skull base and at the frame catcher muscles is likely vascular. This favors prior intravenous line insertion Impression: No acute intracranial abnormality. ACT 112: Negative or not required by law. Electronically signed by: Scott Rob M.D. 12/10/2023 6:38 PM Chest X-Ray 12/10/23 17:10 XR chest 1V portable HISTORY: Chest pain, nonspecific COMPARISON: Chest 12/01/2023. FINDINGS: No pneumothorax. The cardiac silhouette is top normal in size. Spinal stimulator leads again noted. Small right and trace left pleural effusions have slightly increased in size. Right basilar densities persist. No evidence for pulmonary edema. Calcifications within the aortic knob. No acute fractures. IMPRESSION: 1. Small right and trace left pleural effusions. This has slightly progressed. 2. Patchy right basilar densities again noted. This may represent atelectasis or a pneumonia. ACT 112: Negative or not required by law. Electronically signed by: Scott Rob M.D. 12/10/2023 6:58 PM Chest CTA 12/10/23 18:31 Exam(s): CTA CHEST IV Amt: 118 cc otpi 320 EXAM: CT Angiography Chest With Intravenous Contrast CLINICAL HISTORY: Reason for exam: PE. TECHNIQUE: Axial computed tomographic angiography images of the chest with intravenous contrast. CTDI is 22.63 mGy and DLP is 814.31 mGy-cm. Automated exposure control was utilized for the study. A dose lowering technique was utilized adhering to the principles of ALARA. MIP reconstructed images were created and reviewed. COMPARISON: Chest x-ray 12/10/2023 FINDINGS: Pulmonary arteries: No pulmonary embolism. Aorta: No acute findings. Normal caliber. No dissection. Lungs: Interstitial edema. Atelectasis most pronounced within the right lower lobe. Pleural space: Moderate right and small left pleural effusions. Heart: Heart size is normal. Severe coronary artery calcifications. Bones/joints: No acute fracture. Soft tissues: Unremarkable. Lymph nodes: Unremarkable. IMPRESSION: 1. No pulmonary embolism. 2. Interstitial edema. 3. Moderate right and small left pleural effusions. 4. Atelectasis most pronounced within the right lower lobe. Electronically signed by: Saad Dominguez MD 12/10/23 20:03 PM Discharge Plan Visit Data Chief Complaint: TIA Symptoms Stated Complaint: SOB, HYPOTENSION, TACHYCARDIA, LETHARGIC, TIRED ED Provider: Foster López Discharge Problem: Elevated troponin Forms Stand Alone Forms: [employer] Prescriptions Prescriptions: No Action duloxetine [Cymbalta] 60 mg capsule,delayed release(DR/EC) 60 mg PO QAM Qty: 90 3RF tramadol 50 mg tablet 50 - 100 mg PO Q8H PRN (Reason: pain) 30 Days Qty: 120 0RF Rx Instructions: continuation of home therapy Supervising physician Maximiliano Miller MD REPLACED BY [facility] [id number] gabapentin enacarbil 600 mg tablet extended release 600 mg PO QPM 90 Days Qty: 90 3RF losartan 100 mg tablet 100 mg PO DAILY Qty: 90 3RF carbidopa-levodopa 1 tab PO TID Rx Instructions: pt doesnt know strength..unable to look up multivitamin [Daily Multi-Vitamin] Tablet 1 tab PO DAILY PreserVision AREDS-2 [id number] Capsule 1 tab PO BID ascorbic acid (vitamin C) [Vitamin C] 500 mg Tablet 500 mg PO QAM vitamin E 400 unit Capsule 400 unit PO QAM Medical Marijuana 1 dose PO UD PRN (Reason: Pain) omega-3 fatty acids 1,000 mg Capsule 1,000 mg PO DAILY pramipexole 0.75 mg tablet extended release 24 hr 0.75 mg PO . QID...ON HOLD tamsulosin 0.4 mg capsule 0.4 mg PO QAM pantoprazole 1 tab PO QAM Rx Instructions: unknown strength Referrals Referrals: Pro,Maximiliano Perez MD [Primary Care Provider] -
[2023-12-10] MEDS: SODIUM CHLORIDE 0.9% 1,000 ML IV ONE (17:34)
[2023-12-10] MEDS: ALBUMIN 5% 250 ML IV ONE ×2 (17:35→18:32)
[2023-12-10] MEDS ORDERED: STAT IV Infusion **Titration per Protocol STA (17:46)
[2023-12-10] MEDS: NOREPINEPHRINE/D5W 4 MG/250 ML PLCT IV SCH (17:52)
[2023-12-10 18:14] LABS: Basophils # (auto) 0.01 K/uL (0.00-0.20); Basophils % (auto) 0.1 %; Hematocrit (blood only) 34.2 % (42.0-52.0); Hemoglobin 11.1 g/dl (14.0-18.0); Immature Granulocytes # (auto) 0.02 K/uL (0.01-0.20); Immature Granulocytes % (auto) 0.2 %; Lymphocytes # (auto) 0.82 K/uL (1.20-3.40); Lymphocytes % (auto) 10.1 %; Mean Corpuscular Hemoglobin 31.6 pg (25.0-34.0); Mean Corpuscular Hgb Conc 32.5 g/dL (32.0-36.0); Mean Corpuscular Volume 97.4 fL (80.0-100.0); Monocytes # (auto) 0.58 K/uL (0.11-0.59); Monocytes % (auto) 7.1 %; Neutrophils # (auto) 6.71 K/uL (1.40-6.50); Neutrophils % (auto) 82.5 %; Platelet Count 218 K/uL (130-400); RDW Coefficient of Variation 14.4 % (11.5-14.5); RDW Standard Deviation 51.3 fL (36.4-46.3); Red Blood Count 3.51 M/uL (4.70-6.10); White Blood Count 8.14 K/ul (4.8-10.8)
[2023-12-10 18:18] LABS: Albumin Globulin Ratio 1.5 (0.9-2); Albumin Level 3.2 gm/dl (3.4-5.0); BUN Creatinine Ratio 25.1 (10-20); Bilirubin,Total 0.5 mg/dl (0.2-1.0); Calcium 8.4 mg/dl (8.6-10.3); Creatinine Clr Calc Pharmacy 27.5 ml/min; Est GFR (Non-African American) 28.5 ml/min; Globulin 2.1 gm/dl (2.5-4.0); Magnesium 1.9 mg/dl (1.7-2.4); Total Protein 5.3 gm/dl (6.0-8.3); Troponin I High Sensitivity 5290.3 pg/ml (0-20)
[2023-12-10 18:26] LABS: Thyroid Stimulating Hormone 1.957 uIu/ml (0.300-4.500)
[2023-12-10 18:29] LABS: Partial Thromboplastin Ratio 0.8; Partial Thromboplastin Time 23 Seconds (21-31); Prothrombin Time 11.4 Seconds (9.0-12.0)
[2023-12-10] MEDS: SODIUM CHLORIDE 0.9% 500 ML IV ONE (18:35)
[2023-12-10] MEDS: ASPIRIN CHEW 324 MG PO STA (18:36)
--- NOTE | 2023-12-10 18:40 | CT Scan Report ---
HEAD CT NONCONTRAST CT DOSE: 625.8 mGy.cm HISTORY: Change in mental status TECHNIQUE: Multiaxial CT images of the head were performed without the use of intravenous contrast. A utomated exposure control was utilized for this study. A dose lowering technique was utilized adheri ng to the principles of ALARA. Comparison: Head CT 04/19/2023. Findings: The paranasal sinuses and mastoid air cells are clear. The calvarium and skull base are int act. There is no mass, hematoma, midline shift, acute infarct. White matter hypodensity is nonspecifi c but suggestive of microvascular ischemic change. The ventricles and sulci demonstrate mild age-rela rashard involutional changes. Scattered foci of gas within the skull base and at the turntable engineer muscles i s likely vascular. This favors prior intravenous line insertion Impression: No acute intracranial abnormality. ACT 112: Negative or not required by law. Electronically signed by: Scott Rob M.D. 12/10/2023 6:38 PM
[2023-12-10 18:48] LABS: Adenovirus PCR Not Detected (NotDetected); Bordetella parapertussis PCR Not Detected (NotDetected); Bordetella pertussis PCR Not Detected (NotDetected); Chlamydia pneumoniae PCR Not Detected (NotDetected); Coronavirus 229E PCR Not Detected (NotDetected); Coronavirus CoV-2 (COVID19)PCR Not Detected (NotDetected); Coronavirus HKU1 PCR Not Detected (NotDetected); Coronavirus NL63 PCR Not Detected (NotDetected); Coronavirus OC43PCR Not Detected (NotDetected); Human Metapneumovirus PCR Not Detected (NotDetected); Influenza A PCR Not Detected (NotDetected); Influenza B PCR Not Detected (NotDetected); Mycoplasma pneumoniae PCR Not Detected (NotDetected); Parainfluenza Virus 1 PCR Not Detected (NotDetected); Parainfluenza Virus 2 PCR Not Detected (NotDetected); Parainfluenza Virus 3 PCR Not Detected (NotDetected); Parainfluenza Virus 4 PCR Not Detected (NotDetected); Respiratory Syncytial VirusPCR Not Detected (NotDetected); Rhinovirus/Enterovirus PCR Not Detected (NotDetected)
[2023-12-10 18:49] LABS: Base Excess VBG -3.7 mEq/L; HCO3 VBG 24 mmol/L; Oxygen Saturation VBG < 60.0 %; PCO2 VBG 50 mmHg (38-50); PO2 VBG 30 mmHg; pH VBG 7.28 (7.36-7.41)
--- NOTE | 2023-12-10 18:59 | XRay Report ---
XR chest 1V portable HISTORY: Chest pain, nonspecific COMPARISON: Chest 12/01/2023. FINDINGS: No pneumothorax. The cardiac silhouette is top normal in size. Spinal stimulator leads agai n noted. Small right and trace left pleural effusions have slightly increased in size. Right basilar densities persist. No evidence for pulmonary edema. Calcifications within the aortic knob. No acute f ractures. IMPRESSION: 1. Small right and trace left pleural effusions. This has slightly progressed. 2. Patchy right basilar densities again noted. This may represent atelectasis or a pneumonia. ACT 112: Negative or not required by law. Electronically signed by: Scott Rob M.D. 12/10/2023 6:58 PM
[2023-12-10] MEDS: OPTIRAY 320 125ml IV ONE (19:29)
[2023-12-10 19:35] LABS: Appearance Urine Turbid (Clear); Bacteria Urine Automated None Seen (None Seen); Bilirubin Urine Negative (Negative); Blood Urine Negative (Negative); Cast Urine Automated >20 /lpf (0-2); Color Urine Dark Yellow; Glucose Urine UA Negative (Negative); Ketones Urine 1+ (Negative); Leukocyte Esterase Urine Trace (Negative); Nitrite Urine Negative (Negative); Protein Urine 2+ (Negative); RBC Urine Automated 0-2 /hpf (0-2); Specific Gravity Urine 1.023 (1.000-1.030); Urobilinogen Urine Negative (Negative); WBC Urine Automated 0-5 /hpf (0-5)
--- NOTE | 2023-12-10 20:04 | CT Scan Report ---
Exam(s): CTA CHEST IV Amt: 118 cc otpi 320 EXAM: CT Angiography Chest With Intravenous Contrast CLINICAL HISTORY: Reason for exam: PE. TECHNIQUE: Axial computed tomographic angiography images of the chest with intravenous contrast. CTDI is 22.63 mGy and DLP is 814.31 mGy-cm. Automated exposure control was utilized for the study. A dose lowering technique was utilized adhering to the principles of ALARA. MIP reconstructed images were created and reviewed. COMPARISON: Chest x-ray 12/10/2023 FINDINGS: Pulmonary arteries: No pulmonary embolism. Aorta: No acute findings. Normal caliber. No dissection. Lungs: Interstitial edema. Atelectasis most pronounced within the right lower lobe. Pleural space: Moderate right and small left pleural effusions. Heart: Heart size is normal. Severe coronary artery calcifications. Bones/joints: No acute fracture. Soft tissues: Unremarkable. Lymph nodes: Unremarkable. IMPRESSION: 1. No pulmonary embolism. 2. Interstitial edema. 3. Moderate right and small left pleural effusions. 4. Atelectasis most pronounced within the right lower lobe. Electronically signed by: Saad Dominguez MD 12/10/23 20:03 PM
--- NOTE | 2023-12-10 21:34 | History & Physical Report ---
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 Patient had a large volume paracentesis earlier today with removal of 4.5L of ascitic fluid. He was given Albumin Presents hypotensive not responsive to volume expansion with IV crystalloid and colloid. Now on levophed 1. Neuro - patient with history of Parkinson's disease. He is on Carbidopa/Levodopa but is unsure of dose. Information is not available in records -Continue Carbidopa-Levodopa at home dose. is to bring a list in tomorrow for clarification. -Decreased home Gabapentin from 600mg po daily to 300mg po daily for renal compromise -Continue Duloxetine 60mg po qAM 2. Cardiovascular - patient hypotensive on arrival, did not improve with IVF and Albumin. Likely multifactorial - suspect volume contraction, poor oral intake and recent paracentesis. Patient also just started on Spironolactone. Troponin elevation with no report of chest pain. No ischemic changes on EKG. Suspect demand ischemia in setting of prolonged hypotension. -Admit to MICU -Will give additional Albumin 25gm x 2 bottles -Continue Levophed, goal MAP>60 -Hold antihypertensives -Trend troponin -Check 2D echo 3. Pulmonary - no cough or wheeze. Patient with some report of shortness of breath - likely secondary to pleural effusions, ascites. Patient with JM - reports he does not use a CPAP at home. No Oxygen use at home. -Continue to monitor 4. GI - patient with GIST, invasion of liver s/p large volume paracentesis. CT of the abdomen performed, results above. Some concern for density of ascitic fluid, possible blood? Abdomen is nontender, no fever or leukocytosis. Do not strongly suspect active infection or SBP. Patient with worsening GERD symptoms, possibly mechanical from pressure from worsening ascites -Monitor CBC for possible bleed. Patient may need repeat paracentes is/diagnostic -Zosyn 4.5 gm IV q 8 hours -Protonix 40mg po daily 5. - patient with BITA, BUN of 53 and Cr of 2.11 increased from 0.8. Concern for hepatorenal syndrome given recent paracenteses. Possibly component of pre- renal azotemia as well - patient reports decreased oral intake of late. Recently started on Spironolactone as well. Patient is on Losartan at home -Will hold nephrotoxic agents - Losartan, Spironolactone -Continue volume expansion with Albumin -Continue Levophed for now -Midodrine 7.5mg po TID -If levophed is weaned off would consider initiation of Octreotide 200mg SQ TID -Closely monitor renal function and UOP -Avoid nephrotoxins, renal dosing where needed 6. Hematology - stable anemia, concern for possible bleed noted on CT of the abdomen -Monitor CBC -Patient will likely need diagnostic paracentesis today to assess for bleeding 7. Endocrine - NANCY -Check random cortisol 8. ID - No fever -Follow cultures -Empiric Zosyn (2) Ascites: (3) BITA (acute kidney injury): (4) Elevated troponin: (5) Parkinson disease: (6) History of gastrointestinal stromal tumor (GIST): (7) Hyperlipidemia: (8) Obstructive sleep apnea: History of Present Illness Chief Complaint: fatigue Primary Care Provider: Maximiliano Miller MD Mr. 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 He has recently developed large volume ascites requiring therapeutic paracenteses. He had a paracentesis on 11/25/23 with removal of 3.4L of ascitic fluid. He had another paracentesis on 12/04/23 with removal of 3L. Patient reports waking this morning and feeling extremely fatigued. He checked his blood pressure and it was low at 90/60 with a HR of 88 (this is high for him, states resting HR is low 70's). His reports some slurring of his speech around 0800. He was scheduled to have another large-volume paracentesis on 12/12/23 but he called and scheduled it for today due to rapid reaccumulation of ascites. He had a paracentesis performed around 12:30 with removal of 4.5L. He does report being given a bottle of albumin following the paracentesis. He reports generally not feeling well for the last several days. Decreased appetite and poor fluid intake as well as fatigue, ELAINE and decreased exercise tolerance. He denies fever, chills, cough, CP, abdominal pain, nausea, vomiting, diarrhea. He has had some worsening heartburn symptoms. No urinary complaints. States that his urine is somewhat dark in color with some sediment in it. Recent medication changes include addition of Protonix and Carafate for management of heartburn. Initiation of Spironolactone 25mg po daily Patient continued to not feel well so came to the ER. Hypotensive with blood pressure 60's/40's. He was given Albumin x 2 bottles and 1L NSS with persistent hypotension so was started on Levophed During my encounter patient was awake and alert. at bedside. He had Levophed running at 0.07mcg/kg/min with adequate blood pressures SBP >100. Attempted to decrease the Levophed to 0.02mcg/kg/min unsuccessful as patient's BP dropped to 77/54 ER Course: NSS x 1L + 500mL Albumin 5% 250mL x 2 bottles Levophed ASA 81mg Albumin 25gm x 2 Zosyn 4.5gm Allergies Allergy/AdvReac Type Severity Reaction Status Date / Time Corticosteroids AdvReac Mild Advised to Verified 12/01/23 09:20 (Glucocorticoids) avoid d/t gastric ulcer NSAIDS (Non-Steroidal AdvReac Mild Advised to Verified 12/01/23 09:20 Anti-Inflamma avoid d/t gastric ulcer Home Medications Medication Instructions Recorded Confirmed Type ascorbic acid (vitamin C) 500 mg 500 mg PO QAM 09/14/18 12/10/23 History tablet (Vitamin C) vitamin E 268 mg (400 unit) capsule 400 unit PO QAM 09/14/18 12/10/23 History vit C 250 mg-vit E 90 mg-zinc 40 1 tab PO BID 01/08/19 12/10/23 History mg-copper 1 [id number] capsule (PreserVision AREDS-2) multivitamin (Daily Multi-Vitamin 1 tab PO DAILY 10/28/19 12/10/23 History tablet) Medical Marijuana 1 dose PO UD PRN Pain 01/04/22 12/10/23 History duloxetine 60 mg capsule,delayed 60 mg PO QAM #90 caps 11/12/22 12/10/23 Rx release (Cymbalta) gabapentin enacarbil 600 mg 600 mg PO QPM 90 days #90 tabs 02/19/23 12/10/23 Rx tablet,extended release losartan 100 mg tablet 100 mg PO DAILY #90 tabs 06/25/23 12/10/23 Rx carbidopa-levodopa 1 tab PO TID 07/07/23 12/10/23 History tramadol 50 mg tablet 50 - 100 mg (1 - 2 x 50 mg) PO Q8H 12/01/23 12/10/23 Rx PRN pain 30 days #120 tabs omega-3 fatty acids 1,000 mg 1,000 mg PO DAILY 12/10/23 12/10/23 History capsule pantoprazole 1 tab PO QAM 12/10/23 12/10/23 History pramipexole 0.75 mg 0.75 mg PO . QID...ON HOLD 12/10/23 12/10/23 History tablet,extended release 24 hr tamsulosin 0.4 mg capsule 0.4 mg PO QAM 12/10/23 12/10/23 History Past Med/Surg History Medical History Discharge planning issues DVT prophylaxis Urinary tract infection Elevated LFTs GERD (gastroesophageal reflux disease) History of anemia GIST (gastrointestinal stroma tumor), malignant, colon [facility] REED IN [facility] *DX 5 YEARS AGO Restless leg syndrome BPH with obstruction/lower urinary tract symptoms Ulcer of ileum Hx Personal history of malignant melanoma of skin Head (s/p excision) Obstructive sleep apnea CPAP History of SCC (squamous cell carcinoma) of skin Head 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 Essential hypertension Tremor BILAT HANDS History of bowel disorder "Fibrosing mesenteric" Hx of spinal stenosis DDD Talavera esophagus History of stomach ulcers Hx (NSAIDS-related) Degenerative arthritis Back Hypertension Surgical History S/P epidural steroid injection History of evacuation of hematoma S/P CERVICAL FUSION Fusion of spine CERVICAL FUSION *GOOD ROM History of ankle surgery Right ankle arthroscopy with debridement of tibialis, anterior tendon, removal of avulsion fracture, medical navicular application of PRP conc entrate (10/02/18): LMA#5 + PNB at [facility] History of tonsillectomy History of esophagogastroduodenoscopy (EGD) History of colonoscopy History of hand surgery Left pinky amputation (r/t injury) History of gastrointestinal surgery r/t GIST *REMOVED ABDOMINAL TUMOR History of exploratory laparotomy GIST/DX Fibrosing Mesenteric Family History Grandmother Leukemia Father Hearing loss Stroke Other No family history of adverse response to anesthesia No family history of bleeding disorder Denies family history of Ovarian cancer Prostate cancer Myocardial infarction Breast cancer Lung cancer Colorectal cancer Social History Smoking Status: Never smoker Second Hand Exposure: No; Do You Dip or Chew Tobacco: No; Hx Alcohol Use: Yes Alcohol type: wine Alcohol Intake Frequency: 4 or More x per/Week Hx Substance Use: Yes Last Used Substance: Days (ago) Last Used Substance Other:: ONLY MEDICAL MARIJUANA FOR BACK PAIN Substance Use Type Other:: medical marijuana Preferred Language: Persian Communication Ability: Effective Visual Impairment: No Limitations Hearing Ability: Use of Hearing Aid Dredge Mate Required: No Beliefs That Will Affect Care: None marital status: Current Living Situation: Spouse Current Living Situation Comment: with current occupational status: retired Other Information That Helps Us Care for You: No Feels Safe at Home: Yes Safety Concerns: Feels Safe At This Time Childhood Exposure to Second-Hand Smoke: No Diet: regular caffeine: Yes Dental Care, Regularly: Yes Physical Activity Frequency: Does not Exercise Seatbelt Use: always Sunscreen Use: Yes Assistive Devices: Cane, Contacts and Hearing Aid - Bilateral Review of Systems Review of Systems: All systems reviewed & are unremarkable except as noted in HPI & below Physical Exam Physical Exam: General: patient resting comfortably, NAD, non-toxic in appearance, AA&O x 4 Skin: warm, dry, intact, no rashes or lesions HEENT: NC/AT, PERRL, EOMI, anicteric sclera, conjunctiva without injection, external ear normal to inspection and nontender, nares patent, moist mucus membranes, dentition intact, no oropharyngeal lesions, neck supple, trachea midline, no LAD, no thyromegaly, no JVD Heart: +S1/S2, regular, no m/r/g Lungs: equal air entry bilaterally, no rales/rhonchi/wheezes Abd: +BS, soft, distended, no masses/organomegaly, +ascites. Bandage in RLQ of abdomen with no seepage Ext: warm, 2+ pulses in UE/LE bilaterally, no clubbing/cyanosis, +1 LE edeam Neuro: nonfocal, patient AA&O x 4, speech intact, no facial droop, moving all extremities on command with equal strength 5/5, no asterixis Results & Data Results & Data Vital Signs (Past 12 Hours) Vital Signs Temp Pulse Resp BP Pulse Ox O2 Del Method O2 Flow Rate 12/10/23 21:22 80 12/10/23 21:11 78/53 L 12/10/23 20:41 98 H 18 98 12/10/23 20:41 92/73 L 12/10/23 20:40 97 H 23 93 12/10/23 20:30 104/71 12/10/23 20:30 83 17 100 12/10/23 20:20 83 14 99 12/10/23 20:20 98/65 L 12/10/23 20:10 102/70 12/10/23 20:10 85 15 12/10/23 20:05 94/67 L 12/10/23 20:05 80 16 98 12/10/23 20:00 96/67 L 12/10/23 20:00 94 H 18 96 12/10/23 19:55 100/69 12/10/23 19:55 92 H 19 97 12/10/23 19:51 95/63 L 12/10/23 19:51 83 16 97 12/10/23 19:50 89 21 97 12/10/23 19:45 82 16 98 12/10/23 19:45 97/62 L 12/10/23 19:40 106/72 12/10/23 19:40 88 15 96 12/10/23 19:10 84 20 98 12/10/23 19:10 99/70 L 12/10/23 19:05 100/70 12/10/23 19:05 85 16 98 12/10/23 19:00 108/74 12/10/23 19:00 88 17 97 12/10/23 18:55 87 21 96 12/10/23 18:55 107/71 12/10/23 18:50 94 H 24 12/10/23 18:50 103/76 12/10/23 18:47 95/75 L 12/10/23 18:47 98 H 24 Nasal Cannula 4 12/10/23 18:40 87 19 97 12/10/23 18:40 109/73 12/10/23 18:35 81 15 112/70 97 Nasal Cannula 2 12/10/23 18:30 84 15 111/80 96 Nasal Cannula 2 12/10/23 18:10 73 15 97/64 L 99 Nasal Cannula 2 12/10/23 18:05 74 14 97/69 L 94 Nasal Cannula 2 12/10/23 18:00 76 19 75/56 L 100 Nasal Cannula 2 12/10/23 17:45 71 14 62/43 L 94 Nasal Cannula 2 12/10/23 17:44 88 L Nasal Cannula 0 12/10/23 17:40 74 13 67/47 L 95 Nasal Cannula 2 12/10/23 17:30 73 18 65/44 L 94 Nasal Cannula 2 12/10/23 17:27 82 12/10/23 17:24 80 19 64/42 L 95 Nasal Cannula 2 12/10/23 17:06 36.7 C 86 18 68/40 L 96 Room Air Laboratory Results Laboratory Results WBC 8.14 K/ul (4.8-10.8) 12/10/23 17: RBC 3.51 M/uL (4.70-6.10) L 12/10/23 17:23 Hgb 11.1 g/dl (14.0-18.0) L 12/10/23 17:23 Hct 34.2 % (42.0-52.0) L 12/10/23 17:23 MCV 97.4 fL (80.0-100.0) 12/10/23 17:23 MCH 31.6 pg (25.0-34.0) 12/10/23 17:23 MCHC 32.5 g/dL (32.0-36.0) 12/10/23 17:23 RDW Std Deviation 51.3 fL (36.4-46.3) H 12/10/23 17:23 RDW Coeff of Lana 14.4 % (11.5-14.5) 12/10/23 17:23 Plt Count 218 K/uL (130-400) 12/10/23 17:23 MPV 11.0 fL (9.4-12.4) 12/10/23 17: Immature Gran % (Auto) 0.2 % 12/10/23 17: Neut % (Auto) 82.5 % 12/10/23 17:23 Lymph % (Auto) 10.1 % 12/10/23 17:23 Arroyo % (Auto) 7.1 % 12/10/23 17:23 Eos % (Auto) 0.0 % 12/10/23 17:23 Baso % (Auto) 0.1 % 12/10/23 17:23 Neut # (Auto) 6.71 K/uL (1.40-6.50) H 12/10/23 17:23 Lymph # (Auto) 0.82 K/uL (1.20-3.40) L 12/10/23 17:23 Arroyo # (Auto) 0.58 K/uL (0.11-0.59) 12/10/23 17:23 Eos # (Auto) 0.00 K/uL (0.00-0.50) 12/10/23 17: Baso # (Auto) 0.01 K/uL (0.00-0.20) 12/10/23 17:23 Immature Gran # (Auto) 0.02 K/uL (0.01-0.20) 12/10/23 17:23 PT 11.4 Seconds (9.0-12.0) 12/10/23 17:23 INR 1.0 (0.9-1.1) 12/10/23 17: APTT 23 Seconds (21-31) 12/10/23 17:23 PTT Ratio 0.8 12/10/23 17:23 VBG pH 7.28 (7.36-7.41) L 12/10/23 18:42 VBG pCO2 50 mmHg (38-50) 12/10/23 18:42 VBG pO2 30 mmHg 12/10/23 18:42 VBG HCO3 24 mmol/L 12/10/23 18:42 VBG O2 Saturation < 60.0 % 12/10/23 18:42 VBG Base Excess -3.7 mEq/L 12/10/23 18:42 Sodium 139 mmol/L (136-145) 12/10/23 17:23 Potassium 5.0 mmol/L (3.5-5.1) 12/10/23 17:23 Chloride 106 mmol/L (98-107) 12/10/23 17:23 Carbon Dioxide 25 mmol/L (21-32) 12/10/23 17:23 Anion Gap 8 (3-11) 12/10/23 17:23 BUN 53 mg/dl (6-23) H 12/10/23 17:23 Creatinine 2.11 mg/dl (0.6-1.4) H 12/10/23 17:23 Est Cr Clr Drug Dosing 27.5 ml/min 12/10/23 17:23 Est GFR ( Amer) 33.0 ml/min 12/10/23 17:23 Est GFR (Non-Af Amer) 28.5 ml/min 12/10/23 17:23 BUN/Creatinine Ratio 25.1 (10-20) H 12/10/23 17:23 Glucose 122 mg/dl (70-99(Fasting)) H 12/10/23 17:23 Lactate 1.1 mmol/L (0.4-2.0) 12/10/23 19:54 Calcium 8.4 mg/dl (8.6-10.3) L 12/10/23 17:23 Magnesium 1.9 mg/dl (1.7-2.4) 12/10/23 17:23 Total Bilirubin 0.5 mg/dl (0.2-1.0) 12/10/23 17:23 AST 38 U/L (13-39) 12/10/23 17:23 ALT 10 U/L (7-52) 12/10/23 17:23 Alkaline Phosphatase 86 U/L (34-104) 12/10/23 17:23 Ammonia 29.0 umol/L (18-72) 12/10/23 17:31 Troponin I High Sens 5880.5 pg/ml (0-20) H* 12/10/23 22:48 Total Protein 5.3 gm/dl (6.0-8.3) L 12/10/23 17:23 Albumin 3.2 gm/dl (3.4-5.0) L 12/10/23 17:23 Globulin 2.1 gm/dl (2.5-4.0) L 12/10/23 17:23 Albumin/Globulin Ratio 1.5 (0.9-2) 12/10/23 17:23 Lipase 4 U/L (11-82) L 12/10/23 17:23 Procalcitonin 0.07 ng/ml (0-0.5) 12/10/23 17:23 TSH 1.957 uIu/ml (0.300-4.500) 12/10/23 17:23 Random Cortisol 15.08 mcg/dl 12/10/23 19:54 Urine Color Dark Yellow 12/10/23 18:53 Urine Appearance Turbid (Clear) A 12/10/23 18:53 Urine pH 5.0 (4.5-7.5) 12/10/23 18:53 Ur Specific Kiln 1.023 (1.000-1.030) 12/10/23 18:53 Urine Protein 2+ (Negative) H 12/10/23 18:53 Urine Glucose (UA) Negative (Negative) 12/10/23 18:53 Urine Ketones 1+ (Negative) H 12/10/23 18:53 Urine Blood Negative (Negative) 12/10/23 18:53 Urine Nitrite Negative (Negative) 12/10/23 18:53 Urine Bilirubin Negative (Negative) 12/10/23 18:53 Urine Urobilinogen Negative (Negative) 12/10/23 18:53 Ur Leukocyte Esterase Trace (Negative) H 12/10/23 18:53 Urine WBC (Auto) 0-5 /hpf (0-5) 12/10/23 18:53 Urine RBC (Auto) 0-2 /hpf (0-2) 12/10/23 18:53 U Hyaline Cast (Auto) >20 /lpf (0-2) H 12/10/23 18:53 U Epithel Cells (Auto) 6-10 /hpf (0-2) H 12/10/23 18:53 Urine Bacteria (Auto) None Seen (None Seen) 12/10/23 18:53 Ur Random Creatinine 103.8 mg/dl 12/10/23 Unknown Ur Random Sodium 18 mmol/L 12/10/23 Unknown Nasal Screen MRSA (PCR) Negative (Negative) 12/10/23 Unknown Adenovirus (PCR) Not Detected (NotDetected) 12/10/23 17:42 B. pertussis DNA (PCR) Not Detected (NotDetected) 12/10/23 17:42 B.parapertussis DNA PCR Not Detected (NotDetected) 12/10/23 17:42 C. pneumoniae DNA (PCR) Not Detected (NotDetected) 12/10/23 17:42 Coronavirus OC43 (PCR) Not Detected (NotDetected) 12/10/23 17:42 Coronavirus HKU1 (PCR) Not Detected (NotDetected) 12/10/23 17:42 Coronavirus 229E (PCR) Not Detected (NotDetected) 12/10/23 17:42 SARS-CoV-2 (PCR) Not Detected (NotDetected) 12/10/23 17:42 Coronavirus NL63 (PCR) Not Detected (NotDetected) 12/10/23 17:42 Human Metapneumovir PCR Not Detected (NotDetected) 12/10/23 17:42 Influenza Type A (PCR) Not Detected (NotDetected) 12/10/23 17:42 Influenza Type B (PCR) Not Detected (NotDetected) 12/10/23 17:42 M. pneumoniae (PCR) Not Detected (NotDetected) 12/10/23 17:42 Parainfluenza 1 (PCR) Not Detected (NotDetected) 12/10/23 17:42 Parainfluenza 2 (PCR) Not Detected (NotDetected) 12/10/23 17:42 Parainfluenza 3 (PCR) Not Detected (NotDetected) 12/10/23 17:42 Parainfluenza 4 (PCR) Not Detected (NotDetected) 12/10/23 17:42 RSV (PCR) Not Detected (NotDetected) 12/10/23 17:42 Entero/Rhino (PCR) Not Detected (NotDetected) 12/10/23 17:[address] 12/10/23 17:[address] DOSE: 625.8 mGy.cm HISTORY: Change in mental status TECHNIQUE: Multiaxial CT images of the head were performed without the use of intravenous contrast. Automated exposure control was utilized for this study. A dose lowering technique was utilized adhering to the principles of ALARA. Comparison: Head CT 04/19/2023. Findings: The paranasal sinuses and mastoid air cells are clear. The calvarium and skull base are intact. There is no mass, hematoma, midline shift, acute infarct. White matter hypodensity is nonspecific but suggestive of microvascular ischemic change. The ventricles and sulci demonstrate mild age-related involutional changes. 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 This favors prior intravenous line insertion Impression: No acute intracranial abnormality. ACT 112: Negative or not required by law. Electronically signed by: Scott Rob M.D. 12/10/2023 6:38 PM Chest X-Ray 12/10/23 17:10 XR chest 1V portable HISTORY: Chest pain, nonspecific COMPARISON: Chest 12/01/2023. FINDINGS: No pneumothorax. The cardiac silhouette is top normal in size. Spinal stimulator leads again noted. Small right and trace left pleural effusions have slightly increased in size. Right basilar densities persist. No evidence for pulmonary edema. Calcifications within the aortic knob. No acute fractures. IMPRESSION: 1. Small right and trace left pleural effusions. This has slightly progressed. 2. Patchy right basilar densities again noted. This may represent atelectasis or a pneumonia. ACT 112: Negative or not required by law. Electronically signed by: Scott Rob M.D. 12/10/2023 6:58 PM Chest CTA 12/10/23 18:31 Exam(s): CTA CHEST IV Amt: 118 cc otpi 320 EXAM: CT Angiography Chest With Intravenous Contrast CLINICAL HISTORY: Reason for exam: PE. TECHNIQUE: Axial computed tomographic angiography images of the chest with intravenous contrast. CTDI is 22.63 mGy and DLP is 814.31 mGy-cm. Automated exposure control was utilized for the study. A dose lowering technique was utilized adhering to the principles of ALARA. MIP reconstructed images were created and reviewed. COMPARISON: Chest x-ray 12/10/2023 FINDINGS: Pulmonary arteries: No pulmonary embolism. Aorta: No acute findings. Normal caliber. No dissection. Lungs: Interstitial edema. Atelectasis most pronounced within the right lower lobe. Pleural space: Moderate right and small left pleural effusions. Heart: Heart size is normal. Severe coronary artery calcifications. Bones/joints: No acute fracture. Soft tissues: Unremarkable. Lymph nodes: Unremarkable. IMPRESSION: 1. No pulmonary embolism. 2. Interstitial edema. 3. Moderate right and small left pleural effusions. 4. Atelectasis most pronounced within the right lower lobe. Electronically signed by: Saad Dominguez MD 12/10/23 20:03 PM Abdomen/Pelvis CT 12/10/23 21:33 Exam(s): CT ABDOMEN + PELVIS Without Contrast EXAM: CT Abdomen and Pelvis Without Intravenous Contrast CLINICAL HISTORY: Reason for exam: hypotension, recent paracentesis. TECHNIQUE: Axial computed tomography images of the abdomen and pelvis without intravenous contrast. CTDI is 24.73 mGy and DLP is 1156.98 mGy-cm. Automated exposure control was utilized for the study. A dose lowering technique was utilized adhering to the principles of ALARA. COMPARISON: CT abdomen pelvis 11/05/2023 FINDINGS: Lung bases: Atelectasis within the lower lobes. Pleural space: Moderate right and small left pleural effusions. ABDOMEN: Liver: Unremarkable. Gallbladder and bile ducts: Contracted appearance of the gallbladder containing stones. Pancreas: Unremarkable. Spleen: Unremarkable. Adrenals: Unremarkable. Kidneys and ureters: Unremarkable. No obstructing stones. No hydronephrosis. Stomach and bowel: Unremarkable. PELVIS: Appendix: No findings to suggest acute appendicitis. Bladder: Unremarkable. Reproductive: Unremarkable as visualized. ABDOMEN and PELVIS: Intraperitoneal space: Moderate volume ascites. The fluid is somewhat high in attenuation which may be secondary to intermixed blood products. No free air. Bones/joints: Severe degenerative changes within the spine. Soft tissues: Unremarkable. Vasculature: Atherosclerotic calcifications. Lymph nodes: Similar-appearing retroperitoneal and mesenteric adenopathy. IMPRESSION: 1. Moderate volume ascites. The fluid is somewhat high in attenuation which may be secondary to intermixed blood products. 2. Moderate right and small left pleural effusions. 3. Similar-appearing retroperitoneal and mesenteric adenopathy. Electronically signed by: Saad Dominguez MD 12/10/23 22:30 PM Code Status & VTE Plan VTE Prophylaxis Plan VTE Prophylaxis will be ordered: Yes PG Care Time/CCT Total # of Minutes Spent Total Time Spent with Patient: Total time spent is greater than 50% in coordination of care (as documented) at patient's floor/unit and/or counseling patient: Coding Level of Care Code 95707 INT INP/OBS CARE 3/75MIN Diagnoses Hypotension I95.9 Ascites R18.8 BITA (acute kidney injury) N17.9 Elevated troponin R79.89 Parkinson disease G20.A1 History of gastrointestinal stromal tumor (GIST) Z85.09 Hyperlipidemia E78.5 Obstructive sleep apnea G47.33
[2023-12-10] MEDS ORDERED: DOCUSATE SODIUM 100 MG CAP PO PRN (22:17)
--- NOTE | 2023-12-10 22:31 | CT Scan Report ---
Exam(s): CT ABDOMEN + PELVIS Without Contrast EXAM: CT Abdomen and Pelvis Without Intravenous Contrast CLINICAL HISTORY: Reason for exam: hypotension, recent paracentesis. TECHNIQUE: Axial computed tomography images of the abdomen and pelvis without intravenous contrast. CTDI is 24.73 mGy and DLP is 1156.98 mGy-cm. Automated exposure control was utilized for the study. A dose lowering technique was utilized adhering to the principles of ALARA. COMPARISON: CT abdomen pelvis 11/05/2023 FINDINGS: Lung bases: Atelectasis within the lower lobes. Pleural space: Moderate right and small left pleural effusions. ABDOMEN: Liver: Unremarkable. Gallbladder and bile ducts: Contracted appearance of the gallbladder containing stones. Pancreas: Unremarkable. Spleen: Unremarkable. Adrenals: Unremarkable. Kidneys and ureters: Unremarkable. No obstructing stones. No hydronephrosis. Stomach and bowel: Unremarkable. PELVIS: Appendix: No findings to suggest acute appendicitis. Bladder: Unremarkable. Reproductive: Unremarkable as visualized. ABDOMEN and PELVIS: Intraperitoneal space: Moderate volume ascites. The fluid is somewhat high in attenuation which may be secondary to intermixed blood products. No free air. Bones/joints: Severe degenerative changes within the spine. Soft tissues: Unremarkable. Vasculature: Atherosclerotic calcifications. Lymph nodes: Similar-appearing retroperitoneal and mesenteric adenopathy. IMPRESSION: 1. Moderate volume ascites. The fluid is somewhat high in attenuation which may be secondary to intermixed blood products. 2. Moderate right and small left pleural effusions. 3. Similar-appearing retroperitoneal and mesenteric adenopathy. Electronically signed by: Saad Dominguez MD 12/10/23 22:30 PM
[2023-12-10] MEDS: ALBUMIN 25% 25 GM/100 ML VIAL IV SCH (22:42)
[2023-12-10] MEDS: PIPER/TAZO 4.5g in D5W MINI-B 100 ML IV ONE (23:25)
[2023-12-10] MEDS: OCTREOTIDE ACETATE 100 MCG/ML VIAL SQ SCH (23:33)
[2023-12-11 00:09] LABS: Creatinine Urine Random 103.8 mg/dl
--- NOTE | 2023-12-11 00:18 | Critical Care Consultation ---
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 Neuro - [facility] ICU: Negative Parkinson syndrome/gait disorderstable, patient uses cane at baseline. Currently on bedrest. Will consult PT/OT -Continue carbidopalevodopa Depressionstable, continue Cymbalta Cardiac - Hypotensionlikely multifactorial in the setting of metastatic disease, with low protein, and liver dysfunction. Appears to be progressive process in the past few weeks as he has been taken off antihypertensives. - Cannot rule out infection at this time, see ID below -CT abdomen and pelvis with high attenuation may be intermixed blood product within the abdomen following paracentesis? Although H&H stable. Trend for now -Continue with albumin transfusion as scheduled -Hold antihypertensives and diuresis for now -TTE pending -Elevated troponin, expect this is demand ischemia with BITA as well. No ST elevation on EKG, no chest pain on exam. Monitor closely -Currently maintaining MAP greater than 65 on Levophed. Wean as tolerated. Started on midodrine as well Respiratory - OHSCPAP at night. Currently maintaining attaining oxygen saturation on 3 L nasal cannula. Lungs clear to auscultation, no respiratory distress. 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 Follows with Dr. Allison Lyman at [facility] -Progressive ascites with paracentesis in October, again last week, and earlier today in which 4.5 L were removed -CT abdomen and pelvis with moderate volume ascites with high attenuation which may be secondary to intermixed blood product?, Similar-appearing retroperitoneal and mesenteric adenopathy -LFTs stable. Trend Heart healthy diet GERDPPI RENAL/LYTES - AKIsuspect this is most likely prerenal in the setting of hypotension, however cannot rule out hepatorenal syndrome -Diuresis on hold due to hypotension. Appears volume overloaded with mild anasarca on exam and ascites -Maintain MAP greater than 65. Currently on low-dose Levophed drip -Receiving albumin. Careful with IV fluid resuscitation given ascites/pulmonary congestion -Avoid nephrotoxins and renally adjust medications -Monitor routine BMPs, trend - Strict I's and O's BPHcontinue Flomax ENDO - No history of diabetes or thyroid disease. ICU hyperglycemic protocol HEME - H&H stable, monitor routine CBC ID - No leukocytosis, fevers. Pro-Felipe within normal limits. Lactate was mildly elevated but likely due to hypotension. -Blood cultures currently pending -Started on empiric Zosyn. Will continue for now LINES/IV ACCESS - Peripheral IVs. Will consider placement of central line in the event of increased pressor use DVT PROPHYLAXIS - SCDs I have personally spent 50 minutes of critical care time in the direct management of this patient. This is a life/limb threatening event. This includes time spent evaluating patient, direct bedside care, chart review, placing orders, interpretation of diagnostic studies, discussion with consultants, patient, and family members, as well as other required patient management activities. This time is exclusive of all separately billable procedures, and teaching time and separate from and in addition to any other critical care service time. Thank you for allowing us to participate in the care of this patient. Please refer to my attending physician's documentation for any further recommendations. 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 Patient had paracentesis as outpatient earlier today, in which he had 4.5 liters of ascites fluid removed. Patient was initially diagnosed with GIST and was on Imatinib until 2022, but had progression of disease to liver once it was stopped, which was then restarted. He has undergone paracentesis 3 times in the past 2 months for progressive ascites. He was previously on Lasix which did not improve ascites. Patient states 2 days ago he was started on spironolactone. His losartan was recently stopped due to hypotension. On arrival to the emergency department patient was noted to be hypotensive with blood pressure 68/40. Lactic acid mildly elevated 2.3, cleared on repeat, BITA with creatinine 2.11. He underwent CTA chest which was negative for PE, did show interstitial edema and moderate right and left pleural effusions with atelectasis pronounced within the lower right lower lobe. CT abdomen and pelvis resulted with moderate volume ascites with high attenuation with questionable intermixed blood product, moderate right and small left pleural effusions, similar appearing retroperitoneal mass and enteric adenopathy. Of note, hemoglobin stable on initial CBC. Patient received albumin transfusion in the emergency department and was started on Levophed drip, currently running low-dose through peripheral IV. He is alert and oriented, without acute distress. He denies headache, current dizziness, fevers or illness, cough or congestion, chest pain or palpitations, abdominal pain or tenderness, nausea or vomiting or diarrhea. Patient does report difficulty with gait and uses cane at home. He states that he gets short of breath after walking more than 10 to 15 feet which has been ongoing for several weeks. Patient to remain in ICU for further management at this time. Allergies Allergy/AdvReac Type Severity Reaction Status Date / Time Corticosteroids AdvReac Mild Advised to Verified 12/01/23 09:20 (Glucocorticoids) avoid d/t gastric ulcer NSAIDS (Non-Steroidal AdvReac Mild Advised to Verified 12/01/23 09:20 Anti-Inflamma avoid d/t gastric ulcer Home Medications Medication Instructions Recorded Confirmed Type ascorbic acid (vitamin C) 500 mg 500 mg PO QAM 09/14/18 12/10/23 History tablet (Vitamin C) vitamin E 268 mg (400 unit) capsule 400 unit PO QAM 09/14/18 12/10/23 History vit C 250 mg-vit E 90 mg-zinc 40 1 tab PO BID 01/08/19 12/10/23 History mg-copper 1 [id number] capsule (PreserVision AREDS-2) multivitamin (Daily Multi-Vitamin 1 tab PO DAILY 10/28/19 12/10/23 History tablet) Medical Marijuana 1 dose PO UD PRN Pain 01/04/22 12/10/23 History duloxetine 60 mg capsule,delayed 60 mg PO QAM #90 caps 11/12/22 12/10/23 Rx release (Cymbalta) gabapentin enacarbil 600 mg 600 mg PO QPM 90 days #90 tabs 02/19/23 12/10/23 Rx tablet,extended release losartan 100 mg tablet 100 mg PO DAILY #90 tabs 06/25/23 12/10/23 Rx carbidopa-levodopa 1 tab PO TID 07/07/23 12/10/23 History tramadol 50 mg tablet 50 - 100 mg (1 - 2 x 50 mg) PO Q8H 12/01/23 12/10/23 Rx PRN pain 30 days #120 tabs omega-3 fatty acids 1,000 mg 1,000 mg PO DAILY 12/10/23 12/10/23 History capsule pantoprazole 1 tab PO QAM 12/10/23 12/10/23 History pramipexole 0.75 mg 0.75 mg PO . QID...ON HOLD 12/10/23 12/10/23 History tablet,extended release 24 hr tamsulosin 0.4 mg capsule 0.4 mg PO QAM 12/10/23 12/10/23 History Patient History Medical History Discharge planning issues DVT prophylaxis Urinary tract infection Elevated LFTs GERD (gastroesophageal reflux disease) History of anemia GIST (gastrointestinal stroma tumor), malignant, colon [facility] *DX 5 YEARS AGO Restless leg syndrome BPH with obstruction/lower urinary tract symptoms Ulcer of ileum Hx Personal history of malignant melanoma of skin Head (s/p excision) Obstructive sleep apnea CPAP History of SCC (squamous cell carcinoma) of skin Head 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 Essential hypertension Tremor BILAT HANDS History of bowel disorder "Fibrosing mesenteric" Hx of spinal stenosis DDD Talavera esophagus History of stomach ulcers Hx (NSAIDS-related) Degenerative arthritis Back Hypertension Surgical History S/P epidural steroid injection History of evacuation of hematoma S/P CERVICAL FUSION Fusion of spine CERVICAL FUSION *GOOD ROM History of ankle surgery Right ankle arthroscopy with debridement of tibialis, anterior tendon, removal of avulsion fracture, medical navicular application of PRP concentrate (10/02/18): LMA#5 + PNB at [facility] History of tonsillectomy History of esophagogastroduodenoscopy (EGD) History of colonoscopy History of hand surgery Left pinky amputation (r/t injury) History of gastrointestinal surgery r/t GIST *REMOVED ABDOMINAL TUMOR History of exploratory laparotomy GIST/DX Fibrosing Mesenteric Family History Grandmother Leukemia Father Hearing loss Stroke Other No family history of adverse response to anesthesia No family history of bleeding disorder Denies family history of Ovarian cancer Prostate cancer Myocardial infarction Breast cancer Lung cancer Colorectal cancer Social History Smoking Status: Never smoker Second Hand Exposure: No; Do You Dip or Chew Tobacco: No; Hx Alcohol Use: Yes Alcohol type: wine Alcohol Intake Frequency: 4 or More x per/Week Hx Substance Use: Yes Last Used Substance: Days (ago) Last Used Substance Other:: ONLY MEDICAL MARIJUANA FOR BACK PAIN Substance Use Type Other:: medical marijuana Preferred Language: Citizen Of [place] Communication Ability: Effective Visual Impairment: No Limitations Hearing Ability: Use of Hearing Aid Manager Animation Required: No Beliefs That Will Affect Care: None marital status: Current Living Situation: Spouse Current Living Situation Comment: with current occupational status: retired Other Information That Helps Us Care for You: No Feels Safe at Home: Yes Safety Concerns: Feels Safe At This Time Childhood Exposure to Second-Hand Smoke: No Diet: regular caffeine: Yes Dental Care, Regularly: Yes Physical Activity Frequency: Does not Exercise Seatbelt Use: always Sunscreen Use: Yes Assistive Devices: Cane, Contacts and Hearing Aid - Bilateral Review of Systems Review of Systems: All systems reviewed & are unremarkable except as noted in HPI & below Physical Exam Constitutional: + obese, cooperative and comfortable Eyes: PERRL, conjunctivae normal, anicteric sclerae ENMT: external ear and nose normal, oropharynx normal Neck: trachea midline, no thyromegaly Respiratory: normal respiratory effort, lungs clear to auscultation Cardiovascular: RRR, no murmur, no edema Heart Sounds: normal S1 and normal S2; no murmur Extremities: + edema (Bilateral +1 pedal edema) Gastrointestinal (Abdomen): Abdomen soft, distended, nontender. Bowel sounds auscultated all 4 quadrants Musculoskeletal: no cyanosis or clubbing, extremities motor strength 5/5 Skin: no rashes, warm and dry Neurologic: PERRL, EOMI, accommodation nl, no face palsy, no dysarthria Psychiatric: A+Ox3, euthymic affect Results & Data Results & Data Vital Signs (Past 12 Hours) Vital Signs Temp Pulse Resp BP Pulse Ox O2 Del Method O2 Flow Rate 12/10/23 23:30 80 17 12/10/23 23:30 96/70 L 12/10/23 23:15 111/72 12/10/23 23:15 87 19 97 12/10/23 23:00 81 16 97 12/10/23 23:00 100/61 12/10/23 22:45 82 19 75 L 12/10/23 22:45 94/65 L 12/10/23 22:32 86 14 96 12/10/23 22:32 108/67 12/10/23 22:30 92 H 18 81 L 12/10/23 22:27 Nasal Cannula 3 12/10/23 22:24 104/70 12/10/23 22:24 90 16 97 12/10/23 22:21 86 21 97 12/10/23 21:50 80 13 99 12/10/23 21:50 96/67 L 12/10/23 21:45 78 14 98 12/10/23 21:45 96/68 L 12/10/23 21:40 79 16 99 12/10/23 21:40 94/67 L 12/10/23 21:35 77 13 99 12/10/23 21:35 96/63 L 12/10/23 21:30 78 15 99 12/10/23 21:30 96/66 L 12/10/23 21:25 77 16 99 12/10/23 21:25 96/64 L 12/10/23 21:22 80 12/10/23 21:20 77 15 99 12/10/23 21:19 94/65 L 12/10/23 21:19 75 16 100 12/10/23 21:16 85 18 99 12/10/23 21:16 77/54 L 12/10/23 21:15 82 16 99 12/10/23 21:15 80/55 L 12/10/23 21:11 78/53 L 12/10/23 21:10 83 16 100 04/10/24 21:10 78/53 L 12/10/23 21:05 83/60 L 12/10/23 21:05 87 16 100 12/10/23 21:00 85 15 99 12/10/23 21:00 110/70 12/10/23 20:50 90 19 99 12/10/23 20:50 108/73 12/10/23 20:41 98 H 18 98 12/10/23 20:41 92/73 L 12/10/23 20:40 97 H 23 93 12/10/23 20:30 104/71 12/10/23 20:30 83 17 100 12/10/23 20:20 83 14 99 12/10/23 20:20 98/65 L 12/10/23 20:10 102/70 12/10/23 20:10 85 15 12/10/23 20:05 94/67 L 12/10/23 20:05 80 16 98 12/10/23 20:00 96/67 L 12/10/23 20:00 94 H 18 96 12/10/23 19:55 100/69 12/10/23 19:55 92 H 19 97 12/10/23 19:51 95/63 L 12/10/23 19:51 83 16 97 12/10/23 19:50 89 21 97 12/10/23 19:45 82 16 98 12/10/23 19:45 97/62 L 12/10/23 19:40 106/72 12/10/23 19:40 88 15 96 12/10/23 19:10 84 20 98 12/10/23 19:10 99/70 L 12/10/23 19:05 100/70 12/10/23 19:05 85 16 98 12/10/23 19:00 108/74 12/10/23 19:00 88 17 97 12/10/23 18:55 87 21 96 12/10/23 18:55 107/71 12/10/23 18:50 94 H 24 12/10/23 18:50 103/76 12/10/23 18:47 95/75 L 12/10/23 18:47 98 H 24 Nasal Cannula 4 12/10/23 18:40 87 19 97 12/10/23 18:40 109/73 12/10/23 18:35 81 15 112/70 97 Nasal Cannula 2 12/10/23 18:30 84 15 111/80 96 Nasal Cannula 2 12/10/23 18:10 73 15 97/64 L 99 Nasal Cannula 2 12/10/23 18:05 74 14 97/69 L 94 Nasal Cannula 2 12/10/23 18:00 76 19 75/56 L 100 Nasal Cannula 2 12/10/23 17:45 71 14 62/43 L 94 Nasal Cannula 2 12/10/23 17:44 88 L Nasal Cannula 0 12/10/23 17:40 74 13 67/47 L 95 Nasal Cannula 2 12/10/23 17:30 73 18 65/44 L 94 Nasal Cannula 2 12/10/23 17:27 82 12/10/23 17:24 80 19 64/42 L 95 Nasal Cannula 2 12/10/23 17:06 36.7 C 86 18 68/40 L 96 Room Air Coding Level of Care Code 06527 CRITICAL CARE 1ST 30-74M Diagnoses Hypotension I95.9 Metastasis to liver C78.7 Parkinson disease G20.A1 Elevated troponin R79.89 Gait disorder R26.9 Weakness R53.1 History of gastrointestinal stromal tumor (GIST) Z85.09 Hyperlipidemia E78.5 Obstructive sleep apnea G47.33 BITA (acute kidney injury) N17.9 Ascites R18.8
[2023-12-11 03:59] LABS: Basophils # (auto) 0.02 K/uL (0.00-0.20); Basophils % (auto) 0.2 %; Eosinophils # (auto) 0.03 K/uL (0.00-0.50); Eosinophils % (auto) 0.4 %; Hematocrit (blood only) 30.1 % (42.0-52.0); Hemoglobin 9.6 g/dl (14.0-18.0); Immature Granulocytes # (auto) 0.04 K/uL (0.01-0.20); Immature Granulocytes % (auto) 0.5 %; Lymphocytes # (auto) 1.19 K/uL (1.20-3.40); Mean Corpuscular Hemoglobin 30.7 pg (25.0-34.0); Mean Corpuscular Hgb Conc 31.9 g/dL (32.0-36.0); Mean Corpuscular Volume 96.2 fL (80.0-100.0); Mean Platelet Volume 10.6 fL (9.4-12.4); Monocytes # (auto) 0.83 K/uL (0.11-0.59); Monocytes % (auto) 9.7 %; Neutrophils # (auto) 6.41 K/uL (1.40-6.50); Neutrophils % (auto) 75.2 %; Platelet Count 194 K/uL (130-400); RDW Coefficient of Variation 14.2 % (11.5-14.5); RDW Standard Deviation 50.4 fL (36.4-46.3); Red Blood Count 3.13 M/uL (4.70-6.10); White Blood Count 8.52 K/ul (4.8-10.8)
[2023-12-11 04:03] LABS: Albumin Level 3.7 gm/dl (3.4-5.0); BUN Creatinine Ratio 28.6 (10-20); Bilirubin Direct 0.2 mg/dl (0-0.2); Bilirubin,Total 0.7 mg/dl (0.2-1.0); Calcium 8.5 mg/dl (8.6-10.3); Creatinine Clr Calc Pharmacy 31.4 ml/min; Est GFR (African American) 38.7 ml/min; Est GFR (Non-African American) 33.4 ml/min; Phosphorus 4.7 mg/dl (2.5-4.9); Potassium 4.9 mmol/L (3.5-5.1); Total Protein 5.5 gm/dl (6.0-8.3)
[2023-12-11 04:15] LABS: Troponin I High Sensitivity 7413.2 pg/ml (0-20)
[2023-12-11] MEDS: PIPERACILLIN/TAZOBACTAM 4.5 GM in DEXTROSE 5% MINI-B 100 ML IV SCH (05:18)
[2023-12-11 06:43] LABS: Hematocrit (blood only) 30.8 % (42.0-52.0); Hemoglobin 10.1 g/dl (14.0-18.0)
[2023-12-11] MEDS: HEPARIN SODIUM/DEXTROSE 25,000 UNITS/500 ML BAG IV SCH (07:08)
[2023-12-11] MEDS: ICU Protocol for HYPERglycemia SCH (07:10)
[2023-12-11] MEDS: Heparin IV Adult Wt-Based Standard *NO* INITIAL Bolus Protocol IV STA (07:10)
--- NOTE | 2023-12-11 07:17 | Hospitalist Progress Note ---
Date of Service December 11, 2023 Assessment & Plan (1) Hypotension: Plan: 83yo male with 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 Patient had a large volume paracentesis earlier today with removal of 4.5L of ascitic fluid. He was given Albumin Presents hypotensive not responsive to volume expansion with IV crystalloid and colloid. Now on levophed Cardiovascular - patient hypotensive on arrival, did not improve with IVF and Albumin. Likely multifactorial - Troponin elevation with no report of chest pain. No ischemic changes on EKG. patient does complain of what describes as heartburn and was given PPI as an outpatient. -given additional Albumin 25gm x 2 bottles -Continue Levophed, goal MAP>60 -Hold antihypertensives Marked elevation of troponin now with concern for NSTEMI patient put on heparin drip/started on aspirin and scheduled for left heart catheterization 12/12/2023 concerned with IV contrast dye and renal function Heart failure reduced ejection fraction not in exacerbation significant reduction in EF on echocardiogram with multiple regional wall motion abnormalities Consideration if the studies are nonmalignant but now heart failure related (2) Ascites: Plan: GI - patient with GIST, invasion of liver s/p large volume paracentesis. CT of the abdomen performed, results above. Abdomen is markedly distended but nontender, no fever or leukocytosis. Do not strongly suspect active infection or SBP. Patient with worsening GERD symptoms, possibly mechanical from pressure from worsening ascites -Monitor CBC for possible bleed. Patient may need repeat paracentesis/diagnostic -Initiate Rocephin and Flagyl -Protonix 40mg po daily CT suggests mixed attenuation fluid, hgb has been stable (3) BITA (acute kidney injury): Plan: - patient with BITA, H/o ckd3 Concern for hepatorenal syndrome given recent paracenteses. Recently started on Spironolactone as well. Patient is on Losartan, subsequently hold nephrotoxic agents - Losartan, Spironolactone support blood pressure -Midodrine 7.5mg po TID (4) Parkinson disease: Plan: Neuro - patient with history of Parkinson's disease. He is on Carbidopa/Levodopa but is unsure of dose. Information is not available in records -Continue Carbidopa-Levodopa at home dose. is to bring a list in tomorrow for clarification. Seems his dose to be 25/100 tab 3 times daily -Decreased home Gabapentin from 600mg po daily to 300mg po daily for renal compromise -Continue Duloxetine 60mg po qAM (5) Obstructive sleep apnea: Plan Pulmonary - no cough or wheeze. Patient with some report of shortness of breath - likely secondary to pleural effusions, ascites. Patient with MJ - reports he does not use a CPAP at home. No Oxygen use at home. -Continue to monitor Hematology - stable anemia, concern for possible bleed noted on CT of the abdomen Endocrine - NANCY -Check random ID - concern for gram negative or aspiration RLL pneumonia, CT chest suggests atelectasis cultures-Empiric Rocephin Flagyl Admission and Anticipated Discharge Date Admission Date: December 10, 2023 Subjective Patient is awake and alert he has very little appetite he is markedly distended abdomen with tense ascites at this time He feels short of breath but does feel his abdomen is impacting on his excursion of breathing Patient remains on pressors Physical Exam Physical Exam: Sleepy but awakens easily Cardiac exam is regular Lungs are diminished at the base Abdomen is with hypoactive bowel sounds tense dull percussion of abdomen with small umbilical hernia easily reduced Extremities without significant edema Results & Data Results & Data Vital Signs (Past 12 Hours) Vital Signs Pulse Resp BP Pulse Ox O2 Del Method O2 Flow Rate 12/11/23 06:00 88/62 L 12/11/23 06:00 73 21 97 12/11/23 05:45 82/57 L 12/11/23 05:45 70 21 90 12/11/23 05:30 83/57 L 12/11/23 05:30 71 20 86 L 12/11/23 05:15 83/59 L 12/11/23 05:15 70 18 91 12/11/23 05:01 71 10 L 96 12/11/23 05:00 88/60 L 12/11/23 04:59 73 14 95 12/11/23 04:45 72 7 L 94 12/11/23 04:45 85/57 L 12/11/23 04:30 72 13 97 12/11/23 04:30 81/62 L 12/11/23 04:15 85/54 L 12/11/23 04:15 72 12 95 12/11/23 04:00 73 22 88 L 12/11/23 04:00 94/69 L 12/11/23 03:45 81 16 12/11/23 03:45 90/61 L 12/11/23 03:30 84 17 92 12/11/23 03:30 100/72 12/11/23 03:15 92/63 L 12/11/23 03:15 74 21 12/11/23 03:00 74 10 L 97 12/11/23 03:00 108/45 L 12/11/23 02:45 81 10 L 94 12/11/23 02:45 89/62 L 12/11/23 02:30 89/64 L 12/11/23 02:30 73 14 92 12/11/23 02:15 77 19 93 12/11/23 02:15 94/63 L 12/11/23 02:00 74 13 95 12/11/23 02:00 89/63 L 12/11/23 01:58 72 14 98 2 12/11/23 01:45 76 13 92 12/11/23 01:45 95/64 L 12/11/23 01:30 73 21 97 12/11/23 01:30 94/64 L 12/11/23 01:15 93/53 L 12/11/23 01:15 76 12 95 12/11/23 01:00 95/63 L 12/11/23 01:00 82 13 96 12/11/23 00:45 78 15 96 12/11/23 00:45 87/57 L 12/11/23 00:30 100/65 12/11/23 00:30 85 16 97 12/11/23 00:15 102/64 12/11/23 00:15 81 14 95 12/11/23 00:02 82 16 97 12/11/23 00:02 74/54 L 12/11/23 00:00 81 18 94 12/11/23 00:00 76 12/10/23 23:58 80 18 94 12/10/23 23:58 83/53 L 12/10/23 23:49 75 17 95 12/10/23 23:49 87/57 L 12/10/23 23:45 80 15 93 12/10/23 23:30 80 17 12/10/23 23:30 96/70 L 12/10/23 23:15 111/72 12/10/23 23:15 87 19 97 12/10/23 23:00 81 16 97 12/10/23 23:00 100/61 12/10/23 22:45 82 19 75 L 12/10/23 22:45 94/65 L 12/10/23 22:32 86 14 96 12/10/23 22:32 108/67 12/10/23 22:30 Nasal Cannula 2 12/10/23 22:30 92 H 18 81 L 12/10/23 22:27 Nasal Cannula 3 12/10/23 22:24 104/70 12/10/23 22:24 90 16 97 12/10/23 22:21 86 21 97 12/10/23 22:17 85 12/10/23 21:50 80 13 99 12/10/23 21:50 96/67 L 12/10/23 21:45 78 14 98 12/10/23 21:45 96/68 L 12/10/23 21:40 79 16 99 12/10/23 21:40 94/67 L 12/10/23 21:35 77 13 99 12/10/23 21:35 96/63 L 12/10/23 21:30 78 15 99 12/10/23 21:30 96/66 L 12/10/23 21:25 77 16 99 12/10/23 21:25 96/64 L 12/10/23 21:22 80 12/10/23 21:20 77 15 99 12/10/23 21:19 94/65 L 12/10/23 21:19 75 16 100 12/10/23 21:16 85 18 99 12/10/23 21:16 77/54 L 12/10/23 21:15 82 16 99 12/10/23 21:15 80/55 L 12/10/23 21:11 78/53 L 12/10/23 21:10 83 16 100 12/10/23 21:10 78/53 L 12/10/23 21:05 83/60 L 12/10/23 21:05 87 16 100 12/10/23 21:00 85 15 99 12/10/23 21:00 110/70 12/10/23 20:50 90 19 99 12/10/23 20:50 108/73 12/10/23 20:41 98 H 18 98 12/10/23 20:41 92/73 L 12/10/23 20:40 97 H 23 93 12/10/23 20:30 104/71 12/10/23 20:30 83 17 100 12/10/23 20:20 83 14 99 12/10/23 20:20 98/65 L 12/10/23 20:10 102/70 12/10/23 20:10 85 15 12/10/23 20:05 94/67 L 12/10/23 20:05 80 16 98 12/10/23 20:00 96/67 L 12/10/23 20:00 94 H 18 96 12/10/23 19:55 100/69 12/10/23 19:55 92 H 19 97 12/10/23 19:51 95/63 L 12/10/23 19:51 83 16 97 12/10/23 19:50 89 21 97 12/10/23 19:45 82 16 98 12/10/23 19:45 97/62 L 12/10/23 19:40 106/72 12/10/23 19:40 88 15 96 12/10/23 19:10 84 20 98 12/10/23 19:10 99/70 L Laboratory Results Reviewed CBC reviewed chemistry Reviewed troponin markedly elevated Reviewed echocardiogram with severe hypokinetic apical segments markedly reduced ejection fraction of 2025%mild to moderate MR aortic sclerosis and severe pulmonary hypertension PG Care Time/CCT Total # of Minutes Spent Total Time Spent with Patient: Total time spent is greater than 50% in coordination of care (as documented) at patient's floor/unit and/or counseling patient: Coding Level of Care Code 01240 SUB INP/OBS CARE 3/50MIN Diagnoses Hypotension I95.9 Ascites R18.8 BITA (acute kidney injury) N17.9 Parkinson disease G20.A1 Obstructive sleep apnea G47.33
--- NOTE | 2023-12-11 07:25 | Critical Care Progress Note ---
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 Neuro - [facility]: Negative Parkinson syndrome/gait disorderstable, patient uses cane at baseline. Curren tly on bedrest. Will consult PT/OT -Continue carbidopalevodopa Depressionstable, continue Cymbalta Cardiac - Hypotensionlikely multifactorial in the setting of metastatic disease, with low protein, and liver dysfunction. Appears to be progressive process in the past few weeks as he has been taken off antihypertensives. - Cannot rule out infection at this time, see ID below -CT abdomen and pelvis with high attenuation may be intermixed blood product within the abdomen following paracentesis? Although H&H stable. Trend for now -Continue with albumin transfusion as scheduled -Hold antihypertensives and diuresis for now -TTE completed this AM, await results -Elevated troponin, expect this is demand ischemia with BITA as well. No ST elevation on EKG, no chest pain on exam. Monitor closely -Currently maintaining MAP greater than 65 on Levophed. Wean as tolerated. Started on midodrine as well -Pt on imatinib for GIST; there are multiple known side effects that may cause cardiac dysfunction Respiratory - OHSCPAP at night. Currently maintaining attaining oxygen saturation on 3 L nasal cannula. Lungs clear to auscultation, no respiratory distress. 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 Follows with Dr. Allison Lyman at [facility] -Progressive ascites with paracentesis in October, again last week, and earlier today in which 4.5 L were removed -CT abdomen and pelvis with moderate volume ascites with high attenuation which may be secondary to intermixed blood product?, Similar-appearing retroperitoneal and mesenteric adenopathy -LFTs stable. Trend Heart healthy diet GERDPPI RENAL/LYTES - AKIsuspect this is most likely prerenal in the setting of hypotension, however cannot rule out hepatorenal syndrome -Diuresis on hold due to hypotension. Appears volume overloaded with mild anasarca on exam and ascites -Maintain MAP greater than 65. Currently on low-dose Levophed drip -Receiving albumin. Careful with IV fluid resuscitation given ascites/pulmonary congestion -Avoid nephrotoxins and renally adjust medications -Monitor routine BMPs, trend - Strict I's and O's BPHcontinue Flomax ENDO - No history of diabetes or thyroid disease. ICU hyperglycemic protocol HEME - H&H stable, monitor routine CBC ID - No leukocytosis, fevers. Pro-Felipe within normal limits. Lactate was mildly elevated but likely due to hypotension. -Blood cultures currently pending -Started on empiric Zosyn. Will continue for now LINES/IV ACCESS - Peripheral IVs. Will consider placement of central line in the event of increased pressor use DVT PROPHYLAXIS - SCDs Thank you for allowing us to participate in the care of this patient. Please refer to my attending physician's documentation for any further recommendations. Admission and Anticipated Discharge Date Admission Date: December 10, 2023 Supervising Physician Co-Signing Physician Notes Dr. Ewing was resident physician during care of patient. I separately evalua rashard patient for molina portions of the history and the exam. I was present during the critical portion of medical decision making, and I discussed the case with the resident. I generally agree with the findings and plan. Concern for possible SBP source versus biliary, de-escalating Zosyn to ceftriaxone and Flagyl for better SBP coverage. Carries no risk factors for Pseudomonas at this time. Trending lactates and H&H. On heparin for elevated troponin of unclear etiology EKG is reassuring. Echo has been completed awaiting formal result. On monoclonal antibody for GIST tumor, could represent myocarditis secondary to medication effect. Will attempt to confirm last dose. Will consent the patient for a line. May necessitate goals of care discussion if he continues to require vasoactive. With may require advanced access. Was given albumin on admission. Consideration is given to repeat sampling of peritoneal fluid, of note he does not exhibit any clinical signs of infection, no no fever no abdominal pain no elevation of white count so I think SBP is unlikely. He is on heparin we will trend his H&H I do not believe there is active bleeding at this time. Will attempt to obtain records to indicate whether the paracentesis was sent for culture, no indication of this in the procedure note. Additional history from staff patient stopped taking immunologic November 23. At that time they thought it may have been contributing to his ascites. I have personally spent 45 minutes of critical care time in the direct management of this patient. This is a life/limb threatening event. This includes time spent evaluating patient, direct bedside care, chart review, placing orders, interpretation of diagnostic studies, discussion with consultants, patient, and/or family members regarding treatment decisions, as well as other required patient management activities. This time is exclusive of all separately billable procedures, and teaching time and separate from and in addition to any other critical care service time. Subjective Patient seen and evaluated at bedside this morning. No acute events overnight. BP remains soft this morning. Pt without acute complaints. Review of Systems Review of Systems: reviewed, per HPI Physical Exam Physical Exam: Constitutional: ill appearing, NAD HEENT: NCAT, no conjunctival injection CV: NSR, no murmur appreciated, extremities well-perfused, no LE edema Resp: CTABL, no wheezes/rales/rhonchi appreciated, no increased work of breathing GI: soft, distended, +fluid wave, NT MSK: no gross deformities appreciated Skin: warm, dry, no rash appreciated Neuro: alert, no focal neurologic deficit appreciated Results & Data Results & Data Vital Signs (Past 12 Hours) Vital Signs Pulse Resp BP Pulse Ox O2 Del Method O2 Flow Rate 12/11/23 06:00 88/62 L 12/11/23 06:00 73 21 97 12/11/23 05:45 82/57 L 12/11/23 05:45 70 21 90 12/11/23 05:30 83/57 L 12/11/23 05:30 71 20 86 L 12/11/23 05:15 83/59 L 12/11/23 05:15 70 18 91 12/11/23 05:01 71 10 L 96 12/11/23 05:00 88/60 L 12/11/23 04:59 73 14 95 12/11/23 04:45 72 7 L 94 12/11/23 04:45 85/57 L 12/11/23 04:30 72 13 97 12/11/23 04:30 81/62 L 12/11/23 04:15 85/54 L 12/11/23 04:15 72 12 95 12/11/23 04:00 73 22 88 L 12/11/23 04:00 94/69 L 12/11/23 03:45 81 16 12/11/23 03:45 90/61 L 12/11/23 03:30 84 17 92 12/11/23 03:30 100/72 12/11/23 03:15 92/63 L 12/11/23 03:15 74 21 12/11/23 03:00 74 10 L 97 12/11/23 03:00 108/45 L 12/11/23 02:45 81 10 L 94 12/11/23 02:45 89/62 L 12/11/23 02:30 89/64 L 12/11/23 02:30 73 14 92 12/11/23 02:15 77 19 93 12/11/23 02:15 94/63 L 12/11/23 02:00 74 13 95 12/11/23 02:00 89/63 L 12/11/23 01:58 72 14 98 2 12/11/23 01:45 76 13 92 12/11/23 01:45 95/64 L 12/11/23 01:30 73 21 97 12/11/23 01:30 94/64 L 12/11/23 01:15 93/53 L 12/11/23 01:15 76 12 95 12/11/23 01:00 95/63 L 12/11/23 01:00 82 13 96 12/11/23 00:45 78 15 96 12/11/23 00:45 87/57 L 12/11/23 00:30 100/65 12/11/23 00:30 85 16 97 12/11/23 00:15 102/64 12/11/23 00:15 81 14 95 12/11/23 00:02 82 16 97 12/11/23 00:02 74/54 L 12/11/23 00:00 81 18 94 12/11/23 00:00 76 12/10/23 23:58 80 18 94 12/10/23 23:58 83/53 L 12/10/23 23:49 75 17 95 12/10/23 23:49 87/57 L 12/10/23 23:45 80 15 93 12/10/23 23:30 80 17 12/10/23 23:30 96/70 L 12/10/23 23:15 111/72 12/10/23 23:15 87 19 97 12/10/23 23:00 81 16 97 12/10/23 23:00 100/61 12/10/23 22:45 82 19 75 L 12/10/23 22:45 94/65 L 12/10/23 22:32 86 14 96 12/10/23 22:32 108/67 12/10/23 22:30 Nasal Cannula 2 12/10/23 22:30 92 H 18 81 L 12/10/23 22:27 Nasal Cannula 3 12/10/23 22:24 104/70 12/10/23 22:24 90 16 97 12/10/23 22:21 86 21 97 12/10/23 22:17 85 12/10/23 21:50 80 13 99 12/10/23 21:50 96/67 L 12/10/23 21:45 78 14 98 12/10/23 21:45 96/68 L 12/10/23 21:40 79 16 99 12/10/23 21:40 94/67 L 12/10/23 21:35 77 13 99 12/10/23 21:35 96/63 L 12/10/23 21:30 78 15 99 12/10/23 21:30 96/66 L 12/10/23 21:25 77 16 99 12/10/23 21:25 96/64 L 12/10/23 21:22 80 12/10/23 21:20 77 15 99 12/10/23 21:19 94/65 L 12/10/23 21:19 75 16 100 12/10/23 21:16 85 18 99 12/10/23 21:16 77/54 L 12/10/23 21:15 82 16 99 12/10/23 21:15 80/55 L 12/10/23 21:11 78/53 L 12/10/23 21:10 83 16 100 12/10/23 21:10 78/53 L 12/10/23 21:05 83/60 L 12/10/23 21:05 87 16 100 12/10/23 21:00 85 15 99 12/10/23 21:00 110/70 12/10/23 20:50 90 19 99 12/10/23 20:50 108/73 12/10/23 20:41 98 H 18 98 12/10/23 20:41 92/73 L 12/10/23 20:40 97 H 23 93 12/10/23 20:30 104/71 12/10/23 20:30 83 17 100 12/10/23 20:20 83 14 99 12/10/23 20:20 98/65 L 12/10/23 20:10 102/70 12/10/23 20:10 85 15 12/10/23 20:05 94/67 L 12/10/23 20:05 80 16 98 12/10/23 20:00 96/67 L 12/10/23 20:00 94 H 18 96 12/10/23 19:55 100/69 12/10/23 19:55 92 H 19 97 12/10/23 19:51 95/63 L 12/10/23 19:51 83 16 97 12/10/23 19:50 89 21 97 12/10/23 19:45 82 16 98 12/10/23 19:45 97/62 L 12/10/23 19:40 106/72 12/10/23 19:40 88 15 96 Resident Activity Tracking Resident Involvement: Resident Care Provided Care Provided: Adult Hospital Medicine
[2023-12-11 08:18] LABS: Fibrinogen 408 mg/dl (184-400); INR 1.1 (0.9-1.1); Partial Thromboplastin Time 27 Seconds (21-31); Prothrombin Time 11.6 Seconds (9.0-12.0)
[2023-12-11] MEDS: MIDODRINE HCL 2.5 MG TAB PO SCH (08:36)
[2023-12-11] MEDS: SUCRALFATE 1 GM/10 ML UDC PO SCH (08:37)
[2023-12-11] MEDS: GABAPENTIN 300 MG CAP PO SCH (08:37)
[2023-12-11] MEDS: PANTOprazole 40 MG TAB PO SCH ×2 (08:37→20:36)
[2023-12-11] MEDS: DULoxetine HCL 60 MG CAP PO SCH (08:37)
[2023-12-11] MEDS: CARBIDOPA LEVODOPA PO SCH (08:39)
--- NOTE | 2023-12-11 09:47 | Billing Data ---
Date of Service December 11, 2023 Coding Level of Care Code 02846 CRITICAL CARE
[2023-12-11] MEDS: cefTRIAXone SODIUM 2,000 MG in DEXTROSE 5 % MINI-B 50 ML IV SCH (10:03)
[2023-12-11 10:31] LABS: Hematocrit (blood only) 31.6 % (42.0-52.0); Hemoglobin 10.2 g/dl (14.0-18.0); Mean Corpuscular Hemoglobin 30.8 pg (25.0-34.0); Mean Corpuscular Hgb Conc 32.3 g/dL (32.0-36.0); Mean Corpuscular Volume 95.5 fL (80.0-100.0); Mean Platelet Volume 10.7 fL (9.4-12.4); Platelet Count 226 K/uL (130-400); RDW Coefficient of Variation 14.1 % (11.5-14.5); RDW Standard Deviation 49.2 fL (36.4-46.3); Red Blood Count 3.31 M/uL (4.70-6.10); White Blood Count 9.48 K/ul (4.8-10.8)
[2023-12-11] MEDS: metroNIDAZOLE 500 MG/100 ML BAG IV SCH (10:48)
--- NOTE | 2023-12-11 12:28 | XCELERA ---
[id number] [email or web address]\[id number]
[2023-12-11 13:22] LABS: Hematocrit (blood only) 32.6 % (42.0-52.0); Hemoglobin 10.6 g/dl (14.0-18.0); Mean Corpuscular Hemoglobin 30.6 pg (25.0-34.0); Mean Corpuscular Hgb Conc 32.5 g/dL (32.0-36.0); Mean Corpuscular Volume 94.2 fL (80.0-100.0); Mean Platelet Volume 10.5 fL (9.4-12.4); Platelet Count 231 K/uL (130-400); RDW Coefficient of Variation 14.1 % (11.5-14.5); RDW Standard Deviation 48.8 fL (36.4-46.3); Red Blood Count 3.46 M/uL (4.70-6.10); White Blood Count 9.66 K/ul (4.8-10.8)
--- NOTE | 2023-12-11 14:26 | Cardiology Consultation ---
Date of Consultation December 11, 2023 Assessment & Plan (1) Cardiomyopathy: 2. NSTEMI 3. 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 Anemia Patient admitted with new hypotension with echo showing new severe LV dysfunction. Suspect hypotension multifactorial with liver disease and likely some cardiogenic component. Suspicion for CAD is high, unclear if current presentation represents ACS. LV dysfunction on echo also consistent with Takotsubo's. Cardiotoxicity from imatinib is rare but also a consideration Hypotension persists, still requiring low-dose norepinephrine but at present no signs of shock. Has been having intermittent chest symptoms attributed to GERD pre-hospital. Currently chest pain-free and electrically stable. Recommend further ischemic evaluation with cardiac catheterization. Tentatively plan on procedure tomorrow pending renal function. Plan on right heart catheterization at same time to further assess hemodynamics. In the interim agree with IV heparin. Start aspirin. Exam/echo suggest elevated intravascular pressure. If worsening O2 requirements consider diuretics. Please keep n.p.o. past midnight. History of Present Illness Attending Physician: Ricky Renae MD History of Present Illness Mr. Jeffers is a very pleasant 83 year-old male seen today in the ICU in the setting hypertension, NSTEMI and new severe LV dysfunction. Patient has a history of GIST involving ileum postresection now with metastasis to liver on imatinib. Has had recurrent ascites post third paracentesis yester day (4.5 L), reportedly unresponsive to Lasix/spironolactone. Other medical issues include Parkinson's, GERD/Talavera's esophagus, anemia, spinal stenosis. Also with hypertension, dyslipidemia. Patient has no prior cardiac history. Yesterday admitted with hypotension to 60s, generalized fatigue. Patient states fatigue has been an issue for weeks and feels things have just gone down hill since paracentesis. Reports increased dyspnea on exertion over this time worse over the last few days. Has had intermittent chest discomfort which has been attributed to his GERD with partial response to antacids. Denies palpitations. No lower extremity edema. ECG on admission showed sinus rhythm with subtle new lateral ST depressions. HS TropI 5000 up to 7400. Chest CT showed moderate right greater than sign left pleural effusions. Has dense coronary artery calcifications most notably in LAD. Echo today showed severe LV dysfunction, EF 20 to 25% with LAD distribution wall motion abnormality. Has mild to moderate MR. Pulmonary hypertension estimated PASP 60 and dilated IVC. Family history: Noncontributory Social history: Non-smoker. Denies heavy alcohol. lives in [place]. 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 Allergies Allergy/AdvReac Type Severity Reaction Status Date / Time Corticosteroids AdvReac Mild Advised to Verified 12/01/23 09:20 (Glucocorticoids) avoid d/t gastric ulcer NSAIDS (Non-Steroidal AdvReac Mild Advised to Verified 12/01/23 09:20 Anti-Inflamma avoid d/t gastric ulcer Home Medications Medication Instructions Recorded Confirmed Type ascorbic acid (vitamin C) 500 mg 500 mg PO QAM 09/14/18 12/10/23 History tablet (Vitamin C) vitamin E 268 mg (400 unit) capsule 400 unit PO QAM 09/14/18 12/10/23 History vit C 250 mg-vit E 90 mg-zinc 40 1 tab PO BID 01/08/19 12/10/23 History mg-copper 1 [id number] capsule (PreserVision AREDS-2) multivitamin (Daily Multi-Vitamin 1 tab PO DAILY 10/28/19 12/10/23 History tablet) Medical Marijuana 1 dose PO UD PRN Pain 01/04/22 12/10/23 History duloxetine 60 mg capsule,delayed 60 mg PO QAM #90 caps 11/12/22 12/10/23 Rx release (Cymbalta) gabapentin enacarbil 600 mg 600 mg PO QPM 90 days #90 tabs 02/19/23 12/10/23 Rx tablet,extended release losartan 100 mg tablet 100 mg PO DAILY #90 tabs 06/25/23 12/10/23 Rx carbidopa-levodopa 1 tab PO TID 07/07/23 12/10/23 History tramadol 50 mg tablet 50 - 100 mg (1 - 2 x 50 mg) PO Q8H 12/01/23 12/10/23 Rx PRN pain 30 days #120 tabs omega-3 fatty acids 1,000 mg 1,000 mg PO DAILY 12/10/23 12/10/23 History capsule pantoprazole 1 tab PO QAM 12/10/23 12/10/23 History pramipexole 0.75 mg 0.75 mg PO . QID...ON HOLD 12/10/23 12/10/23 History tablet,extended release 24 hr tamsulosin 0.4 mg capsule 0.4 mg PO QAM 12/10/23 12/10/23 History Patient History Medical History Discharge planning issues DVT prophylaxis Urinary tract infection Elevated LFTs GERD (gastroesophageal reflux disease) History of anemia GIST (gastrointestinal stroma tumor), malignant, colon [facility]HUM REED [facility] *DX 5 YEARS AGO Restless leg syndrome BPH with obstruction/lower urinary tract symptoms Ulcer of ileum Hx Personal history of malignant melanoma of skin Head (s/p excision) Obstructive sleep apnea CPAP History of SCC (squamous cell carcinoma) of skin Head 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 Essential hypertension Tremor BILAT HANDS History of bowel disorder "Fibrosing mesenteric" Hx of spinal stenosis DDD Talavera esophagus History of stomach ulcers Hx (NSAIDS-related) Degenerative arthritis Back Hypertension Surgical History S/P epidural steroid injection History of evacuation of hematoma S/P CERVICAL FUSION Fusion of spine CERVICAL FUSION *GOOD ROM History of ankle surgery Right ankle arthroscopy with debridement of tibialis, anterior tendon, removal of avulsion fracture, medical navicular application of PRP concentrate (10/02/18): LMA#5 + PNB at [facility] History of tonsillectomy History of esophagogastroduodenoscopy (EGD) History of colonoscopy History of hand surgery Left pinky amputation (r/t injury) History of gastrointestinal surgery r/t GIST *REMOVED ABDOMINAL TUMOR History of exploratory laparotomy GIST/DX Fibrosing Mesenteric Family History Grandmother Leukemia Father Hearing loss Stroke Other No family history of adverse response to anesthesia No family history of bleeding disorder Denies family history of Ovarian cancer Prostate cancer Myocardial infarction Breast cancer Lung cancer Colorectal cancer Social History Smoking Status: Never smoker Second Hand Exposure: No; Do You Dip or Chew Tobacco: No; Hx Alcohol Use: Yes Alcohol type: wine Alcohol Intake Frequency: 4 or More x per/Week Hx Substance Use: Yes Last Used Substance: Days (ago) Last Used Substance Other:: ONLY MEDICAL MARIJUANA FOR BACK PAIN Substance Use Type Other:: medical marijuana Preferred Language: Sinhala Communication Ability: Effective Visual Impairment: No Limitations Hearing Ability: Use of Hearing Aid Station Repairer Required: No Beliefs That Will Affect Care: None marital status: Current Living Situation: Spouse Current Living Situation Comment: with current occupational status: retired Other Information That Helps Us Care for You: No Feels Safe at Home: Yes Safety Concerns: Feels Safe At This Time Childhood Exposure to Second-Hand Smoke: No Diet: regular caffeine: Yes Dental Care, Regularly: Yes Physical Activity Frequency: Does not Exercise Seatbelt Use: always Sunscreen Use: Yes Assistive Devices: Cane Review of Systems Review of Systems: All systems reviewed & are unremarkable except as noted in HPI & below Physical Exam Physical Exam: General: Resting comfortably HEENT: Sclerae anicteric Lungs: Decreased breath sounds at the bases bilaterally Cardiac: Regular rate and rhythm, 2 out of 6 systolic ejection murmur at right upper sternal border, 2 out of 6 holosystolic murmur left lower sternal border Vascular: 2+ radial Abdomen: Soft, distended, nontender, decreased bowel sounds Extremities: Well perfused, no pedal edema Psych: Alert orient x3, normal affect and mood Results & Data Vital Signs (Past 12 Hours) Vital Signs Pulse Resp BP Pulse Ox O2 Del Method 12/11/23 12:30 129/79 12/11/23 12:30 83 19 96 12/11/23 12:00 116/77 12/11/23 12:00 87 23 93 12/11/23 11:30 115/70 12/11/23 11:30 85 23 95 12/11/23 11:00 108/66 12/11/23 11:00 85 25 H 91 12/11/23 10:30 101/58 L 12/11/23 10:30 83 19 90 12/11/23 10:15 92 H 23 89 L 12/11/23 10:01 108/70 12/11/23 10:01 90 17 91 12/11/23 10:00 85 26 H 86 L 12/11/23 09:45 82 26 H 90 12/11/23 09:30 75/41 L 12/11/23 09:30 75 24 91 12/11/23 09:15 72 15 81 L 12/11/23 09:02 85 17 12/11/23 09:02 76/44 L 12/11/23 09:00 108 H 28 H 04/11/24 08:52 75/49 L 12/11/23 08:52 74 15 12/11/23 08:45 75 13 12/11/23 08:30 62/41 L 12/11/23 08:30 72 23 55 L 12/11/23 08:15 90 18 62 L 12/11/23 08:00 76 16 91 12/11/23 08:00 71/48 L 12/11/23 08:00 Room Air 12/11/23 07:45 85 18 89 L 12/11/23 07:31 95/51 L 12/11/23 07:31 88 17 96 12/11/23 07:30 85 24 12/11/23 07:23 102/64 12/11/23 07:23 89 23 75 L 12/11/23 07:15 85/53 L 12/11/23 07:15 74 14 96 12/11/23 07:00 84/52 L 12/11/23 07:00 69 13 97 12/11/23 06:00 88/62 L 12/11/23 06:00 73 21 97 12/11/23 05:45 82/57 L 12/11/23 05:45 70 21 90 12/11/23 05:30 83/57 L 12/11/23 05:30 71 20 86 L 12/11/23 05:15 83/59 L 12/11/23 05:15 70 18 91 12/11/23 05:01 71 10 L 96 12/11/23 05:00 88/60 L 12/11/23 04:59 73 14 95 12/11/23 04:45 72 7 L 94 12/11/23 04:45 85/57 L 12/11/23 04:30 72 13 97 12/11/23 04:30 81/62 L 12/11/23 04:15 85/54 L 12/11/23 04:15 72 12 95 12/11/23 04:00 73 22 88 L 12/11/23 04:00 94/69 L 12/11/23 03:45 81 16 12/11/23 03:45 90/61 L 12/11/23 03:30 84 17 92 12/11/23 03:30 100/72 12/11/23 03:15 92/63 L 12/11/23 03:15 74 21 12/11/23 03:00 74 10 L 97 12/11/23 03:00 108/45 L 12/11/23 02:45 81 10 L 94 12/11/23 02:45 89/62 L 12/11/23 02:30 89/64 L 12/11/23 02:30 73 14 92 PG Care Time/CCT Total # of Minutes Spent Total Time Spent with Patient: Total time spent is greater than 50% in coordination of care (as documented) at patient's floor/unit and/or counseling patient: Coding Level of Care Code 24191 INT INP/OBS CARE 3/75MIN Diagnoses Cardiomyopathy I42.9
[2023-12-11] MEDS: CARBIDOPA/LEVODOPA 25/100MG TAB PO SCH (14:46)
[2023-12-11] MEDS: FAMOTIDINE 40 MG TABLET PO ONE (16:20)
[2023-12-11 21:29] LABS: Hematocrit (blood only) 30.9 % (42.0-52.0); Hemoglobin 10.5 g/dl (14.0-18.0); Mean Corpuscular Volume 91.2 fL (80.0-100.0); Mean Platelet Volume 10.5 fL (9.4-12.4); Platelet Count 230 K/uL (130-400); RDW Coefficient of Variation 13.8 % (11.5-14.5); RDW Standard Deviation 46.9 fL (36.4-46.3); Red Blood Count 3.39 M/uL (4.70-6.10); White Blood Count 9.66 K/ul (4.8-10.8)
[2023-12-11 22:16] LABS: ANTI-Xa, UFH(UnfractionatedHep 0.23 IU/ml (0.3-0.7)
[2023-12-12] MEDS: ONDANSETRON INJ 2 MG/ML 2 ML VIAL IV PRN (01:41)
[2023-12-12] MEDS: SIMETHICONE 80 MG CHEW PO ONE (03:50)
[2023-12-12 04:43] LABS: Basophils # (auto) 0.01 K/uL (0.00-0.20); Basophils % (auto) 0.1 %; Hematocrit (blood only) 31.9 % (42.0-52.0); Hemoglobin 10.4 g/dl (14.0-18.0); Immature Granulocytes # (auto) 0.06 K/uL (0.01-0.20); Immature Granulocytes % (auto) 0.7 %; Lymphocytes # (auto) 0.36 K/uL (1.20-3.40); Lymphocytes % (auto) 4.1 %; Mean Corpuscular Hemoglobin 30.5 pg (25.0-34.0); Mean Corpuscular Hgb Conc 32.6 g/dL (32.0-36.0); Mean Corpuscular Volume 93.5 fL (80.0-100.0); Monocytes # (auto) 0.65 K/uL (0.11-0.59); Monocytes % (auto) 7.4 %; Neutrophils # (auto) 7.76 K/uL (1.40-6.50); Neutrophils % (auto) 87.7 %; Platelet Count 202 K/uL (130-400); RDW Coefficient of Variation 13.9 % (11.5-14.5); RDW Standard Deviation 47.8 fL (36.4-46.3); Red Blood Count 3.41 M/uL (4.70-6.10); White Blood Count 8.84 K/ul (4.8-10.8)
[2023-12-12 05:05] LABS: ANTI-Xa, UFH(UnfractionatedHep 0.24 IU/ml (0.3-0.7)
[2023-12-12 05:25] LABS: BUN Creatinine Ratio 36.1 (10-20); Calcium 8.6 mg/dl (8.6-10.3); Creatinine Clr Calc Pharmacy 52.3 ml/min; Est GFR (African American) 74.2 ml/min; Phosphorus 3.5 mg/dl (2.5-4.9); Potassium 4.4 mmol/L (3.5-5.1)
--- NOTE | 2023-12-12 06:46 | Critical Care Progress Note ---
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 Neuro - [facility] ICU: Negative Parkinson syndrome/gait disorderstable, patient uses cane at baseline. Curren tly on bedrest. Will consult PT/OT -Continue carbidopalevodopa Depressionstable, continue Cymbalta Cardiac - Hypotensionlikely multifactorial in the setting of metastatic disease, with low protein, and liver dysfunction. Appears to be progressive process in the past few weeks as he has been taken off antihypertensives. - Cannot rule out infection at this time, see ID below -CT abdomen and pelvis with high attenuation may be intermixed blood product within the abdomen following paracentesis? Although H&H stable. Trend for now -Hold antihypertensives and diuresis for now -TTE EF 20-25%; severe pulmonary HTN -Elevated troponin -Plan for crime laboratory analyst today -Currently maintaining MAP greater than 65 on Levophed. Wean as tolerated. Started on midodrine as well -Pt on imatinib for GIST; there are multiple known side effects that may cause cardiac dysfunction Respiratory - OHSCPAP at night. Currently maintaining attaining oxygen saturation on 3 L nasal cannula. Lungs clear to auscultation, no respiratory distress. 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 Follows with Dr. Allison Lyman at [facility] -Progressive ascites with paracentesis in October, again last week, and earlier today in which 4.5 L were removed -CT abdomen and pelvis with moderate volume ascites with high attenuation which may be secondary to intermixed blood product?, Similar-appearing retroperitoneal and mesenteric adenopathy -LFTs stable. Trend Heart healthy diet GERDPPI RENAL/LYTES - AKIimproving Cr now 1.01; likely in setting of hypotension -Diuresis on hold due to hypotension. Appears volume overloaded with mild anasarca on exam and ascites -Maintain MAP greater than 65. Currently on low-dose Levophed drip -Receiving albumin. Careful with IV fluid resuscitation given ascites/pulmonary congestion -Avoid nephrotoxins and renally adjust medications -Monitor routine BMPs, trend - Strict I's and O's BPHcontinue Flomax ENDO - No history of diabetes or thyroid disease. ICU hyperglycemic protocol HEME - H&H stable, monitor routine CBC ID - No leukocytosis, fevers. Pro-Felipe within normal limits. Lactate was mildly elevated but likely due to hypotension. -Blood cultures currently no growth at 24hrs -Started on empiric on ceftriaxone, flagyl LINES/IV ACCESS - Peripheral IVs. Will consider placement of central line in the event of increased pressor use DVT PROPHYLAXIS - SCDs Thank you for allowing us to participate in the care of this patient. Please refer to my attending physician's documentation for any further recommendations. Admission and Anticipated Discharge Date Admission Date: December 10, 2023 Supervising Physician Co-Signing Physician Notes Dr. Ewing was resident physician during care of patient. I separately evaluated patient for molina portions of the history and the exam. I was present during the critical portion of medical decision making, and I discussed the case with the resident. I generally agree with the findings and plan. Patient off vasoactive's greater than 12 hours. Anticipate going to Director Occupational this afternoon. Discontinuing antibiotics as there does not to be an infectious etiology. Improved renal function. Continue heparin until better evaluated under percutaneous angiography. We will we reevaluate after angiography today. Subjective Patient seen and evaluated at bedside this morning. No acute events overnight. BP remains soft this morning. Pt without acute complaints. Plan for crime laboratory analyst today. Review of Systems Review of Systems: reviewed, per HPI Physical Exam Physical Exam: Constitutional: ill appearing, NAD HEENT: NCAT, no conjunctival injection CV: NSR, no murmur appreciated, extremities well-perfused, no LE edema Resp: CTABL, no wheezes/rales/rhonchi appreciated, no increased work of breathing GI: soft, distended, +fluid wave, NT MSK: no gross deformities appreciated Skin: warm, dry, no rash appreciated Neuro: alert, no focal neurologic deficit appreciated Results & Data Results & Data Vital Signs (Past 12 Hours) Vital Signs Temp Pulse Resp BP Pulse Ox O2 Del Method O2 Flow Rate 12/12/23 06:00 87 24 94 12/12/23 06:00 96/66 L 12/12/23 05:30 86 22 79 L 12/12/23 05:18 92/61 L 12/12/23 05:18 82 27 H 97 12/12/23 05:15 77 24 97 12/12/23 05:00 79 28 H 97 12/12/23 04:00 72 24 96 12/12/23 03:18 36.8 C 12/12/23 03:00 77 27 H 94 12/12/23 02:00 80 26 H 94 12/12/23 01:00 80 24 98 12/12/23 00:00 77 23 100 12/12/23 00:00 36.8 C 12/11/23 23:18 76 12/11/23 23:00 84 27 H 100 12/11/23 22:00 78 22 99 12/11/23 21:00 74 24 98 12/11/23 20:42 Nasal Cannula 2 12/11/23 20:00 82 25 H 95 12/11/23 19:22 36.9 C 12/11/23 19:00 81 19 97 Resident Activity Tracking Resident Involvement: Resident Care Provided Care Provided: Adult Hospital Medicine
--- NOTE | 2023-12-12 07:24 | Hospitalist Progress Note ---
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 Patient had a large volume paracentesis earlier today with removal of 4.5L of ascitic fluid. He was given Albumin Initial hypotension was concern to be from infection now may be related to acute cardiac event as echocardiogram shows depressed ejection fraction with regional wall motion abnormalities and elevated troponin. Cardiovascular - patient hypotensive on arrival, Troponin elevation with no report of chest pain. No ischemic changes on EKG. patient does complain of what describes as heartburn and was given PPI as an outpatient. Marked elevation of troponin now with concern for NSTEMI, significant reduction in EF on echocardiogram with multiple regional wall motion abnormalities, patient put on heparin drip/started on aspirin and scheduled for left heart catheterization 12/12/2023, renal function has improved from initial levels Heart failure reduced ejection fraction not in exacerbation Await left heart catheterization results from 12/12/2023 (2) Ascites: Plan: GI - patient with GIST, invasion of liver s/p large volume paracentesis. CT of the abdomen performed, results above. Abdomen is markedly distended but nontender, no fever or leukocytosis. Do not strongly suspect active infection or SBP. Patient with worsening GERD symptoms, possibly mechanical from pressure from worsening ascites -Monitor CBC for possible bleed. Patient may need repeat paracentesis/diagnostic -Continues on Rocephin and Flagyl, blood cultures are negative -Protonix 40mg po daily CT suggests mixed attenuation fluid, hgb has been stable (3) BITA (acute kidney injury): Plan: BITA has resolved remains with CKD 3 Recently started on Spironolactone as well. Patient is on Losartan, subsequently hold nephrotoxic agents - Losartan, Spironolactone support blood pressure -Midodrine 7.5mg po TID (4) Parkinson disease: Plan: Neuro - patient with history of Parkinson's disease. He is on Carbidopa/Levodopa but is unsure of dose. Information is not available in records -Continue Carbidopa-Levodopa at home dose. is to bring a list in tomorrow for clarification. Seems his dose to be 25/100 tab 3 times daily -Decreased home Gabapentin from 600mg po daily to 300mg po daily for renal compromise -Continue Duloxetine 60mg po qAM (5) Obstructive sleep apnea: Plan Pulmonary - no cough or wheeze. Patient with some report of shortness of breath - likely secondary to pleural effusions, ascites. Patient with MJ - reports he does not use a CPAP at home. No Oxygen use at home. -Continue to monitor Hematology - stable anemia, concern for possible bleed noted on CT of the abdomen Endocrine - NANCY -Check random [id number] ID - concern for gram negative or aspiration RLL pneumonia, CT chest suggests atelectasis cultures-Empiric Rocephin Flagyl Admission and Anticipated Discharge Date Admission Date: December 10, 2023 Subjective Patient surrounded by family scheduled for cardiac catheterization due to elevation of troponin and abnormal echocardiogram suggesting significant cardiomyopathy. Abdomen remains distended feels short of breath from abdomen it is not tense Results & Data Results & Data Vital Signs (Past 12 Hours) Vital Signs Temp Pulse Pulse Resp BP BP BP 12/12/23 07:00 98.2 F 90 20 111/60 92/64 L 12/12/23 06:00 87 24 12/12/23 06:00 96/66 L 12/12/23 05:30 86 22 12/12/23 05:18 92/61 L 12/12/23 05:18 82 27 H 12/12/23 05:15 77 24 12/12/23 05:00 79 28 H 12/12/23 04:00 72 24 12/12/23 03:18 98.2 F 12/12/23 03:00 77 27 H 12/12/23 02:00 80 26 H 12/12/23 01:00 80 24 12/12/23 00:00 77 23 12/12/23 00:00 98.2 F 12/11/23 23:18 76 12/11/23 23:00 84 27 H 12/11/23 22:00 78 22 12/11/23 21:00 74 24 12/11/23 20:42 12/11/23 20:00 82 25 H Pulse Ox O2 Del Method O2 Flow Rate 12/12/23 07:00 96 Nasal Cannula 4 12/12/23 06:00 94 12/12/23 06:00 12/12/23 05:30 79 L 12/12/23 05:18 12/12/23 05:18 97 12/12/23 05:15 97 12/12/23 05:00 97 12/12/23 04:00 96 12/12/23 03:18 12/12/23 03:00 94 12/12/23 02:00 94 12/12/23 01:00 98 12/12/23 00:00 100 12/12/23 00:00 12/11/23 23:18 12/11/23 23:00 100 12/11/23 22:00 99 12/11/23 21:00 98 12/11/23 20:42 Nasal Cannula 2 12/11/23 20:00 95 Laboratory Results Reviewed CBC reviewed chemistry PG Care Time/CCT Total # of Minutes Spent Total Time Spent with Patient: Total time spent is greater than 50% in coordination of care (as documented) at patient's floor/unit and/or counseling patient: Coding Level of Care Code 60345 SUB INP/OBS CARE 2/35MIN Diagnoses Hypotension I95.9 Ascites R18.8 BITA (acute kidney injury) N17.9 Parkinson disease G20.A1 Obstructive sleep apnea G47.33
--- NOTE | 2023-12-12 09:35 | Billing Data ---
Date of Service December 12, 2023 Coding Level of Care Code 29503 SUB INP/OBS CARE MIN
[2023-12-12 11:35] LABS: ANTI-Xa, UFH(UnfractionatedHep 0.32 IU/ml (0.3-0.7)
[2023-12-12] MEDS ORDERED: HEPARIN (PORCINE) 1000 UNIT/ML 10 ML (CATH LAB USE ONLY) ONE (16:34)
[2023-12-12] MEDS ORDERED: NITROGLYCERIN/D5W 100MCG/ML 20ML SYR ONE (16:35)
--- NOTE | 2023-12-12 17:01 | Pre Anesthesia Assessment ---
Date of Service December 12, 2023 Pre Sedation Assessment Vital Signs Temp Pulse Pulse Resp BP BP BP 12/12/23 16:00 83/62 L 12/12/23 16:00 81 21 12/12/23 16:00 75 77/49 L 12/12/23 15:00 89/57 L 12/12/23 15:00 80 21 12/12/23 14:59 83 19 12/12/23 14:59 91/59 L 12/12/23 14:00 75 23 12/12/23 14:00 77/49 L 12/12/23 13:01 91/58 L 12/12/23 13:01 74 21 12/12/23 13:00 75 21 12/12/23 12:01 90 20 12/12/23 12:00 82 20 12/12/23 12:00 98.2 F 12/12/23 12:00 73 12/12/23 11:02 75 19 12/12/23 11:02 87/59 L 12/12/23 11:00 80/53 L 12/12/23 11:00 74 24 12/12/23 10:00 91/67 L 12/12/23 10:00 73 21 12/12/23 09:00 93/64 L 12/12/23 09:00 88 24 12/12/23 08:01 83 25 H 12/12/23 08:01 90/59 L 12/12/23 08:00 98.2 F 12/12/23 08:00 84 26 H 12/12/23 08:00 12/12/23 08:00 87 12/12/23 08:00 12/12/23 08:00 87 96/66 L 12/12/23 07:30 78 24 12/12/23 07:00 92/64 L 12/12/23 07:00 77 26 H 12/12/23 07:00 98.2 F 90 20 111/60 92/64 L 12/12/23 06:30 74 24 12/12/23 06:00 87 24 12/12/23 06:00 96/66 L 12/12/23 05:30 86 22 12/12/23 05:18 92/61 L 12/12/23 05:18 82 27 H 12/12/23 05:15 77 24 04/12/24 05:00 79 28 H 12/12/23 04:00 72 24 12/12/23 03:18 98.2 F 12/12/23 03:00 77 27 H 12/12/23 02:00 80 26 H 12/12/23 01:00 80 24 12/12/23 00:00 77 23 12/12/23 00:00 98.2 F 12/11/23 23:18 76 12/11/23 23:00 84 27 H 12/11/23 22:00 78 22 12/11/23 21:00 74 24 12/11/23 20:42 12/11/23 20:00 82 25 H 12/11/23 19:22 98.5 F 12/11/23 19:00 81 19 Pulse Ox O2 Del Method O2 Flow Rate 12/12/23 16:00 12/12/23 16:00 81 L 12/12/23 16:00 12/12/23 15:00 12/12/23 15:00 99 12/12/23 14:59 82 L 12/12/23 14:59 12/12/23 14:00 100 12/12/23 14:00 12/12/23 13:01 12/12/23 13:01 99 12/12/23 13:00 99 12/12/23 12:01 99 12/12/23 12:00 100 12/12/23 12:00 12/12/23 12:00 12/12/23 11:02 100 12/12/23 11:02 12/12/23 11:00 12/12/23 11:00 97 12/12/23 10:00 12/12/23 10:00 12/12/23 09:00 12/12/23 09:00 100 12/12/23 08:01 12/12/23 08:01 12/12/23 08:00 12/12/23 08:00 12/12/23 08:00 Room Air 12/12/23 08:00 12/12/23 08:00 Nasal Cannula 12/12/23 08:00 12/12/23 07:30 94 12/12/23 07:00 12/12/23 07:00 92 12/12/23 07:00 96 Nasal Cannula 4 12/12/23 06:30 93 12/12/23 06:00 94 12/12/23 06:00 12/12/23 05:30 79 L 12/12/23 05:18 12/12/23 05:18 97 12/12/23 05:15 97 12/12/23 05:00 97 12/12/23 04:00 96 12/12/23 03:18 12/12/23 03:00 94 12/12/23 02:00 94 12/12/23 01:00 98 12/12/23 00:00 100 12/12/23 00:00 12/11/23 23:18 12/11/23 23:00 100 12/11/23 22:00 99 12/11/23 21:00 98 12/11/23 20:42 Nasal Cannula 2 12/11/23 20:00 95 12/11/23 19:22 12/11/23 19:00 97 Cardiovascular + regular rate Respiratory + respiratory effort normal Pre-Sedation Airway Assessment Smoking Status: Never smoker Hx Sleep Apnea: Yes Short, Thick Neck: No Thyromental Distance: > or= 3.5 Finger Breadths Oral Cavity: + WNL Mallampati Class: I ASA: ASA4 Procedure Planning Contraindications for Sedation: none Current Medications Reviewed: Yes Notes The planned sedation has been discussed with the patient. Informed Consent was obtained. I have identified the patient, determined the appropriateness of sedation and have assessed the patient immediately prior to the procedure. All medicine(s) and interventions are by my order.
[2023-12-12] MEDS: niCARdipine HCL INJ 2.5 MG/ML 10 ML AMP ONE (17:33)
[2023-12-12] MEDS: LIDOCAINE 1% LOCAL 20 ML VIAL ONE (17:33)
[2023-12-12 18:29] LABS: iSTAT Arterial Blood Gas HCO3 22 meg/L (19-24); iSTAT Arterial Blood Gas pCO2 37 mmHg (35-46); iSTAT Arterial Blood Gas pH 7.37 (7.35-7.45); iSTAT Arterial Blood Gas pO2 84 mmHg (80-95); iSTAT Carbon Dioxide 23 mmol/L (24-31); iSTAT Hematocrit 28 % (42-52); iSTAT Hemoglobin 9.5 g/dl (14.0-18.0); iSTAT Potassium 4.1 mmol/L (3.3-5.0); iSTAT Sodium 140 mmol/L (135-144)
--- NOTE | 2023-12-12 18:32 | Discharge Summary ---
Date of Service December 12, 2023 Admission HPI Per Admitting Provider Mr. 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 He has recently developed large volume ascites requiring therapeutic paracenteses. He had a paracentesis on 11/25/23 with removal of 3.4L of ascitic fluid. He had another paracentesis on 12/04/23 with removal of 3L. Patient reports waking this morning and feeling extremely fatigued. He checked his blood pressure and it was low at 90/60 with a HR of 88 (this is high for him, states resting HR is low 70's). His reports some slurring of his speech around 0800. He was scheduled to have another large-volume paracentesis on 12/12/23 but he called and scheduled it for today due to rapid reaccumulation of ascites. He had a paracentesis performed around 12:30 with removal of 4.5L. He does report being given a bottle of albumin following the paracentesis. He reports generally not feeling well for the last several days. Decreased appetite and poor fluid intake as well as fatigue, ELAINE and decreased exercise tolerance. He denies fever, chills, cough, CP, abdominal pain, nausea, vomiting, diarrhea. He has had some worsening heartburn symptoms. No urinary complaints. States that his urine is somewhat dark in color with some sediment in it. Recent medication changes include addition of Protonix and Carafate for management of heartburn. Initiation of Spironolactone 25mg po daily Patient continued to not feel well so came to the ER. Hypotensive with blood pressure 60's/40's. He was given Albumin x 2 bottles and 1L NSS with persistent hypotension so was started on Levophed During my encounter patient was awake and alert. at bedside. He had Levophed running at 0.07mcg/kg/min with adequate blood pressures SBP >100. 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 GIST Discharge Exam at time of transfer the pt was stabilized with aortic balloon pump Discharge Data Allergies Allergy/AdvReac Type Severity Reaction Status Date / Time Corticosteroids AdvReac Mild Advised to Verified 12/01/23 09:20 (Glucocorticoids) avoid d/t gastric ulcer NSAIDS (Non-Steroidal AdvReac Mild Advised to Verified 12/01/23 09:20 Anti-Inflamma avoid d/t gastric ulcer Consultations 12/10/23 20:20 ED Decision to Admit Stat 12/10/23 22:17 Consult Multicultural Services Librarian Routine 12/11/23 05:04 Consult Cardiology Routine Procedures Performed Operation Date: 12/12/23 13:00 Actual Procedures p Cardiac Cath Procedure - Josue Coreas MD Ordered Studies 12/10/23 17:09 CT head/brain wo con Stat 12/10/23 18:31 CT angio chest PE protocol Stat 12/10/23 21:33 CT Abdomen and Pelvis [CT abd pelvis wo con] Stat 12/12/23 06:36 CL Cath Imgs for PACS use only Routine Hospital Course (1) Hypotension: 83yo male with 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 Patient had a large volume paracentesis earlier 12/09 with removal of 4.5L of ascitic fluid. He was given Albumin Initial hypotension was concern to be from infection now may be related to acute cardiac event as echocardiogram shows depressed ejection fraction with regional wall motion abnormalities and elevated troponin. Cardiovascular - patient hypotensive on arrival, Troponin elevation with no report of chest pain. No ischemic changes on EKG. patient does complain of what describes as heartburn and was given PPI as an outpatient. Marked elevation of troponin now with concern for NSTEMI, significant reduction in EF on echocardiogram with multiple regional wall motion abnormalities, patient put on heparin drip/started on aspirin and scheduled for left heart catheterization 12/12/2023, renal function has improved from initial levels Heart failure reduced ejection fraction not in exacerbation left heart catheterization results from 12/12/2023, shows severe left main coronary artery stenosis with ostial lesion, arraanged transfer to [facility] [address], Dr Verma, for consideration of urgent high risk stent (2) Ascites: GI - patient with GIST, invasion of liver s/p large volume paracentesis. CT of the abdomen performed, results above. Abdomen is markedly distended but nontender, no fever or leukocytosis. Do not strongly suspect active infection or SBP. Patient with worsening GERD symptoms, possibly mechanical from pressure from worsening ascites -Monitor CBC for possible bleed. Patient may need repeat paracentesis/diagnostic -Continues on Rocephin and Flagyl, blood cultures are negative -Protonix 40mg po daily CT suggests mixed attenuation fluid, hgb has been stable (3) BITA (acute kidney injury): BITA has resolved remains with CKD 3 Recently started on Spironolactone as well. Patient is on Losartan, subsequently hold nephrotoxic agents - Losartan, Spironolactone support blood pressure -Midodrine 7.5mg po TID, requird some presors in lab rep (4) Parkinson disease: Neuro - patient with history of Parkinson's disease. He is on Carbidopa/Levodopa but is unsure of dose. Information is not available in [facility] -Continue Carbidopa-Levodopa at home dose. is to bring a list in tomorrow for clarification. Seems his dose to be 25/100 tab 3 times daily -Decreased home Gabapentin from 600mg po daily to 300mg po daily for renal compromise -Continue Duloxetine 60mg po qAM (5) Obstructive sleep apnea: Plan Pulmonary report of shortness of breath - likely secondary to ischemis cardiomyopahty and pleural effusions, ascites. Patient with MJ - reports he does not use a CPAP at home. No Oxygen use at home. -Continue to monitor Hematology - stable anemia, pt still wishes to pursue treatment for GIST -Checked random ID - concern for gram negative or aspiration RLL pneumonia, CT chest suggests atelectasis cultures-Empiric Rocephin Flagyl Total Time Total Time Spent Total Time Spent (In Minutes): greater than 30 minutes were required to complete discharge Discharge Plan Discharge Items Patient Disposition: Transfer Acute Care Hospital Reason For Visit: HYPOTENSION, BITA Discharge Diagnosis: Left main ostial lestion for consideration of high risk angioplasty GIST tumor new cardiomyopathy Activity: Per Instructions section Non-emergency contact: Primary Care Provider, Zone Manager and Oncologist Call non-emergency contact if: your symptoms worsen Follow-up/Referrals: Maximiliano Miller MD [Primary Care Provider] - Diet: Heart Healthy Addtl Attending Provider Instructions: emergent transfer to [facility] [address], aortic balloon pump in place Pending Studies at Discharge: No Stand-Alone Forms: My [facility] Skilled Items Patient informed of condition?: Yes DNR: Yes Discharge Level of Care: Other Communicable Disease: No Discharge Prognosis: Stable Lines: Peripheral IV Urinary Catheter: Yes Medications and DC Order Prescriptions: Continued duloxetine [Cymbalta] 60 mg capsule,delayed release(DR/EC) 60 mg PO QAM Qty: 90 3RF tramadol 50 mg tablet 50 - 100 mg PO Q8H PRN (Reason: pain) 30 Days Qty: 120 0RF Rx Instructions: continuation of home therapy Supervising physician Maximiliano Miller MD [facility] [id number] gabapentin enacarbil 600 mg tablet extended release 600 mg PO QPM 90 Days Qty: 90 3RF losartan 100 mg tablet 100 mg PO DAILY Qty: 90 3RF carbidopa-levodopa 1 tab PO TID Rx Instructions: pt doesnt know strength..unable to look up multivitamin [Daily Multi-Vitamin] Tablet 1 tab PO DAILY PreserVision AREDS-2 [id number] Capsule 1 tab PO BID ascorbic acid (vitamin C) [Vitamin C] 500 mg Tablet 500 mg PO QAM vitamin E 400 unit Capsule 400 unit PO QAM Medical Marijuana 1 dose PO UD PRN (Reason: Pain) omega-3 fatty acids 1,000 mg Capsule 1,000 mg PO DAILY pramipexole 0.75 mg tablet extended release 24 hr 0.75 mg PO . QID...ON HOLD tamsulosin 0.4 mg capsule 0.4 mg PO QAM pantoprazole 1 tab PO QAM Rx Instructions: unknown strength Discharge Orders: Discharge Order (Routine); Ordered 12/12/23 Ordered By: Ricky Renae Admission Data Admit Date/Time: 12/10/23 21:33 Attending Provider: Ricky Renae Admit Provider: Kiesha Lovelace Primary Care Provider: Maximiliano Miller Other Providers: Kiesha Lovelace; Todd Garza; Fabrice Bolaños; Kane Gardner; Maximiliano Jackson; Azael Curry; Mike Rivers; Jamaal Moran Jr; Leland Guardado; Hetal Mcclelland; Lorrie Reynoso; Josue Coreas; Josue Bo; Wilber Simpson; Olga Lidia Giron; Ravi Sotelo; Krystle Flores; Timothy Esparza; Radu Guadarrama; Renan Hernandes; Edward Lee Coding Level of Care Code 03188 INP/OBS DISCH >30 MIN Diagnoses Hypotension I95.9 Ascites R18.8 BITA (acute kidney injury) N17.9 Parkinson disease G20.A1 Obstructive sleep apnea G47.33
[2023-12-12] MEDS ORDERED: LIDOCAINE 1% LOCAL 20 ML VIAL ONE (18:38)
--- NOTE | 2023-12-12 18:44 | Post Anesthesia Assessment ---
Date of Service December 12, 2023 Post Sedation Assessment Vital Signs Temp Pulse Pulse Resp BP BP BP 12/12/23 16:00 83/62 L 12/12/23 16:00 81 21 12/12/23 16:00 75 77/49 L 12/12/23 15:00 89/57 L 12/12/23 15:00 80 21 12/12/23 14:59 83 19 12/12/23 14:59 91/59 L 12/12/23 14:00 75 23 12/12/23 14:00 77/49 L 12/12/23 13:01 91/58 L 12/12/23 13:01 74 21 12/12/23 13:00 75 21 12/12/23 12:01 90 20 12/12/23 12:00 82 20 12/12/23 12:00 98.2 F 12/12/23 12:00 73 12/12/23 11:02 75 19 12/12/23 11:02 87/59 L 12/12/23 11:00 80/53 L 12/12/23 11:00 74 24 12/12/23 10:00 91/67 L 12/12/23 10:00 73 21 12/12/23 09:00 93/64 L 12/12/23 09:00 88 24 12/12/23 08:01 83 25 H 12/12/23 08:01 90/59 L 12/12/23 08:00 98.2 F 12/12/23 08:00 84 26 H 12/12/23 08:00 12/12/23 08:00 87 12/12/23 08:00 12/12/23 08:00 87 96/66 L 12/12/23 07:30 78 24 12/12/23 07:00 92/64 L 12/12/23 07:00 77 26 H 12/12/23 07:00 98.2 F 90 20 111/60 92/64 L 12/12/23 06:30 74 24 12/12/23 06:00 87 24 12/12/23 06:00 96/66 L 12/12/23 05:30 86 22 12/12/23 05:18 92/61 L 12/12/23 05:18 82 27 H 12/12/23 05:15 77 24 04/12/24 05:00 79 28 H 12/12/23 04:00 72 24 12/12/23 03:18 98.2 F 12/12/23 03:00 77 27 H 12/12/23 02:00 80 26 H 12/12/23 01:00 80 24 12/12/23 00:00 77 23 12/12/23 00:00 98.2 F 12/11/23 23:18 76 12/11/23 23:00 84 27 H 12/11/23 22:00 78 22 12/11/23 21:00 74 24 12/11/23 20:42 12/11/23 20:00 82 25 H 12/11/23 19:22 98.5 F 12/11/23 19:00 81 19 Pulse Ox O2 Del Method O2 Flow Rate 12/12/23 16:00 12/12/23 16:00 81 L 12/12/23 16:00 12/12/23 15:00 12/12/23 15:00 99 12/12/23 14:59 82 L 12/12/23 14:59 12/12/23 14:00 100 12/12/23 14:00 12/12/23 13:01 12/12/23 13:01 99 12/12/23 13:00 99 12/12/23 12:01 99 12/12/23 12:00 100 12/12/23 12:00 12/12/23 12:00 12/12/23 11:02 100 12/12/23 11:02 12/12/23 11:00 12/12/23 11:00 97 12/12/23 10:00 12/12/23 10:00 12/12/23 09:00 12/12/23 09:00 100 12/12/23 08:01 12/12/23 08:01 12/12/23 08:00 12/12/23 08:00 12/12/23 08:00 Room Air 12/12/23 08:00 12/12/23 08:00 Nasal Cannula 12/12/23 08:00 12/12/23 07:30 94 12/12/23 07:00 12/12/23 07:00 92 12/12/23 07:00 96 Nasal Cannula 4 12/12/23 06:30 93 12/12/23 06:00 94 12/12/23 06:00 12/12/23 05:30 79 L 12/12/23 05:18 12/12/23 05:18 97 12/12/23 05:15 97 12/12/23 05:00 97 12/12/23 04:00 96 12/12/23 03:18 12/12/23 03:00 94 12/12/23 02:00 94 12/12/23 01:00 98 12/12/23 00:00 100 12/12/23 00:00 12/11/23 23:18 12/11/23 23:00 100 12/11/23 22:00 99 12/11/23 21:00 98 12/11/23 20:42 Nasal Cannula 2 12/11/23 20:00 95 12/11/23 19:22 12/11/23 19:00 97 Recovery Score Activity: Moves 4 extremities Respiration: Deep Breath/Cough Circulation: +/-20% PreAnes Value Consciousness: Fully Awake Oxygen Saturation: O2 needed for >90% Discharge Sedation Level of Care: Fast Track Phase II Post Sedation Plan On clinical assessment, the patient appears to have tolerated the sedation without complications. Patient is recovering as anticipated. Patient will continue to be monitored by nursing and may be discharged when sedation discharge criteria are met per below protocol. Upon Completions of procedure up to 15 minutes continue every 5 minute vital signs and the P.A.R. score; then discharge to a Phase I or Fast Track to Phase II per the following guidelines: * Discharge Patient to appropriate Phase II area if PAR is 8 or greater or return to pre- procedure baseline. The post - procedure orders will be as directed. * If PAR score is less than 8 or not return to pre-procedure baseline then patient will follow Phase I monitoring till PAR is reached for Phase II. The Phase I may be done in procedure room or may call to secure a Phase I area. * If naloxone or flumazenil are used for reversal, hold in Phase I for continued monitoring from when last reversal dose was given for a minimum of 60 minutes or longer pending the nurse and/or physician discretion of patient condition before discharge to Phase II. Please call the Sedation Physician to re-evaluate and complete post-note for discharge to Phase II area. Do NOT discharge from procedure sedation or Phase 1 until post- sedation evaluation note is complete by procedure /sedation MD Sedation Discharge Instructions to be given to the patient at discharge to home.
[2023-12-12] MEDS: fentaNYL citrate PF 100 MCG/2 ML VIAL ONE (18:48)
[2023-12-12] MEDS: OPTIRAY 350 ONE (18:49)
[2023-12-12] MEDS: MIDAZOLAM HCL 1 MG/ML 2ML VIAL ONE (18:49)
--- NOTE | 2023-12-12 19:03 | Cardiac Catheterization ---
[facility] Data: Quality Control Inspector Cardiac Status Clinical evaluation leading to the procedure CAD Presenation: Non STEMI Anginal Classification: CCS IV Diagnostic Physicians Name: Josue Coreas MD Closure Device Recommendations: PCI without planned CABG Cardiac Cath Procedure Full Procedure Date December 12, 2023 Pre-Procedure Diagnosis Pre-Procedure Diagnosis: Non STEMI and Cardiomyopathy AUC Score AUC Score: 7 Post-Procedure Diagnosis Post-Procedure Diagnosis: Severe CAD and Elevated Intracardiac Pressures Procedure(s) Performed Procedure(s) Performed: Coronary Angiography, Left Heart Cath, Right Heart Cath, IABP, Ultrasound Guided Vascular Access and Aortography Inside Sales Consultant Josue Coreas MD [employer]ognos Consultant(s) Showers Estimated Blood Loss Estimated Blood Loss: 20 Medication(s) Medication(s): Fentanyl, Heparin, Lidocaine 1%, Nicardipine, Nitroglycerin, Norepinephrine and Versed Medication(s): Summary of Findings Indication: NSTEMI, new severe LV dysfunction, possible cardiogenic shock Access: 6 Fr right radial artery, 6 Fr right antecubital vein. 8 Fr right PELT INSPECTOR, 6 Fr right CFV Catheters: [place], 6 Fr [place], pigtail, IABP catheter Findings: LM -98% ostial left main stenosis LAD -heavily calcified, medium caliber, patent the apex. Patent D1 Circumflex -medium caliber, calcified, mid segment disease. Receives faint right to left collaterals. Bifurcating high OM1 patent RCA -large caliber, dominant, 20 to 30% mid segment stenosis, distal luminal regularities. PDA without significant disease. Faint collaterals to circumflex. Faint collaterals via septals to apical LAD. RA 8 RV 41/10 PA 43/16 (27) LVEDP 29 PaSat 55% AoSat 96% Genaro CO/CI 4.0/2.1 Thermo CO/CI 3.6/1.9 IABP placement Under ultrasound guidance right PELT INSPECTOR access with placement of a 8 Fr sheath 50 cc IABP navigated into the descending aorta Initially some concern for descending aorta disease. Aortogram confirmed normal caliber vessel without significant disease. IABP left at 1:1 with norepinephrine at 0.03 mcg/kg/min Arterial Closure: TR band. Manual compression on antecubital vein. 8 Fr sheath in right PELT INSPECTOR and 6 Fr sheath in right CFV sutured in place. Summary: 1. Severe coronary artery disease -98% ostial left main coronary artery disease 30% mid RCA. RCA provides faint collaterals to circumflex, apical LAD 2. Elevated left and right-sided filling pressures 3. Mild pulmonary hypertension (postcapillary). 4. Borderline cardiac output 5. Successful IABP placement Recommendations: Transfer to [facility] for consideration of LMCA PCI. Hemodynamics Rest Ao:: 81/56/68 Final Ao: 78/53/65 LV: 85/29 Recommendations Recommendations: PCI without planned CABG Radiation Exposure (mGy) 1373 Contrast (mls) 65 Anesthesia Moderate 0153-8513 Procedural Complication(s) None Disposition [facility] I attest to the content of the Intraoperative Record and any orders documented therein. Any exceptions are noted below. e-TagG Card Cath Procedure Codes Cardiac Catheterization Procedure 1: Cardiovascular Cath Procedures: 26658 Coronaries & LHC (+/-LV) & RHC Therapeutic Services & Ancillary Procedure 1: Cardiovascular Tx and Anc Procedures: 49050 IABP Insertion Procedure 2: Cardiovascular Tx and Anc Procedures: 04595 Ultrasonic Guidance Vascular Access Procedure 3: Cardiovascular Tx and Anc Procedures: 22685 Ultrasonic Guidance Vascular Access Moderate Sedation Procedure 1: Sedation/Anesthesia: 72719 Mod Sedation by the same physician;Init15 Min Child Age 5 & Up Procedure 2: Sedation/Anesthesia: 14276 Mod Sedation by the same physician; Ea [id number] Minutes PG Care Time/CCT Total # of Minutes Spent Total Time Spent with Patient: Total time spent is greater than 50% in coordination of care (as documented) at patient's floor/unit and/or counseling patient:
[2023-12-12] MEDS: SIMETHICONE 80 MG CHEW PO PRN (21:07)
--- NOTE | 2023-12-12 21:39 | Electrocardiogram Report ---
Test Reason : Blood Pressure : / mmHG Vent. Rate : 073 BPM Atrial Rate : 073 BPM P-R Int : 170 ms QRS Dur : 082 ms QT Int : 402 ms P-R-T Axes : 030 -53 117 degrees QTc Int : 442 ms Normal sinus rhythm Left axis deviation Low voltage QRS Nonspecific T wave abnormality Poor R wave progression, consider anterior CO vs. lead placement vs. LVH Abnormal ECG When compared with ECG of 19-APR-2023 07:51, Questionable change in initial forces of Anteroseptal leads Nonspecific T wave abnormality now evident in Lateral leads Confirmed by Leland Guardado ([id number]) on 12/12/2023 9:39:20 PM Referred By: Maximiliano Miller Confirmed By:Lealnd Guardado
--- NOTE | 2023-12-12 22:27 | Electrocardiogram Report ---
Test Reason : Blood Pressure : / mmHG Vent. Rate : 081 BPM Atrial Rate : 081 BPM P-R Int : 144 ms QRS Dur : 084 ms QT Int : 372 ms P-R-T Axes : -06 -57 112 degrees QTc Int : 432 ms Normal sinus rhythm Left axis deviation Septal infarct (cited on or before 19-APR-2023) Nonspecific T wave abnormality Abnormal ECG When compared with ECG of 10-DEC-2023 17:26, Questionable change in initial forces of Septal leads Confirmed by Leland Guardado ([id number]) on 12/12/2023 10:26:48 PM Referred By: Maximiliano Miller Confirmed By:Lealnd Guardado
--- NOTE | 2023-12-12 23:24 | Cardiology Progress Note ---
Date of Service December 12, 2023 Assessment & Plan (1) Cardiomyopathy: Plan: 2. NSTEMI 3. 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 Anemia Cardiac cath today revealed critical ostial LMCA disease. IABP placed and transfer to [facility] arranged. Case discussed family, hospitalist, cloth dyeing range tender and with Dr. Flores at [facility].. Continue IABP at 1:1 Continue heparin infusion, ASA Continue low dose norepinephrine. Defer additional diuretics to accepting facility. Admission and Anticipated Discharge Date Admission Date: December 10, 2023 Subjective Seen after cardiac cath and IABP placement Denies chest pain or nausea. Prior "GERD" symptoms improved. Review of Systems Review of Systems: All systems reviewed & are unremarkable except as noted in HPI & below Physical Exam Physical Exam: General: Resting comfortably HEENT: Sclerae anicteric Lungs: Decreased breath sounds at the bases bilaterally Cardiac: Regular rate and rhythm, 2 out of 6 systolic ejection murmur at right upper sternal border, 2 out of 6 holosystolic murmur left lower sternal border Vascular: RT TR band in place. IABP in place Abdomen: Soft, distended, nontender, decreased bowel sounds Extremities: LE cool. No edema Psych: Alert orient x3, normal affect and mood Results & Data Vital Signs (Past 12 Hours) Vital Signs Temp Pulse Pulse Resp BP BP BP 12/12/23 21:38 97.7 F 75 17 114/74 122/51 L 12/12/23 21:15 89 21 12/12/23 21:00 142/61 H 12/12/23 21:00 75 20 12/12/23 20:45 80 17 12/12/23 20:30 77 22 12/12/23 20:28 12/12/23 20:18 75 114/74 122/51 L 12/12/23 20:15 83 23 12/12/23 20:00 114/74 12/12/23 20:00 78 21 12/12/23 19:45 93 H 29 H 12/12/23 19:45 97.7 F 12/12/23 19:30 77 20 12/12/23 19:30 106/70 12/12/23 16:00 83/62 L 12/12/23 16:00 81 21 12/12/23 16:00 75 77/49 L 12/12/23 15:00 89/57 L 12/12/23 15:00 80 21 12/12/23 14:59 83 19 12/12/23 14:59 91/59 L 12/12/23 14:00 75 23 12/12/23 14:00 77/49 L 12/12/23 13:01 91/58 L 12/12/23 13:01 74 21 12/12/23 13:00 75 21 12/12/23 12:01 90 20 12/12/23 12:00 82 20 12/12/23 12:00 98.2 F 12/12/23 12:00 73 Pulse Ox O2 Del Method O2 Flow Rate 12/12/23 21:38 100 12/12/23 21:15 100 12/12/23 21:00 12/12/23 21:00 100 12/12/23 20:45 100 12/12/23 20:30 100 12/12/23 20:28 Nasal Cannula 4 12/12/23 20:18 100 12/12/23 20:15 100 12/12/23 20:00 12/12/23 20:00 100 12/12/23 19:45 96 12/12/23 19:45 12/12/23 19:30 100 12/12/23 19:30 12/12/23 16:00 12/12/23 16:00 81 L 12/12/23 16:00 12/12/23 15:00 12/12/23 15:00 99 12/12/23 14:59 82 L 12/12/23 14:59 12/12/23 14:00 100 12/12/23 14:00 12/12/23 13:01 12/12/23 13:01 99 12/12/23 13:00 99 12/12/23 12:01 99 12/12/23 12:00 100 12/12/23 12:00 12/12/23 12:00 PG Care Time/CCT Total # of Minutes Spent Total Time Spent with Patient: Total time spent is greater than 50% in coordination of care (as documented) at patient's floor/unit and/or counseling patient: Coding Level of Care Code 74366 SUB INP/OBS CARE 3/50MIN Diagnoses Cardiomyopathy I42.9
[2023-12-13 01:42] LABS: iSTAT Arterial Blood Gas HCO3 25 meg/L (19-24); iSTAT Arterial Blood Gas pCO2 44 mmHg (35-46); iSTAT Arterial Blood Gas pH 7.36 (7.35-7.45); iSTAT Arterial Blood Gas pO2 < 32 mmHg (80-95); iSTAT Carbon Dioxide 26 mmol/L (24-31); iSTAT Hematocrit 29 % (42-52); iSTAT Hemoglobin 9.9 g/dl (14.0-18.0); iSTAT Potassium 4.3 mmol/L (3.3-5.0); iSTAT Sodium 138 mmol/L (135-144)
== END 2023-12-12 21:42 | disposition short-term general hospital (02) | DRG 270 ==
LOC: ED 16:58 → 1E 21:33 → SUATTDRO 21:33 → 1E 22:27
PROC: CLB.ATH (2023-12-12 13:00)